=== PATIENT | male | born 1945 | race Caucasian/White ===

== ENCOUNTER 2020-05-19 08:42 | Outpatient (CLI) | payer MEDICARE ==
[~2020-05-19 08:42] MED LIST: AMLO-186 PO; ASPI325T8 PO; ATEN50TA PO; ATOR40TA59 PO; CEFP200T PO; CIPR500T94 PO; CLON0.2T PO; GLIP5TAB10 PO; HYDR-2765 PO; HYDR50TA6 PO; LISI-130 PO; METF500T16 PO; TRIF2TAB PO
[2020-05-19] MEDS ORDERED: KETAMINE HCL IN NACL, ISO-OSM 50 MG/5 ML SYRINGE ONE (08:47)
[2020-05-19] MEDS ORDERED: LIDOCAINE 2% PF 5 ML VIAL. ONE (08:47)
[2020-05-19] MEDS ORDERED: MIDAZOLAM HCL/PF 2 MG/2 ML VIAL. ONE (08:47)
[2020-05-19] MEDS ORDERED: fentaNYL PF VIAL 100 MCG/2 ML VIAL ONE (08:47)
[2020-05-19] MEDS ORDERED: PROPOFOL 50 ML IV ONE (08:48)
[2020-05-19 10:30] VITALS: BP 136/53
[2020-05-19] MEDS ORDERED: CLON0.1T PO (10:44)
[2020-05-19] MEDS ORDERED: CLON0.2T PO (10:45)
--- NOTE | 2020-05-19 15:51 | RAD ---
EXAM: MRI Lumbar Spine without IV contrast INDICATION: Reason: left lumbar radiculopathy / Spl. Instructions: / History: . TECHNIQUE: Sagittal T1-w, T2-w, and STIR images, and axial T1-w and T2-w images of the lumbar spine. COMPARISON: L-spine MRI with and without IV contrast of 05/04/2016 FINDINGS: The lowest fully formed disc is referred to as the L5-S1 level. ALIGNMENT: Alignment is within normal limits. OSSEOUS: No evidence of fracture or bone destruction. Marrow signal is within normal limits. CONUS MEDULLARIS & CAUDA EQUINA: The conus medullaris is in normal position. The conus medullaris and cauda equina are intrinsically normal. SOFT TISSUES: Partially imaged T2 bright, T1 intermediate intensity lesion in the medial aspect of th e right kidney measuring 2.7 cm, likely a partially exophytic cyst. DISC LEVELS: T12-L1: Unremarkable. L1-L2: Mild facet hypertrophy. No stenosis. L2-L3: Disc desiccation with mild loss of height. Bilateral facet hypertrophy. Moderate right and mod erate to severe left bilateral foraminal narrowing. Mild central canal narrowing from 14 mm at the le debi above to 9 mm at the current level. There is some fluid in the left facet joint. L3-L4: Disc osteophyte complex with bilateral facet hypertrophy and ligamentum flavum thickening resu lts in central canal narrowing to an AP diameter of 9 mm and severe left, moderate to severe right bi lateral foraminal stenosis and at least moderate bilateral right greater than left lateral recess raudel rowing.. Changes from previous left laminectomy show some evidence of healing. L4-L5: Disc desiccation and mild loss of height. Bilateral facet hypertrophy. Mild central canal narr owing in the AP diameter to 1 cm but with trefoil configuration to the central canal. There is left g reater than right moderate bilateral lateral recess narrowing and moderate bilateral foraminal stenos is. Changes from previous left laminectomy show some evidence of healing. L5-S1: Disc osteophyte complex asymmetric to the right and bilateral facet hypertrophy results in mod erate right and mild left foraminal stenoses. No central canal stenosis. IMPRESSION: 1. Multilevel degenerative disc disease and facet arthropathy. This is greatest at L3-L4 where there is mild central canal narrowing and severe left, moderate to severe right foraminal stenosis. 2. Additional degenerative and postoperative changes as above. Electronically signed by: Arabella Lynn MD (05/19/2020 3:48 PM) [id number]
== END 2020-05-19 11:10 | disposition home or self-care (01) ==
LOC: SURG 08:42
PROVIDERS: ATTEND Family Medicine
DX: M51.16 Intervertebral disc disorders with radiculopathy, lumbar region (principal); M48.07 Spinal stenosis, lumbosacral region; M47.26 Other spondylosis with radiculopathy, lumbar region; M89.38 Hypertrophy of bone, other site; M25.78 Osteophyte, vertebrae; M12.88 Other specific arthropathies, not elsewhere classified, other specified site
CPT/HCPCS: 72148; J2250; J2704; J3010

== ENCOUNTER 2020-08-06 10:29 | Emergency (ER) | payer MEDICARE ==
[~2020-08-06] VITALS: Ht 170.2 cm; Wt 100.0 kg
[~2020-08-06 10:29] MED LIST changes: +CLON0.1T PO; -HYDR50TA6 PO; +HYDR50TA9 PO
[2020-08-06 10:30] VITALS: BP 157/69
[2020-08-06] MEDS ORDERED: POLY119P4 PO (14:46)
[2020-08-06] MEDS ORDERED: MAGN296S68 PO (14:46)
[2020-08-06] MEDS ORDERED: DOCU100C28 PO (14:46)
--- NOTE | 2020-08-06 14:46 | PHYS DOC ---
Past Medical History Past Medical History: Constipation, Diabetes-Type II, Hypertension Additional Past Medical Histor: CHRONIC BACK PAIN Past Surgical History: Other Additional Past Surgical Histo: BACK SURG, Smoking Status: Current Every Day Smoker Alcohol Use: None General Adult EDM: Chief Complaint: CONSTIPATION HPI: HPI: Patient is a 74 year old male with history of diabetes type 2, constipation, hypertension who presents to the ED today complaining of constipation for 2 to 3 days. Patient denies any nausea or vomiting. He states he has tried milk of magnesium and stool softeners with no relief. Denies any abdominal pain. He states his rectum is impacted with stool. Review of Systems: Review of Systems: Constitutional: Denies fever or chills. [] Eyes: Denies change in visual acuity. [] HENT: Denies nasal congestion or sore throat. [] Respiratory: Denies cough or shortness of breath. [] Cardiovascular: Denies chest pain or edema. [] GI: Reports constipation, denies abdominal pain nausea, vomiting, bloody stools or diarrhea. [] : Denies dysuria. [] Musculoskeletal: Denies back pain or joint pain. [] Integument: Denies rash. [] Neurologic: Denies headache, focal weakness or sensory changes. [] Psychiatric: Denies depression or anxiety. [] Heart Score: C/O Chest Pain: N/A Risk Factors: Risk Factors: DM, Current or recent (<one month) smoker, HTN, HLP, family history of CAD, obesity. Risk Scores: Score 0 - 3: 2.5% MACE over next 6 weeks - Discharge Home Score 4 - 6: 20.3% MACE over next 6 weeks - Admit for Clinical Observation Score 7 - 10: 72.7% MACE over next 6 weeks - Early Invasive Strategies Allergies: Allergies: Allergies Coded Allergies Type Severity Reaction Last Updated Verified No Known Drug Allergies 08/06/20 No Physical Exam: PE: Constitutional: Well developed, well nourished, no acute distress, non-toxic appearance. [] HENT: Normocephalic, atraumatic, bilateral external ears normal, oropharynx moist, no oral exudates, nose normal. [] Eyes: PERRLA, EOMI, conjunctiva normal, no discharge. [] Neck: Normal range of motion, no tenderness, supple, no stridor. [] Cardiovascular:Heart rate regular rhythm, no murmur [] Lungs & Thorax: Bilateral breath sounds clear to auscultation [] Abdomen: Bowel sounds normal, soft, no tenderness, no masses, no pulsatile masses. [] Rectal exam large hard stool is palpable in the rectal vault Skin: Warm, dry, no erythema, no rash. [] Back: No tenderness, no CVA tenderness. [] Extremities: No tenderness, no cyanosis, no clubbing, ROM intact, no edema. [] Neurologic: Alert and oriented X 3, normal motor function, normal sensory function, no focal deficits noted. [] Psychologic: Affect normal, judgement normal, mood normal. [] Current Patient Data: Vital Signs: Vital Signs Date Time Temp Pulse Resp B/P (MAP) Pulse Ox O2 Delivery O2 Flow Rate FiO2 08/06/20 10:30 101.3 101 24 157/69 (98) 99 Room Air 101.3 EKG: EKG: [] Radiology/Procedures: Radiology/Procedures: [] Course & Med Decision Making: Course & Med Decision Making Pertinent Labs and Imaging studies reviewed. (See chart for details) This is a 74-year-old male patient presented to the ED today for constipation. Patient noted for impacted rectum with stool. Like of molasses enema was done which broke down most of the stool. Patient had several large bowel movements in the ED, feeling better. Discharge to home. Educated on constipation prevention and management. Julian Disclaimer: Julian Disclaimer: This electronic medical record was generated, in whole or in part, using a voice recognition dictation system. Departure Departure Impression: Primary Impression: Constipation Qualified Codes: K59.00 - Constipation, unspecified Disposition: 01 DC HOME SELF CARE/HOMELESS Condition: STABLE Referrals: LEAH GONCALVES MD (PCP) follow up next week Patient Instructions: Constipation, Adult Additional Instructions: You were evaluated in the emergency room for constipation. You were able to defecate in the emergency room. Increase your dietary fiber intake and water intake. Use the medicines prescribed as ordered. Follow-up with your doctor next week Scripts Magnesium Citrate (MAGNESIUM CITRATE) 296 Ml Solution 296 ML PO ONCE, #296 ML Prov: LATISHAA,EDOUARD SEARCH ANALYST 08/06/20 Docusate Sodium (DOCUSATE SODIUM) 100 Mg Capsule 1 CAP PO BID for constipation for 15 Days, #30 CAP 0 Refills Prov: MUTUNGA,EDOUARD SEARCH ANALYST 08/06/20 Polyethylene Glycol 3350 (MIRALAX) 119 Gm Powder 17 GM PO DAILY for constipation, #255 GM 0 Refills dissolve in water Prov: EDOUARD CAMARENA APRN 08/06/20 EDOUARD CAMARENA APRN Aug 06, 2020 14:46
== END 2020-08-06 14:56 | disposition home or self-care (01) ==
LOC: ER 10:29
DX: K59.00 Constipation, unspecified (principal); E11.9 Type 2 diabetes mellitus without complications; I10 Essential (primary) hypertension; G89.29 Other chronic pain; F17.200 Nicotine dependence, unspecified, uncomplicated
CPT/HCPCS: 99284

== ENCOUNTER 2021-03-03 14:20 | Inpatient (IN) | payer MEDICARE ==
[~2021-03-03] VITALS: Ht 170.2 cm; Wt 99.0 kg
[~2021-03-03 14:20] MED LIST changes: +DOCU100C28 PO; +MAGN296S68 PO; +POLY119P4 PO
[2021-03-03] MEDS ORDERED: IV NORMAL SALINE 1000ML BAG 1,000 ML IV ONE (14:30)
--- NOTE | 2021-03-03 14:34 | PHYS DOC ---
Past Medical History Past Medical History: Constipation, Diabetes-Type II, Hypertension Additional Past Medical Histor: CHRONIC BACK PAIN Past Surgical History: Other Additional Past Surgical Histo: BACK SURG, Smoking Status: Current Every Day Smoker Alcohol Use: None General Adult HPI: HPI: Patient is a 75 year old male with a history of diabetes type 2, hypertension, constipation, who presents the ED today complaining of generalized weakness that has been going on for days and got worse today. Patient denies any fever, cough, nasal congestion. Denies any headache, chest pain, shortness of breath. Denies any abdominal pain. He arrives in the ED covered in his own feces some of it dried on him, he states he tried cleaning himself up but he was too weak Review of Systems: Review of Systems: Constitutional: Reports generalized weakness. Denies fever or chills. [] Eyes: Denies change in visual acuity. [] HENT: Denies nasal congestion or sore throat. [] Respiratory: Denies cough or shortness of breath. [] Cardiovascular: Denies chest pain or edema. [] GI: Denies abdominal pain, nausea, vomiting, bloody stools or diarrhea. [] : Denies dysuria. [] Musculoskeletal: Denies back pain or joint pain. [] Integument: Denies rash. [] Neurologic: Denies headache, focal weakness or sensory changes. [] Psychiatric: Denies depression or anxiety. [] Heart Score: C/O Chest Pain: N/A Risk Factors: Risk Factors: DM, Current or recent (<one month) smoker, HTN, HLP, family history of CAD, obesity. Risk Scores: Score 0 - 3: 2.5% MACE over next 6 weeks - Discharge Home Score 4 - 6: 20.3% MACE over next 6 weeks - Admit for Clinical Observation Score 7 - 10: 72.7% MACE over next 6 weeks - Early Invasive Strategies Current Medications: Current Medications Medications (Trade) Dose Ordered Sig/Stephan Start Time Stop Time Status Last Admin Dose Admin Sodium Chloride 1,000 ml @ 1,000 mls/hr 1X ONCE 03/03/21 14:30 03/03/21 15:29 UNV Allergies: Allergies: Allergies Coded Allergies Type Severity Reaction Last Updated Verified No Known Drug Allergies 08/06/20 No Physical Exam: PE: Constitutional: Pale appearing patient. Well developed, well nourished, no acute distress, non-toxic appearance. [] HENT: Normocephalic, atraumatic, bilateral external ears normal, oropharynx moist, no oral exudates, nose normal. [] Eyes: PERRLA, EOMI, conjunctiva normal, no discharge. [] Neck: Normal range of motion, no tenderness, supple, no stridor. [] Cardiovascular:Heart rate regular rhythm, no murmur [] Lungs & Thorax: Bilateral breath sounds clear to auscultation [] Abdomen: Bowel sounds normal, soft, no tenderness, no masses, no pulsatile masses. [] Skin: Patient is covered in his own feces from his buttocks all the way to his feet. His hands and forearms also have feces. Some of it is dried on his skin. Back: No tenderness, no CVA tenderness. [] Extremities: No tenderness, no cyanosis, no clubbing, ROM intact, no edema. [] Neurologic: Alert and oriented X 3, normal motor function, normal sensory fu nction, no focal deficits noted. Cranial nerves II through XII intact. Psychologic: Affect normal, judgement normal, mood normal. [] EKG: EK interpreted by Dr. Denny sinus tachycardia heart rate 107 no STEMI [] Radiology/Procedures: Radiology/Procedures: []PROCEDURE: PORTABLE CHEST 1V EXAM: Chest, single view. HISTORY: Weakness. COMPARISON: None. FINDINGS: A frontal view of the chest is obtained. There is no infiltrate, pleural effusion or pneumothorax. There is cardiomegaly. IMPRESSION: Cardiomegaly. Electronically signed by: Kylie Arriola MD (03/03/2021 3:13 PM) [id number] DICTATED and SIGNED BY: KYLIE ARRIOLA MD DATE: 03/03/21 [id number] 0 Course & Med Decision Making: Course & Med Decision Making Pertinent Labs and Imaging studies reviewed. (See chart for details) This a 75-year-old male patient presenting to the ED today to be evaluated for generalized weakness. Symptoms have been going on for days. Patient arrives in the ED covered with feces. He states he tried cleaning himself but he was too weak. Vitals on arrival to the ED blood pressure 126/59, pulse 85, respirations 16 on room air, O2 sats 100%. Temperature 97.5. CBC with a WBC of 15.0, hemoglobin 5.0 with hematocrit of 17, MVC 65, MCH 19, CMP with potassium of 3.3, creatinine 3.8, BUN 122. Receiving IV fluids right now. 2 units of blood ordered. Spoke with Dr. Hall who accepted patient for admission. Spoke with Valentine NICHOLSON for [employer] OPERATOR Routine consult placed for nephrology Julian Disclaimer: Julian Disclaimer: This electronic medical record was generated, in whole or in part, using a voice recognition dictation system. Departure Departure Impression: Primary Impression: Generalized weakness Additional Impressions: Anemia Qualified Codes: D64.9 - Anemia, unspecified ARF (acute renal failure) Qualified Codes: N17.9 - Acute kidney failure, unspecified Disposition: ADMITTED INPATIENT Condition: STABLE Referrals: LEAH HALL MD (PCP) EDOUARD CAMARENA APRN Mar 03, 2021 14:34
[2021-03-03 14:49] LABS: BASO % 0 % (0-3); EOS % 0 % (0-3); LYMPH # 0.4 x10^3/uL (1.0-4.8); LYMPH % 3 % (24-48); MEAN CORPUSCULAR HEMOGLOBIN 19 pg (25-35); MEAN CORPUSCULAR HGB CONC 29 g/dL (31-37); MEAN CORPUSCULAR VOLUME 65 fL (79-100); MONO # 0.9 x10^3/uL (0.0-1.1); MONO % 6 % (0-9); NEUT # 13.7 x10^3/uL (1.8-7.7); NEUT % 91 % (31-73); PLATELET COUNT 380 x10^3/uL (140-400); RED BLOOD COUNT 2.61 x10^6/uL (4.30-5.70); RED CELL DISTRIBUTION WIDTH 20.5 % (11.5-14.5); WHITE BLOOD COUNT 15.1 x10^3/uL (4.0-11.0)
[2021-03-03 15:02] LABS: CALCIUM 8.3 mg/dL (8.5-10.1); CREATININE 3.8 mg/dL (0.7-1.3); GFR 15.6; POTASSIUM 3.3 mmol/L (3.5-5.1)
[2021-03-03 15:08] LABS: ALBUMIN 3.1 g/dL (3.4-5.0); ALBUMIN/GLOBULIN RATIO 0.8 (1.0-1.7); MAGNESIUM 2.4 mg/dL (1.8-2.4); TOTAL BILIRUBIN 1.1 mg/dL (0.2-1.0); TOTAL PROTEIN 6.8 g/dL (6.4-8.2)
[2021-03-03 15:15] LABS: % BANDS 1 % (0-9); % LYMPHS 3 % (24-48); % MONOS 3 % (0-10); % SEGS 93 % (35-66); PLT ESTIMATE ADEQUATE (ADEQUATE)
[2021-03-03] MEDS ORDERED: ACETAMINOPHEN 325 MG TABLET. PO PRN (15:15)
[2021-03-03] MEDS ORDERED: ONDANSETRON PF 4 MG/2 ML VIAL. IVP PRN (15:15)
[2021-03-03] MEDS ORDERED: FAMOTIDINE 20 MG/2 ML VIAL IVP ONE (15:15)
[2021-03-03] MEDS ORDERED: MORPHINE SULFATE 2 MG/ML INJ. IVP PRN (15:15)
--- NOTE | 2021-03-03 15:15 | RAD ---
EXAM: Chest, single view. HISTORY: Weakness. COMPARISON: None. FINDINGS: A frontal view of the chest is obtained. There is no infiltrate, pleural effusion or pneumo thorax. There is cardiomegaly. IMPRESSION: Cardiomegaly. Electronically signed by: Kylie Courtney MD (03/03/2021 3:13 PM) [id number]
[2021-03-03 15:16] LABS: HYPOCHROMIA MARKED; MICROCYTOSIS MARKED; POLYCHROMASIA SLIGHT; SCHISTOCYTES FEW
[2021-03-03 15:17] LABS: ANISOCYTOSIS MOD
--- NOTE | 2021-03-03 15:34 | RAD ---
EXAM: CT HEAD WITHOUT CONTRAST. HISTORY: Weakness. TECHNIQUE: Computed tomography of the head was performed without intravenous contrast. One or more of the following individualized dose reduction techniques were utilized for this examination: 1. Automated exposure control. 2. Adjustment of the mA and/or kV according to patient size. 3. Use of iterative reconstruction technique. COMPARISON: None. FINDINGS: There is no intracranial hemorrhage. Hypoattenuation within the periventricular white matte r indicates mild chronic microangiopathic change. Prominence of the lateral ventricles and hemispheri c sulci indicates moderate atrophy. The visualized paranasal sinuses appear clear. There is at least mild bilateral proptosis without ext raocular muscle enlargement or oral mass. The temporal bones are unremarkable. The calvarium reveals no suspicious lesions. There are atherosclerotic calcifications of the internal carotid and vertebral arteries. IMPRESSION: 1. No acute intracranial findings. 2. Moderate atrophy and mild chronic microangiopathic white matter change. 3. Bilateral proptosis appears to be secondary to expansion of orbital fat. Correlate to exclude caus es such as thyroid ophthalmopathy. Electronically signed by: Toño Huber MD (03/03/2021 3:31 PM) [id number]
[2021-03-03 15:57] LABS: FECAL OB PT POSITIVE (NEG)
[2021-03-03] MEDS ORDERED: POLYETHYLENE GLYCOL 3350 17 GM PACKET. PO PRN (16:00)
--- NOTE | 2021-03-03 16:00 | PDOC2 ---
GI CONSULT Date of Service: DATE: 03/03/21 TIME: 15:36 Reason For Consult: anemia HPI: HPI: 75 y/o male to ER w/ weakness. We are asked to see for DOREEN. D/w ER staff - was covered in dried feces and urine, also reports of large pressure sore. Pt reports weakness has been ongoing for months - years but has been worse "several times" recently. He denies obvious GI bleeding including hematemesis, hematochezia, and melena. Occasional heartburn, untreated. No dysphagia, n/v, and abdominal pain. Says hasn't been eating normally because he couldn't get up to get food. Also hasn't been stooling normally because he couldn't get up (but also says no diarrhea or constipation). Assumes weight loss. No previous EGD or colonoscopy and "I don't want that!" No GB, liver, pancreas, or PUD history. Chronic back pain on hydrocodone PRN. Denies NSAIDs. Says sees Dr. Hall every 6 months and has labs. Unaware of any anemia history. Had mobile mum. Reviewed past labs in [facility] - anemic (Hgb 11) in 2016, normal BUN, Cr, and LFTs then. PMH: PMH: HTN, DM, lumbar stenosis back surgery, appendectomy, shoulder surgery FH: Family History: No pertinent hx Social History: Smoke: Quit ALCOHOL: other (some in the past, quit awhile ago) Drugs: None ROS: GEN: Denies fevers, chills, sweats HEENT: Denies blurred vision, sore throat CV: Denies chest pain RESP: Denies shortness of air, cough GI: Per HPI : Denies hematuria, dysuria ENDO: ?weight loss NEURO: Denies confusion, dizziness MSK: +weakness +back pain SKIN: Denies jaundice, pruritus Vitals: Vitals: Vital Signs Date Time Temp Pulse Resp B/P (MAP) Pulse Ox O2 Delivery O2 Flow Rate FiO2 03/03/21 14:42 97.5 85 16 126/59 (81) 100 Room Air 97.5 Labs: Labs: Laboratory Tests Test 03/03/21 14:25 White Blood Count 15.1 x10^3/uL (4.0-11.0) Red Blood Count 2.61 x10^6/uL (4.30-5.70) Hemoglobin 5.0 g/dL (13.0-17.5) Hematocrit 17.0 % (39.0-53.0) Mean Corpuscular Volume 65 fL (79-100) Mean Corpuscular Hemoglobin 19 pg (25-35) Mean Corpuscular Hemoglobin Concent 29 g/dL (31-37) Red Cell Distribution Width 20.5 % (11.5-14.5) Platelet Count 380 x10^3/uL (140-400) Neutrophils (%) (Auto) 91 % (31-73) Lymphocytes (%) (Auto) 3 % (24-48) Monocytes (%) (Auto) 6 % (0-9) Eosinophils (%) (Auto) 0 % (0-3) Basophils (%) (Auto) 0 % (0-3) Neutrophils # (Auto) 13.7 x10^3/uL (1.8-7.7) Lymphocytes # (Auto) 0.4 x10^3/uL (1.0-4.8) Monocytes # (Auto) 0.9 x10^3/uL (0.0-1.1) Eosinophils # (Auto) 0.0 x10^3/uL (0.0-0.7) Basophils # (Auto) 0.0 x10^3/uL (0.0-0.2) Segmented Neutrophils % 93 % (35-66) Band Neutrophils % 1 % (0-9) Lymphocytes % 3 % (24-48) Monocytes % 3 % (0-10) Platelet Estimate Adequate (ADEQUATE) Polychromasia Slight Hypochromasia Marked Anisocytosis Mod Microcytosis Marked Macrocytosis Schistocytes Few Sodium Level 134 mmol/L (136-145) Potassium Level 3.3 mmol/L (3.5-5.1) Chloride Level 96 mmol/L (98-107) Carbon Dioxide Level 15 mmol/L (21-32) Anion Gap 23 (6-14) Blood Urea Nitrogen 122 mg/dL (8-26) Creatinine 3.8 mg/dL (0.7-1.3) Estimated GFR (Cockcroft-Gault) 15.6 BUN/Creatinine Ratio 32 (6-20) Glucose Level 170 mg/dL (70-99) Calcium Level 8.3 mg/dL (8.5-10.1) Magnesium Level 2.4 mg/dL (1.8-2.4) Iron Level 12 ug/dL (65-175) Total Iron Binding Capacity 427 ug/dL (250-450) Iron Saturation 3 % (15-34) Total Bilirubin 1.1 mg/dL (0.2-1.0) Aspartate Amino Transf (AST/SGOT) 126 U/L (15-37) Alanine Aminotransferase (ALT/SGPT) 570 U/L (16-63) Alkaline Phosphatase 149 U/L (46-116) Troponin I Quantitative 0.047 ng/mL (0.000-0.055) AA-Qkl-G-Type Natriuretic Peptide 83343 pg/mL (0-124) Total Protein 6.8 g/dL (6.4-8.2) Albumin 3.1 g/dL (3.4-5.0) Albumin/Globulin Ratio 0.8 (1.0-1.7) Thyroid Stimulating Hormone (TSH) 0.390 uIU/mL (0.358-3.74) Allergies: Coded Allergies: No Known Drug Allergies (Unverified , 08/06/20) Medications: Current Medications Medications (Trade) Dose Ordered Sig/Stephan Route PRN Reason Start Time Stop Time Status Last Admin Dose Admin Sodium Chloride 1,000 ml @ 1,000 mls/hr 1X ONCE IV 03/03/21 14:30 03/03/21 15:29 DC 03/03/21 15:03 Imaging: Imaging: CXR 03/02 IMPRESSION: Cardiomegaly. Head CT 03/02 IMPRESSION: 1. No acute intracranial findings. 2. Moderate atrophy and mild chronic microangiopathic white matter change. 3. Bilateral proptosis appears to be secondary to expansion of orbital fat. Correlate to exclude causes such as thyroid ophthalmopathy. PE: GEN: NAD, brother present HEENT: Atraumatic, PERRL LUNGS: diminished anteriorly HEART: RRR ABD: NABS, S/NT, maybe some distention SKIN: pale NEURO/PSYCH: A & O 3, not a great historian, anxious A/P: A/P: Weakness Leukocytosis, DOREEN, KAMILLE, elevated BNP, elevated LFTs, +Hemoccult Occasional heartburn CRC screen - none Chronic pain Rapid COVID negative -- Agree w/ transfusion. Start iron and PPI. Follow labs. Check abd US for completeness. Okay to eat per GI. Suggested he consider EGD and colonoscopy at some point as outpt - he declines. Defer goals of care discussion to Dr. Hall. Address KAMILLE and BNP - nephrology asked to see. SHERIF PHILLIPS Mar 03, 2021 16:00
--- NOTE | 2021-03-03 16:46 | RAD ---
EXAM: Abdomen sonogram. HISTORY: Elevated liver function laboratory values. TECHNIQUE: Sonographic imaging of the abdomen was performed. COMPARISON: None. FINDINGS: The liver is normal in size. The liver parenchyma is echogenic. However, this is similar to the adjacent right renal parenchyma. No focal hepatic lesion is seen. The kidneys are normal in size . There are simple appearing right renal cysts, the largest of which measures 3.1 cm. Postoperative p erformed for simple cysts. The spleen is normal in size. The pancreas, aorta and inferior vena cava a re partially obscured due to bowel gas. There is trace perihepatic ascites. IMPRESSION: 1. Echogenic hepatic parenchyma. This is similar compared to the renal protocol and may be due to bautista ging technique. Given abnormal liver function laboratory values, this may also be due to hepatic stea tosis. No focal hepatic lesion is seen. 2. Simple right renal cysts. 3. Trace perihepatic ascites. Electronically signed by: Kylie Courtney MD (03/03/2021 4:44 PM) [id number]
[2021-03-03 18:12] VITALS: BP 91/46
[2021-03-03] MEDS ORDERED: PIOG30TA62 PO (18:12)
[2021-03-03] MEDS ORDERED: CALC500T54 PO (18:12)
--- NOTE | 2021-03-03 18:19 | EKG ---
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
[2021-03-03 20:43] VITALS: BP 90/36
[2021-03-03] MEDS: FERROUS SULFATE 325 MG TABLET. PO SCH (20:55)
[2021-03-03] MEDS: PANTOPRAZOLE 40 MG TABLET.DR. PO SCH (20:55)
[2021-03-03 21:08] VITALS: BP 102/42
[2021-03-03 23:27] VITALS: BP 98/52
[2021-03-03 23:36] VITALS: BP 101/42
[2021-03-03 23:51] VITALS: BP 92/45
[2021-03-04] VITALS (23 sets, daily range): BP systolic 91–129; BP diastolic 41–65
[2021-03-04 04:51] LABS: BASO % 0 % (0-3); EOS % 0 % (0-3); LYMPH # 1.2 x10^3/uL (1.0-4.8); LYMPH % 10 % (24-48); MEAN CORPUSCULAR HEMOGLOBIN 21 pg (25-35); MEAN CORPUSCULAR HGB CONC 30 g/dL (31-37); MEAN CORPUSCULAR VOLUME 70 fL (79-100); MONO # 0.7 x10^3/uL (0.0-1.1); MONO % 6 % (0-9); NEUT # 10.4 x10^3/uL (1.8-7.7); NEUT % 84 % (31-73); PLATELET COUNT 282 x10^3/uL (140-400); RED BLOOD COUNT 2.78 x10^6/uL (4.30-5.70); RED CELL DISTRIBUTION WIDTH 23.8 % (11.5-14.5); WHITE BLOOD COUNT 12.3 x10^3/uL (4.0-11.0)
[2021-03-04 04:57] LABS: HEMATOCRIT 19.4 % (39.0-53.0); HEMOGLOBIN 5.9 g/dL (13.0-17.5)
[2021-03-04 05:00] LABS: ALBUMIN 2.8 g/dL (3.4-5.0); ALBUMIN/GLOBULIN RATIO 0.8 (1.0-1.7); CALCIUM 7.9 mg/dL (8.5-10.1); CREATININE 3.4 mg/dL (0.7-1.3); GFR 17.8; TOTAL BILIRUBIN 1.2 mg/dL (0.2-1.0); TOTAL PROTEIN 6.2 g/dL (6.4-8.2)
[2021-03-04 05:02] LABS: POTASSIUM 2.6 mmol/L (3.5-5.1)
--- NOTE | 2021-03-04 06:26 | NUR ---
Pt received 2 units of PRBC's during the noc. Rechecked labs after 15m and hgb only increased to 5.9. Will recheck labs. Notified Dr. Hall of critical K level however Physician wants level rechecked also. Pt laying in bed without complaints. Pt does moan frequently like he is in discomfort. However when this nurse asks him if he is uncomfortable he states no. Pt continues with redness all over in groin site, barrier cream applied. Pictures taken of pt's buttocks due to open areas and possible DTI. Pt forgetful and continues to take heart monitor, gown and nasal cannula off while lying in bed. Bed alarm on at this time and will continue to monitor.
[2021-03-04] MEDS: PANTOPRAZOLE 40 MG TABLET.DR. PO SCH (08:28)
[2021-03-04] MEDS: FERROUS SULFATE 325 MG TABLET. PO SCH ×2 (08:28→17:28)
--- NOTE | 2021-03-04 10:05 | PDOC ---
Date of Service: DATE: 03/04/21 TIME: 09:57 Subjective: Subjective: "Where are you?" - he asked as I was standing in the doorway. Objective: Objective: D/w nurse - plans for two more units pRBCs, IVF, and potassium replacement. 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 Apparently was "down for a week." Was told he'd need a colonoscopy as outpt. Vital Signs: Vital Signs Date Time Temp Pulse Resp B/P (MAP) Pulse Ox O2 Delivery O2 Flow Rate FiO2 03/04/21 07:00 97.7 82 18 101/44 (63) 90 Nasal Cannula 2.0 97.7 Labs: Laboratory Tests Test 03/03/21 14:24 03/03/21 14:25 03/03/21 15:15 03/03/21 15:20 Creatine Kinase 1764 U/L Vitamin B12 Level 436 pg/mL White Blood Count 15.1 x10^3/uL Red Blood Count 2.61 x10^6/uL Hemoglobin 5.0 g/dL Hematocrit 17.0 % Mean Corpuscular Volume 65 fL Mean Corpuscular Hemoglobin 19 pg Mean Corpuscular Hemoglobin Concent 29 g/dL Red Cell Distribution Width 20.5 % Platelet Count 380 x10^3/uL Neutrophils (%) (Auto) 91 % Lymphocytes (%) (Auto) 3 % Monocytes (%) (Auto) 6 % Eosinophils (%) (Auto) 0 % Basophils (%) (Auto) 0 % Neutrophils # (Auto) 13.7 x10^3/uL Lymphocytes # (Auto) 0.4 x10^3/uL Monocytes # (Auto) 0.9 x10^3/uL Eosinophils # (Auto) 0.0 x10^3/uL Basophils # (Auto) 0.0 x10^3/uL Segmented Neutrophils % 93 % Band Neutrophils % 1 % Lymphocytes % 3 % Monocytes % 3 % Platelet Estimate Adequate Polychromasia Slight Hypochromasia Marked Anisocytosis Mod Microcytosis Marked Macrocytosis Schistocytes Few Sodium Level 134 mmol/L Potassium Level 3.3 mmol/L Chloride Level 96 mmol/L Carbon Dioxide Level 15 mmol/L Anion Gap 23 Blood Urea Nitrogen 122 mg/dL Creatinine 3.8 mg/dL Estimated GFR (Cockcroft-Gault) 15.6 BUN/Creatinine Ratio 32 Glucose Level 170 mg/dL Calcium Level 8.3 mg/dL Magnesium Level 2.4 mg/dL Iron Level 12 ug/dL Total Iron Binding Capacity 427 ug/dL Iron Saturation 3 % Total Bilirubin 1.1 mg/dL Aspartate Amino Transf (AST/SGOT) 126 U/L Alanine Aminotransferase (ALT/SGPT) 570 U/L Alkaline Phosphatase 149 U/L Troponin I Quantitative 0.047 ng/mL PD-Gvq-W-Type Natriuretic Peptide 21577 pg/mL Total Protein 6.8 g/dL Albumin 3.1 g/dL Albumin/Globulin Ratio 0.8 Thyroid Stimulating Hormone (TSH) 0.390 uIU/mL SARS-CoV-2 Antigen (Rapid) Negative Stool Occult Blood Positive Test 03/03/21 20:35 03/03/21 20:51 03/04/21 03:05 03/04/21 06:40 Troponin I Quantitative 0.045 ng/mL Glucose (Fingerstick) 170 mg/dL White Blood Count 12.3 x10^3/uL Red Blood Count 2.78 x10^6/uL Hemoglobin 5.9 g/dL 6.0 g/dL Hematocrit 19.4 % 20.0 % Mean Corpuscular Volume 70 fL Mean Corpuscular Hemoglobin 21 pg Mean Corpuscular Hemoglobin Concent 30 g/dL Red Cell Distribution Width 23.8 % Platelet Count 282 x10^3/uL Neutrophils (%) (Auto) 84 % Lymphocytes (%) (Auto) 10 % Monocytes (%) (Auto) 6 % Eosinophils (%) (Auto) 0 % Basophils (%) (Auto) 0 % Neutrophils # (Auto) 10.4 x10^3/uL Lymphocytes # (Auto) 1.2 x10^3/uL Monocytes # (Auto) 0.7 x10^3/uL Eosinophils # (Auto) 0.0 x10^3/uL Basophils # (Auto) 0.0 x10^3/uL Sodium Level 136 mmol/L Potassium Level 2.6 mmol/L 2.6 mmol/L Chloride Level 99 mmol/L Carbon Dioxide Level 18 mmol/L Anion Gap 19 Blood Urea Nitrogen 116 mg/dL Creatinine 3.4 mg/dL Estimated GFR (Cockcroft-Gault) 17.8 BUN/Creatinine Ratio 34 Glucose Level 136 mg/dL Calcium Level 7.9 mg/dL Total Bilirubin 1.2 mg/dL Aspartate Amino Transf (AST/SGOT) 97 U/L Alanine Aminotransferase (ALT/SGPT) 455 U/L Alkaline Phosphatase 124 U/L Total Protein 6.2 g/dL Albumin 2.8 g/dL Albumin/Globulin Ratio 0.8 Test 03/04/21 07:18 Glucose (Fingerstick) 129 mg/dL Imaging: Abd US 03/03 IMPRESSION: 1. Echogenic hepatic parenchyma. This is similar compared to the renal protocol and may be due to imaging technique. Given abnormal liver function laboratory values, this may also be due to hepatic steatosis. No focal hepatic lesion is seen. 2. Simple right renal cysts. 3. Trace perihepatic ascites. PE: GEN: NAD - was asleep sitting up in bed, breakfast tray empty LUNGS: CTAB HEART: RRR ABD: S/ND/NT NEURO/PSYCH: lethargic A/P: Rhabdo - KAMILLE, elevated LFTs DOREEN, +Hemoccult - started on PPI + iron Hypokalemia ?hepatic steatosis Rapid COVID negative -- Continue same per GI - follow LFTs, plan for outpt scopes. Justicifation of Admission Dx: Justifications for Admission: Justification of Admission Dx: Yes SHERIF PHILLIPS Mar 04, 2021 10:05
--- NOTE | 2021-03-04 10:50 | NUR ---
SW following. Discussed with RN, pt from home alone, 2L (does not use oxygen at home), ada diet. Pt was found on the floor after a week by his brother, which is very unusual for pt to have this kind of problem. PT/OT ordered. Rapid COVID-19 negative. Pt getting blood and potassium replaced. Wound care, GI and Nephrology following. SW will continue to follow.
--- NOTE | 2021-03-04 11:22 | PDOC2 ---
CONSULT Date of Consult Date of Consult DATE: 03/04/21 TIME: 11:02 Reason for Consult Reason for Consult: KAMILLE Source Source: Chart review, Patient History of Present Illness Reason for Visit: Patient is a 75 year old CM with a history of diabetes type 2, hypertension, who presents the ED today complaining of generalized weakness that has been going on for days and gradually getting worse He denies any fever, cough, nasal congestion. Denies any headache, chest pain, shortness of breath. Denies any abdominal pain. Denies any N/V/D Denies any urinary complaints . Denies Denies use of NSAID's or any other OTC supplements . Denies hematemesis, hematochezia, and melena. He has occasional heartburn No dysphagia. He reports poor PO intake as he couldn't get up to get food. He reports drinking heavily but quit few months ago. 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 Hall every 6 months and has labs. He recd Novavax AB. Currently c/o feeling very thirsty and mouth feeling dry He arrived in the ED covered in his own feces s he states he tried cleaning himself up but he was too weak Past Medical History Past Medical History HTN, DM, lumbar stenosis Past Surgical History Past Surgical History back surgery, appendectomy, shoulder surgery Family History Family History No pertinent hx Social History Social History Smoke: Quit ALCOHOL:reports drinking moderate to heavy , quit few months ago Drugs: None Quit ALCOHOL: other (some in the past, quit awhile ago) Drugs: None Current Problem List Problem List Problems Medical Problems: (1) Anemia Status: Acute (2) ARF (acute renal failure) Status: Acute (3) Generalized weakness Status: Acute Current Medications Current Medications Current Medications Sodium Chloride 1,000 ml @ 1,000 mls/hr 1X ONCE IV Last administered on 03/03/21at 15:03; Start 03/03/21 at 14:30; Stop 03/03/21 at 15:29; Status DC Ondansetron HCl (Zofran) 4 mg PRN Q8HRS PRN IVP NAUSEA/VOMITING; Start 03/03/21 at 15:15; Stop 03/04/21 at 15:14 Morphine Sulfate (Morphine Sulfate) 2 mg PRN Q2HR PRN IVP PAIN; Start 03/03/21 at 15:15; Stop 03/04/21 at 15:14 Acetaminophen (Tylenol) 650 mg PRN Q4HRS PRN PO FEVER > 100.3'F Last administered on 03/04/21at 08:29; Start 03/03/21 at 15:15; Stop 03/04/21 at 15:14 Famotidine (Pepcid Vial) 20 mg 1X ONCE IVP Last administered on 03/03/21at 16:10; Start 03/03/21 at 15:15; Stop 03/03/21 at 15:16; Status DC Pantoprazole Sodium (Protonix) 40 mg DAILYAC PO Last administered on 03/04/21at 08:28; Start 03/03/21 at 16:30 Ferrous Sulfate (Feosol) 325 mg BIDWMEALS PO Last administered on 03/04/21at 08:28; Start 03/03/21 at 17:00 Polyethylene Glycol (miraLAX PACKET) 17 gm PRN DAILY PRN PO CONSTIPATION; Start 03/03/21 at 16:00 Potassium Chloride 40 meq/ Sodium Chloride 1,020 ml @ 100 mls/hr [id number] IV ; Start 03/04/21 at 09:00 Potassium Chloride/Water 100 ml @ 100 mls/hr Q1H IV ; Start 03/04/21 at 09:00; Stop 03/04/21 at 12:59 Active Scripts Active Magnesium Citrate 296 Ml Solution 296 Ml PO ONCE Docusate Sodium 100 Mg Capsule 1 Cap PO BID 15 Days Miralax (Polyethylene Glycol 3350) 119 Gm Powder 17 Gm PO DAILY dissolve in water Reported Calcium (Calcium Carbonate) 500 Mg Tab.chew 1,000 Mg PO DAILY Pioglitazone Hcl 30 Mg Tablet 30 Mg PO DAILY Clonidine Hcl 0.2 Mg Tablet 0.2 Mg PO QPM Clonidine Hcl 0.1 Mg Tablet 0.1 Mg PO QAM Amlodipine Besylate 5 Mg Tablet 5 Mg PO DAILY LAST DOSE GIVEN: DATE:02-19-16 TIME:9:00 a.m. NEXT DOSE DUE: DATE:02-20-16 TIME:9:00 a.m. Glipizide 5 Mg Tablet 1 Tab PO DAILY LAST DOSE GIVEN: DATE:02-18-16 TIME:5:00 p.m. NEXT DOSE DUE: DATE:02-19-16 TIME:5:00 p.m. Atorvastatin Calcium 40 Mg Tablet 1 Tab PO QHS LAST DOSE GIVEN: DATE:02-18-16 TIME:9:00 p.m. NEXT DOSE DUE: DATE:02-19-16 TIME:9:00 p.m. Trifluoperazine Hcl 2 Mg Tablet 2 Mg PO Not given while in hosp. May resume at home as directed. Atenolol 50 Mg Tablet 1 Tab PO DAILY LAST DOSE GIVEN: DATE:02-19-16 TIME:9:00 a.m. NEXT DOSE DUE: DATE:02-20-16 TIME:9:00 a.m. Lisinopril 40 Mg Tablet 1 Tab PO DAILY LAST DOSE GIVEN: DATE:02-19-16 TIME:9:00 a.m. NEXT DOSE DUE: DATE:02-20-16 TIME:9:00 a.m. Hydrochlorothiazide Tablet (Hydrochlorothiazide) 50 Mg Tablet 1 Tab PO DAILY LAST DOSE GIVEN: DATE:02-19-16 TIME:9:00 a.m. NEXT DOSE DUE: DATE:02-20-16 TIME:9:00 a.m. Metformin Hcl 500 Mg Tablet 1 Tab PO BID LAST DOSE GIVEN: DATE:02-19-16 TIME:9:00 a.m. NEXT DOSE DUE: DATE:02-19-16 TIME:5:00 p.m. Allergies Allergies: Coded Allergies: No Known Drug Allergies (Unverified , 08/06/20) ROS Review of System As per HPI, rest of the ROS is negative Physical Exam Physical Exam General NAD HEEN Om dry, anicteric Neck Supple Lungs CTA, decreased at bases, Non labored CV S1S2, No murmur ot rub Abd soft , NT, BS + Ext No LE edema, No cyanosis Derm No Rash- per RN Skin Excoriated in Scrotal area Neuro Grossly Normal , No focal deficit No Ritter, No CVA or SP tenderness Psych Cooperative Vital Signs Vital Signs Date Time Temp Pulse Resp B/P (MAP) Pulse Ox O2 Delivery O2 Flow Rate FiO2 03/04/21 10:45 97.6 91 17 101/48 97.6 03/04/21 07:00 90 Nasal Cannula 2.0 Assessment & Plan KAMILLE - suspect Vasomotor 2/2 severe Dehydration , Poor PO intake , Hypotensive at presentation acute decrease in Hgb/?GI bleed / mild Rhabdo.Non Oliguric . Recd only 1 Lts IV NS since admission , s/p PRBC. UA not done at presentation ; US- Kidneys unremarkable, Renal function improving, Maintain Hydration- IV NS , Supportive care , Strict I/O (ritter 2/2 excoriation ) , avoid Nephrotoxins . Discussed with RN Rhabdomyolysis- mild, monitor trend , IVF , maintain hydration HypoKalemia - replacing IV . Mg normal Acidosis - 2/2 KAMILLE, Monitor . if stays low will switch to Bicarb gtt Anemia- severe , acute , Hemoccult . Recd 2 Units of PRBC ; Hgb still 6- PRBC x 2 ordered for today . Defer to GI / Primary Elevated LFT's/ -Hx of ETOH until recently . US ? hepatic Steatosis , defer to GI Labs Labs Laboratory Tests Test 03/03/21 14:24 03/03/21 14:25 03/03/21 15:15 03/03/21 15:20 Creatine Kinase 1764 U/L (39-308) Vitamin B12 Level 436 pg/mL (247-911) White Blood Count 15.1 x10^3/uL (4.0-11.0) Red Blood Count 2.61 x10^6/uL (4.30-5.70) Hemoglobin 5.0 g/dL (13.0-17.5) Hematocrit 17.0 % (39.0-53.0) Mean Corpuscular Volume 65 fL (79-100) Mean Corpuscular Hemoglobin 19 pg (25-35) Mean Corpuscular Hemoglobin Concent 29 g/dL (31-37) Red Cell Distribution Width 20.5 % (11.5-14.5) Platelet Count 380 x10^3/uL (140-400) Neutrophils (%) (Auto) 91 % (31-73) Lymphocytes (%) (Auto) 3 % (24-48) Monocytes (%) (Auto) 6 % (0-9) Eosinophils (%) (Auto) 0 % (0-3) Basophils (%) (Auto) 0 % (0-3) Neutrophils # (Auto) 13.7 x10^3/uL (1.8-7.7) Lymphocytes # (Auto) 0.4 x10^3/uL (1.0-4.8) Monocytes # (Auto) 0.9 x10^3/uL (0.0-1.1) Eosinophils # (Auto) 0.0 x10^3/uL (0.0-0.7) Basophils # (Auto) 0.0 x10^3/uL (0.0-0.2) Segmented Neutrophils % 93 % (35-66) Band Neutrophils % 1 % (0-9) Lymphocytes % 3 % (24-48) Monocytes % 3 % (0-10) Platelet Estimate Adequate (ADEQUATE) Polychromasia Slight Hypochromasia Marked Anisocytosis Mod Microcytosis Marked Macrocytosis Schistocytes Few Sodium Level 134 mmol/L (136-145) Potassium Level 3.3 mmol/L (3.5-5.1) Chloride Level 96 mmol/L (98-107) Carbon Dioxide Level 15 mmol/L (21-32) Anion Gap 23 (6-14) Blood Urea Nitrogen 122 mg/dL (8-26) Creatinine 3.8 mg/dL (0.7-1.3) Estimated GFR (Cockcroft-Gault) 15.6 BUN/Creatinine Ratio 32 (6-20) Glucose Level 170 mg/dL (70-99) Calcium Level 8.3 mg/dL (8.5-10.1) Magnesium Level 2.4 mg/dL (1.8-2.4) Iron Level 12 ug/dL (65-175) Total Iron Binding Capacity 427 ug/dL (250-450) Iron Saturation 3 % (15-34) Total Bilirubin 1.1 mg/dL (0.2-1.0) Aspartate Amino Transf (AST/SGOT) 126 U/L (15-37) Alanine Aminotransferase (ALT/SGPT) 570 U/L (16-63) Alkaline Phosphatase 149 U/L (46-116) Troponin I Quantitative 0.047 ng/mL (0.000-0.055) DM-Rfr-Y-Type Natriuretic Peptide 31115 pg/mL (0-124) Total Protein 6.8 g/dL (6.4-8.2) Albumin 3.1 g/dL (3.4-5.0) Albumin/Globulin Ratio 0.8 (1.0-1.7) Thyroid Stimulating Hormone (TSH) 0.390 uIU/mL (0.358-3.74) SARS-CoV-2 Antigen (Rapid) Negative (NEGATIVE) Stool Occult Blood Positive (NEG) Test 03/03/21 20:35 03/03/21 20:51 03/04/21 03:05 03/04/21 06:40 Troponin I Quantitative 0.045 ng/mL (0.000-0.055) Glucose (Fingerstick) 170 mg/dL (70-99) White Blood Count 12.3 x10^3/uL (4.0-11.0) Red Blood Count 2.78 x10^6/uL (4.30-5.70) Hemoglobin 5.9 g/dL (13.0-17.5) 6.0 g/dL (13.0-17.5) Hematocrit 19.4 % (39.0-53.0) 20.0 % (39.0-53.0) Mean Corpuscular Volume 70 fL (79-100) Mean Corpuscular Hemoglobin 21 pg (25-35) Mean Corpuscular Hemoglobin Concent 30 g/dL (31-37) Red Cell Distribution Width 23.8 % (11.5-14.5) Platelet Count 282 x10^3/uL (140-400) Neutrophils (%) (Auto) 84 % (31-73) Lymphocytes (%) (Auto) 10 % (24-48) Monocytes (%) (Auto) 6 % (0-9) Eosinophils (%) (Auto) 0 % (0-3) Basophils (%) (Auto) 0 % (0-3) Neutrophils # (Auto) 10.4 x10^3/uL (1.8-7.7) Lymphocytes # (Auto) 1.2 x10^3/uL (1.0-4.8) Monocytes # (Auto) 0.7 x10^3/uL (0.0-1.1) Eosinophils # (Auto) 0.0 x10^3/uL (0.0-0.7) Basophils # (Auto) 0.0 x10^3/uL (0.0-0.2) Sodium Level 136 mmol/L (136-145) Potassium Level 2.6 mmol/L (3.5-5.1) 2.6 mmol/L (3.5-5.1) Chloride Level 99 mmol/L (98-107) Carbon Dioxide Level 18 mmol/L (21-32) Anion Gap 19 (6-14) Blood Urea Nitrogen 116 mg/dL (8-26) Creatinine 3.4 mg/dL (0.7-1.3) Estimated GFR (Cockcroft-Gault) 17.8 BUN/Creatinine Ratio 34 (6-20) Glucose Level 136 mg/dL (70-99) Calcium Level 7.9 mg/dL (8.5-10.1) Total Bilirubin 1.2 mg/dL (0.2-1.0) Aspartate Amino Transf (AST/SGOT) 97 U/L (15-37) Alanine Aminotransferase (ALT/SGPT) 455 U/L (16-63) Alkaline Phosphatase 124 U/L (46-116) Total Protein 6.2 g/dL (6.4-8.2) Albumin 2.8 g/dL (3.4-5.0) Albumin/Globulin Ratio 0.8 (1.0-1.7) Test 03/04/21 07:18 Glucose (Fingerstick) 129 mg/dL (70-99) Laboratory Tests Test 03/03/21 14:24 03/03/21 14:25 03/03/21 15:15 03/03/21 15:20 Creatine Kinase 1764 U/L (39-308) Vitamin B12 Level 436 pg/mL (247-911) White Blood Count 15.1 x10^3/uL (4.0-11.0) Red Blood Count 2.61 x10^6/uL (4.30-5.70) Hemoglobin 5.0 g/dL (13.0-17.5) Hematocrit 17.0 % (39.0-53.0) Mean Corpuscular Volume 65 fL (79-100) Mean Corpuscular Hemoglobin 19 pg (25-35) Mean Corpuscular Hemoglobin Concent 29 g/dL (31-37) Red Cell Distribution Width 20.5 % (11.5-14.5) Platelet Count 380 x10^3/uL (140-400) Neutrophils (%) (Auto) 91 % (31-73) Lymphocytes (%) (Auto) 3 % (24-48) Monocytes (%) (Auto) 6 % (0-9) Eosinophils (%) (Auto) 0 % (0-3) Basophils (%) (Auto) 0 % (0-3) Neutrophils # (Auto) 13.7 x10^3/uL (1.8-7.7) Lymphocytes # (Auto) 0.4 x10^3/uL (1.0-4.8) Monocytes # (Auto) 0.9 x10^3/uL (0.0-1.1) Eosinophils # (Auto) 0.0 x10^3/uL (0.0-0.7) Basophils # (Auto) 0.0 x10^3/uL (0.0-0.2) Segmented Neutrophils % 93 % (35-66) Band Neutrophils % 1 % (0-9) Lymphocytes % 3 % (24-48) Monocytes % 3 % (0-10) Platelet Estimate Adequate (ADEQUATE) Polychromasia Slight Hypochromasia Marked Anisocytosis Mod Microcytosis Marked Macrocytosis Schistocytes Few Sodium Level 134 mmol/L (136-145) Potassium Level 3.3 mmol/L (3.5-5.1) Chloride Level 96 mmol/L (98-107) Carbon Dioxide Level 15 mmol/L (21-32) Anion Gap 23 (6-14) Blood Urea Nitrogen 122 mg/dL (8-26) Creatinine 3.8 mg/dL (0.7-1.3) Estimated GFR (Cockcroft-Gault) 15.6 BUN/Creatinine Ratio 32 (6-20) Glucose Level 170 mg/dL (70-99) Calcium Level 8.3 mg/dL (8.5-10.1) Magnesium Level 2.4 mg/dL (1.8-2.4) Iron Level 12 ug/dL (65-175) Total Iron Binding Capacity 427 ug/dL (250-450) Iron Saturation 3 % (15-34) Total Bilirubin 1.1 mg/dL (0.2-1.0) Aspartate Amino Transf (AST/SGOT) 126 U/L (15-37) Alanine Aminotransferase (ALT/SGPT) 570 U/L (16-63) Alkaline Phosphatase 149 U/L (46-116) Troponin I Quantitative 0.047 ng/mL (0.000-0.055) NQ-Utn-W-Type Natriuretic Peptide 42140 pg/mL (0-124) Total Protein 6.8 g/dL (6.4-8.2) Albumin 3.1 g/dL (3.4-5.0) Albumin/Globulin Ratio 0.8 (1.0-1.7) Thyroid Stimulating Hormone (TSH) 0.390 uIU/mL (0.358-3.74) SARS-CoV-2 Antigen (Rapid) Negative (NEGATIVE) Stool Occult Blood Positive (NEG) Test 03/03/21 20:35 03/03/21 20:51 03/04/21 03:05 03/04/21 06:40 Troponin I Quantitative 0.045 ng/mL (0.000-0.055) Glucose (Fingerstick) 170 mg/dL (70-99) White Blood Count 12.3 x10^3/uL (4.0-11.0) Red Blood Count 2.78 x10^6/uL (4.30-5.70) Hemoglobin 5.9 g/dL (13.0-17.5) 6.0 g/dL (13.0-17.5) Hematocrit 19.4 % (39.0-53.0) 20.0 % (39.0-53.0) Mean Corpuscular Volume 70 fL (79-100) Mean Corpuscular Hemoglobin 21 pg (25-35) Mean Corpuscular Hemoglobin Concent 30 g/dL (31-37) Red Cell Distribution Width 23.8 % (11.5-14.5) Platelet Count 282 x10^3/uL (140-400) Neutrophils (%) (Auto) 84 % (31-73) Lymphocytes (%) (Auto) 10 % (24-48) Monocytes (%) (Auto) 6 % (0-9) Eosinophils (%) (Auto) 0 % (0-3) Basophils (%) (Auto) 0 % (0-3) Neutrophils # (Auto) 10.4 x10^3/uL (1.8-7.7) Lymphocytes # (Auto) 1.2 x10^3/uL (1.0-4.8) Monocytes # (Auto) 0.7 x10^3/uL (0.0-1.1) Eosinophils # (Auto) 0.0 x10^3/uL (0.0-0.7) Basophils # (Auto) 0.0 x10^3/uL (0.0-0.2) Sodium Level 136 mmol/L (136-145) Potassium Level 2.6 mmol/L (3.5-5.1) 2.6 mmol/L (3.5-5.1) Chloride Level 99 mmol/L (98-107) Carbon Dioxide Level 18 mmol/L (21-32) Anion Gap 19 (6-14) Blood Urea Nitrogen 116 mg/dL (8-26) Creatinine 3.4 mg/dL (0.7-1.3) Estimated GFR (Cockcroft-Gault) 17.8 BUN/Creatinine Ratio 34 (6-20) Glucose Level 136 mg/dL (70-99) Calcium Level 7.9 mg/dL (8.5-10.1) Total Bilirubin 1.2 mg/dL (0.2-1.0) Aspartate Amino Transf (AST/SGOT) 97 U/L (15-37) Alanine Aminotransferase (ALT/SGPT) 455 U/L (16-63) Alkaline Phosphatase 124 U/L (46-116) Total Protein 6.2 g/dL (6.4-8.2) Albumin 2.8 g/dL (3.4-5.0) Albumin/Globulin Ratio 0.8 (1.0-1.7) Test 03/04/21 07:18 Glucose (Fingerstick) 129 mg/dL (70-99) Review All relevant outside records, renal labs, imaging studies, telemetry/EKG's were reviewed. Images Images ABDOMEN COMPLETE EXAM: Abdomen sonogram. HISTORY: Elevated liver function laboratory values. TECHNIQUE: Sonographic imaging of the abdomen was performed. COMPARISON: None. FINDINGS: The liver is normal in size. The liver parenchyma is echogenic. However, this is similar to the adjacent right renal parenchyma. No focal hepatic lesion is seen. The kidneys are normal in size. There are simple appearing right renal cysts, the largest of which measures 3.1 cm. Postoperative performed for simple cysts. The spleen is normal in size. The pancreas, aorta and inferior vena cava are partially obscured due to bowel gas. There is trace perihepatic ascites. IMPRESSION: 1. Echogenic hepatic parenchyma. This is similar compared to the renal protocol and may be due to imaging technique. Given abnormal liver function laboratory values, this may also be due to hepatic steatosis. No focal hepatic lesion is seen. 2. Simple right renal cysts. 3. Trace perihepatic ascites. JAY CHARLES MD Mar 04, 2021 11:22
[2021-03-04] MEDS: POTASSIUM CHLORIDE 40 MEQ in IV NORMAL SALINE 1000ML BAG 1,000 ML IV SCH ×2 (16:49→19:12)
[2021-03-04] MEDS: POTASSIUM CHLORIDE 10MEQ 100 ML IV SCH ×4 (16:49→22:58)
--- NOTE | 2021-03-04 16:58 | NUR ---
Wound/Ostomy Care Wound Type/Assessment: Wound care consult for buttocks PU stage II with DTI and groin/scrotum maceration/yeast. Bilateral heels are red but blanchable. Groin/scrotum area is wet and yeasty, excoriated. Pt very upset about having to turn and have skin assessed and cleaned d/t pain/discomfort, states that he does not clean the wounds at home or has done anything to make them better, pt informed that he can not be left soiled or wet while here at the hospital. Pt receiving blood during assessment, IV appears to be bleeding, staff scientist notified. No other wounds found on head to toe skin assessment. Treatment Recommendations/Plan: Cleanse buttocks and groin scrotum and pat dry, twice a day and as needed. Buttocks: apply A&D ointment bid and prn Groin/scrotum: apply nystatin powder bid and prn. Education provided: attempted to educate pt on PU healing/prevention and skin care but pt not receptive. Offloading surface/device: P500 bed, purple wedge, pillows. Attempted to turn pt to his left side but pt moved from purple wedge right away after positioning and refused turning. Recommended Referrals/Tests: n/a Discharge Recommendations for dressings: same as above, WC team will follow up on 03/11/21
[2021-03-04 18:24] LABS: BILIRUBIN,URINE NEGATIVE (NEG); CLARITY,URINE CLEAR; COLOR,URINE YELLOW; NITRITE,URINE NEGATIVE (NEG); PROTEIN,URINE NEGATIVE (NEG-TRACE)
[2021-03-04 18:39] LABS: BACTERIA,URINE FEW /HPF (0-FEW)
[2021-03-04 18:40] LABS: RBC,URINE 0 /HPF (0-2)
[2021-03-04] MEDS: VITS A & D/LANOLIN TOPICAL OINTMENT 42GM TUBE. TP SCH (21:00)
[2021-03-04] MEDS: NYSTATIN TOPICAL POWDER 15GM BOTTLE. TP SCH (21:00)
[2021-03-05] MEDS ORDERED: HALOPERIDOL LACTATE 5 MG/ML VIAL. IVP ONE (01:30)
[2021-03-05 04:57] LABS: BASO % 0 % (0-3); EOS # 0.6 x10^3/uL (0.0-0.7); EOS % 5 % (0-3); HEMATOCRIT 24.2 % (39.0-53.0); HEMOGLOBIN 7.6 g/dL (13.0-17.5); LYMPH % 8 % (24-48); MEAN CORPUSCULAR HEMOGLOBIN 23 pg (25-35); MEAN CORPUSCULAR HGB CONC 32 g/dL (31-37); MEAN CORPUSCULAR VOLUME 72 fL (79-100); MONO % 8 % (0-9); NEUT % 79 % (31-73); PLATELET COUNT 271 x10^3/uL (140-400); RED BLOOD COUNT 3.36 x10^6/uL (4.30-5.70); WHITE BLOOD COUNT 12.6 x10^3/uL (4.0-11.0)
[2021-03-05] MEDS: POTASSIUM CHLORIDE 40 MEQ in IV NORMAL SALINE 1000ML BAG 1,000 ML IV SCH ×2 (05:23→19:00)
[2021-03-05 05:44] LABS: ALBUMIN 2.8 g/dL (3.4-5.0); ALBUMIN/GLOBULIN RATIO 0.8 (1.0-1.7); CALCIUM 8.1 mg/dL (8.5-10.1); GFR 20.6; PHOSPHORUS 3.7 mg/dL (2.6-4.7); TOTAL BILIRUBIN 1.2 mg/dL (0.2-1.0); TOTAL PROTEIN 6.3 g/dL (6.4-8.2)
[2021-03-05 07:00] VITALS: BP 118/53
[2021-03-05] MEDS ORDERED: cloNIDine HCL 0.1 MG TABLET PO PRN (07:45)
--- NOTE | 2021-03-05 08:39 | PDOC2 ---
NEUROLOGY CONSULT Date of Service DOS: DATE: 03/05/21 TIME: 08:29 Reason for Consult Reason for Consult: Altered mental status Referring Physician Referring Physician: Dr. Hall Source Source: Chart review, Patient History of Present Illness History of Present Illness The patient is a 75-year-old right-handed male admitted on 03/03 with generalized weakness. He was found on the floor covered in feces and urine. There was evidence of rectal bleeding. He was found to have hemoglobin 5.0, CPK 1764, potassium 3.3 later following to 2.6, natriuretic peptide 13,247, iron 12, iron saturation 3, albumin 3.8, calcium 8.3. He used to drink heavily but says he has not had any alcohol in several months. There is no history of stroke, seizure, or head injury. 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, quit smoking several years ago Current Medications Current Medications Current Medications Sodium Chloride 1,000 ml @ 1,000 mls/hr 1X ONCE IV Last administered on 03/03/21at 15:03; Start 03/03/21 at 14:30; Stop 03/03/21 at 15:29; Status DC Ondansetron HCl (Zofran) 4 mg PRN Q8HRS PRN IVP NAUSEA/VOMITING; Start 03/03/21 at 15:15; Stop 03/04/21 at 15:14; Status DC Morphine Sulfate (Morphine Sulfate) 2 mg PRN Q2HR PRN IVP PAIN; Start 03/03/21 at 15:15; Stop 03/04/21 at 15:14; Status DC Acetaminophen (Tylenol) 650 mg PRN Q4HRS PRN PO FEVER > 100.3'F Last administered on 03/04/21at 08:29; Start 03/03/21 at 15:15; Stop 03/04/21 at 15:14; Status DC Famotidine (Pepcid Vial) 20 mg 1X ONCE IVP Last administered on 03/03/21at 16:10; Start 03/03/21 at 15:15; Stop 03/03/21 at 15:16; Status DC Pantoprazole Sodium (Protonix) 40 mg DAILYAC PO Last administered on 03/04/21at 08:28; Start 03/03/21 at 16:30 Ferrous Sulfate (Feosol) 325 mg BIDWMEALS PO Last administered on 03/04/21at 17:28; Start 03/03/21 at 17:00 Polyethylene Glycol (miraLAX PACKET) 17 gm PRN DAILY PRN PO CONSTIPATION; Start 03/03/21 at 16:00 Potassium Chloride 40 meq/ Sodium Chloride 1,020 ml @ 100 mls/hr [id number] IV Last administered on 03/05/21at 05:23; Start 03/04/21 at 09:00 Potassium Chloride/Water 100 ml @ 100 mls/hr Q1H IV Last administered on 03/04/21at 22:58; Start 03/04/21 at 09:00; Stop 03/04/21 at 12:59; Status DC Vitamin A/Vitamin D (Vitamin A & D Ointment) 1 demetrius BID TP Last administered on 03/04/21at 21:00; Start 03/04/21 at 21:00 Nystatin (Nystop) 1 demetrius BID TP Last administered on 03/04/21at 21:00; Start 03/04/21 at 21:00 Lorazepam (Ativan Inj) 0.5 mg PRN Q4HRS PRN IVP ANXIETY / AGITATION Last administered on 03/05/21at 03:48; Start 03/04/21 at 23:45 Haloperidol Lactate (Haldol Inj) 1 mg 1X ONCE IVP Last administered on 03/05/21at 00:58; Start 03/05/21 at 01:30; Stop 03/05/21 at 01:31; Status DC Potassium Chloride/Water 100 ml @ 50 mls/hr 1X ONCE IV ; Start 03/05/21 at 09 :00; Stop 03/05/21 at 10:59 Multivitamins 10 ml/Thiamine HCl 100 mg/Folic Acid 1 mg/Sodium Chloride 1,011.2 ml @ 100 mls/ hr DAILY IV ; Start 03/05/21 at 09:00; Stop 03/09/21 at 19:07 Lorazepam (Ativan) 4 mg PRN Q1HR PRN PO For CIWA 8-14; Start 03/05/21 at 07:45 Lorazepam (Ativan) 8 mg PRN Q1HR PRN PO For CIWA 15 or greater; Start 03/05/21 at 07:45 Lorazepam (Ativan Inj) 2 mg PRN Q1HR PRN IV For CIWA 8-14; Start 03/05/21 at 07:45 Lorazepam (Ativan Inj) 4 mg PRN Q1HR PRN IV For CIWA 15 or greater; Start 03/05/21 at 07:45 Haloperidol Lactate (Haldol Inj) 5 mg PRN Q4HRS PRN IVP Hallucinatns,Confusn,Delirium; Start 03/05/21 at 07:45 Clonidine HCl (Catapres) 0.1 mg PRN Q1HR PRN PO SBP > 180 or DBP > 100, MRX3; Start 03/05/21 at 07:45 Active Scripts Active Magnesium Citrate 296 Ml Solution 296 Ml PO ONCE Docusate Sodium 100 Mg Capsule 1 Cap PO BID 15 Days Miralax (Polyethylene Glycol 3350) 119 Gm Powder 17 Gm PO DAILY dissolve in water Reported Calcium (Calcium Carbonate) 500 Mg Tab.chew 1,000 Mg PO DAILY Pioglitazone Hcl 30 Mg Tablet 30 Mg PO DAILY Clonidine Hcl 0.2 Mg Tablet 0.2 Mg PO QPM Clonidine Hcl 0.1 Mg Tablet 0.1 Mg PO QAM Amlodipine Besylate 5 Mg Tablet 5 Mg PO DAILY LAST DOSE GIVEN: DATE:02-19-16 TIME:9:00 a.m. NEXT DOSE DUE: DATE:02-20-16 TIME:9:00 a.m. Glipizide 5 Mg Tablet 1 Tab PO DAILY LAST DOSE GIVEN: :02-18-16 TIME:5:00 p.m. NEXT DOSE DUE: DATE:02-19-16 TIME:5:00 p.m. Atorvastatin Calcium 40 Mg Tablet 1 Tab PO QHS LAST DOSE GIVEN: DATE:02-18-16 TIME:9:00 p.m. NEXT DOSE DUE: DATE:02-19-16 TIME:9:00 p.m. Trifluoperazine Hcl 2 Mg Tablet 2 Mg PO Not given while in hosp. May resume at home as directed. Atenolol 50 Mg Tablet 1 Tab PO DAILY LAST DOSE GIVEN: DATE:02-19-16 TIME:9:00 a.m. NEXT DOSE DUE: DATE:02-20-16 TIME:9:00 a.m. Lisinopril 40 Mg Tablet 1 Tab PO DAILY LAST DOSE GIVEN: DATE:02-19-16 TIME:9:00 a.m. NEXT DOSE DUE: DATE:02-20-16 TIME:9:00 a.m. Hydrochlorothiazide Tablet (Hydrochlorothiazide) 50 Mg Tablet 1 Tab PO DAILY LAST DOSE GIVEN: DATE:02-19-16 TIME:9:00 a.m. NEXT DOSE DUE: DATE:02-20-16 TIME:9:00 a.m. Metformin Hcl 500 Mg Tablet 1 Tab PO BID LAST DOSE GIVEN: DATE:02-19-16 TIME:9:00 a.m. NEXT DOSE DUE: DATE:02-19-16 TIME:5:00 p.m. Allergies Allergies: Coded Allergies: No Known Drug Allergies (Unverified , 08/06/20) ROS Review of System Negative for fever, chills, weight loss, shortness of breath, chest pain, indigestion, hematochezia, melena, and dysuria. Full 14-point review of systems is negative. Physical Exam Physical Examination General: Well-developed, well-nourished, white male, in no acute distress HEENT: Normocephalic andatraumatic. Temporal arteriespulsatile and nontender. Neck: Supple without bruit, no meningismus Musculoskeletal: Stability:see neurologic. Gait exam:see neurologic. Tone:see neurologic.Strength:see neurologic. Neurological: Mental Status:orientation, memory, attention span/concentration, language, fund of knowledge: Knows location, not date, does not know why he is here, can tell me his past history and family history accurately. Has mittens on. Cranial Ner ves:Pupils equal and reactive to light, extraocular movements areintact, visual victor are full to confrontation. Facial sensation is normal. There is no facial asymmetry. Vestibulo-ocular reflex is intact. Palate elevates and tongue protrudes in midline. All other cranial related problems are negative except as mentioned before.Reflexes:0-1+ and symmetric with flexor plantar responses. Motor:4/5 strength with normal tone and bulk. Coordination:Finger-nose finger and [id number] testing are normal. Rapid alternating movements and fine finger movements are intact. Gait:Not tested. Sensory: Stocking loss. Vitals VITALS Vital Signs Date Time Temp Pulse Resp B/P (MAP) Pulse Ox O2 Delivery O2 Flow Rate FiO2 03/04/21 23:19 98.3 75 18 103/53 (70) 96 Room Air 98.3 03/04/21 20:00 2.0 Labs Labs Laboratory Tests Test 03/03/21 14:24 03/03/21 14:25 03/03/21 15:15 03/03/21 15:20 Creatine Kinase 1764 U/L (39-308) Vitamin B12 Level 436 pg/mL (247-911) White Blood Count 15.1 x10^3/uL (4.0-11.0) Red Blood Count 2.61 x10^6/uL (4.30-5.70) Hemoglobin 5.0 g/dL (13.0-17.5) Hematocrit 17.0 % (39.0-53.0) Mean Corpuscular Volume 65 fL (79-100) Mean Corpuscular Hemoglobin 19 pg (25-35) Mean Corpuscular Hemoglobin Concent 29 g/dL (31-37) Red Cell Distribution Width 20.5 % (11.5-14.5) Platelet Count 380 x10^3/uL (140-400) Neutrophils (%) (Auto) 91 % (31-73) Lymphocytes (%) (Auto) 3 % (24-48) Monocytes (%) (Auto) 6 % (0-9) Eosinophils (%) (Auto) 0 % (0-3) Basophils (%) (Auto) 0 % (0-3) Neutrophils # (Auto) 13.7 x10^3/uL (1.8-7.7) Lymphocytes # (Auto) 0.4 x10^3/uL (1.0-4.8) Monocytes # (Auto) 0.9 x10^3/uL (0.0-1.1) Eosinophils # (Auto) 0.0 x10^3/uL (0.0-0.7) Basophils # (Auto) 0.0 x10^3/uL (0.0-0.2) Segmented Neutrophils % 93 % (35-66) Band Neutrophils % 1 % (0-9) Lymphocytes % 3 % (24-48) Monocytes % 3 % (0-10) Platelet Estimate Adequate (ADEQUATE) Polychromasia Slight Hypochromasia Marked Anisocytosis Mod Microcytosis Marked Macrocytosis Schistocytes Few Sodium Level 134 mmol/L (136-145) Potassium Level 3.3 mmol/L (3.5-5.1) Chloride Level 96 mmol/L (98-107) Carbon Dioxide Level 15 mmol/L (21-32) Anion Gap 23 (6-14) Blood Urea Nitrogen 122 mg/dL (8-26) Creatinine 3.8 mg/dL (0.7-1.3) Estimated GFR (Cockcroft-Gault) 15.6 BUN/Creatinine Ratio 32 (6-20) Glucose Level 170 mg/dL (70-99) Calcium Level 8.3 mg/dL (8.5-10.1) Magnesium Level 2.4 mg/dL (1.8-2.4) Iron Level 12 ug/dL (65-175) Total Iron Binding Capacity 427 ug/dL (250-450) Iron Saturation 3 % (15-34) Total Bilirubin 1.1 mg/dL (0.2-1.0) Aspartate Amino Transf (AST/SGOT) 126 U/L (15-37) Alanine Aminotransferase (ALT/SGPT) 570 U/L (16-63) Alkaline Phosphatase 149 U/L (46-116) Troponin I Quantitative 0.047 ng/mL (0.000-0.055) MN-Jbj-L-Type Natriuretic Peptide 93764 pg/mL (0-124) Total Protein 6.8 g/dL (6.4-8.2) Albumin 3.1 g/dL (3.4-5.0) Albumin/Globulin Ratio 0.8 (1.0-1.7) Thyroid Stimulating Hormone (TSH) 0.390 uIU/mL (0.358-3.74) SARS-CoV-2 RNA (KRISTY) Negative (Negative) SARS-CoV-2 Antigen (Rapid) Negative (NEGATIVE) Stool Occult Blood Positive (NEG) Test 03/03/21 20:35 03/03/21 20:51 03/04/21 03:05 03/04/21 06:40 Troponin I Quantitative 0.045 ng/mL (0.000-0.055) Glucose (Fingerstick) 170 mg/dL (70-99) White Blood Count 12.3 x10^3/uL (4.0-11.0) Red Blood Count 2.78 x10^6/uL (4.30-5.70) 2.86 x10^6/uL (4.30-5.70) Hemoglobin 5.9 g/dL (13.0-17.5) 6.0 g/dL (13.0-17.5) Hematocrit 19.4 % (39.0-53.0) 20.0 % (39.0-53.0) Mean Corpuscular Volume 70 fL (79-100) Mean Corpuscular Hemoglobin 21 pg (25-35) Mean Corpuscular Hemoglobin Concent 30 g/dL (31-37) Red Cell Distribution Width 23.8 % (11.5-14.5) Platelet Count 282 x10^3/uL (140-400) Neutrophils (%) (Auto) 84 % (31-73) Lymphocytes (%) (Auto) 10 % (24-48) Monocytes (%) (Auto) 6 % (0-9) Eosinophils (%) (Auto) 0 % (0-3) Basophils (%) (Auto) 0 % (0-3) Neutrophils # (Auto) 10.4 x10^3/uL (1.8-7.7) Lymphocytes # (Auto) 1.2 x10^3/uL (1.0-4.8) Monocytes # (Auto) 0.7 x10^3/uL (0.0-1.1) Eosinophils # (Auto) 0.0 x10^3/uL (0.0-0.7) Basophils # (Auto) 0.0 x10^3/uL (0.0-0.2) Sodium Level 136 mmol/L (136-145) Potassium Level 2.6 mmol/L (3.5-5.1) 2.6 mmol/L (3.5-5.1) Chloride Level 99 mmol/L (98-107) Carbon Dioxide Level 18 mmol/L (21-32) Anion Gap 19 (6-14) Blood Urea Nitrogen 116 mg/dL (8-26) Creatinine 3.4 mg/dL (0.7-1.3) Estimated GFR (Cockcroft-Gault) 17.8 BUN/Creatinine Ratio 34 (6-20) Glucose Level 136 mg/dL (70-99) Calcium Level 7.9 mg/dL (8.5-10.1) Total Bilirubin 1.2 mg/dL (0.2-1.0) Aspartate Amino Transf (AST/SGOT) 97 U/L (15-37) Alanine Aminotransferase (ALT/SGPT) 455 U/L (16-63) Alkaline Phosphatase 124 U/L (46-116) Total Protein 6.2 g/dL (6.4-8.2) Albumin 2.8 g/dL (3.4-5.0) Albumin/Globulin Ratio 0.8 (1.0-1.7) Absolute Reticulocyte Count 0.073 x10^6/uL (0.020-0.120) Percent Reticulocyte Count 2.6 % (0.5-2.3) Immature Reticulocyte Fraction 0.52 (0.20-0.60) Test 03/04/21 07:18 03/04/21 11:30 03/04/21 16:31 03/04/21 18:00 Glucose (Fingerstick) 129 mg/dL (70-99) 187 mg/dL (70-99) 191 mg/dL (70-99) Urine Collection Type Unknown Urine Color Yellow Urine Clarity Clear Urine pH 5.0 (<5.0-8.0) Urine Specific Ruby 1.015 (1.000-1.030) Urine Protein Negative mg/dL (NEG-TRACE) Urine Glucose (UA) Negative mg/dL (NEG) Urine Ketones (Stick) Negative mg/dL (NEG) Urine Blood Small (NEG) Urine Nitrite Negative (NEG) Urine Bilirubin Negative (NEG) Urine Urobilinogen Dipstick 1.0 mg/dL (0.2 mg/dL) Urine Leukocyte Esterase Small (NEG) Urine RBC 0 /HPF (0-2) Urine WBC 11-20 /HPF (0-4) Urine Squamous Epithelial Cells Few /LPF Urine Bacteria Few /HPF (0-FEW) Urine Mucus Slight /LPF Test 03/04/21 19:11 03/05/21 04:30 Glucose (Fingerstick) 204 mg/dL (70-99) White Blood Count 12.6 x10^3/uL (4.0-11.0) Red Blood Count 3.36 x10^6/uL (4.30-5.70) Hemoglobin 7.6 g/dL (13.0-17.5) Hematocrit 24.2 % (39.0-53.0) Mean Corpuscular Volume 72 fL (79-100) Mean Corpuscular Hemoglobin 23 pg (25-35) Mean Corpuscular Hemoglobin Concent 32 g/dL (31-37) Red Cell Distribution Width 24.0 % (11.5-14.5) Platelet Count 271 x10^3/uL (140-400) Neutrophils (%) (Auto) 79 % (31-73) Lymphocytes (%) (Auto) 8 % (24-48) Monocytes (%) (Auto) 8 % (0-9) Eosinophils (%) (Auto) 5 % (0-3) Basophils (%) (Auto) 0 % (0-3) Neutrophils # (Auto) 10.0 x10^3/uL (1.8-7.7) Lymphocytes # (Auto) 1.0 x10^3/uL (1.0-4.8) Monocytes # (Auto) 1.0 x10^3/uL (0.0-1.1) Eosinophils # (Auto) 0.6 x10^3/uL (0.0-0.7) Basophils # (Auto) 0.0 x10^3/uL (0.0-0.2) Sodium Level 136 mmol/L (136-145) Potassium Level 3.0 mmol/L (3.5-5.1) Chloride Level 102 mmol/L (98-107) Carbon Dioxide Level 18 mmol/L (21-32) Anion Gap 16 (6-14) Blood Urea Nitrogen 98 mg/dL (8-26) Creatinine 3.0 mg/dL (0.7-1.3) Estimated GFR (Cockcroft-Gault) 20.6 BUN/Creatinine Ratio 33 (6-20) Glucose Level 143 mg/dL (70-99) Calcium Level 8.1 mg/dL (8.5-10.1) Phosphorus Level 3.7 mg/dL (2.6-4.7) Total Bilirubin 1.2 mg/dL (0.2-1.0) Aspartate Amino Transf (AST/SGOT) 63 U/L (15-37) Alanine Aminotransferase (ALT/SGPT) 353 U/L (16-63) Alkaline Phosphatase 121 U/L (46-116) Creatine Kinase 535 U/L (39-308) Total Protein 6.3 g/dL (6.4-8.2) Albumin 2.8 g/dL (3.4-5.0) Albumin/Globulin Ratio 0.8 (1.0-1.7) Laboratory Tests Test 03/04/21 11:30 03/04/21 16:31 03/04/21 18:00 03/04/21 19:11 Glucose (Fingerstick) 187 mg/dL (70-99) 191 mg/dL (70-99) 204 mg/dL (70-99) Urine Collection Type Unknown Urine Color Yellow Urine Clarity Clear Urine pH 5.0 (<5.0-8.0) Urine Specific Ruby 1.015 (1.000-1.030) Urine Protein Negative mg/dL (NEG-TRACE) Urine Glucose (UA) Negative mg/dL (NEG) Urine Ketones (Stick) Negative mg/dL (NEG) Urine Blood Small (NEG) Urine Nitrite Negative (NEG) Urine Bilirubin Negative (NEG) Urine Urobilinogen Dipstick 1.0 mg/dL (0.2 mg/dL) Urine Leukocyte Esterase Small (NEG) Urine RBC 0 /HPF (0-2) Urine WBC 11-20 /HPF (0-4) Urine Squamous Epithelial Cells Few /LPF Urine Bacteria Few /HPF (0-FEW) Urine Mucus Slight /LPF Test 03/05/21 04:30 White Blood Count 12.6 x10^3/uL (4.0-11.0) Red Blood Count 3.36 x10^6/uL (4.30-5.70) Hemoglobin 7.6 g/dL (13.0-17.5) Hematocrit 24.2 % (39.0-53.0) Mean Corpuscular Volume 72 fL (79-100) Mean Corpuscular Hemoglobin 23 pg (25-35) Mean Corpuscular Hemoglobin Concent 32 g/dL (31-37) Red Cell Distribution Width 24.0 % (11.5-14.5) Platelet Count 271 x10^3/uL (140-400) Neutrophils (%) (Auto) 79 % (31-73) Lymphocytes (%) (Auto) 8 % (24-48) Monocytes (%) (Auto) 8 % (0-9) Eosinophils (%) (Auto) 5 % (0-3) Basophils (%) (Auto) 0 % (0-3) Neutrophils # (Auto) 10.0 x10^3/uL (1.8-7.7) Lymphocytes # (Auto) 1.0 x10^3/uL (1.0-4.8) Monocytes # (Auto) 1.0 x10^3/uL (0.0-1.1) Eosinophils # (Auto) 0.6 x10^3/uL (0.0-0.7) Basophils # (Auto) 0.0 x10^3/uL (0.0-0.2) Sodium Level 136 mmol/L (136-145) Potassium Level 3.0 mmol/L (3.5-5.1) Chloride Level 102 mmol/L (98-107) Carbon Dioxide Level 18 mmol/L (21-32) Anion Gap 16 (6-14) Blood Urea Nitrogen 98 mg/dL (8-26) Creatinine 3.0 mg/dL (0.7-1.3) Estimated GFR (Cockcroft-Gault) 20.6 BUN/Creatinine Ratio 33 (6-20) Glucose Level 143 mg/dL (70-99) Calcium Level 8.1 mg/dL (8.5-10.1) Phosphorus Level 3.7 mg/dL (2.6-4.7) Total Bilirubin 1.2 mg/dL (0.2-1.0) Aspartate Amino Transf (AST/SGOT) 63 U/L (15-37) Alanine Aminotransferase (ALT/SGPT) 353 U/L (16-63) Alkaline Phosphatase 121 U/L (46-116) Creatine Kinase 535 U/L (39-308) Total Protein 6.3 g/dL (6.4-8.2) Albumin 2.8 g/dL (3.4-5.0) Albumin/Globulin Ratio 0.8 (1.0-1.7) Images Images CT HEAD WITHOUT CONTRAST, 03/03/2021 3:31 PM. HISTORY: Weakness. TECHNIQUE: Computed tomography of the head was performed without intravenous contrast. One or more of the following individualized dose reduction techniques were utilized for this examination: 1. Automated exposure control. 2. Adjustment of the mA and/or kV according to patient size. 3. Use of iterative reconstruction technique. COMPARISON: None. FINDINGS: There is no intracranial hemorrhage. Hypoattenuation within the periventricular white matter indicates mild chronic microangiopathic change. Prominence of the lateral ventricles and hemispheric sulci indicates moderate atrophy. The visualized paranasal sinuses appear clear. There is at least mild bilateral proptosis without extraocular muscle enlargement or oral mass. The temporal bones are unremarkable. The calvarium reveals no suspicious lesions. There are atherosclerotic calcifications of the internal carotid and vertebral arteries. IMPRESSION: 1. No acute intracranial findings. 2. Moderate atrophy and mild chronic microangiopathic white matter change. 3. Bilateral proptosis appears to be secondary to expansion of orbital fat. Correlate to exclude causes such as thyroid ophthalmopathy. 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 CALOS ANSARI MD Mar 05, 2021 08:39
[2021-03-05] MEDS ORDERED: POTASSIUM CHLORIDE 20MEQ 100 ML IV ONE (09:00)
[2021-03-05] MEDS: VITS A & D/LANOLIN TOPICAL OINTMENT 42GM TUBE. TP SCH ×2 (09:03→22:37)
[2021-03-05] MEDS: NYSTATIN TOPICAL POWDER 15GM BOTTLE. TP SCH ×2 (09:03→22:37)
[2021-03-05] MEDS: PANTOPRAZOLE 40 MG TABLET.DR. PO SCH (09:04)
[2021-03-05] MEDS: FERROUS SULFATE 325 MG TABLET. PO SCH ×2 (09:04→22:37)
--- NOTE | 2021-03-05 09:23 | HP ---
ADMIT DATE: 03/04/2021 CHIEF COMPLAINT AND HISTORY OF PRESENT ILLNESS: This 75-year-old male well known to me from followup in the office. The patient presented to the emergency room on the day of admission with profound weakness. He has been down on the floor for some 3-4 days prior to admission with his brother finding him and calling the ambulance. He was covered in feces and stated he had been sitting and lying in his urine on the floor for at least 3-4 days prior to his brother finding him. On questioning with his profound anemia present on admission about GI bleeding, he really denies any signs of the same, but is extremely weak, very short of breath with any kind of activity leading up to this. PAST MEDICAL HISTORY: Remarkable for type 2 diabetes, hypertension, chronic back pain, constipation. PAST SURGICAL HISTORY: He has had prior back surgeries. MEDICATIONS: Brought with the patient, listed on computer have been addressed. ALLERGIES: He has no known drug allergies. 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 FAMILY HISTORY: Noncontributory. REVIEW OF SYSTEMS: As mentioned above. PHYSICAL EXAMINATION: GENERAL: He is a well-developed, well-nourished male who appears pale. VITAL SIGNS: Stable. He is afebrile. Blood pressures are on the lower end. HEAD, EYES, EARS, NOSE AND THROAT: Remarkable for pallor of conjunctivae. NECK: Supple, without adenopathy or thyromegaly. CHEST: Reveals occasional rhonchi, but essentially clear. HEART: Regular rate and rhythm without S3, S4 or murmur. ABDOMEN: Soft, nontender, without hepatosplenomegaly or mass. EXTREMITIES: Without cyanosis, clubbing or edema. NEUROLOGIC: Intact. SKIN: On his buttocks, he does have multiple stage 2 decubitus-type appearing lesions, which are documented in the paper chart with photographs and I looked that with nursing. LABORATORY DATA: Chest x-ray on admission shows cardiomegaly. Initial hemoglobin on admission is 5. Potassium was 3.3 on admission, this morning profoundly low at 2.6. He is in acute renal failure on admission with a BUN of 122 and creatinine of 3.8. After 2 units of blood, these numbers have come down to 116 and 3.4. He will get ongoing hydration and further blood, at this point in time potassium replacement and Renal consult, which we are awaiting at the time of my evaluation. ASSESSMENT: 1. Profound anemia, likely gastrointestinal source. 2. Acute renal failure. 3. Hypokalemia. 4. Diabetes. PLAN: Hemoglobin has come up to 6 with 2 units of packed red blood cells and we will give him another 2 units. At this point in time, potassium has been ordered. GI help is appreciated. Renal will be consulted and the patient will be managed and treated appropriately. SONYA/DANNY DR: Mee TID: [id number]
--- NOTE | 2021-03-05 09:53 | PDOC ---
DATE OF SERVICE DATE: 03/05/21 TIME: 09:48 SUBJECTIVE ROS Confused per nursing No N/V . No SOB OBJECTIVE Vital Signs Vital Signs Date Time Temp Pulse Resp B/P (MAP) Pulse Ox O2 Delivery O2 Flow Rate FiO2 03/05/21 07:00 98.1 74 18 118/53 (74) 90 Room Air 98.1 03/04/21 20:00 2.0 I & 0 Intake and Output 03/05/21 07:00 Intake Total 2120 ml Output Total 1300 ml Balance 820 ml Intake Oral 720 ml Blood Product IV Normal Saline Flush 1400 ml Output Urine Total 1300 ml PHYSICAL EXAM Physical Exam General NAD HEEN Om moist , anicteric Neck Supple Lungs CTA, decreased at bases, Non labored CV S1S2, No murmur ot rub Abd soft , NT, BS + Ext No LE edema, No cyanosis Derm No Rash- per RN Skin Excoriated in Scrotal area Neuro Grossly Normal , No focal deficit No Jaramillo, No CVA or SP tenderness Psych confused DIAGNOSIS/ASSESSMENT Assessment & Plan KAMILLE - ATN 2/2 severe Dehydration , Poor PO intake , Hypotensive at presentation acute decrease in Hgb/?GI bleed / mild Rhabdo.Non Oliguric .US- Kidneys unremarkable, Renal function improving, Maintain Hydration , Supportive care , Strict I/O avoid Nephrotoxins . Rhabdomyolysis- mild, improving HypoKalemia - Replacing IV Acidosis - 2/2 KAMILLE, switch to bicarb gtt if Resp status stable - discussed with nursing Anemia- severe , acute , Hemoccult . Recd PRBC Defer to GI / Primary Elevated LFT's/ -Hx of ETOH until recently . US ? hepatic Steatosis , defer to GI COMMENT/RELEVANT DATA Meds Current Medications Medications (Trade) Dose Ordered Sig/Stephan Start Time Stop Time Status Last Admin Dose Admin Acetaminophen (Tylenol) 650 mg PRN Q4HRS PRN 03/03/21 15:15 03/04/21 15:14 DC 03/04/21 08:29 650 MG Clonidine HCl (Catapres) 0.1 mg PRN Q1HR PRN 03/05/21 07:45 Famotidine (Pepcid Vial) 20 mg 1X ONCE 03/03/21 15:15 03/03/21 15:16 DC 03/03/21 16:10 20 MG Ferrous Sulfate (Feosol) 325 mg BIDWMEALS 03/03/21 17:00 03/05/21 09:04 325 MG Haloperidol Lactate (Haldol Inj) 5 mg PRN Q4HRS PRN 03/05/21 07:45 Lorazepam (Ativan Inj) 4 mg PRN Q1HR PRN 03/05/21 07:45 Lorazepam (Ativan) 8 mg PRN Q1HR PRN 03/05/21 07:45 Morphine Sulfate (Morphine Sulfate) 2 mg PRN Q2HR PRN 03/03/21 15:15 03/04/21 15:14 DC Multivitamins 10 ml/Thiamine HCl 100 mg/Folic Acid 1 mg/Sodium Chloride 1,011.2 ml @ 100 mls/ hr DAILY 03/05/21 09:00 03/09/21 19:07 Nystatin (Nystop) 1 demetrius BID 03/04/21 21:00 03/05/21 09:03 1 DEMETRIUS Ondansetron HCl (Zofran) 4 mg PRN Q8HRS PRN 03/03/21 15:15 03/04/21 15:14 DC Pantoprazole Sodium (Protonix) 40 mg DAILYAC 03/03/21 16:30 03/05/21 09:04 40 MG Polyethylene Glycol (miraLAX PACKET) 17 gm PRN DAILY PRN 03/03/21 16:00 Potassium Chloride 40 meq/ Sodium Chloride 1,020 ml @ 100 mls/hr [id number] 03/04/21 09:00 03/05/21 05:23 100 MLS/HR Potassium Chloride/Water 100 ml @ 50 mls/hr 1X ONCE 03/05/21 09:00 03/05/21 10:59 03/05/21 09:05 50 MLS/HR Sodium Chloride 1,000 ml @ 1,000 mls/hr 1X ONCE 03/03/21 14:30 03/03/21 15:29 DC 03/03/21 15:03 1,000 MLS/HR Vitamin A/Vitamin D (Vitamin A & D Ointment) 1 demetrius BID 03/04/21 21:00 03/05/21 09:03 1 DEMETRIUS Lab Laboratory Tests Test 03/04/21 11:30 03/04/21 16:31 03/04/21 18:00 03/04/21 19:11 Glucose (Fingerstick) 187 mg/dL (70-99) 191 mg/dL (70-99) 204 mg/dL (70-99) Urine Collection Type Unknown Urine Color Yellow Urine Clarity Clear Urine pH 5.0 (<5.0-8.0) Urine Specific [place] 1.015 (1.000-1.030) Urine Protein Negative mg/dL (NEG-TRACE) Urine Glucose (UA) Negative mg/dL (NEG) Urine Ketones (Stick) Negative mg/dL (NEG) Urine Blood Small (NEG) Urine Nitrite Negative (NEG) Urine Bilirubin Negative (NEG) Urine Urobilinogen Dipstick 1.0 mg/dL (0.2 mg/dL) Urine Leukocyte Esterase Small (NEG) Urine RBC 0 /HPF (0-2) Urine WBC 11-20 /HPF (0-4) Urine Squamous Epithelial Cells Few /LPF Urine Bacteria Few /HPF (0-FEW) Urine Mucus Slight /LPF Test 03/05/21 04:30 White Blood Count 12.6 x10^3/uL (4.0-11.0) Red Blood Count 3.36 x10^6/uL (4.30-5.70) Hemoglobin 7.6 g/dL (13.0-17.5) Hematocrit 24.2 % (39.0-53.0) Mean Corpuscular Volume 72 fL (79-100) Mean Corpuscular Hemoglobin 23 pg (25-35) Mean Corpuscular Hemoglobin Concent 32 g/dL (31-37) Red Cell Distribution Width 24.0 % (11.5-14.5) Platelet Count 271 x10^3/uL (140-400) Neutrophils (%) (Auto) 79 % (31-73) Lymphocytes (%) (Auto) 8 % (24-48) Monocytes (%) (Auto) 8 % (0-9) Eosinophils (%) (Auto) 5 % (0-3) Basophils (%) (Auto) 0 % (0-3) Neutrophils # (Auto) 10.0 x10^3/uL (1.8-7.7) Lymphocytes # (Auto) 1.0 x10^3/uL (1.0-4.8) Monocytes # (Auto) 1.0 x10^3/uL (0.0-1.1) Eosinophils # (Auto) 0.6 x10^3/uL (0.0-0.7) Basophils # (Auto) 0.0 x10^3/uL (0.0-0.2) Sodium Level 136 mmol/L (136-145) Potassium Level 3.0 mmol/L (3.5-5.1) Chloride Level 102 mmol/L (98-107) Carbon Dioxide Level 18 mmol/L (21-32) Anion Gap 16 (6-14) Blood Urea Nitrogen 98 mg/dL (8-26) Creatinine 3.0 mg/dL (0.7-1.3) Estimated GFR (Cockcroft-Gault) 20.6 BUN/Creatinine Ratio 33 (6-20) Glucose Level 143 mg/dL (70-99) Calcium Level 8.1 mg/dL (8.5-10.1) Phosphorus Level 3.7 mg/dL (2.6-4.7) Total Bilirubin 1.2 mg/dL (0.2-1.0) Aspartate Amino Transf (AST/SGOT) 63 U/L (15-37) Alanine Aminotransferase (ALT/SGPT) 353 U/L (16-63) Alkaline Phosphatase 121 U/L (46-116) Creatine Kinase 535 U/L (39-308) Total Protein 6.3 g/dL (6.4-8.2) Albumin 2.8 g/dL (3.4-5.0) Albumin/Globulin Ratio 0.8 (1.0-1.7) Results All relevant outside records, renal labs, imaging studies, telemetry/EKG's were reviewed. Justicifation of Admission Dx: Justifications for Admission: Justification of Admission Dx: Yes JAY CHARLES MD Mar 05, 2021 09:53
[2021-03-05] MEDS: MULTIVIT INFUSN,ADULT 4,VIT K 10 ML, THIAMINE INJ 100 MG, FOLIC ACID INJ 1 MG in IV NOR... IV SCH (10:01)
[2021-03-05 10:58] LABS: BARBITURATES NEG (NEG); BENZODIAZEPINES NEG (NEG); CANNABINOIDS NEG (NEG); COCAINE NEG (NEG); METHADONE NEG (NEG); OPIATES NEG (NEG); PHENCYCLIDINE NEG (NEG)
[2021-03-05 10:59] LABS: AMPHETAMINE/METHAMPHETAMINE NEG (NEG)
[2021-03-05 11:00] VITALS: BP 108/49
--- NOTE | 2021-03-05 12:01 | NUR ---
SW following. Discussed with RN, pt from home alone, room air, ada diet. Pt with AMS today. [facility] protocol for possible ETOH withdrawal. Pt has mitts and has been pulling at tubes. Pt not ready for discharge. SW will continue to follow.
--- NOTE | 2021-03-05 12:08 | PDOC ---
Date of Service: DATE: 03/05/21 TIME: 12:03 Objective: Objective: D/w - treatment for alcohol withdrawal, saw a little bit of blood on the sheet where he was sitting - possibly related to wounds. Retic elevated, haptoglobin pending. Heavy alcohol use in the past per other notes. Vital Signs: Vital Signs Date Time Temp Pulse Resp B/P (MAP) Pulse Ox O2 Delivery O2 Flow Rate FiO2 03/05/21 11:00 96.9 77 18 108/49 (68) 94 Room Air 96.9 03/04/21 20:00 2.0 Labs: Laboratory Tests Test 03/04/21 16:31 03/04/21 18:00 03/04/21 19:11 03/05/21 04:30 Glucose (Fingerstick) 191 mg/dL 204 mg/dL Urine Collection Type Unknown Urine Color Yellow Urine Clarity Clear Urine pH 5.0 Urine Specific [place] 1.015 Urine Protein Negative mg/dL Urine Glucose (UA) Negative mg/dL Urine Ketones (Stick) Negative mg/dL Urine Blood Small Urine Nitrite Negative Urine Bilirubin Negative Urine Urobilinogen Dipstick 1.0 mg/dL Urine Leukocyte Esterase Small Urine RBC 0 /HPF Urine WBC 11-20 /HPF Urine Squamous Epithelial Cells Few /LPF Urine Bacteria Few /HPF Urine Mucus Slight /LPF Urine Opiates Screen Neg Urine Methadone Screen Neg Urine Barbiturates Neg Urine Phencyclidine Screen Neg Urine Amphetamine/Methamphetamine Neg Urine Benzodiazepines Screen Neg Urine Cocaine Screen Neg Urine Cannabinoids Screen Neg Urine Ethyl Alcohol White Blood Count 12.6 x10^3/uL Red Blood Count 3.36 x10^6/uL Hemoglobin 7.6 g/dL Hematocrit 24.2 % Mean Corpuscular Volume 72 fL Mean Corpuscular Hemoglobin 23 pg Mean Corpuscular Hemoglobin Concent 32 g/dL Red Cell Distribution Width 24.0 % Platelet Count 271 x10^3/uL Neutrophils (%) (Auto) 79 % Lymphocytes (%) (Auto) 8 % Monocytes (%) (Auto) 8 % Eosinophils (%) (Auto) 5 % Basophils (%) (Auto) 0 % Neutrophils # (Auto) 10.0 x10^3/uL Lymphocytes # (Auto) 1.0 x10^3/uL Monocytes # (Auto) 1.0 x10^3/uL Eosinophils # (Auto) 0.6 x10^3/uL Basophils # (Auto) 0.0 x10^3/uL Sodium Level 136 mmol/L Potassium Level 3.0 mmol/L Chloride Level 102 mmol/L Carbon Dioxide Level 18 mmol/L Anion Gap 16 Blood Urea Nitrogen 98 mg/dL Creatinine 3.0 mg/dL Estimated GFR (Cockcroft-Gault) 20.6 BUN/Creatinine Ratio 33 Glucose Level 143 mg/dL Calcium Level 8.1 mg/dL Phosphorus Level 3.7 mg/dL Total Bilirubin 1.2 mg/dL Aspartate Amino Transf (AST/SGOT) 63 U/L Alanine Aminotransferase (ALT/SGPT) 353 U/L Alkaline Phosphatase 121 U/L Creatine Kinase 535 U/L Total Protein 6.3 g/dL Albumin 2.8 g/dL Albumin/Globulin Ratio 0.8 Test 03/05/21 11:27 Glucose (Fingerstick) 170 mg/dL PE: GEN: NAD NEURO/PSYCH: sleeping w/ mittens, not disturbed A/P: Encephalopathy Rhabdo - Cr and LFTs better slowly DOREEN, +Hemoccult - started on PPI + iron - Hgb stable after transfusions Buttocks wound Rapid COVID negative -- Supportive care per GI. Transfuse as needed. Continue PPI and iron - change to IV if mental status problematic for PO intake. Check ammonia. Justicifation of Admission Dx: Justifications for Admission: Justification of Admission Dx: Yes SHERIF PHILLIPS Mar 05, 2021 12:08
--- NOTE | 2021-03-05 12:46 | PN ---
DATE: 03/05/2021 DAILY PROGRESS NOTE LOCATION: He is in room 548. SUBJECTIVE: This 75-year-old male remains hospitalized with profound symptomatic anemia, presenting with a hemoglobin of 5. His count has improved now after 4 units of packed red blood cells. He seems more comfortable, but is confused and agitated and I suspect some alcohol withdrawal type symptoms, we will ask Neurology to see him and sort this out. I have asked nursing to go ahead and give him a banana bag this morning in addition. OBJECTIVE: VITAL SIGNS: Stable. He is afebrile. Blood pressures are still on the low side. GENERAL: Again, he is awake and alert, but confused. He does recognize me; however. CHEST: Clear. HEART: Regular. ABDOMEN: Benign. LABORATORY DATA: Hemoglobin after 4 units of packed red blood cells is up to 7.6. His potassium this morning is up to 3. Renal function continues to slowly improve with a BUN of 98 and creatinine of 3. ASSESSMENT: 1. Profound symptomatic anemia with improvement with transfusion. 2. Acute kidney injury with slow improvement. 3. Hypokalemia, improving. 4. Mental status change, likely alcohol withdrawal. PLAN: Ongoing potassium replacement. GI eval as well as Neuro eval, banana bag per protocol. EMMANUELLE/MIMI DR: LYRIC/johan TID: [id number]
[2021-03-05 15:00] VITALS: BP 115/58
[2021-03-05 19:00] VITALS: BP 156/51
--- NOTE | 2021-03-05 19:00 | NUR ---
IV fluids not administered d/t loss of IV access
[2021-03-05 23:00] VITALS: BP 114/62
[2021-03-06] MEDS: POTASSIUM CHLORIDE 40 MEQ in IV NORMAL SALINE 1000ML BAG 1,000 ML IV SCH (01:48)
[2021-03-06 03:00] VITALS: BP 132/53
[2021-03-06 05:21] LABS: CALCIUM 7.8 mg/dL (8.5-10.1); CREATININE 2.4 mg/dL (0.7-1.3); GFR 26.6; POTASSIUM 3.4 mmol/L (3.5-5.1)
[2021-03-06 07:00] VITALS: BP 140/66
--- NOTE | 2021-03-06 07:48 | PDOC ---
Provider Note Date of Service: DATE: 03/06/21 TIME: 07:43 Provider Note vss, hb up 7.6 after 4 units- B12 ok, microcytic, likely gi blood loss from etoh gastritis- arf recovering w/ iv fluid, K+ better also- transaminitis recovering also- still very encephalopathic re withdrawel, nearly nonverbal-cont iv vitamins, pantop, may need lactulose but may not take it Justifications for Admission Other Justification FORD COX MD Mar 06, 2021 07:48
[2021-03-06] MEDS: FERROUS SULFATE 325 MG TABLET. PO SCH ×2 (09:18→17:00)
[2021-03-06] MEDS: PANTOPRAZOLE 40 MG TABLET.DR. PO SCH (09:18)
[2021-03-06] MEDS: MULTIVIT INFUSN,ADULT 4,VIT K 10 ML, THIAMINE INJ 100 MG, FOLIC ACID INJ 1 MG in IV NOR... IV SCH (09:19)
[2021-03-06] MEDS: NYSTATIN TOPICAL POWDER 15GM BOTTLE. TP SCH ×2 (09:21→20:59)
[2021-03-06] MEDS: VITS A & D/LANOLIN TOPICAL OINTMENT 42GM TUBE. TP SCH ×2 (09:21→21:00)
[2021-03-06 11:00] VITALS: BP 105/66
--- NOTE | 2021-03-06 13:26 | PDOC ---
PROGRESS NOTES Date of Service DATE: 03/06/21 TIME: 13:24 Subjective Subjective SEEN IN FOLLOW UP OF ARF AND DEHYDRATION Objective Objective Vital Signs Date Time Temp Pulse Resp B/P (MAP) Pulse Ox O2 Delivery O2 Flow Rate FiO2 03/06/21 11:00 98.6 87 24 105/66 (79) 92 Nasal Cannula 2.0 98.6 Intake and Output 03/06/21 07:00 Intake Total 500 ml Output Total 1200 ml Balance -700 ml Intake Oral 500 ml Output Urine Total 1200 ml Physical Exam Heart: Regular rate, Normal S1, Normal S2, No murmurs, Gallops Extremities: No clubbing, No cyanosis, No edema, Normal pulses, No tenderness/swelling General: Other (CONFUSED) Lungs: Clear to auscultation, Normal air movement Neuro: Other (CONFUSED) Diagnosis RENAL FAILURE: Acute (Acute tubular necrosis), Other (DEHYDRATION) Assessment Assessment Problems Medical Problems: (1) Anemia Status: Acute (2) ARF (acute renal failure) Status: Acute (3) Generalized weakness Status: Acute Plan Plan of Care HE IS IMPROVING WITH IVF. CONT THE SAME AND TREND LAB Comment Review of Relevant I have reviewed the following items linda (where applicable) has been applied. Labs Laboratory Tests Test 03/04/21 16:31 03/04/21 18:00 03/04/21 19:11 03/05/21 04:30 Glucose (Fingerstick) 191 mg/dL (70-99) 204 mg/dL (70-99) Urine Collection Type Unknown Urine Color Yellow Urine Clarity Clear Urine pH 5.0 (<5.0-8.0) Urine Specific [place] 1.015 (1.000-1.030) Urine Protein Negative mg/dL (NEG-TRACE) Urine Glucose (UA) Negative mg/dL (NEG) Urine Ketones (Stick) Negative mg/dL (NEG) Urine Blood Small (NEG) Urine Nitrite Negative (NEG) Urine Bilirubin Negative (NEG) Urine Urobilinogen Dipstick 1.0 mg/dL (0.2 mg/dL) Urine Leukocyte Esterase Small (NEG) Urine RBC 0 /HPF (0-2) Urine WBC 11-20 /HPF (0-4) Urine Squamous Epithelial Cells Few /LPF Urine Bacteria Few /HPF (0-FEW) Urine Mucus Slight /LPF Urine Opiates Screen Neg (NEG) Urine Methadone Screen Neg (NEG) Urine Barbiturates Neg (NEG) Urine Phencyclidine Screen Neg (NEG) Urine Amphetamine/Methamphetamine Neg (NEG) Urine Benzodiazepines Screen Neg (NEG) Urine Cocaine Screen Neg (NEG) Urine Cannabinoids Screen Neg (NEG) Urine Ethyl Alcohol (NEG) White Blood Count 12.6 x10^3/uL (4.0-11.0) Red Blood Count 3.36 x10^6/uL (4.30-5.70) Hemoglobin 7.6 g/dL (13.0-17.5) Hematocrit 24.2 % (39.0-53.0) Mean Corpuscular Volume 72 fL (79-100) Mean Corpuscular Hemoglobin 23 pg (25-35) Mean Corpuscular Hemoglobin Concent 32 g/dL (31-37) Red Cell Distribution Width 24.0 % (11.5-14.5) Platelet Count 271 x10^3/uL (140-400) Neutrophils (%) (Auto) 79 % (31-73) Lymphocytes (%) (Auto) 8 % (24-48) Monocytes (%) (Auto) 8 % (0-9) Eosinophils (%) (Auto) 5 % (0-3) Basophils (%) (Auto) 0 % (0-3) Neutrophils # (Auto) 10.0 x10^3/uL (1.8-7.7) Lymphocytes # (Auto) 1.0 x10^3/uL (1.0-4.8) Monocytes # (Auto) 1.0 x10^3/uL (0.0-1.1) Eosinophils # (Auto) 0.6 x10^3/uL (0.0-0.7) Basophils # (Auto) 0.0 x10^3/uL (0.0-0.2) Haptoglobin 276 mg/dL (34-355) Sodium Level 136 mmol/L (136-145) Potassium Level 3.0 mmol/L (3.5-5.1) Chloride Level 102 mmol/L (98-107) Carbon Dioxide Level 18 mmol/L (21-32) Anion Gap 16 (6-14) Blood Urea Nitrogen 98 mg/dL (8-26) Creatinine 3.0 mg/dL (0.7-1.3) Estimated GFR (Cockcroft-Gault) 20.6 BUN/Creatinine Ratio 33 (6-20) Glucose Level 143 mg/dL (70-99) Calcium Level 8.1 mg/dL (8.5-10.1) Phosphorus Level 3.7 mg/dL (2.6-4.7) Total Bilirubin 1.2 mg/dL (0.2-1.0) Aspartate Amino Transf (AST/SGOT) 63 U/L (15-37) Alanine Aminotransferase (ALT/SGPT) 353 U/L (16-63) Alkaline Phosphatase 121 U/L (46-116) Creatine Kinase 535 U/L (39-308) Total Protein 6.3 g/dL (6.4-8.2) Albumin 2.8 g/dL (3.4-5.0) Albumin/Globulin Ratio 0.8 (1.0-1.7) Test 03/05/21 11:27 03/05/21 14:15 03/05/21 16:33 03/06/21 04:30 Glucose (Fingerstick) 170 mg/dL (70-99) 151 mg/dL (70-99) Ammonia 11 mcmol/L (11-34) Sodium Level 141 mmol/L (136-145) Potassium Level 3.4 mmol/L (3.5-5.1) Chloride Level 109 mmol/L (98-107) Carbon Dioxide Level 18 mmol/L (21-32) Anion Gap 14 (6-14) Blood Urea Nitrogen 77 mg/dL (8-26) Creatinine 2.4 mg/dL (0.7-1.3) Estimated GFR (Cockcroft-Gault) 26.6 Glucose Level 167 mg/dL (70-99) Calcium Level 7.8 mg/dL (8.5-10.1) Test 03/06/21 07:20 03/06/21 08:55 03/06/21 10:43 Glucose (Fingerstick) 153 mg/dL (70-99) 147 mg/dL (70-99) Ammonia 43 mcmol/L (11-34) Laboratory Tests Test 03/05/21 14:15 03/05/21 16:33 03/06/21 04:30 03/06/21 07:20 Ammonia 11 mcmol/L (11-34) Glucose (Fingerstick) 151 mg/dL (70-99) 153 mg/dL (70-99) Sodium Level 141 mmol/L (136-145) Potassium Level 3.4 mmol/L (3.5-5.1) Chloride Level 109 mmol/L (98-107) Carbon Dioxide Level 18 mmol/L (21-32) Anion Gap 14 (6-14) Blood Urea Nitrogen 77 mg/dL (8-26) Creatinine 2.4 mg/dL (0.7-1.3) Estimated GFR (Cockcroft-Gault) 26.6 Glucose Level 167 mg/dL (70-99) Calcium Level 7.8 mg/dL (8.5-10.1) Test 03/06/21 08:55 03/06/21 10:43 Ammonia 43 mcmol/L (11-34) Glucose (Fingerstick) 147 mg/dL (70-99) Microbiology 03/04/21 Urine Culture - Final, Complete Medications Current Medications Sodium Chloride 1,000 ml @ 1,000 mls/hr 1X ONCE IV Last administered on 03/03/21at 15:03; Start 03/03/21 at 14:30; Stop 03/03/21 at 15:29; Status DC Ondansetron HCl (Zofran) 4 mg PRN Q8HRS PRN IVP NAUSEA/VOMITING; Start 03/03/21 at 15:15; Stop 03/04/21 at 15:14; Status DC Morphine Sulfate (Morphine Sulfate) 2 mg PRN Q2HR PRN IVP PAIN; Start 03/03/21 at 15:15; Stop 03/04/21 at 15:14; Status DC Acetaminophen (Tylenol) 650 mg PRN Q4HRS PRN PO FEVER > 100.3'F Last administered on 03/04/21at 08:29; Start 03/03/21 at 15:15; Stop 03/04/21 at 15:14; Status DC Famotidine (Pepcid Vial) 20 mg 1X ONCE IVP Last administered on 03/03/21at 16:10; Start 03/03/21 at 15:15; Stop 03/03/21 at 15:16; Status DC Pantoprazole Sodium (Protonix) 40 mg DAILYAC PO Last administered on 03/06/21at 09:18; Start 03/03/21 at 16:30 Ferrous Sulfate (Feosol) 325 mg BIDWMEALS PO Last administered on 03/06/21at 09:18; Start 03/03/21 at 17:00 Polyethylene Glycol (miraLAX PACKET) 17 gm PRN DAILY PRN PO CONSTIPATION; Start 03/03/21 at 16:00 Potassium Chloride 40 meq/ Sodium Chloride 1,020 ml @ 100 mls/hr [id number] IV Last administered on 03/05/21at 05:23; Start 03/04/21 at 09:00 Potassium Chloride/Water 100 ml @ 100 mls/hr Q1H IV Last administered on 03/04/21at 22:58; Start 03/04/21 at 09:00; Stop 03/04/21 at 12:59; Status DC Vitamin A/Vitamin D (Vitamin A & D Ointment) 1 demetrius BID TP Last administered on 03/06/21 09:21; Start 03/04/21 at 21:00 Nystatin (Nystop) 1 demetrius BID TP Last administered on 03/06/21at 09:21; Start 03/04/21 at 21:00 Lorazepam (Ativan Inj) 0.5 mg PRN Q4HRS PRN IVP ANXIETY / AGITATION Last administered on 03/05/21at 03:48; Start 03/04/21 at 23:45 Haloperidol Lactate (Haldol Inj) 1 mg 1X ONCE IVP Last administered on 03/05/21at 00:58; Start 03/05/21 at 01:30; Stop 03/05/21 at 01:31; Status DC Potassium Chloride/Water 100 ml @ 50 mls/hr 1X ONCE IV Last administered on 03/05/21at 09:05; Start 03/05/21 at 09:00; Stop 03/05/21 at 10:59; Status DC Multivitamins 10 ml/Thiamine HCl 100 mg/Folic Acid 1 mg/Sodium Chloride 1,011.2 ml @ 100 mls/ hr DAILY IV Last administered on 03/06/21 09:19; Start 03/05/21 at 09:00; Stop 03/09/21 at 19:07 Lorazepam (Ativan) 4 mg PRN Q1HR PRN PO For CIWA 8-14 Last administered on 03/05/21at 22:44; Start 03/05/21 at 07:45 Lorazepam (Ativan) 8 mg PRN Q1HR PRN PO For CIWA 15 or greater; Start 03/05/21 at 07:45 Lorazepam (Ativan Inj) 2 mg PRN Q1HR PRN IV For CIWA 8-14 Last administered on 03/05/21at 10:45; Start 03/05/21 at 07:45 Lorazepam (Ativan Inj) 4 mg PRN Q1HR PRN IV For CIWA 15 or greater; Start 03/05/21 at 07:45 Haloperidol Lactate (Haldol Inj) 5 mg PRN Q4HRS PRN IVP Hallucinatns,Confusn,Delirium; Start 03/05/21 at 07:45 Clonidine HCl (Catapres) 0.1 mg PRN Q1HR PRN PO SBP > 180 or DBP > 100, MRX3; Start 03/05/21 at 07:45 Active Scripts Active Magnesium Citrate 296 Ml Solution 296 Ml PO ONCE Docusate Sodium 100 Mg Capsule 1 Cap PO BID 15 Days Miralax (Polyethylene Glycol 3350) 119 Gm Powder 17 Gm PO DAILY dissolve in water Reported Calcium (Calcium Carbonate) 500 Mg Tab.chew 1,000 Mg PO DAILY Pioglitazone Hcl 30 Mg Tablet 30 Mg PO DAILY Clonidine Hcl 0.2 Mg Tablet 0.2 Mg PO QPM Clonidine Hcl 0.1 Mg Tablet 0.1 Mg PO QAM Amlodipine Besylate 5 Mg Tablet 5 Mg PO DAILY LAST DOSE GIVEN: DATE:02-19-16 TIME:9:00 a.m. NEXT DOSE DUE: DATE:02-20-16 TIME:9:00 a.m. Glipizide 5 Mg Tablet 1 Tab PO DAILY LAST DOSE GIVEN: DATE:02-18-16 TIME:5:00 p.m. NEXT DOSE DUE: DATE:02-19-16 TIME:5:00 p.m. Atorvastatin Calcium 40 Mg Tablet 1 Tab PO QHS LAST DOSE GIVEN: DATE:02-18-16 TIME:9:00 p.m. NEXT DOSE DUE: DATE:02-19-16 TIME:9:00 p.m. Trifluoperazine Hcl 2 Mg Tablet 2 Mg PO Not given while in hosp. May resume at home as directed. Atenolol 50 Mg Tablet 1 Tab PO DAILY LAST DOSE GIVEN: DATE:02-19-16 TIME:9:00 a.m. NEXT DOSE DUE: DATE:02-20-16 TIME:9:00 a.m. Lisinopril 40 Mg Tablet 1 Tab PO DAILY LAST DOSE GIVEN: DATE:02-19-16 TIME:9:00 a.m. NEXT DOSE DUE: DATE:02-20-16 TIME:9:00 a.m. Hydrochlorothiazide Tablet (Hydrochlorothiazide) 50 Mg Tablet 1 Tab PO DAILY LAST DOSE GIVEN: DATE:02-19-16 TIME:9:00 a.m. NEXT DOSE DUE: DATE:02-20-16 TIME:9:00 a.m. Metformin Hcl 500 Mg Tablet 1 Tab PO BID LAST DOSE GIVEN: DATE:02-19-16 TIME:9:00 a.m. NEXT DOSE DUE: DATE:02-19-16 TIME:5:00 p.m. Vitals/I & O Vital Sign - Last 24 Hours 03/05/21 03/05/21 03/05/21 03/05/21 15:00 19:00 20:30 23:00 Temp 98.0 98.3 97.9 98.0 98.3 97.9 Pulse 71 81 89 Resp 18 22 24 B/P (MAP) 115/58 (77) 156/51 (86) 114/62 (79) Pulse Ox 95 95 96 O2 Delivery Room Air Room Air Nasal Cannula Nasal Cannula O2 Flow Rate 2.0 2.0 03/06/21 03/06/21 03/06/21 03:00 07:00 11:00 Temp 98.0 98.1 98.6 98.0 98.1 98.6 Pulse 81 88 87 Resp 24 24 24 B/P (MAP) 132/53 (79) 140/66 (90) 105/66 (79) Pulse Ox 90 90 92 O2 Delivery Nasal Cannula Nasal Cannula Nasal Cannula O2 Flow Rate 2.0 2.0 2.0 Intake and Output 03/05/21 03/05/21 03/06/21 15:00 23:00 07:00 Intake Total 400 ml 100 ml 0 ml Output Total 300 ml 900 ml Balance 100 ml 100 ml -900 ml Justifications for Admission Other Justification RE FERREIRA MD Mar 06, 2021 13:26
[2021-03-06 15:00] VITALS: BP 114/50
--- NOTE | 2021-03-06 16:43 | PDOC ---
PROGRESS NOTES Date of Service DATE: 03/06/21 TIME: 16:39 Assessment Problems Medical Problems: (1) Anemia Status: Acute (2) ARF (acute renal failure) Status: Acute (3) Generalized weakness Status: Acute Metabolic encephalopathy, patient admitted with prolonged time on his floor covered in feces and urine, with severe anemia, hypocalcemia, hypokalemia, elevated BNP. Note normal ammonia level Diabetic neuropathy Chronic back pain Atherosclerosis of cranial arteries seen on the CT Proptosis seen on the CT Plan Still no need for EEG or lumbar puncture Rehabilitation modalities Correct medical issues Subjective No complaints Objective Vital Signs Date Time Temp Pulse Resp B/P (MAP) Pulse Ox O2 Delivery O2 Flow Rate FiO2 03/06/21 11:00 98.6 87 24 105/66 (79) 92 Nasal Cannula 2.0 98.6 Intake and Output 03/06/21 07:00 Intake Total 500 ml Output Total 1200 ml Balance -700 ml Intake Oral 500 ml Output Urine Total 1200 ml PHYSICAL EXAM Alert. Mittens on, does not know location or date, does not know his name. PERRL. EOMI. CN: no focal findings. Muscle tone: normal. Muscle strength: 4/5 DTR: 0-1+ Plantar reflex: Flexor Gait: not examined in bed. Sensory exam: Stocking loss. No cerebellar signs elicited. Review of Relevant I have reviewed the following items linda (where applicable) has been applied. Labs Laboratory Tests Test 03/04/21 18:00 03/04/21 19:11 03/05/21 04:30 03/05/21 11:27 Urine Collection Type Unknown Urine Color Yellow Urine Clarity Clear Urine pH 5.0 (<5.0-8.0) Urine Specific [place] 1.015 (1.000-1.030) Urine Protein Negative mg/dL (NEG-TRACE) Urine Glucose (UA) Negative mg/dL (NEG) Urine Ketones (Stick) Negative mg/dL (NEG) Urine Blood Small (NEG) Urine Nitrite Negative (NEG) Urine Bilirubin Negative (NEG) Urine Urobilinogen Dipstick 1.0 mg/dL (0.2 mg/dL) Urine Leukocyte Esterase Small (NEG) Urine RBC 0 /HPF (0-2) Urine WBC 11-20 /HPF (0-4) Urine Squamous Epithelial Cells Few /LPF Urine Bacteria Few /HPF (0-FEW) Urine Mucus Slight /LPF Urine Opiates Screen Neg (NEG) Urine Methadone Screen Neg (NEG) Urine Barbiturates Neg (NEG) Urine Phencyclidine Screen Neg (NEG) Urine Amphetamine/Methamphetamine Neg (NEG) Urine Benzodiazepines Screen Neg (NEG) Urine Cocaine Screen Neg (NEG) Urine Cannabinoids Screen Neg (NEG) Urine Ethyl Alcohol (NEG) Glucose (Fingerstick) 204 mg/dL (70-99) 170 mg/dL (70-99) White Blood Count 12.6 x10^3/uL (4.0-11.0) Red Blood Count 3.36 x10^6/uL (4.30-5.70) Hemoglobin 7.6 g/dL (13.0-17.5) Hematocrit 24.2 % (39.0-53.0) Mean Corpuscular Volume 72 fL (79-100) Mean Corpuscular Hemoglobin 23 pg (25-35) Mean Corpuscular Hemoglobin Concent 32 g/dL (31-37) Red Cell Distribution Width 24.0 % (11.5-14.5) Platelet Count 271 x10^3/uL (140-400) Neutrophils (%) (Auto) 79 % (31-73) Lymphocytes (%) (Auto) 8 % (24-48) Monocytes (%) (Auto) 8 % (0-9) Eosinophils (%) (Auto) 5 % (0-3) Basophils (%) (Auto) 0 % (0-3) Neutrophils # (Auto) 10.0 x10^3/uL (1.8-7.7) Lymphocytes # (Auto) 1.0 x10^3/uL (1.0-4.8) Monocytes # (Auto) 1.0 x10^3/uL (0.0-1.1) Eosinophils # (Auto) 0.6 x10^3/uL (0.0-0.7) Basophils # (Auto) 0.0 x10^3/uL (0.0-0.2) Haptoglobin 276 mg/dL (34-355) Sodium Level 136 mmol/L (136-145) Potassium Level 3.0 mmol/L (3.5-5.1) Chloride Level 102 mmol/L (98-107) Carbon Dioxide Level 18 mmol/L (21-32) Anion Gap 16 (6-14) Blood Urea Nitrogen 98 mg/dL (8-26) Creatinine 3.0 mg/dL (0.7-1.3) Estimated GFR (Cockcroft-Gault) 20.6 BUN/Creatinine Ratio 33 (6-20) Glucose Level 143 mg/dL (70-99) Calcium Level 8.1 mg/dL (8.5-10.1) Phosphorus Level 3.7 mg/dL (2.6-4.7) Total Bilirubin 1.2 mg/dL (0.2-1.0) Aspartate Amino Transf (AST/SGOT) 63 U/L (15-37) Alanine Aminotransferase (ALT/SGPT) 353 U/L (16-63) Alkaline Phosphatase 121 U/L (46-116) Creatine Kinase 535 U/L (39-308) Total Protein 6.3 g/dL (6.4-8.2) Albumin 2.8 g/dL (3.4-5.0) Albumin/Globulin Ratio 0.8 (1.0-1.7) Test 03/05/21 14:15 03/05/21 16:33 03/06/21 04:30 03/06/21 07:20 Ammonia 11 mcmol/L (11-34) Glucose (Fingerstick) 151 mg/dL (70-99) 153 mg/dL (70-99) Sodium Level 141 mmol/L (136-145) Potassium Level 3.4 mmol/L (3.5-5.1) Chloride Level 109 mmol/L (98-107) Carbon Dioxide Level 18 mmol/L (21-32) Anion Gap 14 (6-14) Blood Urea Nitrogen 77 mg/dL (8-26) Creatinine 2.4 mg/dL (0.7-1.3) Estimated GFR (Cockcroft-Gault) 26.6 Glucose Level 167 mg/dL (70-99) Calcium Level 7.8 mg/dL (8.5-10.1) Test 03/06/21 08:55 03/06/21 10:43 03/06/21 15:28 Ammonia 43 mcmol/L (11-34) Glucose (Fingerstick) 147 mg/dL (70-99) 178 mg/dL (70-99) Laboratory Tests Test 03/06/21 04:30 03/06/21 07:20 03/06/21 08:55 03/06/21 10:43 Sodium Level 141 mmol/L (136-145) Potassium Level 3.4 mmol/L (3.5-5.1) Chloride Level 109 mmol/L (98-107) Carbon Dioxide Level 18 mmol/L (21-32) Anion Gap 14 (6-14) Blood Urea Nitrogen 77 mg/dL (8-26) Creatinine 2.4 mg/dL (0.7-1.3) Estimated GFR (Cockcroft-Gault) 26.6 Glucose Level 167 mg/dL (70-99) Calcium Level 7.8 mg/dL (8.5-10.1) Glucose (Fingerstick) 153 mg/dL (70-99) 147 mg/dL (70-99) Ammonia 43 mcmol/L (11-34) Test 03/06/21 15:28 Glucose (Fingerstick) 178 mg/dL (70-99) Microbiology 03/04/21 Urine Culture - Final, Complete Medications Current Medications Sodium Chloride 1,000 ml @ 1,000 mls/hr 1X ONCE IV Last administered on 03/03/21at 15:03; Start 03/03/21 at 14:30; Stop 03/03/21 at 15:29; Status DC Ondansetron HCl (Zofran) 4 mg PRN Q8HRS PRN IVP NAUSEA/VOMITING; Start 03/03/21 at 15:15; Stop 03/04/21 at 15:14; Status DC Morphine Sulfate (Morphine Sulfate) 2 mg PRN Q2HR PRN IVP PAIN; Start 03/03/21 at 15:15; Stop 03/04/21 at 15:14; Status DC Acetaminophen (Tylenol) 650 mg PRN Q4HRS PRN PO FEVER > 100.3'F Last administered on 03/04/21at 08:29; Start 03/03/21 at 15:15; Stop 03/04/21 at 15:14; Status DC Famotidine (Pepcid Vial) 20 mg 1X ONCE IVP Last administered on 03/03/21at 16:10; Start 03/03/21 at 15:15; Stop 03/03/21 at 15:16; Status DC Pantoprazole Sodium (Protonix) 40 mg DAILYAC PO Last administered on 03/06/21at 09:18; Start 03/03/21 at 16:30 Ferrous Sulfate (Feosol) 325 mg BIDWMEALS PO Last administered on 03/06/21 09:18; Start 03/03/21 at 17:00 Polyethylene Glycol (miraLAX PACKET) 17 gm PRN DAILY PRN PO CONSTIPATION; Start 03/03/21 at 16:00 Potassium Chloride 40 meq/ Sodium Chloride 1,020 ml @ 100 mls/hr [id number] IV Last administered on 03/05/21at 05:23; Start 03/04/21 at 09:00 Potassium Chloride/Water 100 ml @ 100 mls/hr Q1H IV Last administered on 03/04/21 22:58; Start 03/04/21 at 09:00; Stop 03/04/21 at 12:59; Status DC Vitamin A/Vitamin D (Vitamin A & D Ointment) 1 demetrius BID TP Last administered on 03/06/21 09:21; Start 03/04/21 at 21:00 Nystatin (Nystop) 1 demetrius BID TP Last administered on 03/06/21 09:21; Start 03/04/21 at 21:00 Lorazepam (Ativan Inj) 0.5 mg PRN Q4HRS PRN IVP ANXIETY / AGITATION Last admini stered on 03/05/21at 03:48; Start 03/04/21 at 23:45 Haloperidol Lactate (Haldol Inj) 1 mg 1X ONCE IVP Last administered on 03/05 00:58; Start 03/05/21 at 01:30; Stop 03/05/21 at 01:31; Status DC Potassium Chloride/Water 100 ml @ 50 mls/hr 1X ONCE IV Last administered on 03/05/21at 09:05; Start 03/05/21 at 09:00; Stop 03/05/21 at 10:59; Status DC Multivitamins 10 ml/Thiamine HCl 100 mg/Folic Acid 1 mg/Sodium Chloride 1,011.2 ml @ 100 mls/ hr DAILY IV Last administered on 03/06/21at 09:19; Start 03/05/21 at 09:00; Stop 03/09/21 at 19:07 Lorazepam (Ativan) 4 mg PRN Q1HR PRN PO For CIWA 8-14 Last administered on 03/05/21at 22:44; Start 03/05/21 at 07:45 Lorazepam (Ativan) 8 mg PRN Q1HR PRN PO For CIWA 15 or greater; Start 03/05/21 at 07:45 Lorazepam (Ativan Inj) 2 mg PRN Q1HR PRN IV For CIWA 8-14 Last administered on 03/05/21at 10:45; Start 03/05/21 at 07:45 Lorazepam (Ativan Inj) 4 mg PRN Q1HR PRN IV For CIWA 15 or greater; Start 03/05/21 at 07:45 Haloperidol Lactate (Haldol Inj) 5 mg PRN Q4HRS PRN IVP Hallucinatns,Confusn,Delirium; Start 03/05/21 at 07:45 Clonidine HCl (Catapres) 0.1 mg PRN Q1HR PRN PO SBP > 180 or DBP > 100, MRX3; Start 03/05/21 at 07:45 Active Scripts Active Magnesium Citrate 296 Ml Solution 296 Ml PO ONCE Docusate Sodium 100 Mg Capsule 1 Cap PO BID 15 Days Miralax (Polyethylene Glycol 3350) 119 Gm Powder 17 Gm PO DAILY dissolve in water Reported Calcium (Calcium Carbonate) 500 Mg Tab.chew 1,000 Mg PO DAILY Pioglitazone Hcl 30 Mg Tablet 30 Mg PO DAILY Clonidine Hcl 0.2 Mg Tablet 0.2 Mg PO QPM Clonidine Hcl 0.1 Mg Tablet 0.1 Mg PO QAM Amlodipine Besylate 5 Mg Tablet 5 Mg PO DAILY LAST DOSE GIVEN: DATE:02-19-16 TIME:9:00 a.m. NEXT DOSE DUE: DATE:02-20-16 TIME:9:00 a.m. Glipizide 5 Mg Tablet 1 Tab PO DAILY LAST DOSE GIVEN: DATE:02-18-16 TIME:5:00 p.m. NEXT DOSE DUE: DATE:02-19-16 TIME:5:00 p.m. Atorvastatin Calcium 40 Mg Tablet 1 Tab PO QHS LAST DOSE GIVEN: DATE:02-18-16 TIME:9:00 p.m. NEXT DOSE DUE: DATE:02-19-16 TIME:9:00 p.m. Trifluoperazine Hcl 2 Mg Tablet 2 Mg PO Not given while in hosp. May resume at home as directed. Atenolol 50 Mg Tablet 1 Tab PO DAILY LAST DOSE GIVEN: DATE:02-19-16 TIME:9:00 a.m. NEXT DOSE DUE: DATE:02-20-16 TIME:9:00 a.m. Lisinopril 40 Mg Tablet 1 Tab PO DAILY LAST DOSE GIVEN: DATE:02-19-16 TIME:9:00 a.m. NEXT DOSE DUE: DATE:02-20-16 TIME:9:00 a.m. Hydrochlorothiazide Tablet (Hydrochlorothiazide) 50 Mg Tablet 1 Tab PO DAILY LAST DOSE GIVEN: DATE:02-19-16 TIME:9:00 a.m. NEXT DOSE DUE: DATE:02-20-16 TIME:9:00 a.m. Metformin Hcl 500 Mg Tablet 1 Tab PO BID LAST DOSE GIVEN: DATE:02-19-16 TIME:9:00 a.m. NEXT DOSE DUE: DATE:02-19-16 TIME:5:00 p.m. Vitals/I & O Vital Sign - Last 24 Hours 03/05/21 03/05/21 03/05/21 03/06/21 19:00 20:30 23:00 03:00 Temp 98.3 97.9 98.0 98.3 97.9 98.0 Pulse 81 89 81 Resp 22 24 24 B/P (MAP) 156/51 (86) 114/62 (79) 132/53 (79) Pulse Ox 95 96 90 O2 Delivery Room Air Nasal Cannula Nasal Cannula Nasal Cannula O2 Flow Rate 2.0 2.0 2.0 03/06/21 03/06/21 03/06/21 07:00 08:00 11:00 Temp 98.1 98.6 98.1 98.6 Pulse 88 87 Resp 24 24 B/P (MAP) 140/66 (90) 105/66 (79) Pulse Ox 90 92 O2 Delivery Nasal Cannula Nasal Cannula Nasal Cannula O2 Flow Rate 2.0 2.0 2.0 Intake and Output 03/05/21 03/05/21 03/06/21 15:00 23:00 07:00 Intake Total 400 ml 100 ml 0 ml Output Total 300 ml 900 ml Balance 100 ml 100 ml -900 ml Justicifation of Admission Dx: Justifications for Admission: Justification of Admission Dx: Yes CALOS ANSARI MD Mar 06, 2021 16:43
[2021-03-06 19:00] VITALS: BP 120/58
[2021-03-06] MEDS: POTASSIUM CL 40MEQ IN 0.9%NACL 1,000 ML IV SCH (20:59)
[2021-03-06 23:00] VITALS: BP 129/57
[2021-03-07] VITALS (12 sets, daily range): BP systolic 104–152; BP diastolic 57–84
[2021-03-07] MEDS: IPRATRPIUM/ALBUTEROL 0.5/2.5MG 3 ML NEBU. NEB SCH ×2 (00:14→11:44)
[2021-03-07 05:14] LABS: HEMATOCRIT 25.7 % (39.0-53.0); HEMOGLOBIN 7.9 g/dL (13.0-17.5); RED BLOOD COUNT 3.49 x10^6/uL (4.30-5.70); RED CELL DISTRIBUTION WIDTH 24.2 % (11.5-14.5); WHITE BLOOD COUNT 11.8 x10^3/uL (4.0-11.0)
[2021-03-07 05:49] LABS: CALCIUM 8.1 mg/dL (8.5-10.1); GFR 32.8; POTASSIUM 3.8 mmol/L (3.5-5.1)
[2021-03-07] MEDS: POTASSIUM CL 40MEQ IN 0.9%NACL 1,000 ML IV SCH ×2 (06:43→22:22)
--- NOTE | 2021-03-07 09:55 | PDOC ---
Provider Note Date of Service: DATE: 03/07/21 TIME: 09:53 Provider Note mental status same, NH3 up 43- hb same 7.6- add low dose lactulose, check inr re likely liver disease, may be driving blood loss, renal recovery continues, same iv fluid Justifications for Admission Other Justification FORD COX MD Mar 07, 2021 09:55
[2021-03-07] MEDS: FERROUS SULFATE 325 MG TABLET. PO SCH ×2 (09:58→17:00)
[2021-03-07] MEDS: VITS A & D/LANOLIN TOPICAL OINTMENT 42GM TUBE. TP SCH ×2 (09:58→22:32)
[2021-03-07] MEDS: PANTOPRAZOLE 40 MG TABLET.DR. PO SCH (09:58)
[2021-03-07] MEDS: MULTIVIT INFUSN,ADULT 4,VIT K 10 ML, THIAMINE INJ 100 MG, FOLIC ACID INJ 1 MG in IV NOR... IV SCH (09:58)
[2021-03-07] MEDS: NYSTATIN TOPICAL POWDER 15GM BOTTLE. TP SCH ×2 (09:59→22:31)
[2021-03-07] MEDS: LACTULOSE 20 GM/30 ML SOLUTION. PO SCH ×2 (10:38→17:00)
[2021-03-07 13:41] LABS: PROTHROMBIN TIME PATIENT 16.6 SEC (11.7-14.0)
[2021-03-07 20:45] LABS: BASE EXCESS ABG -6 mmol/L (-3-3); HCO3 ABG 18 mmol/L (21-28); PCO2 ABG 28 mmHg (35-46); PO2 ABG 68 mmHg (65-108); SAT O2 ABG 93 % (92-99)
[2021-03-07 20:46] LABS: FIO2 ABG 44
--- NOTE | 2021-03-07 21:25 | EKG ---
[facility] [address] [place] [address] Test Date: 2021-03-07 Test Time: 21:19:33 Pat Name: FORD STALEY Department: Room: 548 1 Gender: M [employer]: [facility] : 1945 Requested By: LEAH GONCALVES Order Number: [id number] Reading MD: Soham Moreira MD Measurements Intervals [place] Rate: 155 P: WI: QRS: 55 QRSD: 86 T: 38 QT: 302 QTc: 487 Interpretive Statements Atrial fibrillation with rapid ventricular response NON-SPECIFIC ST/T CHANGES Electronically Signed On 03-15-2021 12:06:33 CDT by Soham Moreira MD
--- NOTE | 2021-03-07 21:50 | NUR ---
Rapid Response Note: Rapid Response called by patient's RN for tachycardia and tachypnea; RN states patient's HR increased to 150's and appeared to be having difficulty breathing so ABG's obtained at 2031 resulted pH 7.42, pCO2 28, pO2 68, HCO3 18, BE -6 on 4L/NC. RT suggested placing patient on BiPap for tahcypnea. Upon arrival requested patient be placed on telemetry--HR 130's-150, Heart tones IRR and tele shows AFib with RVR. +2 radial/pedal pulses palpated and no edema was observed. EKG ordered STAT and reviewed--AFib with RVR no ST elavation/depression seen. Lung sounds clear anteriorly and posteriorly to auscultation, RR remains 30's--PCXR ordered STAT to evaluate for CHF since patient has had IVF infusing [place] 100CC/[place] [address] on admit. FSBS 164. Patient did state "No" when asked if he was having any pain; RN states patient has not been speaking. Patient does appear restless and has hx of drinking 3 Beers/daily and smoking; after insertion of IV in left wrist, patient was given Ativan 2MG IVP. Dr Rafael rodriguez, returned page at 2131 and notified of above, SBP 130's-152 and also waiting for CXR to be completed. Orders received to transfer patient to CVC (6S), give Cardizem 10MG IVP, start Cardizem gtt per protocol and restart IVF if no change in CXR. RN and patient notified of above, all questions answered. See orders, lab results, CXR results, and vital signs. Addendum: 03/07/21 at 2249 by FITZ MONSALVE RN Amended: Links added.
--- NOTE | 2021-03-07 22:32 | RAD ---
EXAM: CHEST ONE VIEW. HISTORY: Tachypnea. COMPARISON: 03/03/2021. FINDINGS: A frontal view of the chest is obtained. There are bilateral perihilar predominant interstitial infiltrates. Trace pleural effusions suspected . There is no pneumothorax. The heart is moderately enlarged. There are atherosclerotic calcification s of the aorta. IMPRESSION: 1. Mild pulmonary edema versus atypical pneumonia. 2. Moderate cardiomegaly. Electronically signed by: Toño Huber MD (03/07/2021 10:30 PM) [facility]
[2021-03-07] MEDS: HALOPERIDOL LACTATE 5 MG/ML VIAL. IVP PRN (23:17)
[2021-03-08] VITALS (10 sets, daily range): BP systolic 96–135; BP diastolic 49–106
[2021-03-08 04:41] LABS: HEMATOCRIT 25.1 % (39.0-53.0); HEMOGLOBIN 7.6 g/dL (13.0-17.5); RED BLOOD COUNT 3.37 x10^6/uL (4.30-5.70); RED CELL DISTRIBUTION WIDTH 24.8 % (11.5-14.5); WHITE BLOOD COUNT 16.1 x10^3/uL (4.0-11.0)
[2021-03-08 05:22] LABS: ALBUMIN 2.6 g/dL (3.4-5.0); ALBUMIN/GLOBULIN RATIO 0.7 (1.0-1.7); CALCIUM 8.2 mg/dL (8.5-10.1); GFR 32.8; POTASSIUM 3.9 mmol/L (3.5-5.1); TOTAL BILIRUBIN 1.1 mg/dL (0.2-1.0); TOTAL PROTEIN 6.4 g/dL (6.4-8.2)
[2021-03-08] MEDS: PANTOPRAZOLE 40 MG TABLET.DR. PO SCH (07:30)
[2021-03-08] MEDS: FERROUS SULFATE 325 MG TABLET. PO SCH ×2 (08:00→10:54)
[2021-03-08] MEDS: IPRATRPIUM/ALBUTEROL 0.5/2.5MG 3 ML NEBU. NEB SCH ×3 (08:11→20:37)
[2021-03-08] MEDS: MULTIVIT INFUSN,ADULT 4,VIT K 10 ML, THIAMINE INJ 100 MG, FOLIC ACID INJ 1 MG in IV NOR... IV SCH (08:53)
[2021-03-08] MEDS: NYSTATIN TOPICAL POWDER 15GM BOTTLE. TP SCH ×2 (08:54→20:43)
[2021-03-08] MEDS: VITS A & D/LANOLIN TOPICAL OINTMENT 42GM TUBE. TP SCH ×2 (08:54→20:43)
[2021-03-08] MEDS: LACTULOSE 20 GM/30 ML SOLUTION. PO SCH ×2 (08:54→10:54)
--- NOTE | 2021-03-08 10:21 | PDOC ---
PROGRESS NOTES Date of Service DATE: 03/08/21 TIME: 10:20 Assessment Problems Medical Problems: (1) Anemia Status: Acute (2) ARF (acute renal failure) Status: Acute (3) Generalized weakness Status: Acute Now the started on BiPAP, and respiratory distress Metabolic encephalopathy, patient admitted with prolonged time on his floor covered in feces and urine, with severe anemia, hypocalcemia, hypokalemia, elevated BNP. Note normal ammonia level Diabetic neuropathy Chronic back pain Atherosclerosis of cranial arteries seen on the CT Proptosis seen on the CT Plan Still no need for EEG or lumbar puncture Rehabilitation modalities Correct medical issues Subjective None Objective Vital Signs Date Time Temp Pulse Resp B/P (MAP) Pulse Ox O2 Delivery O2 Flow Rate FiO2 03/08/21 08:11 95 Nasal Cannula 5.0 03/08/21 06:03 120 131/81 (98) 03/08/21 02:50 98.8 24 98.8 Intake and Output 03/08/21 07:00 Intake Total 95 ml Output Total 1500 ml Balance -1405 ml Intake Oral 95 ml Output Urine Total 1500 ml # Bowel Movements 2 PHYSICAL EXAM Obtunded, starting on BiPAP, in respiratory distress. Mittens on, does not know location or date, does not know his name. PERRL. EOMI. CN: no focal findings. Muscle tone: normal. Muscle strength: Moves all extremities DTR: 0-1+ Plantar reflex: Flexor Gait: not examined in bed. Sensory exam: Stocking loss on previous exams. No cerebellar signs elicited. Review of Relevant I have reviewed the following items linda (where applicable) has been applied. Labs Laboratory Tests Test 03/06/21 10:43 03/06/21 15:28 03/06/21 21:01 03/07/21 04:55 Glucose (Fingerstick) 147 mg/dL (70-99) 178 mg/dL (70-99) 176 mg/dL (70-99) White Blood Count 11.8 x10^3/uL (4.0-11.0) Red Blood Count 3.49 x10^6/uL (4.30-5.70) Hemoglobin 7.9 g/dL (13.0-17.5) Hematocrit 25.7 % (39.0-53.0) Mean Corpuscular Volume 74 fL (79-100) Mean Corpuscular Hemoglobin 23 pg (25-35) Mean Corpuscular Hemoglobin Concent 31 g/dL (31-37) Red Cell Distribution Width 24.2 % (11.5-14.5) Platelet Count 324 x10^3/uL (140-400) Sodium Level 149 mmol/L (136-145) Potassium Level 3.8 mmol/L (3.5-5.1) Chloride Level 116 mmol/L (98-107) Carbon Dioxide Level 20 mmol/L (21-32) Anion Gap 13 (6-14) Blood Urea Nitrogen 60 mg/dL (8-26) Creatinine 2.0 mg/dL (0.7-1.3) Estimated GFR (Cockcroft-Gault) 32.8 Glucose Level 165 mg/dL (70-99) Calcium Level 8.1 mg/dL (8.5-10.1) Test 03/07/21 08:06 03/07/21 12:48 03/07/21 13:15 03/07/21 18:04 Glucose (Fingerstick) 157 mg/dL (70-99) 158 mg/dL (70-99) 159 mg/dL (70-99) Prothrombin Time 16.6 SEC (11.7-14.0) Prothromb Time International Ratio 1.4 (0.8-1.1) Test 03/07/21 20:32 03/07/21 21:19 03/08/21 03:50 03/08/21 07:46 O2 Saturation 93 % (92-99) Arterial Blood pH 7.42 (7.35-7.45) Arterial Blood pCO2 at Patient Temp 28 mmHg (35-46) Arterial Blood pO2 at Patient Temp 68 mmHg (65-108) Arterial Blood HCO3 18 mmol/L (21-28) Arterial Blood Base Excess -6 mmol/L (-3-3) FiO2 44 Glucose (Fingerstick) 164 mg/dL (70-99) 176 mg/dL (70-99) White Blood Count 16.1 x10^3/uL (4.0-11.0) Red Blood Count 3.37 x10^6/uL (4.30-5.70) Hemoglobin 7.6 g/dL (13.0-17.5) Hematocrit 25.1 % (39.0-53.0) Mean Corpuscular Volume 75 fL (79-100) Mean Corpuscular Hemoglobin 23 pg (25-35) Mean Corpuscular Hemoglobin Concent 30 g/dL (31-37) Red Cell Distribution Width 24.8 % (11.5-14.5) Platelet Count 294 x10^3/uL (140-400) Sodium Level 154 mmol/L (136-145) Potassium Level 3.9 mmol/L (3.5-5.1) Chloride Level 121 mmol/L (98-107) Carbon Dioxide Level 21 mmol/L (21-32) Anion Gap 12 (6-14) Blood Urea Nitrogen 57 mg/dL (8-26) Creatinine 2.0 mg/dL (0.7-1.3) Estimated GFR (Cockcroft-Gault) 32.8 BUN/Creatinine Ratio 29 (6-20) Glucose Level 181 mg/dL (70-99) Calcium Level 8.2 mg/dL (8.5-10.1) Total Bilirubin 1.1 mg/dL (0.2-1.0) Aspartate Amino Transf (AST/SGOT) 19 U/L (15-37) Alanine Aminotransferase (ALT/SGPT) 176 U/L (16-63) Alkaline Phosphatase 93 U/L (46-116) Total Protein 6.4 g/dL (6.4-8.2) Albumin 2.6 g/dL (3.4-5.0) Albumin/Globulin Ratio 0.7 (1.0-1.7) Laboratory Tests Test 03/07/21 12:48 03/07/21 13:15 03/07/21 18:04 03/07/21 20:32 Glucose (Fingerstick) 158 mg/dL (70-99) 159 mg/dL (70-99) Prothrombin Time 16.6 SEC (11.7-14.0) Prothromb Time International Ratio 1.4 (0.8-1.1) O2 Saturation 93 % (92-99) Arterial Blood pH 7.42 (7.35-7.45) Arterial Blood pCO2 at Patient Temp 28 mmHg (35-46) Arterial Blood pO2 at Patient Temp 68 mmHg (65-108) Arterial Blood HCO3 18 mmol/L (21-28) Arterial Blood Base Excess -6 mmol/L (-3-3) FiO2 44 Test 03/07/21 21:19 03/08/21 03:50 03/08/21 07:46 Glucose (Fingerstick) 164 mg/dL (70-99) 176 mg/dL (70-99) White Blood Count 16.1 x10^3/uL (4.0-11.0) Red Blood Count 3.37 x10^6/uL (4.30-5.70) Hemoglobin 7.6 g/dL (13.0-17.5) Hematocrit 25.1 % (39.0-53.0) Mean Corpuscular Volume 75 fL (79-100) Mean Corpuscular Hemoglobin 23 pg (25-35) Mean Corpuscular Hemoglobin Concent 30 g/dL (31-37) Red Cell Distribution Width 24.8 % (11.5-14.5) Platelet Count 294 x10^3/uL (140-400) Sodium Level 154 mmol/L (136-145) Potassium Level 3.9 mmol/L (3.5-5.1) Chloride Level 121 mmol/L (98-107) Carbon Dioxide Level 21 mmol/L (21-32) Anion Gap 12 (6-14) Blood Urea Nitrogen 57 mg/dL (8-26) Creatinine 2.0 mg/dL (0.7-1.3) Estimated GFR (Cockcroft-Gault) 32.8 BUN/Creatinine Ratio 29 (6-20) Glucose Level 181 mg/dL (70-99) Calcium Level 8.2 mg/dL (8.5-10.1) Total Bilirubin 1.1 mg/dL (0.2-1.0) Aspartate Amino Transf (AST/SGOT) 19 U/L (15-37) Alanine Aminotransferase (ALT/SGPT) 176 U/L (16-63) Alkaline Phosphatase 93 U/L (46-116) Total Protein 6.4 g/dL (6.4-8.2) Albumin 2.6 g/dL (3.4-5.0) Albumin/Globulin Ratio 0.7 (1.0-1.7) Microbiology 03/04/21 Urine Culture - Final, Complete Medications Current Medications Sodium Chloride 1,000 ml @ 1,000 mls/hr 1X ONCE IV Last administered on 03/03/21at 15:03; Start 03/03/21 at 14:30; Stop 03/03/21 at 15:29; Status DC Ondansetron HCl (Zofran) 4 mg PRN Q8HRS PRN IVP NAUSEA/VOMITING; Start 03/03/21 at 15:15; Stop 03/04/21 at 15:14; Status DC Morphine Sulfate (Morphine Sulfate) 2 mg PRN Q2HR PRN IVP PAIN; Start 03/03/21 at 15:15; Stop 03/04/21 at 15:14; Status DC Acetaminophen (Tylenol) 650 mg PRN Q4HRS PRN PO FEVER > 100.3'F Last administered on 03/04/21at 08:29; Start 03/03/21 at 15:15; Stop 03/04/21 at 15:14; Status DC Famotidine (Pepcid Vial) 20 mg 1X ONCE IVP Last administered on 03/03/21at 16:10; Start 03/03/21 at 15:15; Stop 03/03/21 at 15:16; Status DC Pantoprazole Sodium (Protonix) 40 mg DAILYAC PO Last administered on 03/07/21at 09:58; Start 03/03/21 at 16:30 Ferrous Sulfate (Feosol) 325 mg BIDWMEALS PO Last administered on 03/07/21at 09:58; Start 03/03/21 at 17:00 Polyethylene Glycol (miraLAX PACKET) 17 gm PRN DAILY PRN PO CONSTIPATION; Start 03/03/21 at 16:00 Potassium Chloride 40 meq/ Sodium Chloride 1,020 ml @ 100 mls/hr [id number] IV Last administered on 03/05/21at 05:23; Start 03/04/21 at 09:00; Stop 03/06/21 at 19:07; Status DC Potassium Chloride/Water 100 ml @ 100 mls/hr Q1H IV Last administered on 03/04/21at 22:58; Start 03/04/21 at 09:00; Stop 03/04/21 at 12:59; Status DC Vitamin A/Vitamin D (Vitamin A & D Ointment) 1 demetrius BID TP Last administered on 03/08/21at 08:54; Start 03/04/21 at 21:00 Nystatin (Nystop) 1 demetrius BID TP Last administered on 03/08/21at 08:54; Start 03/04/21 at 21:00 Lorazepam (Ativan Inj) 0.5 mg PRN Q4HRS PRN IVP ANXIETY / AGITATION Last administered on 03/05/21at 03:48; Start 03/04/21 at 23:45 Haloperidol Lactate (Haldol Inj) 1 mg 1X ONCE IVP Last administered on 03/05/21at 00:58; Start 03/05/21 at 01:30; Stop 03/05/21 at 01:31; Status DC Potassium Chloride/Water 100 ml @ 50 mls/hr 1X ONCE IV Last administered on 03/05/21at 09:05; Start 03/05/21 at 09:00; Stop 03/05/21 at 10:59; Status DC Multivitamins 10 ml/Thiamine HCl 100 mg/Folic Acid 1 mg/Sodium Chloride 1,011.2 ml @ 100 mls/ hr DAILY IV Last administered on 03/08/21at 08:53; Start 03/05/21 at 09:00; Stop 03/09/21 at 19:07 Lorazepam (Ativan) 4 mg PRN Q1HR PRN PO For CIWA 8-14 Last administered on at 22:44; Start 03/05/21 at 07:45 Lorazepam (Ativan) 8 mg PRN Q1HR PRN PO For CIWA 15 or greater; Start 03/05/21 at 07:45 Lorazepam (Ativan Inj) 2 mg PRN Q1HR PRN IV For CIWA 8-14 Last administered on 03/08/21at 05:42; Start 03/05/21 at 07:45 Lorazepam (Ativan Inj) 4 mg PRN Q1HR PRN IV For CIWA 15 or greater Last administered on 03/07/21at 23:17; Start 03/05/21 at 07:45 Haloperidol Lactate (Haldol Inj) 5 mg PRN Q4HRS PRN IVP Hallucinatns,Confusn,Delirium Last administered on 03/07/21at 23:17; Start 03/05/21 at 07:45 Clonidine HCl (Catapres) 0.1 mg PRN Q1HR PRN PO SBP > 180 or DBP > 100, MRX3; Start 03/05/21 at 07:45 Potassium Chloride/Sodium Chloride 1,000 ml @ 75 mls/hr [id number] IV Last administered on 03/07/21at 22:22; Start 03/06/21 at 20:00 Lactulose (Lactulose) 20 gm [id number] PO Last administered on 03/07/21at 17:00; Start 03/07/21 at 10:00 Albuterol/ Ipratropium (Duoneb) 3 ml [id number] Last administered on 03/08/21at 08:11; Start 03/07/21 at 14:00 Diltiazem HCl 125 mg/Sodium Chloride 125 ml @ 5 mls/hr CONT PRN IV PER PROTOCOL Last administered on 03/07/21at 22:21; Start 03/07/21 at 21:45 Diltiazem HCl (Cardizem Iv Push) 10 mg 1X ONCE IVP Last administered on 03/07/21at 22:33; Start 03/07/21 at 22:00; Stop 03/07/21 at 22:01; Status DC Active Scripts Active Magnesium Citrate 296 Ml Solution 296 Ml PO ONCE Docusate Sodium 100 Mg Capsule 1 Cap PO BID 15 Days Miralax (Polyethylene Glycol 3350) 119 Gm Powder 17 Gm PO DAILY dissolve in water Reported Calcium (Calcium Carbonate) 500 Mg Tab.chew 1,000 Mg PO DAILY Pioglitazone Hcl 30 Mg Tablet 30 Mg PO DAILY Clonidine Hcl 0.2 Mg Tablet 0.2 Mg PO QPM Clonidine Hcl 0.1 Mg Tablet 0.1 Mg PO QAM Amlodipine Besylate 5 Mg Tablet 5 Mg PO DAILY LAST DOSE GIVEN: DATE:02-19-16 TIME:9:00 a.m. NEXT DOSE DUE: DATE:02-20-16 TIME:9:00 a.m. Glipizide 5 Mg Tablet 1 Tab PO DAILY LAST DOSE GIVEN: DATE:02-18-16 TIME:5:00 p.m. NEXT DOSE DUE: DATE:02-19-16 TIME:5:00 p.m. Atorvastatin Calcium 40 Mg Tablet 1 Tab PO QHS LAST DOSE GIVEN: DATE:02-18-16 TIME:9:00 p.m. NEXT DOSE DUE: DATE:02-19-16 TIME:9:00 p.m. Trifluoperazine Hcl 2 Mg Tablet 2 Mg PO Not given while in hosp. May resume at home as directed. Atenolol 50 Mg Tablet 1 Tab PO DAILY LAST DOSE GIVEN: DATE:02-19-16 TIME:9:00 a.m. NEXT DOSE DUE: DATE:02-20-16 TIME:9:00 a.m. Lisinopril 40 Mg Tablet 1 Tab PO DAILY LAST DOSE GIVEN: DATE:02-19-16 TIME:9:00 a.m. NEXT DOSE DUE: DATE:02-20-16 TIME:9:00 a.m. Hydrochlorothiazide Tablet (Hydrochlorothiazide) 50 Mg Tablet 1 Tab PO DAILY LAST DOSE GIVEN: DATE:02-19-16 TIME:9:00 a.m. NEXT DOSE DUE: DATE:02-20-16 TIME:9:00 a.m. Metformin Hcl 500 Mg Tablet 1 Tab PO BID LAST DOSE GIVEN: DATE:02-19-16 TIME:9:00 a.m. NEXT DOSE DUE: DATE:02-19-16 TIME:5:00 p.m. Vitals/I & O Vital Sign - Last 24 Hours 03/07/21 03/07/21 03/07/21 03/07/21 11:00 11:46 15:00 19:00 Temp 97.4 97.8 98.2 97.4 97.8 98.2 Pulse 98 116 138 Resp 28 30 30 B/P (MAP) 139/84 (102) 126/70 (88) 147/63 (91) Pulse Ox 94 94 90 95 O2 Delivery Nasal Cannula Nasal Cannula Nasal Cannula O2 Flow Rate 4.0 5.0 5.0 03/07/21 03/07/21 03/07/21 03/07/21 20:03 21:05 21:25 21:28 Pulse 152 137 Resp 32 36 B/P (MAP) 137/80 (99) 152/69 (96) Pulse Ox 94 97 96 98 O2 Delivery Nasal Cannula BiPAP/CPAP BiPAP/CPAP BiPAP/CPAP O2 Flow Rate 7.0 03/07/21 03/07/21 03/07/21 03/07/21 21:50 22:20 22:23 22:33 Temp 98.6 98.6 Pulse 134 146 125 134 Resp 30 22 30 B/P (MAP) 135/77 (96) 108/66 (80) 112/79 (90) 135/77 Pulse Ox 98 91 98 O2 Delivery BiPAP/CPAP BiPAP/CPAP BiPAP/CPAP 03/07/21 03/07/21 03/07/21 03/08/21 22:45 22:57 23:50 00:19 Pulse 134 95 B/P (MAP) 104/70 (81) 127/59 (81) Pulse Ox 95 O2 Delivery Bi-pap Nasal Cannula O2 Flow Rate 5.0 03/08/21 03/08/21 03/08/21 03/08/21 00:22 01:43 02:50 03:40 Temp 98.8 98.8 Pulse 94 103 100 Resp 24 B/P (MAP) 119/68 (85) 108/65 (79) 96/74 (81) Pulse Ox 94 95 O2 Delivery Nasal Cannula Nasal Cannula O2 Flow Rate 4.0 4.0 03/08/21 03/08/21 03/08/21 04:40 06:03 08:11 Pulse 88 120 B/P (MAP) 104/49 (67) 131/81 (98) Pulse Ox 95 O2 Delivery Nasal Cannula O2 Flow Rate 5.0 Intake and Output 03/07/21 03/07/21 03/08/21 15:00 23:00 07:00 Intake Total 35 ml 60 ml 0 ml Output Total 400 ml 1100 ml Balance 35 ml -340 ml -1100 ml Justicifation of Admission Dx: Justifications for Admission: Justification of Admission Dx: Yes CALOS ANSARI MD Mar 08, 2021 10:21
--- NOTE | 2021-03-08 10:46 | PDOC ---
Date of Service: DATE: 03/08/21 TIME: 10:39 Objective: Objective: Reviewed chart - rapid response overnight. 2 stools charted. Vital Signs: Vital Signs Date Time Temp Pulse Resp B/P (MAP) Pulse Ox O2 Delivery O2 Flow Rate FiO2 03/08/21 08:11 95 Nasal Cannula 5.0 03/08/21 06:03 120 131/81 (98) 03/08/21 02:50 98.8 24 98.8 Labs: Laboratory Tests Test 03/07/21 12:48 03/07/21 13:15 03/07/21 18:04 03/07/21 20:32 Glucose (Fingerstick) 158 mg/dL 159 mg/dL Prothrombin Time 16.6 SEC Prothromb Time International Ratio 1.4 O2 Saturation 93 % Arterial Blood pH 7.42 Arterial Blood pCO2 at Patient Temp 28 mmHg Arterial Blood pO2 at Patient Temp 68 mmHg Arterial Blood HCO3 18 mmol/L Arterial Blood Base Excess -6 mmol/L FiO2 44 Test 03/07/21 21:19 03/08/21 03:50 03/08/21 07:46 Glucose (Fingerstick) 164 mg/dL 176 mg/dL White Blood Count 16.1 x10^3/uL Red Blood Count 3.37 x10^6/uL Hemoglobin 7.6 g/dL Hematocrit 25.1 % Mean Corpuscular Volume 75 fL Mean Corpuscular Hemoglobin 23 pg Mean Corpuscular Hemoglobin Concent 30 g/dL Red Cell Distribution Width 24.8 % Platelet Count 294 x10^3/uL Sodium Level 154 mmol/L Potassium Level 3.9 mmol/L Chloride Level 121 mmol/L Carbon Dioxide Level 21 mmol/L Anion Gap 12 Blood Urea Nitrogen 57 mg/dL Creatinine 2.0 mg/dL Estimated GFR (Cockcroft-Gault) 32.8 BUN/Creatinine Ratio 29 Glucose Level 181 mg/dL Calcium Level 8.2 mg/dL Total Bilirubin 1.1 mg/dL Aspartate Amino Transf (AST/SGOT) 19 U/L Alanine Aminotransferase (ALT/SGPT) 176 U/L Alkaline Phosphatase 93 U/L Total Protein 6.4 g/dL Albumin 2.6 g/dL Albumin/Globulin Ratio 0.7 Imaging: CXR 03/07 IMPRESSION: 1. Mild pulmonary edema versus atypical pneumonia. 2. Moderate cardiomegaly. PE: GEN: appears ill LUNGS: BiPAP HEART: tachycardic ABD: non-distended NEURO/PSYCH: eyes closed w/ BiPAP A/P: Resp failure, abnormal CXR, leukocytosis Tachycardia Encephalopathy - first ammonia WNL, next day mildly elevated 43 DOREEN, +Hemoccult - started on PPI + iron - stable Concern for alcohol overuse/withdrawal, possible fatty liver on US Rhabdo - Cr and LFTs improved Buttocks wound COVID negative -- Resp status now an issue. Continue support GI-[facility]. Justicifation of Admission Dx: Justifications for Admission: Justification of Admission Dx: Yes SHERIF PHILLIPS Mar 08, 2021 10:46
[2021-03-08] MEDS: PANTOPRAZOLE IV PUSH 40 MG VIAL. IVP SCH (10:59)
[2021-03-08] MEDS ORDERED: LACTULOSE for RECTAL 200 GM/300 ML SOLUTION. PR PRN (11:00)
--- NOTE | 2021-03-08 11:11 | PDOC ---
Renal-Progress Notes Subjective Notes Notes NO NEW COMPLAINTS History of Present Illness Hx of present illness STABLE Vitals Vitals Vital Signs Date Time Temp Pulse Resp B/P (MAP) Pulse Ox O2 Delivery O2 Flow Rate FiO2 03/08/21 08:11 95 Nasal Cannula 5.0 03/08/21 06:03 120 131/81 (98) 03/08/21 02:50 98.8 24 98.8 Weight Weight [ ] I.O. Intake and Output Intake and Output 03/08/21 07:00 Intake Total 95 ml Output Total 1500 ml Balance -1405 ml Intake Oral 95 ml Output Urine Total 1500 ml # Bowel Movements 2 Labs Labs Laboratory Tests Test 03/07/21 12:48 03/07/21 13:15 03/07/21 18:04 03/07/21 20:32 Glucose (Fingerstick) 158 mg/dL (70-99) 159 mg/dL (70-99) Prothrombin Time 16.6 SEC (11.7-14.0) Prothromb Time International Ratio 1.4 (0.8-1.1) O2 Saturation 93 % (92-99) Arterial Blood pH 7.42 (7.35-7.45) Arterial Blood pCO2 at Patient Temp 28 mmHg (35-46) Arterial Blood pO2 at Patient Temp 68 mmHg (65-108) Arterial Blood HCO3 18 mmol/L (21-28) Arterial Blood Base Excess -6 mmol/L (-3-3) FiO2 44 Test 03/07/21 21:19 03/08/21 03:50 03/08/21 07:46 Glucose (Fingerstick) 164 mg/dL (70-99) 176 mg/dL (70-99) White Blood Count 16.1 x10^3/uL (4.0-11.0) Red Blood Count 3.37 x10^6/uL (4.30-5.70) Hemoglobin 7.6 g/dL (13.0-17.5) Hematocrit 25.1 % (39.0-53.0) Mean Corpuscular Volume 75 fL (79-100) Mean Corpuscular Hemoglobin 23 pg (25-35) Mean Corpuscular Hemoglobin Concent 30 g/dL (31-37) Red Cell Distribution Width 24.8 % (11.5-14.5) Platelet Count 294 x10^3/uL (140-400) Sodium Level 154 mmol/L (136-145) Potassium Level 3.9 mmol/L (3.5-5.1) Chloride Level 121 mmol/L (98-107) Carbon Dioxide Level 21 mmol/L (21-32) Anion Gap 12 (6-14) Blood Urea Nitrogen 57 mg/dL (8-26) Creatinine 2.0 mg/dL (0.7-1.3) Estimated GFR (Cockcroft-Gault) 32.8 BUN/Creatinine Ratio 29 (6-20) Glucose Level 181 mg/dL (70-99) Calcium Level 8.2 mg/dL (8.5-10.1) Total Bilirubin 1.1 mg/dL (0.2-1.0) Aspartate Amino Transf (AST/SGOT) 19 U/L (15-37) Alanine Aminotransferase (ALT/SGPT) 176 U/L (16-63) Alkaline Phosphatase 93 U/L (46-116) Total Protein 6.4 g/dL (6.4-8.2) Albumin 2.6 g/dL (3.4-5.0) Albumin/Globulin Ratio 0.7 (1.0-1.7) Micro Micro Microbiology 03/04/21 Urine Culture - Final, Complete Review of Systems Constitutional: yes: alert, oriented Ears/Nose/Throat: Yes: no symptom reported Eyes: Yes: no symptom reported Pulmonary: Yes no symptom reported Cardiovascular: Yes no symptom reported Gastrointestional: Yes: no symptom reported Genitourinary: Yes: no symptom reported Musculoskeletal: Yes: no symptom reported Psychiatric/Neurological: Yes: no symptom reported Endocrine: Yes: no symptom reported Physical Exam General Appearance: no apparent distress Skin: warm Respiratory: bilateral CTA Heart: S1S2 Abdomen: soft, bowel sounds present Genitourinary: bladder flat Extremities: pulses present Neurology: alert Musculoskeletal: low back pain Assessment Assessment IMP [place]-IMPROVING CR OF 3.8 TO 2.0 HYPOKALEMIA-BETTER HYPERNATREMIA-IMPROVING MET ACIDOSIS-BETTER PLAN HYDRATION LABS IN AM WILL FOLLOW CAROL ANN WICK MD Mar 08, 2021 11:11
--- NOTE | 2021-03-08 13:58 | NUR ---
SS following for discharge planning. SS reviewed pt chart and discussed with pt RN. Pt is from home alone and is currently on BIPAP with mitts in place. Pt confused. COVID19 negative. Pt had rapid response overnight and now on Cardizem drip. PT/OT recommended [facility] 03[facility]05/[facility]21. Pt has no home oxygen. SS will continue to follow for discharge planning.
[2021-03-08] MEDS ORDERED: DIGOXIN IV 500 MCG/2 ML AMPUL. IV ONE ×2 (14:45→15:30)
--- NOTE | 2021-03-08 18:15 | NUR ---
At 1400 rhythm afib with RVR up to 160-170s. Cardizem gtt titrated up to [address] Hall notified and orders received.
[2021-03-08] MEDS: POTASSIUM CL 40MEQ IN 0.9%NACL 1,000 ML IV SCH ×2 (20:36→20:47)
--- NOTE | 2021-03-08 21:41 | PN ---
DATE: 03/08/2021 LOCATION: He is in room 662. SUBJECTIVE: This 75-year-old male remains hospitalized with multiple medical issues. He was presented with profound anemia, has recently received 4 units of packed red blood cells and had acute renal failure. He was lying on the floor for 3-4 days prior to being found by his brother. He remains encephalopathic at this point in time with Neuro following along. His renal function is slowly improving, although he is somewhat more hypernatremic today. He has heme-positive stools with GI following along, but a stable hemoglobin over the last several days. OBJECTIVE: VITAL SIGNS: Stable. He is afebrile. He has now developed AFib with rapid ventricular response. He has been medicated with a Cardizem drip and a dose of digoxin with Cardiology consultation undertaken. Other than an elevated heart rate, his vital signs are otherwise stable. He did have a temperature at 7:00 this morning of 99.7. CHEST: Reveals bilateral rhonchi. HEART: Irregularly irregular, tachycardic. ABDOMEN: Benign. EXTREMITIES: Unremarkable. LABORATORY DATA: Hemoglobin this morning is essentially stable at 7.6, but white count is elevated at 16,000. BUN is down 57, creatinine down to 2. Sodium is up to 154. Sugars are decent. Liver function tests are following. He is COVID negative. Initial urine unremarkable for infection. Chest x-ray done yesterday shows mild pulmonary edema versus atypical pneumonia, moderate cardiomegaly. ASSESSMENT: 1. Profound symptomatic anemia on admission with improvement after 4 units of packed red blood cells with hemoglobin 7.6 remaining stable. He does have heme-positive stool, but no evidence of overt bleeding at this point. 2. Acute kidney failure, improving. 3. Hypernatremia, worse today. 4. Hypokalemia, resolved. 5. Encephalopathy. Part of this could be alcohol withdrawal, but otherwise acute illness. 6. New onset atrial fibrillation with rapid ventricular response. 7. Mild coagulopathy due to likely liver disease with INR of 1.4. PLAN: Continue present supportive care. Help of renal neuro and GI appreciated. We will ask Cardiology to see. Cardizem drip has been initiated with a dose of digoxin. The patient will be continued to be monitored, managed and treated appropriately. LUPE DR: Mee TID: [id number]
[2021-03-09 03:44] VITALS: BP 105/50
[2021-03-09 06:44] LABS: HEMATOCRIT 26.1 % (39.0-53.0); HEMOGLOBIN 7.7 g/dL (13.0-17.5); RED BLOOD COUNT 3.42 x10^6/uL (4.30-5.70); RED CELL DISTRIBUTION WIDTH 25.4 % (11.5-14.5); WHITE BLOOD COUNT 16.9 x10^3/uL (4.0-11.0)
[2021-03-09 07:00] VITALS: BP 115/55
[2021-03-09 07:01] LABS: CALCIUM 8.2 mg/dL (8.5-10.1); GFR 32.8; POTASSIUM 4.3 mmol/L (3.5-5.1)
[2021-03-09] MEDS: IPRATRPIUM/ALBUTEROL 0.5/2.5MG 3 ML NEBU. NEB SCH ×3 (07:47→20:30)
[2021-03-09] MEDS: FERROUS SULFATE 325 MG TABLET. PO SCH ×2 (08:00→08:02)
[2021-03-09] MEDS: LACTULOSE 20 GM/30 ML SOLUTION. PO SCH ×2 (08:02→11:53)
[2021-03-09] MEDS: IV 1/2 NORMAL SALINE 1,000 ML IV SCH ×2 (08:30→16:59)
[2021-03-09] MEDS: MULTIVIT INFUSN,ADULT 4,VIT K 10 ML, THIAMINE INJ 100 MG, FOLIC ACID INJ 1 MG in IV NOR... IV SCH (08:47)
[2021-03-09] MEDS: PANTOPRAZOLE IV PUSH 40 MG VIAL. IVP SCH (08:49)
[2021-03-09] MEDS: VITS A & D/LANOLIN TOPICAL OINTMENT 42GM TUBE. TP SCH ×2 (08:50→21:00)
[2021-03-09] MEDS: NYSTATIN TOPICAL POWDER 15GM BOTTLE. TP SCH ×2 (08:50→21:00)
--- NOTE | 2021-03-09 08:58 | PDOC ---
PROGRESS NOTES Date of Service DATE: 03/09/21 TIME: 08:56 Assessment Problems Medical Problems: (1) Anemia Status: Acute (2) ARF (acute renal failure) Status: Acute (3) Generalized weakness Status: Acute Metabolic encephalopathy, patient admitted with prolonged time on his floor covered in feces and urine, with severe anemia, hypocalcemia, hypokalemia, elevated BNP. Note normal ammonia level, but poor synthetic liver function. Respiratory failure, on BiPAP Diabetic neuropathy Chronic back pain Atherosclerosis of cranial arteries seen on the CT Proptosis seen on the CT Plan Still no need for EEG or lumbar puncture Rehabilitation modalities Correct medical issues Subjective None Objective Vital Signs Date Time Temp Pulse Resp B/P (MAP) Pulse Ox O2 Delivery O2 Flow Rate FiO2 03/09/21 07:47 94 BiPAP/CPAP 03/09/21 07:00 99.1 104 18 115/55 (75) 50.0 99.1 Intake and Output 03/09/21 07:00 Intake Total 0 ml Output Total 1175 ml Balance -1175 ml Intake Oral 0 ml Output Urine Total 1175 ml PHYSICAL EXAM Obtunded, starting on BiPAP, in respiratory distress. Mittens on, does not know location or date, does not know his name. PERRL. EOMI. CN: no focal findings. Muscle tone: normal. Muscle strength: Moves all extremities DTR: 0-1+ Plantar reflex: Flexor Gait: not examined in bed. Sensory exam: Stocking loss on previous exams. No cerebellar signs elicited. Review of Relevant I have reviewed the following items linda (where applicable) has been applied. Labs Laboratory Tests Test 03/07/21 12:48 03/07/21 13:15 03/07/21 18:04 03/07/21 20:32 Glucose (Fingerstick) 158 mg/dL (70-99) 159 mg/dL (70-99) Prothrombin Time 16.6 SEC (11.7-14.0) Prothromb Time International Ratio 1.4 (0.8-1.1) O2 Saturation 93 % (92-99) Arterial Blood pH 7.42 (7.35-7.45) Arterial Blood pCO2 at Patient Temp 28 mmHg (35-46) Arterial Blood pO2 at Patient Temp 68 mmHg (65-108) Arterial Blood HCO3 18 mmol/L (21-28) Arterial Blood Base Excess -6 mmol/L (-3-3) FiO2 44 Test 03/07/21 21:19 03/08/21 03:50 03/08/21 07:46 03/08/21 12:29 Glucose (Fingerstick) 164 mg/dL (70-99) 176 mg/dL (70-99) 166 mg/dL (70-99) White Blood Count 16.1 x10^3/uL (4.0-11.0) Red Blood Count 3.37 x10^6/uL (4.30-5.70) Hemoglobin 7.6 g/dL (13.0-17.5) Hematocrit 25.1 % (39.0-53.0) Mean Corpuscular Volume 75 fL (79-100) Mean Corpuscular Hemoglobin 23 pg (25-35) Mean Corpuscular Hemoglobin Concent 30 g/dL (31-37) Red Cell Distribution Width 24.8 % (11.5-14.5) Platelet Count 294 x10^3/uL (140-400) Sodium Level 154 mmol/L (136-145) Potassium Level 3.9 mmol/L (3.5-5.1) Chloride Level 121 mmol/L (98-107) Carbon Dioxide Level 21 mmol/L (21-32) Anion Gap 12 (6-14) Blood Urea Nitrogen 57 mg/dL (8-26) Creatinine 2.0 mg/dL (0.7-1.3) Estimated GFR (Cockcroft-Gault) 32.8 BUN/Creatinine Ratio 29 (6-20) Glucose Level 181 mg/dL (70-99) Calcium Level 8.2 mg/dL (8.5-10.1) Total Bilirubin 1.1 mg/dL (0.2-1.0) Aspartate Amino Transf (AST/SGOT) 19 U/L (15-37) Alanine Aminotransferase (ALT/SGPT) 176 U/L (16-63) Alkaline Phosphatase 93 U/L (46-116) Total Protein 6.4 g/dL (6.4-8.2) Albumin 2.6 g/dL (3.4-5.0) Albumin/Globulin Ratio 0.7 (1.0-1.7) Test 03/08/21 18:35 03/09/21 00:56 03/09/21 06:25 Glucose (Fingerstick) 163 mg/dL (70-99) 171 mg/dL (70-99) White Blood Count 16.9 x10^3/uL (4.0-11.0) Red Blood Count 3.42 x10^6/uL (4.30-5.70) Hemoglobin 7.7 g/dL (13.0-17.5) Hematocrit 26.1 % (39.0-53.0) Mean Corpuscular Volume 76 fL (79-100) Mean Corpuscular Hemoglobin 22 pg (25-35) Mean Corpuscular Hemoglobin Concent 29 g/dL (31-37) Red Cell Distribution Width 25.4 % (11.5-14.5) Platelet Count 232 x10^3/uL (140-400) Sodium Level 160 mmol/L (136-145) Potassium Level 4.3 mmol/L (3.5-5.1) Chloride Level 128 mmol/L (98-107) Carbon Dioxide Level 19 mmol/L (21-32) Anion Gap 13 (6-14) Blood Urea Nitrogen 52 mg/dL (8-26) Creatinine 2.0 mg/dL (0.7-1.3) Estimated GFR (Cockcroft-Gault) 32.8 Glucose Level 166 mg/dL (70-99) Calcium Level 8.2 mg/dL (8.5-10.1) Laboratory Tests Test 03/08/21 12:29 03/08/21 18:35 03/09/21 00:56 03/09/21 06:25 Glucose (Fingerstick) 166 mg/dL (70-99) 163 mg/dL (70-99) 171 mg/dL (70-99) White Blood Count 16.9 x10^3/uL (4.0-11.0) Red Blood Count 3.42 x10^6/uL (4.30-5.70) Hemoglobin 7.7 g/dL (13.0-17.5) Hematocrit 26.1 % (39.0-53.0) Mean Corpuscular Volume 76 fL (79-100) Mean Corpuscular Hemoglobin 22 pg (25-35) Mean Corpuscular Hemoglobin Concent 29 g/dL (31-37) Red Cell Distribution Width 25.4 % (11.5-14.5) Platelet Count 232 x10^3/uL (140-400) Sodium Level 160 mmol/L (136-145) Potassium Level 4.3 mmol/L (3.5-5.1) Chloride Level 128 mmol/L (98-107) Carbon Dioxide Level 19 mmol/L (21-32) Anion Gap 13 (6-14) Blood Urea Nitrogen 52 mg/dL (8-26) Creatinine 2.0 mg/dL (0.7-1.3) Estimated GFR (Cockcroft-Gault) 32.8 Glucose Level 166 mg/dL (70-99) Calcium Level 8.2 mg/dL (8.5-10.1) Microbiology 03/04/21 Urine Culture - Final, Complete Medications Current Medications Sodium Chloride 1,000 ml @ 1,000 mls/hr 1X ONCE IV Last administered on 03/03/21at 15:03; Start 03/03/21 at 14:30; Stop 03/03/21 at 15:29; Status DC Ondansetron HCl (Zofran) 4 mg PRN Q8HRS PRN IVP NAUSEA/VOMITING; Start 03/03/21 at 15:15; Stop 03/04/21 at 15:14; Status DC Morphine Sulfate (Morphine Sulfate) 2 mg PRN Q2HR PRN IVP PAIN; Start 03/03/21 at 15:15; Stop 03/04/21 at 15:14; Status DC Acetaminophen (Tylenol) 650 mg PRN Q4HRS PRN PO FEVER > 100.3'F Last administered on 03/04/21at 08:29; Start 03/03/21 at 15:15; Stop 03/04/21 at 15:14; Status DC Famotidine (Pepcid Vial) 20 mg 1X ONCE IVP Last administered on 03/03/21at 16:10; Start 03/03/21 at 15:15; Stop 03/03/21 at 15:16; Status DC Pantoprazole Sodium (Protonix) 40 mg DAILYAC PO Last administered on 03/07/21at 09:58; Start 03/03/21 at 16:30; Stop 03/08/21 at 10:48; Status DC Ferrous Sulfate (Feosol) 325 mg BIDWMEALS PO Last administered on 03/07/21at 09:58; Start 03/03/21 at 17:00 Polyethylene Glycol (miraLAX PACKET) 17 gm PRN DAILY PRN PO CONSTIPATION; Start 03/03/21 at 16:00 Potassium Chloride 40 meq/ Sodium Chloride 1,020 ml @ 100 mls/hr [id number] IV Last administered on 03/05/21at 05:23; Start 03/04/21 at 09:00; Stop 03/06/21 at 19:07; Status DC Potassium Chloride/Water 100 ml @ 100 mls/hr Q1H IV Last administered on 03/04/21at 22:58; Start 03/04/21 at 09:00; Stop 03/04/21 at 12:59; Status DC Vitamin A/Vitamin D (Vitamin A & D Ointment) 1 demetrius BID TP Last administered on 03/09/21at 08:50; Start 03/04/21 at 21:00 Nystatin (Nystop) 1 demetrius BID TP Last administered on 03/09/21at 08:50; Start 03/04/21 at 21:00 Lorazepam (Ativan Inj) 0.5 mg PRN Q4HRS PRN IVP ANXIETY / AGITATION Last administered on 03/05/21at 03:48; Start 03/04/21 at 23:45 Haloperidol Lactate (Haldol Inj) 1 mg 1X ONCE IVP Last administered on 03/05/21at 00:58; Start 03/05/21 at 01:30; Stop 03/05/21 at 01:31; Status DC Potassium Chloride/Water 100 ml @ 50 mls/hr 1X ONCE IV Last administered on 03/05/21at 09:05; Start 03/05/21 at 09:00; Stop 03/05/21 at 10:59; Status DC Multivitamins 10 ml/Thiamine HCl 100 mg/Folic Acid 1 mg/Sodium Chloride 1,011.2 ml @ 100 mls/ hr DAILY IV Last administered on 03/09/21at 08:47; Start 03/05/21 at 09:00; Stop 03/09/21 at 19:07 Lorazepam (Ativan) 4 mg PRN Q1HR PRN PO For CIWA 8-14 Last administered on 03/05/21at 22:44; Start 03/05/21 at 07:45 Lorazepam (Ativan) 8 mg PRN Q1HR PRN PO For CIWA 15 or greater; Start 03/05/21 at 07:45 Lorazepam (Ativan Inj) 2 mg PRN Q1HR PRN IV For CIWA 8-14 Last administered on 03/08/21at 05:42; Start 03/05/21 at 07:45 Lorazepam (Ativan Inj) 4 mg PRN Q1HR PRN IV For CIWA 15 or greater Last administered on 03/09/21at 08:49; Start 03/05/21 at 07:45 Haloperidol Lactate (Haldol Inj) 5 mg PRN Q4HRS PRN IVP Hallucinatns,Confusn,Delirium Last administered on 03/07/21at 23:17; Start 03/05/21 at 07:45 Clonidine HCl (Catapres) 0.1 mg PRN Q1HR PRN PO SBP > 180 or DBP > 100, MRX3; Start 03/05/21 at 07:45 Potassium Chloride/Sodium Chloride 1,000 ml @ 75 mls/hr [id number] IV Last administered on 03/08/21at 20:47; Start 03/06/21 at 20:00; Stop 03/09/21 at 0 8:36; Status DC Lactulose (Lactulose) 20 gm [id number] PO Last administered on 03/07/21at 17:00; Start 03/07/21 at 10:00 Albuterol/ Ipratropium (Duoneb) 3 ml [id number] Last administered on 03/09/21at 07:47; Start 03/07/21 at 14:00 Diltiazem HCl 125 mg/Sodium Chloride 125 ml @ 5 mls/hr CONT PRN IV PER PROTOCOL Last administered on 03/08/21at 22:11; Start 03/07/21 at 21:45 Diltiazem HCl (Cardizem Iv Push) 10 mg 1X ONCE IVP Last administered on 03/07/21at 22:33; Start 03/07/21 at 22:00; Stop 03/07/21 at 22:01; Status DC Pantoprazole Sodium (PROTONIX VIAL for IV PUSH) 40 mg DAILYAC IVP Last administered on 03/09/21at 08:49; Start 03/08/21 at 11:00 Lactulose (LACTULOSE 300ML for RECTAL) 200 gm DAILY PRN MT encephalopathy; Start 03/08/21 at 11:00 Digoxin (Lanoxin) 250 mcg 1X ONCE IV Last administered on 03/08/21at 14:47; Start 03/08/21 at 14:45; Stop 03/08/21 at 14:46; Status DC Digoxin (Lanoxin) 500 mcg 1X ONCE IV Last administered on 03/08/21at 15:52; Start 03/08/21 at 15:30; Stop 03/08/21 at 15:31; Status DC Sodium Chloride 1,000 ml @ 75 mls/hr [id number] IV ; Start 03/09/21 at 08:30 Active Scripts Active Magnesium Citrate 296 Ml Solution 296 Ml PO ONCE Docusate Sodium 100 Mg Capsule 1 Cap PO BID 15 Days Miralax (Polyethylene Glycol 3350) 119 Gm Powder 17 Gm PO DAILY dissolve in water Reported Calcium (Calcium Carbonate) 500 Mg Tab.chew 1,000 Mg PO DAILY Pioglitazone Hcl 30 Mg Tablet 30 Mg PO DAILY Clonidine Hcl 0.2 Mg Tablet 0.2 Mg PO QPM Clonidine Hcl 0.1 Mg Tablet 0.1 Mg PO QAM Amlodipine Besylate 5 Mg Tablet 5 Mg PO DAILY LAST DOSE GIVEN: DATE:02-19-16 TIME:9:00 a.m. NEXT DOSE DUE: DATE:02-20-16 TIME:9:00 a.m. Glipizide 5 Mg Tablet 1 Tab PO DAILY LAST DOSE GIVEN: DATE:02-18-16 TIME:5:00 p.m. NEXT DOSE DUE: DATE:02-19-16 TIME:5:00 p.m. Atorvastatin Calcium 40 Mg Tablet 1 Tab PO QHS LAST DOSE GIVEN: DATE:02-18-16 TIME:9:00 p.m. NEXT DOSE DUE: DATE:02-19-16 TIME:9:00 p.m. Trifluoperazine Hcl 2 Mg Tablet 2 Mg PO Not given while in hosp. May resume at home as directed. Atenolol 50 Mg Tablet 1 Tab PO DAILY LAST DOSE GIVEN: DATE:02-19-16 TIME:9:00 a.m. NEXT DOSE DUE: DATE:02-20-16 TIME:9:00 a.m. Lisinopril 40 Mg Tablet 1 Tab PO DAILY LAST DOSE GIVEN: DATE:02-19-16 TIME:9:00 a.m. NEXT DOSE DUE: DATE:02-20-16 TIME:9:00 a.m. Hydrochlorothiazide Tablet (Hydrochlorothiazide) 50 Mg Tablet 1 Tab PO DAILY LAST DOSE GIVEN: DATE:02-19-16 TIME:9:00 a.m. NEXT DOSE DUE: DATE:02-20-16 TIME:9:00 a.m. Metformin Hcl 500 Mg Tablet 1 Tab PO BID LAST DOSE GIVEN: DATE:02-19-16 TIME:9:00 a.m. NEXT DOSE DUE: DATE:02-19-16 TIME:5:00 p.m. Vitals/I & O Vital Sign - Last 24 Hours 03/08/21 03/08/21 03/08/21 03/08/21 11:00 12:14 14:47 15:00 Temp 97.2 99.3 97.2 99.3 Pulse 97 147 137 Resp 24 24 B/P (MAP) 127/71 (89) 101/73 117/81 (93) Pulse Ox 91 95 84 O2 Delivery Nasal Cannula BiPAP/CPAP Nasal Cannula O2 Flow Rate 4.0 4.0 03/08/21 03/08/21 03/08/21 03/08/21 15:06 15:52 17:03 19:12 Temp 99.2 99.2 Pulse 133 126 Resp 28 B/P (MAP) 101/73 126/95 (105) Pulse Ox 96 96 100 O2 Delivery BiPAP/CPAP BiPAP/CPAP BiPAP/CPAP 03/08/21 03/08/21 03/08/21 03/08/21 20:00 20:38 22:00 22:28 Temp 99.1 99.1 Pulse 98 Resp 30 B/P (MAP) 135/56 (82) Pulse Ox 96 96 94 O2 Delivery Bi-pap BiPAP/CPAP BiPAP/CPAP BiPAP/CPAP 03/09/21 03/09/21 03/09/21 03/09/21 00:00 02:30 03:44 05:00 Temp 98.7 98.7 Pulse 103 Resp 30 B/P (MAP) 105/50 (68) Pulse Ox 93 97 96 98 O2 Delivery BiPAP/CPAP BiPAP/CPAP BiPAP/CPAP BiPAP/CPAP 03/09/21 03/09/21 07:00 07:47 Temp 99.1 99.1 Pulse 104 Resp 18 B/P (MAP) 115/55 (75) Pulse Ox 92 94 O2 Delivery BiPAP/CPAP BiPAP/CPAP O2 Flow Rate 50.0 Intake and Output 03/08/21 03/08/21 03/09/21 15:00 23:00 07:00 Intake Total 0 ml 0 ml Output Total 650 ml 525 ml Balance -650 ml -525 ml Justicifation of Admission Dx: Justifications for Admission: Justification of Admission Dx: Yes CALOS ANSARI MD Mar 09, 2021 08:58
[2021-03-09 10:37] VITALS: BP 112/58
--- NOTE | 2021-03-09 11:08 | PDOC ---
Renal-Progress Notes Subjective Notes Notes NO NEW COMPLAINTS History of Present Illness Hx of present illness STABLE Vitals Vitals Vital Signs Date Time Temp Pulse Resp B/P (MAP) Pulse Ox O2 Delivery O2 Flow Rate FiO2 03/09/21 10:37 99.0 112 22 112/58 (76) 91 Nasal Cannula 6.0 99.0 Weight Weight [ ] I.O. Intake and Output Intake and Output 03/09/21 07:00 Intake Total 0 ml Output Total 1175 ml Balance -1175 ml Intake Oral 0 ml Output Urine Total 1175 ml Labs Labs Laboratory Tests Test 03/08/21 12:29 03/08/21 18:35 03/09/21 00:56 03/09/21 06:25 Glucose (Fingerstick) 166 mg/dL (70-99) 163 mg/dL (70-99) 171 mg/dL (70-99) White Blood Count 16.9 x10^3/uL (4.0-11.0) Red Blood Count 3.42 x10^6/uL (4.30-5.70) Hemoglobin 7.7 g/dL (13.0-17.5) Hematocrit 26.1 % (39.0-53.0) Mean Corpuscular Volume 76 fL (79-100) Mean Corpuscular Hemoglobin 22 pg (25-35) Mean Corpuscular Hemoglobin Concent 29 g/dL (31-37) Red Cell Distribution Width 25.4 % (11.5-14.5) Platelet Count 232 x10^3/uL (140-400) Sodium Level 160 mmol/L (136-145) Potassium Level 4.3 mmol/L (3.5-5.1) Chloride Level 128 mmol/L (98-107) Carbon Dioxide Level 19 mmol/L (21-32) Anion Gap 13 (6-14) Blood Urea Nitrogen 52 mg/dL (8-26) Creatinine 2.0 mg/dL (0.7-1.3) Estimated GFR (Cockcroft-Gault) 32.8 Glucose Level 166 mg/dL (70-99) Calcium Level 8.2 mg/dL (8.5-10.1) Micro Micro Microbiology 03/04/21 Urine Culture - Final, Complete Review of Systems Constitutional: yes: alert, oriented Ears/Nose/Throat: Yes: no symptom reported Eyes: Yes: no symptom reported Pulmonary: Yes no symptom reported Cardiovascular: Yes no symptom reported Gastrointestional: Yes: no symptom reported Genitourinary: Yes: no symptom reported Musculoskeletal: Yes: no symptom reported Psychiatric/Neurological: Yes: no symptom reported Endocrine: Yes: no symptom reported Physical Exam General Appearance: no apparent distress Skin: warm Respiratory: bilateral CTA Heart: S1S2 Abdomen: soft, bowel sounds present Genitourinary: bladder flat Extremities: pulses present Neurology: alert Musculoskeletal: low back pain Assessment Assessment IMP KAMILLE-IMPROVING CR OF 3.8 TO 2.0 HYPOKALEMIA-BETTER HYPERNATREMIA-WORSE MET ACIDOSIS-BETTER PLAN HYDRATION START HYPOTONIC SALINE LABS IN AM WILL FOLLOW CAROL ANN WICK MD Mar 09, 2021 11:08
--- NOTE | 2021-03-09 12:09 | PDOC2 ---
CARDIAC CONSULT DATE OF CONSULT Date of Consult DATE: 03/09/21 TIME: 11:39 REASON FOR CONSULT Reason for Consult: AFIB RVR REFERRING PHYSICIAN Referring Physician: Rafael SOURCE Source: Chart review, Patient HISTORY OF PRESENT ILLNESS HISTORY OF PRESENT ILLNESS This is a 75 yo male admitted for complains of weakness. No fever or chills. He has not been able to care for himself . Coming in he was noted by EMS with dried feces on him and was dehydrated. Unclear if he has been falling. No noted syncope. He has been evaluated by GI due to +hemmocult and anemia and also by neurology. As an inpt he was noted with AFIB and RVR. This appears to be new. No known hx of CAD, VTE or arrhythmias. Presently he has bipap and restless and unable to communicate. 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, quit alcohol 5 months ago, quit smoking several years ago CURRENT MEDICATIONS CURRENT MEDICATIONS Current Medications Medications (Trade) Dose Ordered Sig/Stephan Route PRN Reason Start Time Stop Time Status Last Admin Dose Admin Digoxin (Lanoxin) 250 mcg 1X ONCE IV 03/08/21 14:45 03/08/21 14:46 DC 03/08/21 14:47 Digoxin (Lanoxin) 500 mcg 1X ONCE IV 03/08/21 15:30 03/08/21 15:31 DC 03/08/21 15:52 ALLERGIES ALLERGIES: Coded Allergies: No Known Drug Allergies (Unverified , 08/06/20) ROS Review of System unreliable, encephalopathic PHYSICAL EXAM General: Other (restless) HEENT: Atraumatic, Mucous membr. moist/pink Lungs: Other (upper rhconchi otherwise diminished, bipap in place) Heart: Other (AFIB RVR) Abdomen: Soft Extremities: No cyanosis, No edema Skin: No breakdown Neuro: Sensation intact Psych/Mental Status: Other (encephalopathic) MUSCULOSKELETAL: Osteoarthritic changes both hands VITALS/I&O VITALS/I&O: Vital Signs Date Time Temp Pulse Resp B/P (MAP) Pulse Ox O2 Delivery O2 Flow Rate FiO2 03/09/21 10:37 99.0 112 22 112/58 (76) 91 Nasal Cannula 6.0 99.0 I & O 03/08/21 03/08/21 03/09/21 15:00 23:00 07:00 Intake Total 0 ml 0 ml Output Total 650 ml 525 ml Balance -650 ml -525 ml LABS Lab: Laboratory Tests Test 03/08/21 12:29 03/08/21 18:35 03/09/21 00:56 03/09/21 06:25 Glucose (Fingerstick) 166 mg/dL (70-99) H 163 mg/dL (70-99) H 171 mg/dL (70-99) H White Blood Count 16.9 x10^3/uL (4.0-11.0) H Red Blood Count 3.42 x10^6/uL (4.30-5.70) L Hemoglobin 7.7 g/dL (13.0-17.5) L Hematocrit 26.1 % (39.0-53.0) L Mean Corpuscular Volume 76 fL (79-100) L Mean Corpuscular Hemoglobin 22 pg (25-35) L Mean Corpuscular Hemoglobin Concent 29 g/dL (31-37) L Red Cell Distribution Width 25.4 % (11.5-14.5) H Platelet Count 232 x10^3/uL (140-400) Sodium Level 160 mmol/L (136-145) *H Potassium Level 4.3 mmol/L (3.5-5.1) Chloride Level 128 mmol/L (98-107) H Carbon Dioxide Level 19 mmol/L (21-32) L Anion Gap 13 (6-14) Blood Urea Nitrogen 52 mg/dL (8-26) H Creatinine 2.0 mg/dL (0.7-1.3) H Estimated GFR (Cockcroft-Gault) 32.8 Glucose Level 166 mg/dL (70-99) H Calcium Level 8.2 mg/dL (8.5-10.1) L Laboratory Tests 03/09/21 06:25 Laboratory Tests 03/09/21 06:25 ASSESSMENT/PLAN ASSESSMENT/PLAN 1. Acute respiratory failure: Aspiration? 2. Suspect diastolic CHF 3. Severe KAMILLE: nephrology following 4. Hypernatremia 5. Metabolic encephalopathy: neurology following 6. AFIB RVR: possibly new. Likely induced by metabolic issues and respiratory issues 7. HTN: controlled 8. Anemia with probable GI bleed: +hemmocult,. GI is following 9. DM2 10. Transaminitis 11. Rhabdomyolysis Recommendations 1. PCXR. TTE 2. Titrate cardizem drip. Not a candidate for anticoagulation at this time. Future ASA. 3. Supportive care JOSIAH NAVARRETE APRN Mar 09, 2021 12:09
--- NOTE | 2021-03-09 12:51 | PDOC ---
Date of Service: DATE: 03/09/21 TIME: 12:46 Objective: Objective: D/w nurse - confused, has been on and off BiPAP, unsafe to eat. Vital Signs: Vital Signs Date Time Temp Pulse Resp B/P (MAP) Pulse Ox O2 Delivery O2 Flow Rate FiO2 03/09/21 12:20 100 BiPAP/CPAP 03/09/21 10:37 99.0 112 22 112/58 (76) 6.0 99.0 Labs: Laboratory Tests Test 03/08/21 18:35 03/09/21 00:56 03/09/21 06:25 Glucose (Fingerstick) 163 mg/dL 171 mg/dL White Blood Count 16.9 x10^3/uL Red Blood Count 3.42 x10^6/uL Hemoglobin 7.7 g/dL Hematocrit 26.1 % Mean Corpuscular Volume 76 fL Mean Corpuscular Hemoglobin 22 pg Mean Corpuscular Hemoglobin Concent 29 g/dL Red Cell Distribution Width 25.4 % Platelet Count 232 x10^3/uL Sodium Level 160 mmol/L Potassium Level 4.3 mmol/L Chloride Level 128 mmol/L Carbon Dioxide Level 19 mmol/L Anion Gap 13 Blood Urea Nitrogen 52 mg/dL Creatinine 2.0 mg/dL Estimated GFR (Cockcroft-Gault) 32.8 Glucose Level 166 mg/dL Calcium Level 8.2 mg/dL PE: GEN: appears ill LUNGS: BiPAP HEART: tachycardic ABD: soft NEURO/PSYCH: lethargic A/P: Resp failure, A Fib RVR Encephalopathy/alcohol withdrawal, mildly elevated ammonia, hypernatremia DOREEN, +Hemoccult - on PPI + iron, no obvious GI bleeding Possible fatty liver Rhabdo - Cr and LFTs improved Buttocks wound COVID negative -- Continue support per GI. ?consider Dobhoff/NGT Justicifation of Admission Dx: Justifications for Admission: Justification of Admission Dx: Yes SHERIF PHILLIPS Mar 09, 2021 12:51
--- NOTE | 2021-03-09 13:05 | NUR ---
SS following up with discharge planning. SS reviewed pt chart and discussed with pt RN. Pt is currently on BIPAP at 50%. COVID19 negative. Cardizem drip. Pt has no home oxygen. Pt had critical sodium today. Mitts present on hands. Pt has no home oxygen. PT/OT recommended custodial unit. Not stable. SS will continue to follow for discharge planning.
--- NOTE | 2021-03-09 14:39 | PN ---
DATE: 03/09/2021 LOCATION: He is in room 662. SUBJECTIVE: This 75-year-old male remains hospitalized with multiple medical issues. He presented with profound anemia and heme-positive stool, has received 4 units of packed red blood cells with a hemoglobin now in upper 7s. He came in with acute renal failure. This is improved; however, his hypernatremia is getting worse on a daily basis. He remains encephalopathic in gloves. His respiratory function is not good with him requiring a higher level of oxygen as well as BiPAP. OBJECTIVE: VITAL SIGNS: Stable. He is afebrile. He has developed atrial fibrillation and Cardiology is working this up. CHEST: Reveals bilateral rhonchi. HEART: Slightly tachycardic in the low 100s. ABDOMEN: Benign. EXTREMITIES: Unremarkable. LABORATORY DATA: Hemoglobin is stable at 7.6 this morning, white count is 16,900. BUN and creatinine are down to 52 and 2.0, but sodium is up to 160 and I have changed his fluids to half normal saline and waiting for any further renal suggestions regarding the same. ASSESSMENT: 1. Profound symptomatic anemia on admission with improvement after 4 units packed red blood cells with hemoglobin of 7.7, remaining stable. 2. Acute kidney failure, improving. 3. Hypernatremia, worsening, on fluids changes, resolved. 4. Hypokalemia, resolved. 5. Encephalopathy. 6. New onset atrial fibrillation with rapid ventricular response. 7. Mild coagulopathy with an INR of 1.4. PLAN: Continue supportive care. Help of Renal and GI appreciated. Cardiology input will be appreciated. I would be curious to see what the echo is as his chest x-ray may have a picture consistent with some congestive heart failure causing his respiratory embarrassment, but do not know what we would do differently about that with the hypernatremia with ongoing hydration. MICK/FOUZIA DR: Mee TID: [id number]
[2021-03-09 15:00] VITALS: BP 123/69
--- NOTE | 2021-03-09 16:12 | RAD ---
AP chest. HISTORY: Respiratory failure AP view was taken of the chest. Heart is enlarged. There are hazy infiltrates or pulmonary edema in t he lungs similar to the recent study. There is no definite effusion. IMPRESSION: 1. Cardiomegaly. 2. Hazy infiltrates or edema with little change. Electronically signed by: Catrachito Brown MD (03/09/2021 4:10 PM) [facility]
[2021-03-09] MEDS: HALOPERIDOL LACTATE 5 MG/ML VIAL. IVP PRN (16:52)
[2021-03-09 19:03] VITALS: BP 142/59
[2021-03-09 23:47] VITALS: BP 99/68
[2021-03-10] MEDS: IV 1/2 NORMAL SALINE 1,000 ML IV SCH ×2 (01:33→09:12)
[2021-03-10 03:03] VITALS: BP 119/76
[2021-03-10 04:36] LABS: CALCIUM 8.2 mg/dL (8.5-10.1); CREATININE 1.9 mg/dL (0.7-1.3); GFR 34.8; POTASSIUM 3.7 mmol/L (3.5-5.1)
[2021-03-10] MEDS: IPRATRPIUM/ALBUTEROL 0.5/2.5MG 3 ML NEBU. NEB SCH ×3 (07:45→20:13)
[2021-03-10 07:55] VITALS: BP 86/52
[2021-03-10] MEDS: FERROUS SULFATE 325 MG TABLET. PO SCH ×2 (08:00→13:01)
[2021-03-10] MEDS: PANTOPRAZOLE IV PUSH 40 MG VIAL. IVP SCH (08:55)
[2021-03-10] MEDS: LACTULOSE 20 GM/30 ML SOLUTION. PO SCH ×2 (08:57→13:00)
[2021-03-10] MEDS: VITS A & D/LANOLIN TOPICAL OINTMENT 42GM TUBE. TP SCH ×2 (08:57→21:00)
[2021-03-10] MEDS: NYSTATIN TOPICAL POWDER 15GM BOTTLE. TP SCH ×2 (08:57→21:00)
--- NOTE | 2021-03-10 09:33 | PDOC ---
Date of Service: DATE: 03/10/21 TIME: 09:29 Objective: Objective: D/w nurse - hypernatremia worse. Interval ammonia normal. Vital Signs: Vital Signs Date Time Temp Pulse Resp B/P (MAP) Pulse Ox O2 Delivery O2 Flow Rate FiO2 03/10/21 07:55 99.5 108 26 86/52 (63) 100 BiPAP/CPAP 99.5 03/09/21 15:00 50.0 Labs: Laboratory Tests Test 03/09/21 14:10 03/10/21 00:58 03/10/21 03:30 03/10/21 06:06 Ammonia < 10 mcmol/L Glucose (Fingerstick) 168 mg/dL 154 mg/dL Sodium Level 166 mmol/L Potassium Level 3.7 mmol/L Chloride Level 132 mmol/L Carbon Dioxide Level 24 mmol/L Anion Gap 10 Blood Urea Nitrogen 48 mg/dL Creatinine 1.9 mg/dL Estimated GFR (Cockcroft-Gault) 34.8 Glucose Level 176 mg/dL Calcium Level 8.2 mg/dL Imaging: CXR 03/09 IMPRESSION: 1. Cardiomegaly. 2. Hazy infiltrates or edema with little change. Echo 03/09 pending PE: GEN: appears ill LUNGS: BiPAP HEART: tachycardic ABD: soft, non-distended NEURO/PSYCH: lethargic A/P: Resp failure, A Fib, encephalopathy/suspected alcohol withdrawal Hypernatremia DOREEN, +Hemoccult - stable Rhabdo COVID negative -- ?TPN ?tube feeds (though may not tolerate) - defer to primary. Continue IV PPI. Justicifation of Admission Dx: Justifications for Admission: Justification of Admission Dx: Yes SHERIF PHILLIPS Mar 10, 2021 09:33
--- NOTE | 2021-03-10 10:40 | PDOC ---
PROGRESS NOTES Date of Service DATE: 03/10/21 TIME: 10:38 Assessment Problems Medical Problems: (1) Anemia Status: Acute (2) ARF (acute renal failure) Status: Acute (3) Generalized weakness Status: Acute Metabolic encephalopathy, patient admitted with prolonged time on his floor covered in feces and urine, with severe anemia, hypocalcemia, hypokalemia, elevated BNP. Note normal ammonia level, but poor synthetic liver function. Respiratory failure, on BiPAP. Also has new atrial fibrillation, acute kidney injury, hypernatremia Diabetic neuropathy Chronic back pain Atherosclerosis of cranial arteries seen on the CT Proptosis seen on the CT Plan Rehabilitation modalities Correct medical issues Subjective None Objective Vital Signs Date Time Temp Pulse Resp B/P (MAP) Pulse Ox O2 Delivery O2 Flow Rate FiO2 03/10/21 09:48 100 BiPAP/CPAP 03/10/21 07:55 99.5 108 26 86/52 (63) 99.5 03/09/21 15:00 50.0 Intake and Output 03/10/21 07:00 Intake Total 448 ml Output Total 1325 ml Balance -877 ml Intake Oral 0 ml IV Total 448 ml Output Urine Total 1325 ml PHYSICAL EXAM Obtunded, on BiPAP, in respiratory distress. Mittens on, does not know location or date, does not know his name. PERRL. EOMI. CN: no focal findings. Muscle tone: normal. Muscle strength: Moves all extremities DTR: 0-1+ Plantar reflex: Flexor Gait: not examined in bed. Sensory exam: Stocking loss on previous exams. No cerebellar signs elicited. Review of Relevant I have reviewed the following items linda (where applicable) has been applied. Labs Laboratory Tests Test 03/08/21 12:29 03/08/21 18:35 03/09/21 00:56 03/09/21 06:25 Glucose (Fingerstick) 166 mg/dL (70-99) 163 mg/dL (70-99) 171 mg/dL (70-99) White Blood Count 16.9 x10^3/uL (4.0-11.0) Red Blood Count 3.42 x10^6/uL (4.30-5.70) Hemoglobin 7.7 g/dL (13.0-17.5) Hematocrit 26.1 % (39.0-53.0) Mean Corpuscular Volume 76 fL (79-100) Mean Corpuscular Hemoglobin 22 pg (25-35) Mean Corpuscular Hemoglobin Concent 29 g/dL (31-37) Red Cell Distribution Width 25.4 % (11.5-14.5) Platelet Count 232 x10^3/uL (140-400) Sodium Level 160 mmol/L (136-145) Potassium Level 4.3 mmol/L (3.5-5.1) Chloride Level 128 mmol/L (98-107) Carbon Dioxide Level 19 mmol/L (21-32) Anion Gap 13 (6-14) Blood Urea Nitrogen 52 mg/dL (8-26) Creatinine 2.0 mg/dL (0.7-1.3) Estimated GFR (Cockcroft-Gault) 32.8 Glucose Level 166 mg/dL (70-99) Calcium Level 8.2 mg/dL (8.5-10.1) Test 03/09/21 14:10 03/10/21 00:58 03/10/21 03:30 03/10/21 06:06 Ammonia < 10 mcmol/L (11-34) Glucose (Fingerstick) 168 mg/dL (70-99) 154 mg/dL (70-99) Sodium Level 166 mmol/L (136-145) Potassium Level 3.7 mmol/L (3.5-5.1) Chloride Level 132 mmol/L (98-107) Carbon Dioxide Level 24 mmol/L (21-32) Anion Gap 10 (6-14) Blood Urea Nitrogen 48 mg/dL (8-26) Creatinine 1.9 mg/dL (0.7-1.3) Estimated GFR (Cockcroft-Gault) 34.8 Glucose Level 176 mg/dL (70-99) Calcium Level 8.2 mg/dL (8.5-10.1) Laboratory Tests Test 03/09/21 14:10 03/10/21 00:58 03/10/21 03:30 03/10/21 06:06 Ammonia < 10 mcmol/L (11-34) Glucose (Fingerstick) 168 mg/dL (70-99) 154 mg/dL (70-99) Sodium Level 166 mmol/L (136-145) Potassium Level 3.7 mmol/L (3.5-5.1) Chloride Level 132 mmol/L (98-107) Carbon Dioxide Level 24 mmol/L (21-32) Anion Gap 10 (6-14) Blood Urea Nitrogen 48 mg/dL (8-26) Creatinine 1.9 mg/dL (0.7-1.3) Estimated GFR (Cockcroft-Gault) 34.8 Glucose Level 176 mg/dL (70-99) Calcium Level 8.2 mg/dL (8.5-10.1) Microbiology 03/04/21 Urine Culture - Final, Complete Medications Current Medications Sodium Chloride 1,000 ml @ 1,000 mls/hr 1X ONCE IV Last administered on 03/03/21at 15:03; Start 03/03/21 at 14:30; Stop 03/03/21 at 15:29; Status DC Ondansetron HCl (Zofran) 4 mg PRN Q8HRS PRN IVP NAUSEA/VOMITING; Start 03/03/21 at 15:15; Stop 03/04/21 at 15:14; Status DC Morphine Sulfate (Morphine Sulfate) 2 mg PRN Q2HR PRN IVP PAIN; Start 03/03/21 at 15:15; Stop 03/04/21 at 15:14; Status DC Acetaminophen (Tylenol) 650 mg PRN Q4HRS PRN PO FEVER > 100.3'F Last administered on 03/04/21at 08:29; Start 03/03/21 at 15:15; Stop 03/04/21 at 15:14; Status DC Famotidine (Pepcid Vial) 20 mg 1X ONCE IVP Last administered on 03/03/21at 16:10; Start 03/03/21 at 15:15; Stop 03/03/21 at 15:16; Status DC Pantoprazole Sodium (Protonix) 40 mg DAILYAC PO Last administered on 03/07/21at 09:58; Start 03/03/21 at 16:30; Stop 03/08/21 at 10:48; Status DC Ferrous Sulfate (Feosol) 325 mg BIDWMEALS PO Last administered on 03/07/21at 09:58; Start 03/03/21 at 17:00 Polyethylene Glycol (miraLAX PACKET) 17 gm PRN DAILY PRN PO CONSTIPATION; Start 03/03/21 at 16:00 Potassium Chloride 40 meq/ Sodium Chloride 1,020 ml @ 100 mls/hr [id number] IV Last administered on 03/05/21at 05:23; Start 03/04/21 at 09:00; Stop 03/06/21 at 19:07; Status DC Potassium Chloride/Water 100 ml @ 100 mls/hr Q1H IV Last administered on 03/04/21at 22:58; Start 03/04/21 at 09:00; Stop 03/04/21 at 12:59; Status DC Vitamin A/Vitamin D (Vitamin A & D Ointment) 1 demetrius BID TP Last administered on 03/10/21at 08:57; Start 03/04/21 at 21:00 Nystatin (Nystop) 1 demetrius BID TP Last administered on 03/10/21at 08:57; Start 03/04/21 at 21:00 Lorazepam (Ativan Inj) 0.5 mg PRN Q4HRS PRN IVP ANXIETY / AGITATION Last administered on 03/05/21at 03:48; Start 03/04/21 at 23:45 Haloperidol Lactate (Haldol Inj) 1 mg 1X ONCE IVP Last administered on 03/05/21 at 00:58; Start 03/05/21 at 01:30; Stop 03/05/21 at 01:31; Status DC Potassium Chloride/Water 100 ml @ 50 mls/hr 1X ONCE IV Last administered on 03/05/21at 09:05; Start 03/05/21 at 09:00; Stop 03/05/21 at 10:59; Status DC Multivitamins 10 ml/Thiamine HCl 100 mg/Folic Acid 1 mg/Sodium Chloride 1,011.2 ml @ 100 mls/ hr DAILY IV Last administered on 03/09/21at 08:47; Start 03/05 at 09:00; Stop 03/09/21 at 19:07; Status DC Lorazepam (Ativan) 4 mg PRN Q1HR PRN PO For CIWA 8-14 Last administered on at 22:44; Start 03/05/21 at 07:45 Lorazepam (Ativan) 8 mg PRN Q1HR PRN PO For CIWA 15 or greater; Start 03/05/21 at 07:45 Lorazepam (Ativan Inj) 2 mg PRN Q1HR PRN IV For CIWA 8-14 Last administered on 03/08/21at 05:42; Start 03/05/21 at 07:45 Lorazepam (Ativan Inj) 4 mg PRN Q1HR PRN IV For CIWA 15 or greater Last administered on 03/10/21at 08:56; Start 03/05/21 at 07:45 Haloperidol Lactate (Haldol Inj) 5 mg PRN Q4HRS PRN IVP Hallucinatns,Confusn,Delirium Last administered on 03/09/21at 16:52; Start 03/05/21 at 07:45 Clonidine HCl (Catapres) 0.1 mg PRN Q1HR PRN PO SBP > 180 or DBP > 100, MRX3; Start 03/05/21 at 07:45 Potassium Chloride/Sodium Chloride 1,000 ml @ 75 mls/hr [id number] IV Last administered on 03/08/21at 20:47; Start 03/06/21 at 20:00; Stop 03/09/21 at 08:36; Status DC Lactulose (Lactulose) 20 gm [id number] PO Last administered on 03/07/21at 17:00; Start 03/07/21 at 10:00 Albuterol/ Ipratropium (Duoneb) 3 ml [id number] NEB Last administered on 03/10/21at 07:45; Start 03/07/21 at 14:00 Diltiazem HCl 125 mg/Sodium Chloride 125 ml @ 5 mls/hr CONT PRN IV PER PROTOCOL Last administered on 03/10/21 02:03; Start 03/07/21 at 21:45 Diltiazem HCl (Cardizem Iv Push) 10 mg 1X ONCE IVP Last administered on 03/07/21at 22:33; Start 03/07/21 at 22:00; Stop 03/07/21 at 22:01; Status DC Pantoprazole Sodium (PROTONIX VIAL for IV PUSH) 40 mg DAILYAC IVP Last administered on 03/10/21 08:55; Start 03/08/21 at 11:00 Lactulose (LACTULOSE 300ML for RECTAL) 200 gm DAILY PRN NM encephalopathy; Start 03/08/21 at 11:00 Digoxin (Lanoxin) 250 mcg 1X ONCE IV Last administered on 03/08/21at 14:47; Start 03/08/21 at 14:45; Stop 03/08/21 at 14:46; Status DC Digoxin (Lanoxin) 500 mcg 1X ONCE IV Last administered on 03/08/21at 15:52; Start 03/08/21 at 15:30; Stop 03/08/21 at 15:31; Status DC Sodium Chloride 1,000 ml @ 125 mls/hr Q8H IV Last administered on 03/10/21at 09:12; Start 03/09/21 at 08:30 Active Scripts Active Magnesium Citrate 296 Ml Solution 296 Ml PO ONCE Docusate Sodium 100 Mg Capsule 1 Cap PO BID 15 Days Miralax (Polyethylene Glycol 3350) 119 Gm Powder 17 Gm PO DAILY dissolve in water Reported Calcium (Calcium Carbonate) 500 Mg Tab.chew 1,000 Mg PO DAILY Pioglitazone Hcl 30 Mg Tablet 30 Mg PO DAILY Clonidine Hcl 0.2 Mg Tablet 0.2 Mg PO QPM Clonidine Hcl 0.1 Mg Tablet 0.1 Mg PO QAM Amlodipine Besylate 5 Mg Tablet 5 Mg PO DAILY LAST DOSE GIVEN: DATE:02-19-16 TIME:9:00 a.m. NEXT DOSE DUE: DATE:02-20-16 TIME:9:00 a.m. Glipizide 5 Mg Tablet 1 Tab PO DAILY LAST DOSE GIVEN: DATE:02-18-16 TIME:5:00 p.m. NEXT DOSE DUE: DATE:02-19-16 TIME:5:00 p.m. Atorvastatin Calcium 40 Mg Tablet 1 Tab PO QHS LAST DOSE GIVEN: DATE:02-18-16 TIME:9:00 p.m. NEXT DOSE DUE: DATE:02-19-16 TIME:9:00 p.m. Trifluoperazine Hcl 2 Mg Tablet 2 Mg PO Not given while in hosp. May resume at home as directed. Atenolol 50 Mg Tablet 1 Tab PO DAILY LAST DOSE GIVEN: DATE:02-19-16 TIME:9:00 a.m. NEXT DOSE DUE: DATE:02-20-16 TIME:9:00 a.m. Lisinopril 40 Mg Tablet 1 Tab PO DAILY LAST DOSE GIVEN: DATE:02-19-16 TIME:9:00 a.m. NEXT DOSE DUE: DATE:02-20-16 TIME:9:00 a.m. Hydrochlorothiazide Tablet (Hydrochlorothiazide) 50 Mg Tablet 1 Tab PO DAILY LAST DOSE GIVEN: DATE:02-19-16 TIME:9:00 a.m. NEXT DOSE DUE: DATE:02-20-16 TIME:9:00 a.m. Metformin Hcl 500 Mg Tablet 1 Tab PO BID LAST DOSE GIVEN: DATE:02-19-16 TIME:9:00 a.m. NEXT DOSE DUE: DATE:02-19-16 TIME:5:00 p.m. Vitals/I & O Vital Sign - Last 24 Hours 03/09/21 03/09/21 03/09/21 03/09/21 12:20 15:00 19:03 20:00 Temp 99.2 98.3 99.2 98.3 Pulse 100 90 Resp 18 18 B/P (MAP) 123/69 (87) 142/59 (86) Pulse Ox 100 100 100 O2 Delivery BiPAP/CPAP BiPAP/CPAP BiPAP/CPAP Bi-pap O2 Flow Rate 50.0 03/09/21 03/09/21 03/09/21 03/10/21 20:30 23:17 23:47 01:10 Temp 98.2 98.2 Pulse 92 Resp 34 B/P (MAP) 99/68 (78) Pulse Ox 100 99 99 90 O2 Delivery BiPAP/CPAP BiPAP/CPAP BiPAP/CPAP BiPAP/CPAP 03/10/21 03/10/21 03/10/21 03/10/21 03:03 03:47 05:55 07:43 Temp 98.8 98.8 Pulse 96 Resp 32 B/P (MAP) 119/76 (90) Pulse Ox 94 98 98 100 O2 Delivery BiPAP/CPAP BiPAP/CPAP BiPAP/CPAP BiPAP/CPAP 03/10/21 03/10/21 07:55 09:48 Temp 99.5 99.5 Pulse 108 Resp 26 B/P (MAP) 86/52 (63) Pulse Ox 100 100 O2 Delivery BiPAP/CPAP BiPAP/CPAP Intake and Output 03/09/21 03/09/21 03/10/21 15:00 23:00 07:00 Intake Total 0 ml 448 ml Output Total 775 ml 550 ml Balance -775 ml -102 ml Justicifation of Admission Dx: Justifications for Admission: Justification of Admission Dx: Yes CALOS ANSARI MD Mar 10, 2021 10:40
[2021-03-10 10:46] VITALS: BP 153/64
--- NOTE | 2021-03-10 11:00 | PDOC ---
Renal-Progress Notes Subjective Notes Notes NO NEW COMPLAINTS History of Present Illness Hx of present illness STABLE Vitals Vitals Vital Signs Date Time Temp Pulse Resp B/P (MAP) Pulse Ox O2 Delivery O2 Flow Rate FiO2 03/10/21 10:46 100.1 107 26 153/64 (93) 100 BiPAP/CPAP 100.1 03/09/21 15:00 50.0 Weight Weight [ ] I.O. Intake and Output Intake and Output 03/10/21 07:00 Intake Total 448 ml Output Total 1325 ml Balance -877 ml Intake Oral 0 ml IV Total 448 ml Output Urine Total 1325 ml Labs Labs Laboratory Tests Test 03/09/21 14:10 03/10/21 00:58 03/10/21 03:30 03/10/21 06:06 Ammonia < 10 mcmol/L (11-34) Glucose (Fingerstick) 168 mg/dL (70-99) 154 mg/dL (70-99) Sodium Level 166 mmol/L (136-145) Potassium Level 3.7 mmol/L (3.5-5.1) Chloride Level 132 mmol/L (98-107) Carbon Dioxide Level 24 mmol/L (21-32) Anion Gap 10 (6-14) Blood Urea Nitrogen 48 mg/dL (8-26) Creatinine 1.9 mg/dL (0.7-1.3) Estimated GFR (Cockcroft-Gault) 34.8 Glucose Level 176 mg/dL (70-99) Calcium Level 8.2 mg/dL (8.5-10.1) Micro Micro Microbiology 03/04/21 Urine Culture - Final, Complete Review of Systems Constitutional: yes: alert, oriented Ears/Nose/Throat: Yes: no symptom reported Eyes: Yes: no symptom reported Pulmonary: Yes no symptom reported Cardiovascular: Yes no symptom reported Gastrointestional: Yes: no symptom reported Genitourinary: Yes: no symptom reported Musculoskeletal: Yes: no symptom reported Psychiatric/Neurological: Yes: no symptom reported Endocrine: Yes: no symptom reported Physical Exam General Appearance: no apparent distress Skin: warm Respiratory: bilateral CTA Heart: S1S2 Abdomen: soft, bowel sounds present Genitourinary: bladder flat Extremities: pulses present Neurology: alert Musculoskeletal: low back pain Assessment Assessment IMP KAMILLE-IMPROVING CR OF 3.8 TO 1.9 HYPOKALEMIA-BETTER HYPERNATREMIA-WORSE MET ACIDOSIS-BETTER PLAN HYDRATION FREE WATER LABS IN AM WILL FOLLOW CAROL ANN WICK MD Mar 10, 2021 11:00
--- NOTE | 2021-03-10 13:00 | PDOC ---
JOSIAH NAVARRETE CLIENT SERVICES DIRECTOR 03/10/21 1300: CARDIO Progress Notes Date and Time Date of Service 03/10/2021 Time of Evaluation 1230 Subjective Subjective: Other (nonverbal, bipap in place) Vitals Vitals Vital Signs Date Time Temp Pulse Resp B/P (MAP) Pulse Ox O2 Delivery O2 Flow Rate FiO2 03/10/21 11:36 100 BiPAP/CPAP 03/10/21 10:46 100.1 107 26 153/64 (93) 100.1 03/09/21 15:00 50.0 Weight Weight [ ] Input and Output Intake and Output Intake and Output 03/10/21 07:00 Intake Total 448 ml Output Total 1325 ml Balance -877 ml Intake Oral 0 ml IV Total 448 ml Output Urine Total 1325 ml Laboratory Labs Laboratory Tests Test 03/09/21 14:10 03/10/21 00:58 03/10/21 03:30 03/10/21 06:06 Ammonia < 10 mcmol/L (11-34) Glucose (Fingerstick) 168 mg/dL (70-99) 154 mg/dL (70-99) Sodium Level 166 mmol/L (136-145) Potassium Level 3.7 mmol/L (3.5-5.1) Chloride Level 132 mmol/L (98-107) Carbon Dioxide Level 24 mmol/L (21-32) Anion Gap 10 (6-14) Blood Urea Nitrogen 48 mg/dL (8-26) Creatinine 1.9 mg/dL (0.7-1.3) Estimated GFR (Cockcroft-Gault) 34.8 Glucose Level 176 mg/dL (70-99) Calcium Level 8.2 mg/dL (8.5-10.1) Test 03/10/21 12:00 Glucose (Fingerstick) 171 mg/dL (70-99) Microbiology Micro Microbiology 03/04/21 Urine Culture - Final, Complete Review of Systems Constitutional: yes: alert, oriented Ears/Nose/Throat: Yes: no symptom reported Eyes: Yes: no symptom reported Pulmonary: Yes no symptom reported Cardiovascular: Yes no symptom reported Gastrointestional: Yes: no symptom reported Genitourinary: Yes: no symptom reported Musculoskeletal: Yes: no symptom reported Psychiatric/Neurological: Yes: no symptom reported Endocrine: Yes: no symptom reported Physical Exam HEENT: Neck Supple W Full Motion Chest: Symmetric LUNGS: Other (diminished bases) Heart: irregularly irregular (AFIB) Abdomen: Soft N/T Extremities: No Edema Neurology: other (restless, lethargic) Assessment Assessment 1. Acute respiratory failure: Aspiration? 2. Suspect Chronic diastolic CHF: EF and LV systolic function is nml 3. Severe KAMIL[place]: better 4. Severe Hypernatremia: nephrology following 5. Metabolic encephalopathy: neurology following 6. AFIB RVR: possibly new. Likely induced by metabolic issues and respiratory issues. Rate controlled 7. HTN: controlled 8. Anemia with probable GI bleed: +hemmocult,. GI is following 9. DM2 10. Transaminitis 11. Rhabdomyolysis 12. Fever Recommendations 1. Titrate cardizem drip. Not a candidate for anticoagulation at this time. Future ASA when clear with GI 2. Continue Bipap. Lasix PRN 3. Supportive care Justicifation of Admission Dx: Justifications for Admission: Justification of Admission Dx: Yes DEANDRE CASTILLO MD 03/10/21 5367: CARDIO Progress Notes Assessment Assessment Patient seen and examined I agree with our nurse practitioners assessment and plan. Acute respiratory failure: Mildly improved. Continue present treatment. Suspect Chronic diastolic CHF: EF and LV systolic function is nml Severe KAMILLE: better Severe Hypernatremia: nephrology following Metabolic encephalopathy: neurology following AFIB RVR: possibly new. Likely induced by metabolic issues and respiratory issues. Rate controlled. On IV Cardizem. Not a candidate for long-term anticoagulation. HTN: controlled Anemia with probable GI bleed: +hemmocult,. GI is following DM2 JOSIAH NAVARRETE APRN Mar 10, 2021 13:00 DEANDRE CASTILLO MD Mar 10, 2021 16:47
[2021-03-10] MEDS: IV DEXTROSE 5% 1,000 ML IV SCH ×2 (13:02→19:00)
[2021-03-10 13:41] LABS: HEMATOCRIT 29.1 % (39.0-53.0); HEMOGLOBIN 8.2 g/dL (13.0-17.5); RED BLOOD COUNT 3.68 x10^6/uL (4.30-5.70); RED CELL DISTRIBUTION WIDTH 27.1 % (11.5-14.5); WHITE BLOOD COUNT 17.3 x10^3/uL (4.0-11.0)
[2021-03-10 15:33] VITALS: BP 118/65
--- NOTE | 2021-03-10 16:05 | NUR ---
SS following up with discharge planning. SS reviewed pt chart and discussed with pt RN. Pt is currently on BIPAP at 50%. COVID19 negative. Cardizem drip. Pt has no home oxygen. Pt had critical sodium again. Mitts present on hands. Pt has no home oxygen. PT/OT recommended [facility]. Not stable. SS will continue to follow for discharge planning.
--- NOTE | 2021-03-10 16:19 | CARD ---
MR#: [id number] Date of Study: 03/09/2021 Ordering Physician: JOSIAH NAVARRETE, Referring Physician: JOSIAH NAVARRETE, Tech: Jade Sinclair, [facility] APPROVED REPORT EXAM: Two-dimensional and M-mode echocardiogram with Doppler and color Doppler. Other Information Quality : AverageHR: 97bpm Technically limited study due to combative patient INDICATION Atrial Fibrillation RISK FACTORS Hypertension Diabetes Smoking 2D DIMENSIONS RVDd3.5 (2.9-3.5cm)Left Atrium(2D)3.7 (1.6-4.0cm) IVSd1.1 (0.7-1.1cm)Aortic Root(2D)2.8 (2.0-3.7cm) LVDd6.0 (3.9-5.9cm)LVOT Diameter2.1 (1.8-2.4cm) PWd1.1 (0.7-1.1cm)LVDs3.9 (2.5-4.0cm) FS (%) 34.9 %SV112.2 ml LVEF(%)63.3 (>50%) Aortic Valve AoV Peak Luis.170.2cm/sAoV VTI27.8cm AO Peak GR.11.6mmHgLVOT VTI 21.54cm AO Mean GR.4mmHg Mitral Valve MV E Ciskswys426.5cm/sMV E Peak Gr.7mmHg MV DECEL [id number] E Mean Gr.2mmHg TDI Lateral E' P. V13.45cm/sMedial E' P. V9.27cm/s E/Lateral E'8.9E/Medial E'12.9 Tricuspid Valve TR P. [id number]/sRAP [id number] TR Peak Gr.[id number] LEFT VENTRICLE The left ventricle is normal size. There is borderline to mild concentric left ventricular hypertroph y. The left ventricular systolic function is normal. The Ejection Fraction is 50-55%. Septal motion c onsistent with conduction abnormality. RIGHT VENTRICLE The right ventricle is normal size. There is normal right ventricular wall thickness. The right ventr icular systolic function is normal. ATRIA The left atrium is mildly dilated. The right atrium is mildly dilated. The interatrial septum is inta ct with no evidence for an atrial septal defect or patent foramen ovale as noted on 2-D or Doppler im aging. AORTIC VALVE The aortic valve is calcified and displays decreased opening. Doppler and Color Flow revealed trace a ortic regurgitation. There is no significant aortic valvular stenosis. Calculated aortic valve area i s 2.34 cm2 with maximum pressure gradient of 17 mmHg and mean pressure gradient of 6 mmHg. MITRAL VALVE The mitral valve is normal in structure and function. There is no evidence of mitral valve prolapse. There is no mitral valve stenosis. Doppler and Color-flow revealed trace mitral regurgitation. TRICUSPID VALVE The tricuspid valve is normal in structure and function. Doppler and Color Flow revealed trace tricus pid regurgitation with an estimated PAP of 46 mmHg. There is no tricuspid valve stenosis. PULMONIC VALVE The pulmonic valve is not well visualized. Doppler and Color Flow revealed trace pulmonic valvular re gurgitation. GREAT VESSELS The aortic root is normal in size. The IVC is dilated. PERICARDIAL EFFUSION There is no evidence of significant pericardial effusion. Critical Notification Critical Value: No <Conclusion> The left ventricular systolic function is normal. The Ejection Fraction is 50-55%. Trace mitral regurgitation. Trace tricuspid regurgitation with an estimated PAP of 46 mmHg. There is no evidence of significant pericardial effusion. Signed by : Aristeo Qureshi, Electronically Approved : 03/10/2021 16:18:45
[2021-03-10 19:03] VITALS: BP 123/57
[2021-03-10 23:03] VITALS: BP 109/58
[2021-03-11 03:42] VITALS: BP 134/45
[2021-03-11 04:53] LABS: HEMATOCRIT 26.3 % (39.0-53.0); HEMOGLOBIN 7.8 g/dL (13.0-17.5); RED BLOOD COUNT 3.45 x10^6/uL (4.30-5.70); RED CELL DISTRIBUTION WIDTH 26.2 % (11.5-14.5); WHITE BLOOD COUNT 19.8 x10^3/uL (4.0-11.0)
[2021-03-11 05:16] LABS: ALBUMIN/GLOBULIN RATIO 0.5 (1.0-1.7); CALCIUM 7.8 mg/dL (8.5-10.1); CREATININE 1.9 mg/dL (0.7-1.3); GFR 34.8; MAGNESIUM 1.7 mg/dL (1.8-2.4); POTASSIUM 3.2 mmol/L (3.5-5.1); TOTAL BILIRUBIN 0.7 mg/dL (0.2-1.0); TOTAL PROTEIN 5.8 g/dL (6.4-8.2)
[2021-03-11] MEDS: IV DEXTROSE 5% 1,000 ML IV SCH ×3 (05:47→19:00)
[2021-03-11 07:00] VITALS: BP 106/46
[2021-03-11] MEDS: IPRATRPIUM/ALBUTEROL 0.5/2.5MG 3 ML NEBU. NEB SCH ×3 (07:30→20:53)
[2021-03-11] MEDS: LACTULOSE 20 GM/30 ML SOLUTION. PO SCH ×2 (07:40→16:00)
[2021-03-11] MEDS: FERROUS SULFATE 325 MG TABLET. PO SCH ×2 (07:40→16:14)
[2021-03-11] MEDS: VITS A & D/LANOLIN TOPICAL OINTMENT 42GM TUBE. TP SCH ×2 (09:39→21:00)
[2021-03-11] MEDS: NYSTATIN TOPICAL POWDER 15GM BOTTLE. TP SCH ×2 (09:39→21:00)
[2021-03-11] MEDS: PANTOPRAZOLE IV PUSH 40 MG VIAL. IVP SCH (09:39)
--- NOTE | 2021-03-11 10:19 | PDOC ---
DATE OF SERVICE DATE: 03/11/21 TIME: 10:19 SUBJECTIVE ROS No Hx Obtained from patient On BiPAP, per nursing stable Resp status OBJECTIVE Vital Signs Vital Signs Date Time Temp Pulse Resp B/P (MAP) Pulse Ox O2 Delivery O2 Flow Rate FiO2 03/11/21 08:37 96 Venturi Mask 15.0 03/11/21 07:00 100.1 90 18 106/46 (66) 100.1 I & 0 Intake and Output 03/11/21 07:00 Intake Total 1901 ml Output Total 1400 ml Balance 501 ml Intake Oral 0 ml IV Total 1901 ml Output Urine Total 1400 ml PHYSICAL EXAM Physical Exam General On Bipap HEEN anicteric Neck Supple Lungs CTA, decreased at bases, CV S1S2, No murmur ot rub Abd soft , NT, BS + Ext No LE edema, No cyanosis Derm No Rash- Neuro No focal deficit Jaramillo + DIAGNOSIS/ASSESSMENT Assessment & Plan KAMILLE - ATN 2/2 severe Dehydration , Poor PO intake , Hypotensive at presentation acute decrease in Hgb/?GI bleed / mild Rhabdo.Non Oliguric .US- Kidneys unremarkable, Renal function stable 19<--3.8 , Supportive care , Strict I/O avoid Nephrotoxins . HyperNatremia -No improvement; Increase IV D5W rate, Insulin for Hyperglycemia - per primary . Discussed with Nursing Rhabdomyolysis- POA mild HypoKalemia - Replace HypoMg Replace as indicated Anemia- severe -POA , acute , Hemoccult . Recd PRBC Elevated LFT's/ -Hx of ETOH until recently . US ? hepatic Steatosis , defer to GI COMMENT/RELEVANT DATA Meds Current Medications Medications (Trade) Dose Ordered Sig/Stephan Start Time Stop Time Status Last Admin Dose Admin Acetaminophen (Tylenol) 650 mg PRN Q4HRS PRN 03/03/21 15:15 03/04/21 15:14 DC 03/04/21 08:29 650 MG Albuterol/ Ipratropium (Duoneb) 3 ml [id number] 03/07/21 14:00 03/11/21 07:30 3 ML Clonidine HCl (Catapres) 0.1 mg PRN Q1HR PRN 03/05/21 07:45 Dextrose 1,000 ml @ 125 mls/hr Q8H 03/10/21 11:00 03/11/21 05:47 125 MLS/HR Digoxin (Lanoxin) 500 mcg 1X ONCE 03/08/21 15:30 03/08/21 15:31 DC 03/08/21 15:52 500 MCG Diltiazem HCl (Cardizem Iv Push) 10 mg 1X ONCE 03/07/21 22:00 03/07/21 22:01 DC 03/07/21 22:33 10 MG Diltiazem HCl 125 mg/Sodium Chloride 125 ml @ 5 mls/hr CONT PRN 03/07/21 21:45 03/11/21 05:47 10 MLS/HR Famotidine (Pepcid Vial) 20 mg 1X ONCE 03/03/21 15:15 03/03/21 15:16 DC 03/03/21 16:10 20 MG Ferrous Sulfate (Feosol) 325 mg [id number] 03/03/21 17:00 03/07/21 09:58 325 MG Haloperidol Lactate (Haldol Inj) 5 mg PRN Q4HRS PRN 03/05/21 07:45 03/09/21 16:52 5 MG Lactulose (LACTULOSE 300ML for RECTAL) 200 gm DAILY PRN 03/08/21 11:00 Lactulose (Lactulose) 20 gm [id number] 03/07/21 10:00 03/07/21 17:00 20 GM Lorazepam (Ativan Inj) 4 mg PRN Q1HR PRN 03/05/21 07:45 03/10/21 13:03 4 MG Lorazepam (Ativan) 8 mg PRN Q1HR PRN 03/05/21 07:45 Morphine Sulfate (Morphine Sulfate) 2 mg PRN Q2HR PRN 03/03/21 15:15 03/04/21 15:14 DC Multivitamins 10 ml/Thiamine HCl 100 mg/Folic Acid 1 mg/Sodium Chloride 1,011.2 ml @ 100 mls/ hr DAILY 03/05/21 09:00 03/09/21 19:07 DC 03/09/21 08:47 100 MLS/HR Nystatin (Nystop) 1 demetrius BID 03/04/21 21:00 03/11/21 09:39 1 DEMETRIUS Ondansetron HCl (Zofran) 4 mg PRN Q8HRS PRN 03/03/21 15:15 03/04/21 15:14 DC Pantoprazole Sodium (PROTONIX VIAL for IV PUSH) 40 mg DAILYAC 03/08/21 11:00 03/11/21 09:39 40 MG Pantoprazole Sodium (Protonix) 40 mg DAILYAC 03/03/21 16:30 03/08/21 10:48 DC 03/07/21 09:58 40 MG Polyethylene Glycol (miraLAX PACKET) 17 gm PRN DAILY PRN 03/03/21 16:00 Potassium Chloride 40 meq/ Sodium Chloride 1,020 ml @ 100 mls/hr [id number] 03/04/21 09:00 03/06/21 19:07 DC 03/05/21 05:23 100 MLS/HR Potassium Chloride/Sodium Chloride 1,000 ml @ 75 mls/hr [id number] 03/06/21 20:00 03/09/21 08:36 DC 03/08/21 20:47 75 MLS/HR Potassium Chloride/Water 100 ml @ 50 mls/hr 1X ONCE 03/05/21 09:00 03/05/21 10:59 DC 03/05/21 09:05 50 MLS/HR Sodium Chloride 1,000 ml @ 125 mls/hr Q8H 03/09/21 08:30 03/10/21 11:02 DC 03/10/21 09:12 125 MLS/HR Vitamin A/Vitamin D (Vitamin A & D Ointment) 1 demetrius BID 03/04/21 21:00 03/11/21 09:39 1 DEMETRIUS Lab Laboratory Tests Test 03/10/21 12:00 03/11/21 03:40 03/11/21 08:00 Glucose (Fingerstick) 171 mg/dL (70-99) 208 mg/dL (70-99) White Blood Count 19.8 x10^3/uL (4.0-11.0) Red Blood Count 3.45 x10^6/uL (4.30-5.70) Hemoglobin 7.8 g/dL (13.0-17.5) Hematocrit 26.3 % (39.0-53.0) Mean Corpuscular Volume 76 fL (79-100) Mean Corpuscular Hemoglobin 23 pg (25-35) Mean Corpuscular Hemoglobin Concent 30 g/dL (31-37) Red Cell Distribution Width 26.2 % (11.5-14.5) Platelet Count 150 x10^3/uL (140-400) Sodium Level 166 mmol/L (136-145) Potassium Level 3.2 mmol/L (3.5-5.1) Chloride Level 132 mmol/L (98-107) Carbon Dioxide Level 22 mmol/L (21-32) Anion Gap 12 (6-14) Blood Urea Nitrogen 45 mg/dL (8-26) Creatinine 1.9 mg/dL (0.7-1.3) Estimated GFR (Cockcroft-Gault) 34.8 BUN/Creatinine Ratio 24 (6-20) Glucose Level 200 mg/dL (70-99) Calcium Level 7.8 mg/dL (8.5-10.1) Phosphorus Level 2.0 mg/dL (2.6-4.7) Magnesium Level 1.7 mg/dL (1.8-2.4) Total Bilirubin 0.7 mg/dL (0.2-1.0) Aspartate Amino Transf (AST/SGOT) 15 U/L (15-37) Alanine Aminotransferase (ALT/SGPT) 79 U/L (16-63) Alkaline Phosphatase 83 U/L (46-116) Total Protein 5.8 g/dL (6.4-8.2) Albumin 2.0 g/dL (3.4-5.0) Albumin/Globulin Ratio 0.5 (1.0-1.7) Results All relevant outside records, renal labs, imaging studies, telemetry/EKG's were reviewed. Justicifation of Admission Dx: Justifications for Admission: Justification of Admission Dx: Yes JAY CHARLES MD Mar 11, 2021 10:19
--- NOTE | 2021-03-11 10:33 | PN ---
DATE: 03/11/2021 LOCATION: He is in room 662. SUBJECTIVE: This 75-year-old male remains hospitalized with multiple medical issues. He presented with profound anemia and heme-positive stool. He has received 4 units of packed red blood cells with a hemoglobin in the upper 7s and stable. Presented with acute renal failure. This is improving, but he is developing worsening hypernatremia. Renal is now following along and managing fluids for the same. He remains encephalopathic and in gloves. He is requiring higher levels of oxygen. He is running a low-grade fever over the last couple of days. His white count is increased to 19,000. PHYSICAL EXAMINATION: VITAL SIGNS: Stable. He has low-grade fevers of 100. He is currently still in atrial fib, but a controlled response in the 80s. CHEST: Reveals bilateral rhonchi. HEART: Irregularly irregular with normal rate. ABDOMEN: Benign. EXTREMITIES: Unremarkable. IMPRESSION: 1. Profound symptomatic anemia on admission with improvement after 4 units of packed red blood cells. 2. Acute kidney injury, improving. 3. Hypernatremia, worsening. 4. Hypokalemia, resolved. 5. Encephalopathy. 6. New-onset atrial fibrillation. 7. Mild coagulopathy with an INR of 1.4. 8. Decreasing liver function tests. PLAN: Continue supportive care. Ask ID for help. Otherwise same. MIKEY DR: Mee TID: [id number]
[2021-03-11 11:00] VITALS: BP 94/58
--- NOTE | 2021-03-11 11:12 | PDOC ---
Date of Service: DATE: 03/11/21 TIME: 11:09 Subjective: Subjective: No history from pt. Objective: Objective: D/w nurse, reviewed chart. No GI concerns. Vital Signs: Vital Signs Date Time Temp Pulse Resp B/P (MAP) Pulse Ox O2 Delivery O2 Flow Rate FiO2 03/11/21 08:37 96 Venturi Mask 15.0 03/11/21 07:00 100.1 90 18 106/46 (66) 100.1 Labs: Laboratory Tests Test 03/10/21 12:00 03/11/21 03:40 03/11/21 08:00 Glucose (Fingerstick) 171 mg/dL 208 mg/dL White Blood Count 19.8 x10^3/uL Red Blood Count 3.45 x10^6/uL Hemoglobin 7.8 g/dL Hematocrit 26.3 % Mean Corpuscular Volume 76 fL Mean Corpuscular Hemoglobin 23 pg Mean Corpuscular Hemoglobin Concent 30 g/dL Red Cell Distribution Width 26.2 % Platelet Count 150 x10^3/uL Sodium Level 166 mmol/L Potassium Level 3.2 mmol/L Chloride Level 132 mmol/L Carbon Dioxide Level 22 mmol/L Anion Gap 12 Blood Urea Nitrogen 45 mg/dL Creatinine 1.9 mg/dL Estimated GFR (Cockcroft-Gault) 34.8 BUN/Creatinine Ratio 24 Glucose Level 200 mg/dL Calcium Level 7.8 mg/dL Phosphorus Level 2.0 mg/dL Magnesium Level 1.7 mg/dL Total Bilirubin 0.7 mg/dL Aspartate Amino Transf (AST/SGOT) 15 U/L Alanine Aminotransferase (ALT/SGPT) 79 U/L Alkaline Phosphatase 83 U/L Total Protein 5.8 g/dL Albumin 2.0 g/dL Albumin/Globulin Ratio 0.5 Current Medications PE: GEN: ill LUNGS: BiPAP HEART: RR ABD: non-distended NEURO/PSYCH: lethargic A/P: Fever, resp failure, A Fib, encephalopathy/suspected alcohol withdrawal, hypernatremia (worse) DOREEN, +Hemoccult - stable Rhabdo/KAMILLE - LFTs near normal now COVID negative -- Support from GI standpoint. Justicifation of Admission Dx: Justifications for Admission: Justification of Admission Dx: Yes SHERIF PHILLIPS Mar 11, 2021 11:12
--- NOTE | 2021-03-11 11:49 | PDOC ---
CARDIO Progress Notes Date and Time Date of Service 03/11/2021 Time of Evaluation 1030 Subjective Subjective: Other (nonverbal) Vitals Vitals Vital Signs Date Time Temp Pulse Resp B/P (MAP) Pulse Ox O2 Delivery O2 Flow Rate FiO2 03/11/21 11:39 97 BiPAP/CPAP 03/11/21 11:38 15.0 03/11/21 11:00 99.7 76 26 94/58 (70) 99.7 Weight Weight [ ] Input and Output Intake and Output Intake and Output 03/11/21 07:00 Intake Total 1901 ml Output Total 1400 ml Balance 501 ml Intake Oral 0 ml IV Total 1901 ml Output Urine Total 1400 ml Laboratory Labs Laboratory Tests Test 03/10/21 12:00 03/11/21 03:40 03/11/21 08:00 Glucose (Fingerstick) 171 mg/dL (70-99) 208 mg/dL (70-99) White Blood Count 19.8 x10^3/uL (4.0-11.0) Red Blood Count 3.45 x10^6/uL (4.30-5.70) Hemoglobin 7.8 g/dL (13.0-17.5) Hematocrit 26.3 % (39.0-53.0) Mean Corpuscular Volume 76 fL (79-100) Mean Corpuscular Hemoglobin 23 pg (25-35) Mean Corpuscular Hemoglobin Concent 30 g/dL (31-37) Red Cell Distribution Width 26.2 % (11.5-14.5) Platelet Count 150 x10^3/uL (140-400) Sodium Level 166 mmol/L (136-145) Potassium Level 3.2 mmol/L (3.5-5.1) Chloride Level 132 mmol/L (98-107) Carbon Dioxide Level 22 mmol/L (21-32) Anion Gap 12 (6-14) Blood Urea Nitrogen 45 mg/dL (8-26) Creatinine 1.9 mg/dL (0.7-1.3) Estimated GFR (Cockcroft-Gault) 34.8 BUN/Creatinine Ratio 24 (6-20) Glucose Level 200 mg/dL (70-99) Calcium Level 7.8 mg/dL (8.5-10.1) Phosphorus Level 2.0 mg/dL (2.6-4.7) Magnesium Level 1.7 mg/dL (1.8-2.4) Total Bilirubin 0.7 mg/dL (0.2-1.0) Aspartate Amino Transf (AST/SGOT) 15 U/L (15-37) Alanine Aminotransferase (ALT/SGPT) 79 U/L (16-63) Alkaline Phosphatase 83 U/L (46-116) Total Protein 5.8 g/dL (6.4-8.2) Albumin 2.0 g/dL (3.4-5.0) Albumin/Globulin Ratio 0.5 (1.0-1.7) Microbiology Micro Microbiology 03/04/21 Urine Culture - Final, Complete Review of Systems Constitutional: yes: alert, oriented Ears/Nose/Throat: Yes: no symptom reported Eyes: Yes: no symptom reported Pulmonary: Yes no symptom reported Cardiovascular: Yes no symptom reported Gastrointestional: Yes: no symptom reported Genitourinary: Yes: no symptom reported Musculoskeletal: Yes: no symptom reported Psychiatric/Neurological: Yes: no symptom reported Endocrine: Yes: no symptom reported Physical Exam HEENT: Neck Supple W Full Motion Chest: Symmetric LUNGS: Other (diminished bases) Heart: irregularly irregular (AFIB) Abdomen: Soft N/T Extremities: No Edema Neurology: other (restless, lethargic) Assessment Assessment 1. Acute respiratory failure: Aspiration? 2. Suspect Chronic diastolic CHF: EF and LV systolic function is nml 3. Severe KAMILLE: better 4. Severe Hypernatremia: nephrology following 5. Metabolic encephalopathy: neurology following 6. AFIB RVR: possibly new. Likely induced by metabolic issues and respiratory issues. Rate controlled 7. HTN: controlled at low end 8. Anemia with probable GI bleed: +hemmocult,. GI is following 9. DM2 10. Transaminitis 11. Rhabdomyolysis 12. Fever Recommendations 1. Titrate cardizem drip. Not a candidate for anticoagulation at this time. Future ASA when clear with GI 2. Bipap PRN Lasix PRN 3. Supportive care Justicifation of Admission Dx: Justifications for Admission: Justification of Admission Dx: Yes JOSIAH NAVAR[employer]TE [employer] Mar 11, 2021 11:49
--- NOTE | 2021-03-11 14:41 | NUR ---
SS following up with discharge planning. SS reviewed pt chart and discussed with pt RN. Pt is currently on BIPAP at 50%. COVID19 negative. Cardizem drip. Pt has no home oxygen. Pt had critical sodium again today (166). Mitts present on hands. Pt has no home oxygen. PT/OT recommended care home unit. Not stable. SS will continue to follow for discharge planning.
[2021-03-11 15:00] VITALS: BP 94/50
--- NOTE | 2021-03-11 17:11 | NUR ---
Wound/Ostomy Care Wound Type/Assessment: Wound care follow up for buttocks PU stage III with DTI. Groin/scrotum maceration/yeast appears to have resolved for the most part. Bilateral heels are red but blanchable, foams are used for protection . Pt has ritter catheter and rectal tube in place now. No other wounds found on head to toe skin assessment. Pt noted to have IV out upon arrival, Dilma RN notified. Treatment Recommendations/Plan: Cleanse buttocks and groin scrotum and pat dry. Buttocks: skin prep to periwound, then cover with honey alginate (left in room) and foam, change every 2-3 days and as needed, if dressing is becoming too saturated of stool is getting into it then return to A&D ointment bid and prn. Groin/scrotum: continue applying nystatin powder bid and prn. Education provided: pt sedated, unable to educate Offloading surface/device: P500 bed, purple wedge, pillows. Pt left turned to his right Recommended Referrals/Tests: n/a Discharge Recommendations for dressings: same as above, WC team will follow up on 03/17/21
[2021-03-11 18:23] LABS: BILIRUBIN,URINE NEGATIVE (NEG); CLARITY,URINE TURBID; COLOR,URINE YELLOW; NITRITE,URINE POSITIVE (NEG); PROTEIN,URINE 100 mg/dL (NEG-TRACE)
[2021-03-11 18:30] LABS: RBC,URINE >40 /HPF (0-2)
[2021-03-11 18:31] LABS: AMORPHOUS SEDIMENT,UR PRESENT /HPF; BACTERIA,URINE MANY /HPF (0-FEW); WBC,URINE TNTC /HPF (0-4)
[2021-03-11 18:33] LABS: GRANULAR CASTS,URINE MODERATE /HPF
[2021-03-11 19:00] VITALS: BP 93/42
[2021-03-11] MEDS ORDERED: DAPTOmycin (GENERIC) IVPB 480 MG in IV NORMAL SALINE 50ML 50 ML IV SCH (20:00)
[2021-03-11] MEDS ORDERED: CEFEPIME HCL IV Push 1 GM VIAL. IVP SCH (21:00)
[2021-03-11 23:12] VITALS: BP 98/63
[2021-03-12 02:55] VITALS: BP 92/51
[2021-03-12] MEDS: IV DEXTROSE 5% 1,000 ML IV SCH ×3 (03:00→21:23)
[2021-03-12 03:11] LABS: CALCIUM 8.1 mg/dL (8.5-10.1); GFR 32.8; POTASSIUM 3.5 mmol/L (3.5-5.1)
[2021-03-12 07:00] VITALS: BP 113/64
[2021-03-12] MEDS: FERROUS SULFATE 325 MG TABLET. PO SCH ×2 (08:00→16:03)
[2021-03-12] MEDS: PANTOPRAZOLE IV PUSH 40 MG VIAL. IVP SCH (08:39)
[2021-03-12] MEDS: LACTULOSE 20 GM/30 ML SOLUTION. PO SCH ×2 (08:39→15:56)
[2021-03-12] MEDS: NYSTATIN TOPICAL POWDER 15GM BOTTLE. TP SCH ×2 (08:41→21:21)
[2021-03-12] MEDS: VITS A & D/LANOLIN TOPICAL OINTMENT 42GM TUBE. TP SCH ×2 (08:41→21:21)
[2021-03-12] MEDS: IPRATRPIUM/ALBUTEROL 0.5/2.5MG 3 ML NEBU. NEB SCH ×3 (08:44→20:36)
--- NOTE | 2021-03-12 09:20 | CONS ---
DATE OF CONSULTATION: 03/12/2021 REQUESTINGIPHYSICIAN: Dr. Hall. REASON FOR CONSULTATION: Fever. HISTORY OF PRESENT ILLNESS: This is a 75-year-old gentleman who was found down by brother in the patient's house, that was several days ago before admission. The patient at that time refused to go see a doctor or go to the hospital. The patient sat in the chair and was able to communicate so brother then left after couple or 3 more days. After that he found again him down hence at that time, he brought him into the hospital. The patient was covered in urine and feces. The patient was very weak. The patient thought to have had GI bleed and anemia from GI bleed. The patient had a GI workup, CT head, Neurology consult and was thought to have a metabolic encephalopathy. The patient has been on a BiPAP and unresponsive other than painful stimuli. The patient's sodium is 164. Creatinine is improving to 1.9. Urine culture is negative. Blood culture had not been done. He did have a fever up to 100.1. Again, hence this consultation. I started cefepime and daptomycin empirically. The patient is currently on BiPAP and responds to painful stimuli only. Two sons from out of town are at the bedside. He does have diarrhea. No nausea or vomiting noted and the patient is not able to provide any other information. REVIEW OF SYSTEMS: Unable to obtain other than what I mentioned in the HPI through RN. PAST MEDICAL HISTORY: Positive for chronic back problem, hyperlipidemia, coronary artery disease, hypertension. He has had appendicectomy. He has had shoulder surgery, back surgery, diabetes, substance abuse. SOCIAL HISTORY: Positive for smoking. Positive for alcohol use as well as occasional marijuana use. REVIEW OF SYSTEMS: As in HPI through the RN. CURRENT MEDICATIONS: The patient on cefepime and daptomycin. PHYSICAL EXAMINATION: GENERAL: Somnolent gentleman, who responds to painful stimuli only on a BiPAP. VITAL SIGNS: Temperature 99.1, pulse 90, respirations 22, blood pressure 92/51. EYES: Both pupils are round and reacting. No conjunctival lesion, no lesion in the mouth. NECK: Supple, no JVP, no lymphadenopathy. LUNGS: Clear. HEART: S1, S2, regular. ABDOMEN: Soft, nontender, no organomegaly. EXTREMITIES: No edema, cyanosis. SKIN: Unremarkable. Minor skin breakdowns present into the sacrococcygeal area. NEUROLOGIC: The patient is unresponsive other than painful stimuli, does move spontaneously his extremities.. LABORATORY DATA: White count is 19.8. BUN and creatinine is 45 and 1.9. Sodium is 166. Tox screen was negative. Urine had more than 40 rbc, too numerous to count wbc's: COVID negative. Urine culture is negative. Chest x-ray, cardiomegaly with hazy infiltrate or edema. CT head was unremarkable. IMPRESSION: 1. Low-grade fever with possible aspiration with encephalopathic phase. 2. Encephalopathy. 3. Hypernatremia. 4. Acute kidney injury. 5. Dehydration. 6. Metabolic encephalopathy. 7. Rhabdomyolysis. 8. GI bleed. RECOMMENDATIONS: Change cefepime and daptomycin to IV Zosyn. Supportive care and discussion with the two sons done at the bedside. Thank you very much, Dr. Hall for giving me opportunity to participate in this patient's care. TOYIN/CHRISTEL DR: Yessenia TID: [id number]
--- NOTE | 2021-03-12 10:08 | PDOC ---
PROGRESS NOTES Date of Service DATE: 03/12/21 TIME: 10:06 Assessment Problems Medical Problems: (1) Anemia Status: Acute (2) ARF (acute renal failure) Status: Acute (3) Generalized weakness Status: Acute Metabolic encephalopathy, patient admitted with prolonged time on his floor covered in feces and urine, with severe anemia, hypocalcemia, hypokalemia, elevated BNP. Note normal ammonia level, but poor synthetic liver function. Respiratory failure, on BiPAP. Also has new atrial fibrillation, acute kidney injury, hypernatremia. The hypernatremia and leukocytosis are worsening Diabetic neuropathy Chronic back pain Atherosclerosis of cranial arteries seen on the CT Proptosis seen on the CT Plan Rehabilitation modalities Correct medical issues I understand family is looking for a living will to see how aggressive they want care, they understand that they can make him DO NOT RESUSCITATE even without a living will I am holding off on electroencephalogram and lumbar puncture, I doubt these studies would make much difference Subjective None Objective Vital Signs Date Time Temp Pulse Resp B/P (MAP) Pulse Ox O2 Delivery O2 Flow Rate FiO2 03/12/21 08:51 100 BiPAP/CPAP 03/12/21 07:00 99.6 130 22 113/64 (80) 50.0 99.6 Intake and Output 03/12/21 07:00 Intake Total 0 ml Balance 0 ml Intake Oral 0 ml PHYSICAL EXAM Obtunded, on BiPAP, in respiratory distress. Mittens on, nonverbal, cannot tell me location, date,his name. PERRL. EOMI. CN: no focal findings. Muscle tone: normal. Muscle strength: Moves all extremities DTR: 0-1+ Plantar reflex: Flexor Gait: not examined in bed. Sensory exam: Stocking loss on previous exams. No cerebellar signs elicited. Review of Relevant I have reviewed the following items linda (where applicable) has been applied. Labs Laboratory Tests Test 03/10/21 12:00 03/11/21 03:40 03/11/21 08:00 03/11/21 12:06 Glucose (Fingerstick) 171 mg/dL (70-99) 208 mg/dL (70-99) 223 mg/dL (70-99) White Blood Count 19.8 x10^3/uL (4.0-11.0) Red Blood Count 3.45 x10^6/uL (4.30-5.70) Hemoglobin 7.8 g/dL (13.0-17.5) Hematocrit 26.3 % (39.0-53.0) Mean Corpuscular Volume 76 fL (79-100) Mean Corpuscular Hemoglobin 23 pg (25-35) Mean Corpuscular Hemoglobin Concent 30 g/dL (31-37) Red Cell Distribution Width 26.2 % (11.5-14.5) Platelet Count 150 x10^3/uL (140-400) Sodium Level 166 mmol/L (136-145) Potassium Level 3.2 mmol/L (3.5-5.1) Chloride Level 132 mmol/L (98-107) Carbon Dioxide Level 22 mmol/L (21-32) Anion Gap 12 (6-14) Blood Urea Nitrogen 45 mg/dL (8-26) Creatinine 1.9 mg/dL (0.7-1.3) Estimated GFR (Cockcroft-Gault) 34.8 BUN/Creatinine Ratio 24 (6-20) Glucose Level 200 mg/dL (70-99) Calcium Level 7.8 mg/dL (8.5-10.1) Phosphorus Level 2.0 mg/dL (2.6-4.7) Magnesium Level 1.7 mg/dL (1.8-2.4) Total Bilirubin 0.7 mg/dL (0.2-1.0) Aspartate Amino Transf (AST/SGOT) 15 U/L (15-37) Alanine Aminotransferase (ALT/SGPT) 79 U/L (16-63) Alkaline Phosphatase 83 U/L (46-116) Total Protein 5.8 g/dL (6.4-8.2) Albumin 2.0 g/dL (3.4-5.0) Albumin/Globulin Ratio 0.5 (1.0-1.7) Test 03/11/21 18:10 03/11/21 23:50 03/12/21 02:00 03/12/21 05:57 Urine Collection Type Unknown Urine Color Yellow Urine Clarity Turbid Urine pH 5.0 (<5.0-8.0) Urine Specific [place] 1.015 (1.000-1.030) Urine Protein 100 mg/dL (NEG-TRACE) Urine Glucose (UA) 250 mg/dL (NEG) Urine Ketones (Stick) Negative mg/dL (NEG) Urine Blood Large (NEG) Urine Nitrite Positive (NEG) Urine Bilirubin Negative (NEG) Urine Urobilinogen Dipstick 1.0 mg/dL (0.2 mg/dL) Urine Leukocyte Esterase Large (NEG) Urine RBC >40 /HPF (0-2) Urine WBC Tntc /HPF (0-4) Urine Amorphous Sediment Present /HPF Urine Bacteria Many /HPF (0-FEW) Urine Granular Casts Moderate /HPF Urine Mucus Mod /LPF Glucose (Fingerstick) 199 mg/dL (70-99) 184 mg/dL (70-99) Sodium Level 164 mmol/L (136-145) Potassium Level 3.5 mmol/L (3.5-5.1) Chloride Level 130 mmol/L (98-107) Carbon Dioxide Level 23 mmol/L (21-32) Anion Gap 11 (6-14) Blood Urea Nitrogen 42 mg/dL (8-26) Creatinine 2.0 mg/dL (0.7-1.3) Estimated GFR (Cockcroft-Gault) 32.8 Glucose Level 194 mg/dL (70-99) Calcium Level 8.1 mg/dL (8.5-10.1) Laboratory Tests Test 03/11/21 12:06 03/11/21 18:10 03/11/21 23:50 03/12/21 02:00 Glucose (Fingerstick) 223 mg/dL (70-99) 199 mg/dL (70-99) Urine Collection Type Unknown Urine Color Yellow Urine Clarity Turbid Urine pH 5.0 (<5.0-8.0) Urine Specific [place] 1.015 (1.000-1.030) Urine Protein 100 mg/dL (NEG-TRACE) Urine Glucose (UA) 250 mg/dL (NEG) Urine Ketones (Stick) Negative mg/dL (NEG) Urine Blood Large (NEG) Urine Nitrite Positive (NEG) Urine Bilirubin Negative (NEG) Urine Urobilinogen Dipstick 1.0 mg/dL (0.2 mg/dL) Urine Leukocyte Esterase Large (NEG) Urine RBC >40 /HPF (0-2) Urine WBC Tntc /HPF (0-4) Urine Amorphous Sediment Present /HPF Urine Bacteria Many /HPF (0-FEW) Urine Granular Casts Moderate /HPF Urine Mucus Mod /LPF Sodium Level 164 mmol/L (136-145) Potassium Level 3.5 mmol/L (3.5-5.1) Chloride Level 130 mmol/L (98-107) Carbon Dioxide Level 23 mmol/L (21-32) Anion Gap 11 (6-14) Blood Urea Nitrogen 42 mg/dL (8-26) Creatinine 2.0 mg/dL (0.7-1.3) Estimated GFR (Cockcroft-Gault) 32.8 Glucose Level 194 mg/dL (70-99) Calcium Level 8.1 mg/dL (8.5-10.1) Test 03/12/21 05:57 Glucose (Fingerstick) 184 mg/dL (70-99) Microbiology 03/04/21 Urine Culture - Final, Complete Medications Current Medications Sodium Chloride 1,000 ml @ 1,000 mls/hr 1X ONCE IV Last administered on 03/03/21at 15:03; Start 03/03/21 at 14:30; Stop 03/03/21 at 15:29; Status DC Ondansetron HCl (Zofran) 4 mg PRN Q8HRS PRN IVP NAUSEA/VOMITING; Start 03/03/21 at 15:15; Stop 03/04/21 at 15:14; Status DC Morphine Sulfate (Morphine Sulfate) 2 mg PRN Q2HR PRN IVP PAIN; Start 03/03/21 at 15:15; Stop 03/04/21 at 15:14; Status DC Acetaminophen (Tylenol) 650 mg PRN Q4HRS PRN PO FEVER > 100.3'F Last administered on 03/04/21at 08:29; Start 03/03/21 at 15:15; Stop 03/04/21 at 15:14; Status DC Famotidine (Pepcid Vial) 20 mg 1X ONCE IVP Last administered on 03/03/21at 16:10; Start 03/03/21 at 15:15; Stop 03/03/21 at 15:16; Status DC Pantoprazole Sodium (Protonix) 40 mg DAILYAC PO Last administered on 03/07/21at 09:58; Start 03/03/21 at 16:30; Stop 03/08/21 at 10:48; Status DC Ferrous Sulfate (Feosol) 325 mg BIDWMEALS PO Last administered on 03/07/21at 09:58; Start 03/03/21 at 17:00 Polyethylene Glycol (miraLAX PACKET) 17 gm PRN DAILY PRN PO CONSTIPATION; Start 03/03/21 at 16:00 Potassium Chloride 40 meq/ Sodium Chloride 1,020 ml @ 100 mls/hr [id number] IV Last administered on 03/05/21at 05:23; Start 03/04/21 at 09:00; Stop 03/06/21 at 19:07; Status DC Potassium Chloride/Water 100 ml @ 100 mls/hr Q1H IV Last administered on 03/04/21at 22:58; Start 03/04/21 at 09:00; Stop 03/04/21 at 12:59; Status DC Vitamin A/Vitamin D (Vitamin A & D Ointment) 1 demetrius BID TP Last administered on 03/12/21at 08:41; Start 03/04/21 at 21:00 Nystatin (Nystop) 1 demetrius BID TP Last administered on 03/12/21at 08:41; Start 03/04/21 at 21:00 Lorazepam (Ativan Inj) 0.5 mg PRN Q4HRS PRN IVP ANXIETY / AGITATION Last administered on 03/05/21at 03:48; Start 03/04/21 at 23:45 Haloperidol Lactate (Haldol Inj) 1 mg 1X ONCE IVP Last administered on 03/05/21at 00:58; Start 03/05/21 at 01:30; Stop 03/05/21 at 01:31; Status DC Potassium Chloride/Water 100 ml @ 50 mls/hr 1X ONCE IV Last administered on 03/05/21at 09:05; Start 03/05/21 at 09:00; Stop 03/05/21 at 10:59; Status DC Multivitamins 10 ml/Thiamine HCl 100 mg/Folic Acid 1 mg/Sodium Chloride 1,011.2 ml @ 100 mls/ hr DAILY IV Last administered on 03/09/21at 08:47; Start 03/05/21 at 09:00; Stop 03/09/21 at 19:07; Status DC Lorazepam (Ativan) 4 mg PRN Q1HR PRN PO For CIWA 8-14 Last administered on 03/05/21at 22:44; Start 03/05/21 at 07:45 Lorazepam (Ativan) 8 mg PRN Q1HR PRN PO For CIWA 15 or greater; Start 03/05/21 at 07:45 Lorazepam (Ativan Inj) 2 mg PRN Q1HR PRN IV For CIWA 8-14 Last administered on 03/08/21at 05:42; Start 03/05/21 at 07:45 Lorazepam (Ativan Inj) 4 mg PRN Q1HR PRN IV For CIWA 15 or greater Last administered on 03/12/21at 08:37; Start 03/05/21 at 07:45 Haloperidol Lactate (Haldol Inj) 5 mg PRN Q4HRS PRN IVP Hallucinatns,Confusn,Delirium Last administered on 03/09/21at 16:52; Start 03/05/21 at 07:45 Clonidine HCl (Catapres) 0.1 mg PRN Q1HR PRN PO SBP > 180 or DBP > 100, MRX3; Start 03/05/21 at 07:45 Potassium Chloride/Sodium Chloride 1,000 ml @ 75 mls/hr [id number] IV Last administered on 03/08/21at 20:47; Start 03/06/21 at 20:00; Stop 03/09/21 at 08:36; Status DC Lactulose (Lactulose) 20 gm [id number] PO Last administered on 03/07/21at 17:00; Start 03/07/21 at 10:00 Albuterol/ Ipratropium (Duoneb) 3 ml [id number] NEB Last administered on 03/12/21at 08:44; Start 03/07/21 at 14:00 Diltiazem HCl 125 mg/Sodium Chloride 125 ml @ 5 mls/hr CONT PRN IV PER PROTOCOL Last administered on 03/11/21at 20:51; Start 03/07/21 at 21:45 Diltiazem HCl (Cardizem Iv Push) 10 mg 1X ONCE IVP Last administered on 03/07/21at 22:33; Start 03/07/21 at 22:00; Stop 03/07/21 at 22:01; Status DC Pantoprazole Sodium (PROTONIX VIAL for IV PUSH) 40 mg DAILYAC IVP Last administered on 03/12/21at 08:39; Start 03/08/21 at 11:00 Lactulose (LACTULOSE 300ML for RECTAL) 200 gm DAILY PRN MD encephalopathy; Start 03/08/21 at 11:00 Digoxin (Lanoxin) 250 mcg 1X ONCE IV Last administered on 03/08/21at 14:47; Start 03/08/21 at 14:45; Stop 03/08/21 at 14:46; Status DC Digoxin (Lanoxin) 500 mcg 1X ONCE IV Last administered on 03/08/21at 15:52; Start 03/08/21 at 15:30; Stop 03/08/21 at 15:31; Status DC Sodium Chloride 1,000 ml @ 125 mls/hr Q8H IV Last administered on 03/10/21at 09:12; Start 03/09/21 at 08:30; Stop 03/10/21 at 11:02; Status DC Dextrose 1,000 ml @ 125 mls/hr Q8H IV Last administered on 03/11/21at 19:00; Start 03/10/21 at 11:00 Daptomycin 480 mg/ Sodium Chloride 50 ml @ 100 mls/hr Q24H IV Last administered on 03/11/21at 20:39; Start 03/11/21 at 20:00; Stop 03/12/21 at 08:11; Status DC Cefepime HCl (Maxipime) 1 gm Q12HR IVP Last administered on 03/11/21at 20:41; Start 03/11/21 at 21:00; Stop 03/12/21 at 08:11; Status DC Piperacillin Sod/ Tazobactam Sod 3.375 gm/Sodium Chloride 50 ml @ 100 mls/hr Q6HRS IV ; Start 03/12/21 at 12:00 Active Scripts Active Magnesium Citrate 296 Ml Solution 296 Ml PO ONCE Docusate Sodium 100 Mg Capsule 1 Cap PO BID 15 Days Miralax (Polyethylene Glycol 3350) 119 Gm Powder 17 Gm PO DAILY dissolve in water Reported Calcium (Calcium Carbonate) 500 Mg Tab.chew 1,000 Mg PO DAILY Pioglitazone Hcl 30 Mg Tablet 30 Mg PO DAILY Clonidine Hcl 0.2 Mg Tablet 0.2 Mg PO QPM Clonidine Hcl 0.1 Mg Tablet 0.1 Mg PO QAM Amlodipine Besylate 5 Mg Tablet 5 Mg PO DAILY LAST DOSE GIVEN: DATE:02-19-16 TIME:9:00 a.m. NEXT DOSE DUE: DATE:02-20-16 TIME:9:00 a.m. Glipizide 5 Mg Tablet 1 Tab PO DAILY LAST DOSE GIVEN: DATE:02-18-16 TIME:5:00 p.m. NEXT DOSE DUE: DATE:02-19-16 TIME:5:00 p.m. Atorvastatin Calcium 40 Mg Tablet 1 Tab PO QHS LAST DOSE GIVEN: DATE:02-18-16 TIME:9:00 p.m. NEXT DOSE DUE: DATE:02-19-16 TIME:9:00 p.m. Trifluoperazine Hcl 2 Mg Tablet 2 Mg PO Not given while in hosp. May resume at home as directed. Atenolol 50 Mg Tablet 1 Tab PO DAILY LAST DOSE GIVEN: DATE:02-19-16 TIME:9:00 a.m. NEXT DOSE DUE: DATE:02-20-16 TIME:9:00 a.m. Lisinopril 40 Mg Tablet 1 Tab PO DAILY LAST DOSE GIVEN: DATE:02-19-16 TIME:9:00 a.m. NEXT DOSE DUE: DATE:02-20-16 TIME:9:00 a.m. Hydrochlorothiazide Tablet (Hydrochlorothiazide) 50 Mg Tablet 1 Tab PO DAILY LAST DOSE GIVEN: DATE:02-19-16 TIME:9:00 a.m. NEXT DOSE DUE: DATE:02-20-16 TIME:9:00 a.m. Metformin Hcl 500 Mg Tablet 1 Tab PO BID LAST DOSE GIVEN: DATE:02-19-16 TIME:9:00 a.m. NEXT DOSE DUE: DATE:02-19-16 TIME:5:00 p.m. Vitals/I & O Vital Sign - Last 24 Hours 03/11/21 03/11/21 03/11/21 03/11/21 11:00 11:38 11:39 13:25 Temp 99.7 99.7 Pulse 76 Resp 26 B/P (MAP) 94/58 (70) Pulse Ox 92 84 97 95 O2 Delivery Nasal Cannula Venturi Mask BiPAP/CPAP BiPAP/CPAP O2 Flow Rate 50.0 15.0 03/11/21 03/11/21 03/11/21 03/11/21 15:00 15:30 16:59 19:00 Temp 99.4 98.9 99.4 98.9 Pulse 104 104 Resp 20 22 B/P (MAP) 94/50 (65) 93/42 (59) Pulse Ox 96 95 94 98 O2 Delivery Nasal Cannula BiPAP/CPAP BiPAP/CPAP Nasal Cannula O2 Flow Rate 50.0 50.0 03/11/21 03/11/21 03/11/21 03/12/21 20:00 20:54 23:12 00:08 Temp 99.1 99.1 Pulse 88 Resp 28 B/P (MAP) 98/63 (75) Pulse Ox 97 93 99 O2 Delivery Bi-pap BiPAP/CPAP Nasal Cannula BiPAP/CPAP O2 Flow Rate 50.0 03/12/21 03/12/21 03/12/21 03/12/21 02:55 03:49 05:28 07:00 Temp 99.1 99.6 99.1 99.6 Pulse 90 130 Resp 22 22 B/P (MAP) 92/51 (65) 113/64 (80) Pulse Ox 92 100 100 93 O2 Delivery Nasal Cannula BiPAP/CPAP BiPAP/CPAP Nasal Cannula O2 Flow Rate 50.0 50.0 03/12/21 08:51 Pulse Ox 100 O2 Delivery BiPAP/CPAP Intake and Output 03/11/21 03/11/21 03/12/21 15:00 23:00 07:00 Intake Total 0 ml Balance 0 ml Justicifation of Admission Dx: Justifications for Admission: Justification of Admission Dx: Yes CALOS ANSARI MD Mar 12, 2021 10:08
[2021-03-12 11:00] VITALS: BP 116/75
--- NOTE | 2021-03-12 11:01 | PDOC ---
Renal-Progress Notes Subjective Notes Notes NONE History of Present Illness Hx of present illness NO ACUTE CHANGES Vitals Vitals Vital Signs Date Time Temp Pulse Resp B/P (MAP) Pulse Ox O2 Delivery O2 Flow Rate FiO2 03/12/21 08:51 100 BiPAP/CPAP 03/12/21 07:00 99.6 130 22 113/64 (80) 50.0 99.6 Weight Weight [ ] I.O. Intake and Output Intake and Output 03/12/21 07:00 Intake Total 0 ml Balance 0 ml Intake Oral 0 ml Labs Labs Laboratory Tests Test 03/11/21 12:06 03/11/21 18:10 03/11/21 23:50 03/12/21 02:00 Glucose (Fingerstick) 223 mg/dL (70-99) 199 mg/dL (70-99) Urine Collection Type Unknown Urine Color Yellow Urine Clarity Turbid Urine pH 5.0 (<5.0-8.0) Urine Specific [place] 1.015 (1.000-1.030) Urine Protein 100 mg/dL (NEG-TRACE) Urine Glucose (UA) 250 mg/dL (NEG) Urine Ketones (Stick) Negative mg/dL (NEG) Urine Blood Large (NEG) Urine Nitrite Positive (NEG) Urine Bilirubin Negative (NEG) Urine Urobilinogen Dipstick 1.0 mg/dL (0.2 mg/dL) Urine Leukocyte Esterase Large (NEG) Urine RBC >40 /HPF (0-2) Urine WBC Tntc /HPF (0-4) Urine Amorphous Sediment Present /HPF Urine Bacteria Many /HPF (0-FEW) Urine Granular Casts Moderate /HPF Urine Mucus Mod /LPF Sodium Level 164 mmol/L (136-145) Potassium Level 3.5 mmol/L (3.5-5.1) Chloride Level 130 mmol/L (98-107) Carbon Dioxide Level 23 mmol/L (21-32) Anion Gap 11 (6-14) Blood Urea Nitrogen 42 mg/dL (8-26) Creatinine 2.0 mg/dL (0.7-1.3) Estimated GFR (Cockcroft-Gault) 32.8 Glucose Level 194 mg/dL (70-99) Calcium Level 8.1 mg/dL (8.5-10.1) Test 03/12/21 05:57 Glucose (Fingerstick) 184 mg/dL (70-99) Micro Micro Microbiology 03/04/21 Urine Culture - Final, Complete Review of Systems Constitutional: yes: alert, oriented Ears/Nose/Throat: Yes: no symptom reported Eyes: Yes: no symptom reported Pulmonary: Yes no symptom reported Cardiovascular: Yes no symptom reported Gastrointestional: Yes: no symptom reported Genitourinary: Yes: no symptom reported Musculoskeletal: Yes: no symptom reported Psychiatric/Neurological: Yes: no symptom reported Endocrine: Yes: no symptom reported Physical Exam General Appearance: no apparent distress Skin: warm Respiratory: bilateral CTA Heart: S1S2 Abdomen: soft, bowel sounds present Genitourinary: bladder flat Extremities: pulses present Neurology: other (restless, lethargic) Musculoskeletal: low back pain Assessment Assessment IMP KAMIL[place]-IMPROVING CR OF 3.8 TO 1.9 HYPOKALEMIA-BETTER HYPERNATREMIA-LARGE FREE WATER DEFICIT MET ACIDOSIS-BETTER PLAN HYDRATION FREE WATER LABS IN AM WILL FOLLOW CAROL ANN WICK MD Mar 12, 2021 11:01
[2021-03-12] MEDS: PIPERACILLIN/TAZOBACTAM 3.375 GM in IV NORMAL SALINE 50ML 50 ML IV SCH ×3 (11:40→23:59)
--- NOTE | 2021-03-12 11:40 | NUR ---
It was noted around 1030 that the patients IV in his right hand had infiltrated and his arm was collecting the fluid. IV immediately removed and the arm was elevated. Patient is a very hard stick with order for PICC line placement today. PICC line will not be inserted till later this afternoon per IR. IV was attempted three times per drawing hand and was finally restarted in patients left forearm for his Cardizem drip. Zosyn ordered per ID which is not compatible with the Cardizem drip per [facility] in Pharmacy. Dr Jon Hunt notified who stated we could wait till PICC line is placed for the Zosyn to be started. Will continue to monitor.
--- NOTE | 2021-03-12 11:59 | PDOC ---
Date of Service: DATE: 03/12/21 TIME: 11:56 Objective: Objective: D/w nurse - no GI concerns - responds to pain, having to hold down arm to attempt IV insertion, to get PICC later. Family now in town, discussing code status. Vital Signs: Vital Signs Date Time Temp Pulse Resp B/P (MAP) Pulse Ox O2 Delivery O2 Flow Rate FiO2 03/12/21 11:00 99.8 120 22 116/75 (89) 100 Nasal Cannula 50.0 99.8 Labs: Laboratory Tests Test 03/11/21 12:06 03/11/21 18:10 03/11/21 23:50 03/12/21 02:00 Glucose (Fingerstick) 223 mg/dL 199 mg/dL Urine Collection Type Unknown Urine Color Yellow Urine Clarity Turbid Urine pH 5.0 Urine Specific [place] 1.015 Urine Protein 100 mg/dL Urine Glucose (UA) 250 mg/dL Urine Ketones (Stick) Negative mg/dL Urine Blood Large Urine Nitrite Positive Urine Bilirubin Negative Urine Urobilinogen Dipstick 1.0 mg/dL Urine Leukocyte Esterase Large Urine RBC >40 /HPF Urine WBC Tntc /HPF Urine Amorphous Sediment Present /HPF Urine Bacteria Many /HPF Urine Granular Casts Moderate /HPF Urine Mucus Mod /LPF Sodium Level 164 mmol/L Potassium Level 3.5 mmol/L Chloride Level 130 mmol/L Carbon Dioxide Level 23 mmol/L Anion Gap 11 Blood Urea Nitrogen 42 mg/dL Creatinine 2.0 mg/dL Estimated GFR (Cockcroft-Gault) 32.8 Glucose Level 194 mg/dL Calcium Level 8.1 mg/dL Test 03/12/21 05:57 03/12/21 11:50 Glucose (Fingerstick) 184 mg/dL 199 mg/dL PE: GEN: ill LUNGS: BiPAP HEART: tachycardic ABD: soft NEURO/PSYCH: restless A/P: Resp failure, A Fib, encephalopathy, hypernatremia, UTI, KAMILLE DOREEN, +Hemoccult - stable COVID negative -- Supportive care from GI standpoint. Justicifation of Admission Dx: Justifications for Admission: Justification of Admission Dx: Yes SHERIF PHILLIPS Mar 12, 2021 11:59
--- NOTE | 2021-03-12 12:05 | NUR ---
SS following up with discharge planning. SS reviewed pt chart and discussed with pt RN. Pt is currently on BIPAP at 50%. COVID19 negative. Cardizem drip and IV Zosyn. Sodium 164 today. Pt has no home oxygen. Mitts present on hands. Pt has no home oxygen. PT/OT recommended senior living unit. Not stable. SS will continue to follow for discharge planning.
--- NOTE | 2021-03-12 12:48 | PDOC ---
CARDIO Progress Notes Date and Time Date of Service 03/12/2021 Time of Evaluation 1050 Subjective Subjective: Other (nonverbal) Vitals Vitals Vital Signs Date Time Temp Pulse Resp B/P (MAP) Pulse Ox O2 Delivery O2 Flow Rate FiO2 03/12/21 12:35 100 BiPAP/CPAP 03/12/21 11:00 99.8 120 22 116/75 (89) 50.0 99.8 Weight Weight [ ] Input and Output Intake and Output Intake and Output 03/12/21 07:00 Intake Total 0 ml Balance 0 ml Intake Oral 0 ml Laboratory Labs Laboratory Tests Test 03/11/21 18:10 03/11/21 23:50 03/12/21 02:00 03/12/21 05:57 Urine Collection Type Unknown Urine Color Yellow Urine Clarity Turbid Urine pH 5.0 (<5.0-8.0) Urine Specific [place] 1.015 (1.000-1.030) Urine Protein 100 mg/dL (NEG-TRACE) Urine Glucose (UA) 250 mg/dL (NEG) Urine Ketones (Stick) Negative mg/dL (NEG) Urine Blood Large (NEG) Urine Nitrite Positive (NEG) Urine Bilirubin Negative (NEG) Urine Urobilinogen Dipstick 1.0 mg/dL (0.2 mg/dL) Urine Leukocyte Esterase Large (NEG) Urine RBC >40 /HPF (0-2) Urine WBC Tntc /HPF (0-4) Urine Amorphous Sediment Present /HPF Urine Bacteria Many /HPF (0-FEW) Urine Granular Casts Moderate /HPF Urine Mucus Mod /LPF Glucose (Fingerstick) 199 mg/dL (70-99) 184 mg/dL (70-99) Sodium Level 164 mmol/L (136-145) Potassium Level 3.5 mmol/L (3.5-5.1) Chloride Level 130 mmol/L (98-107) Carbon Dioxide Level 23 mmol/L (21-32) Anion Gap 11 (6-14) Blood Urea Nitrogen 42 mg/dL (8-26) Creatinine 2.0 mg/dL (0.7-1.3) Estimated GFR (Cockcroft-Gault) 32.8 Glucose Level 194 mg/dL (70-99) Calcium Level 8.1 mg/dL (8.5-10.1) Test 03/12/21 11:50 Glucose (Fingerstick) 199 mg/dL (70-99) Microbiology Micro Microbiology 03/04/21 Urine Culture - Final, Complete Review of Systems Constitutional: yes: alert, oriented Ears/Nose/Throat: Yes: no symptom reported Eyes: Yes: no symptom reported Pulmonary: Yes no symptom reported Cardiovascular: Yes no symptom reported Gastrointestional: Yes: no symptom reported Genitourinary: Yes: no symptom reported Musculoskeletal: Yes: no symptom reported Psychiatric/Neurological: Yes: no symptom reported Endocrine: Yes: no symptom reported Physical Exam HEENT: Neck Supple W Full Motion Chest: Symmetric LUNGS: Other (diminished bases bipap in place) Heart: irregularly irregular (AFIB) Abdomen: Soft N/T Extremities: No Edema Neurology: other (restless, lethargic) Other Exams right hand edema with IV infiltration Assessment Assessment 1. Acute respiratory failure: Aspiration? 2. Suspect Chronic diastolic CHF: EF and LV systolic function is nml 3. Severe KAMIL[place]: better 4. Severe Hypernatremia: nephrology following NA 164 5. Metabolic encephalopathy: neurology following 6. AFIB RVR: possibly new. Likely induced by metabolic issues and respiratory issues. RVR currently due to IV infiltration 7. HTN: controlled at low end 8. Anemia with probable GI bleed: +hemmocult,. GI is following 9. DM2 10. Transaminitis 11. Rhabdomyolysis 12. Fever 13. Right hand IV infiltration Recommendations 1. Due to PICC today. to restart cardizem once access is placed. Discussed with RN. Titrate cardizem drip. Not a candidate for anticoagulation at this time. Future ASA when clear with GI 2. Bipap Lasix PRN 3. Supportive care Justicifation of Admission Dx: Justifications for Admission: Justification of Admission Dx: Yes JOSIAH NAVARRETE FILM WAXER Mar 12, 2021 12:48
[2021-03-12] MEDS ORDERED: LIDOCAINE WITH 8.4% SOD BICARB 3 ML DISP.SYRIN. ONE (14:04)
[2021-03-12] MEDS ORDERED: LIDOCAINE WITH 8.4% SOD BICARB 3 ML DISP.SYRIN. INJ ONE (15:15)
--- NOTE | 2021-03-12 17:07 | RAD ---
Procedure: Ultrasound and fluoroscopic guided Central line placement Clinical Indication: Patient requiring central venous access Sedation: Local anesthesia only Antibiotics: None Fluoro Time: Less than 1 minute Contrast: None Sterility: All elements of maximal sterile barrier technique including the use of a cap, mask, sterile gown, sterile gloves, large sterile sheet, appropriate hand hygiene, and 2% chlorhexidine for cutaneous antisepsis (or acceptable alternative antiseptic per current guidelines) were followed for this procedure. Consent: The procedure was explained in its entirety to the patient or the patients designated desk representative by a member of the treatment team, including a discussion of the risks, benefits and commonly accepted alternatives to the procedure, as well as the expected consequences of no therapy whatsoever. Discussion of the risks included, but was not limited to, those that are most frequent and those that are rare but possibly severe or life-threatening, as well as the possibility of unforeseen complications. Technique and Findings: Following informed consent, the patient was prepped and draped in usual sterile fashion. Ultrasound interrogation of the right neck revealed patency and compressibility of the targeted jugular vein. A hard copy ultrasound image was recorded as a 21-gauge micro puncture needle was used to gain access to this vein with a single stick. The needle was exchanged over a wire for a small dilator followed by a triple lumen central line. Fluoroscopy was performed demonstrating good position of the central line, however fluoroscopic hardcopy image was not recorded. All 3 lumens flushed and aspirated with ease and the catheter was sutured to the skin. Complications: No immediate Impression: 1. Central line placement as described
--- NOTE | 2021-03-12 17:36 | RAD ---
AP chest. HISTORY: Line placement AP view was taken of the chest. There is a right jugular central line extending to the superior vena cava in good position. There is no pneumothorax. There are bilateral infiltrates with little change. IMPRESSION: 1. Central line in good position. 2. No change bilateral infiltrates. Electronically signed by: Catrachito Brown MD (03/12/2021 5:34 PM) [facility]
[2021-03-12 19:00] VITALS: BP 114/57
[2021-03-12 23:23] VITALS: BP 117/59
[2021-03-13 03:37] VITALS: BP 79/58
[2021-03-13 04:33] LABS: BASO % 0 % (0-3); EOS # 0.1 x10^3/uL (0.0-0.7); EOS % 0 % (0-3); HEMATOCRIT 25.3 % (39.0-53.0); HEMOGLOBIN 7.5 g/dL (13.0-17.5); LYMPH # 1.5 x10^3/uL (1.0-4.8); LYMPH % 8 % (24-48); MEAN CORPUSCULAR HEMOGLOBIN 23 pg (25-35); MEAN CORPUSCULAR HGB CONC 30 g/dL (31-37); MEAN CORPUSCULAR VOLUME 76 fL (79-100); MONO # 0.5 x10^3/uL (0.0-1.1); MONO % 3 % (0-9); NEUT # 16.9 x10^3/uL (1.8-7.7); NEUT % 89 % (31-73); PLATELET COUNT 89 x10^3/uL (140-400); RED BLOOD COUNT 3.33 x10^6/uL (4.30-5.70); RED CELL DISTRIBUTION WIDTH 26.3 % (11.5-14.5)
[2021-03-13 04:45] LABS: CALCIUM 7.3 mg/dL (8.5-10.1); CREATININE 1.8 mg/dL (0.7-1.3); GFR 37.1; POTASSIUM 3.1 mmol/L (3.5-5.1)
[2021-03-13] MEDS: IV DEXTROSE 5% 1,000 ML IV SCH ×3 (05:10→19:00)
[2021-03-13] MEDS: PIPERACILLIN/TAZOBACTAM 3.375 GM in IV NORMAL SALINE 50ML 50 ML IV SCH ×4 (05:15→23:57)
[2021-03-13 07:00] VITALS: BP 87/56
[2021-03-13] MEDS: IPRATRPIUM/ALBUTEROL 0.5/2.5MG 3 ML NEBU. NEB SCH ×3 (07:33→20:41)
[2021-03-13] MEDS: FERROUS SULFATE 325 MG TABLET. PO SCH ×2 (08:00→13:56)
--- NOTE | 2021-03-13 08:39 | PN ---
DATE: 03/12/2021 DAILY PROGRESS NOTE LOCATION: He is in room 662. SUBJECTIVE: This 75-year-old male remains hospitalized with multiple medical issues. He presented with profound anemia, heme-positive stool, has received 4 units of packed red blood cells with a hemoglobin in the upper 7s and has been stable. He presented with acute renal failure. This is improved but has developed severe hypernatremia and is being resuscitated with free water with dropping a little bit this morning. He remains encephalopathic. He is requiring BiPAP oxygen. He has been running a low-grade fever, has urinary tract infection, has developed worsening leukocytosis. I saw him with 2 sons, who came into the town this morning. We discussed everything in detail. 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 It has been done, but they feel comfortable, they know what he would want. We discussed treating the urinary tract infection, correcting sodium and seeing where he is at on making further plans at that point in time. OBJECTIVE: VITAL SIGNS: Stable. Continues to run low-grade fevers. He was in AFib when I last saw him, but a controlled response. CHEST: Bilateral rhonchi. HEART: Irregularly irregular with a normal rate. ABDOMEN: Benign. EXTREMITIES: Unremarkable. NEUROLOGIC: He is responsive to voice this morning. He does open his eyes to minimal interaction and not significant. IMPRESSION: 1. Profound symptomatic anemia on admission with improvement after 4 units of packed red blood cells. 2. Acute kidney failure, improving. 3. Hypernatremia, slightly improved. 4. Hypokalemia, resolved. 5. Encephalopathy. 6. New onset atrial fib with a rapid ventricular response. 7. Mild coagulopathy with INR of 1.4. 8. Decreasing liver function tests. PLAN: Treat UTI. Continue fluid resuscitation for the hypernatremia. Follow expectantly with plans to follow probably first of the week. MILTON/BRENDA ACEVEDO: Mee TID: [id number]
[2021-03-13] MEDS: NYSTATIN TOPICAL POWDER 15GM BOTTLE. TP SCH ×2 (09:00→21:27)
[2021-03-13] MEDS: LACTULOSE 20 GM/30 ML SOLUTION. PO SCH ×2 (09:00→13:55)
[2021-03-13] MEDS: VITS A & D/LANOLIN TOPICAL OINTMENT 42GM TUBE. TP SCH ×2 (09:00→21:27)
[2021-03-13] MEDS: PANTOPRAZOLE IV PUSH 40 MG VIAL. IVP SCH (09:28)
--- NOTE | 2021-03-13 10:15 | PN ---
DATE: 03/13/2021 LOCATION: He is in room 662. SUBJECTIVE: This 75-year-old male remains hospitalized with multiple medical issues including severe anemia, acute hypoxic respiratory failure, acute renal failure, urinary tract infection, encephalopathy, leukocytosis. His 2 sons are present again this morning since yesterday. He is now developing thrombocytopenia and has nasal ulcers from his BiPAP machine. OBJECTIVE: VITAL SIGNS: Stable. He is afebrile. Blood pressures are a little lower this morning. CHEST: Bilateral rhonchi. HEART: Irregularly irregular with normal rate. ABDOMEN: Benign. EXTREMITIES: Unremarkable. NEUROLOGIC: He remains minimally responsive, but does respond to voice and stimulation. IMPRESSION: 1. Profound symptomatic anemia on admission with improvement after 4 units of packed red blood cells. 2. Acute kidney failure, improving with a creatinine of 1.8 this morning. 3. Hypernatremia, slight improvement in addition down to 162 this morning. 4. Hypokalemia, resolved. 5. Encephalopathy, persistent. 6. New-onset atrial fibrillation. 7. Mild coagulopathy with an INR of 1.4. 8. Decreasing liver function tests. 9. Urinary tract infection, on Zosyn. 10. Thrombocytopenia. PLAN: Continue supportive care. Hopefully, as the sodium normalizes and urinary tract infection is treated he will begin to wake up. We will continue to follow blood counts. MIKEY DR: Mee TID: [id number]
[2021-03-13 11:00] VITALS: BP 137/42
[2021-03-13 14:31] VITALS: BP 110/63
--- NOTE | 2021-03-13 14:36 | PDOC ---
DATE OF SERVICE DATE: 03/13/21 TIME: 14:33 SUBJECTIVE ROS No Hx Obtained from patient On BiPAP, pNo concerns voiced by nursing OBJECTIVE Vital Signs Vital Signs Date Time Temp Pulse Resp B/P (MAP) Pulse Ox O2 Delivery O2 Flow Rate FiO2 03/13/21 14:31 99.2 122 20 110/63 (79) 100 BiPAP/CPAP 99.2 03/13/21 08:07 50.0 I & 0 Intake and Output 03/13/21 07:00 Intake Total 1080 ml Output Total 700 ml Balance 380 ml Intake Oral 0 ml IV Total 1080 ml Output Urine Total 700 ml PHYSICAL EXAM Physical Exam General On Bipap HEEN anicteric Neck Supple Lungs CTA, decreased at bases, CV S1S2, No murmur ot rub Abd soft , NT, BS + Ext No LE edema, No cyanosis Derm No Rash- Neuro No focal deficit Jaramillo + DIAGNOSIS/ASSESSMENT Assessment & Plan KAMILLE - ATN 2/2 severe Dehydration , Poor PO intake , Hypotensive at presentation acute decrease in Hgb/?GI bleed / mild Rhabdo.Non Oliguric .US- Kidneys unremarkable, Renal function improving 1.8<--3.8 , Supportive care , Strict I/O avoid Nephrotoxins . HyperNatremia Increased IV D5W on . Discussed with RN to increase up to 200 with Glucose and Resp monitoring Insulin for Hyperglycemia - per primary . He has been on 125 mls/hr, Na improving slowly to 162 <--166 Rhabdomyolysis- POA mild HypoKalemia - Replace HypoMg Replace as indicated Anemia- severe -POA , acute , Hemoccult . Recd PRBC Elevated LFT's/ -Hx of ETOH until recently . US ? hepatic Steatosis , defer to GI COMMENT/RELEVANT DATA Meds Current Medications Medications (Trade) Dose Ordered Sig/Stephan Start Time Stop Time Status Last Admin Dose Admin Acetaminophen (Tylenol) 650 mg PRN Q4HRS PRN 03/03/21 15:15 03/04/21 15:14 DC 03/04/21 08:29 650 MG Albuterol/ Ipratropium (Duoneb) 3 ml [id number] 03/07/21 14:00 03/13/21 12:44 3 ML Cefepime HCl (Maxipime) 1 gm Q12HR 03/11/21 21:00 03/12/21 08:11 DC 03/11/21 20:41 1 GM Clonidine HCl (Catapres) 0.1 mg PRN Q1HR PRN 03/05/21 07:45 Daptomycin 480 mg/ Sodium Chloride 50 ml @ 100 mls/hr Q24H 03/11/21 20:00 03/12/21 08:11 DC 03/11/21 20:39 100 MLS/HR Dextrose 1,000 ml @ 125 mls/hr Q8H 03/10/21 11:00 03/13/21 11:00 125 MLS/HR Digoxin (Lanoxin) 500 mcg 1X ONCE 03/08/21 15:30 03/08/21 15:31 DC 03/08/21 15:52 500 MCG Diltiazem HCl (Cardizem Iv Push) 10 mg 1X ONCE 03/07/21 22:00 03/07/21 22:01 DC 03/07/21 22:33 10 MG Diltiazem HCl 125 mg/Sodium Chloride 125 ml @ 5 mls/hr CONT PRN 03/07/21 21:45 03/12/21 21:53 15 MLS/HR Famotidine (Pepcid Vial) 20 mg 1X ONCE 03/03/21 15:15 03/03/21 15:16 DC 03/03/21 16:10 20 MG Ferrous Sulfate (Feosol) 325 mg BIDWMEALS 03/03/21 17:00 03/07/21 09:58 325 MG Haloperidol Lactate (Haldol Inj) 5 mg PRN Q4HRS PRN 03/05/21 07:45 03/09/21 16:52 5 MG Lactulose (LACTULOSE 300ML for RECTAL) 200 gm DAILY PRN 03/08/21 11:00 Lactulose (Lactulose) 20 gm [id number] 03/07/21 10:00 03/07/21 17:00 20 GM Lidocaine HCl (Buffered Lidocaine 1%) 4 ml 1X ONCE 03/12/21 15:15 03/12/21 15:16 DC Lorazepam (Ativan Inj) 4 mg PRN Q1HR PRN 03/05/21 07:45 03/12/21 13:03 4 MG Lorazepam (Ativan) 8 mg PRN Q1HR PRN 03/05/21 07:45 Morphine Sulfate (Morphine Sulfate) 2 mg PRN Q2HR PRN 03/03/21 15:15 03/04/21 15:14 DC Multivitamins 10 ml/Thiamine HCl 100 mg/Folic Acid 1 mg/Sodium Chloride 1,011.2 ml @ 100 mls/ hr DAILY 03/05/21 09:00 03/09/21 19:07 DC 03/09/21 08:47 100 MLS/HR Nystatin (Nystop) 1 demetrius BID 03/04/21 21:00 03/13/21 09:00 1 DEMETRIUS Ondansetron HCl (Zofran) 4 mg PRN Q8HRS PRN 03/03/21 15:15 03/04/21 15:14 DC Pantoprazole Sodium (PROTONIX VIAL for IV PUSH) 40 mg DAILYAC 03/08/21 11:00 03/13/21 09:28 40 MG Pantoprazole Sodium (Protonix) 40 mg DAILYAC 03/03/21 16:30 03/08/21 10:48 DC 03/07/21 09:58 40 MG Piperacillin Sod/ Tazobactam Sod 3.375 gm/Sodium Chloride 50 ml @ 100 mls/hr Q6HRS 03/12/21 12:00 03/13/21 12:17 100 MLS/HR Polyethylene Glycol (miraLAX PACKET) 17 gm PRN DAILY PRN 03/03/21 16:00 Potassium Chloride 40 meq/ Sodium Chloride 1,020 ml @ 100 mls/hr [id number] 03/04/21 09:00 03/06/21 19:07 DC 03/05/21 05:23 100 MLS/HR Potassium Chloride/Sodium Chloride 1,000 ml @ 75 mls/hr [id number] 03/06/21 20:00 03/09/21 08:36 DC 03/08/21 20:47 75 MLS/HR Potassium Chloride/Water 100 ml @ 50 mls/hr 1X ONCE 03/05/21 09:00 03/05/21 10:59 DC 03/05/21 09:05 50 MLS/HR Sodium Chloride 1,000 ml @ 125 mls/hr Q8H 03/09/21 08:30 03/10/21 11:02 DC 03/10/21 09:12 125 MLS/HR Vitamin A/Vitamin D (Vitamin A & D Ointment) 1 demetrius BID 03/04/21 21:00 03/13/21 09:00 1 DEMETRIUS Lab Laboratory Tests Test 03/12/21 16:57 03/13/21 00:43 03/13/21 04:00 03/13/21 06:08 Glucose (Fingerstick) 191 mg/dL (70-99) 202 mg/dL (70-99) 201 mg/dL (70-99) White Blood Count 19.0 x10^3/uL (4.0-11.0) Red Blood Count 3.33 x10^6/uL (4.30-5.70) Hemoglobin 7.5 g/dL (13.0-17.5) Hematocrit 25.3 % (39.0-53.0) Mean Corpuscular Volume 76 fL (79-100) Mean Corpuscular Hemoglobin 23 pg (25-35) Mean Corpuscular Hemoglobin Concent 30 g/dL (31-37) Red Cell Distribution Width 26.3 % (11.5-14.5) Platelet Count 89 x10^3/uL (140-400) Neutrophils (%) (Auto) 89 % (31-73) Lymphocytes (%) (Auto) 8 % (24-48) Monocytes (%) (Auto) 3 % (0-9) Eosinophils (%) (Auto) 0 % (0-3) Basophils (%) (Auto) 0 % (0-3) Neutrophils # (Auto) 16.9 x10^3/uL (1.8-7.7) Lymphocytes # (Auto) 1.5 x10^3/uL (1.0-4.8) Monocytes # (Auto) 0.5 x10^3/uL (0.0-1.1) Eosinophils # (Auto) 0.1 x10^3/uL (0.0-0.7) Basophils # (Auto) 0.0 x10^3/uL (0.0-0.2) Sodium Level 162 mmol/L (136-145) Potassium Level 3.1 mmol/L (3.5-5.1) Chloride Level 128 mmol/L (98-107) Carbon Dioxide Level 23 mmol/L (21-32) Anion Gap 11 (6-14) Blood Urea Nitrogen 40 mg/dL (8-26) Creatinine 1.8 mg/dL (0.7-1.3) Estimated GFR (Cockcroft-Gault) 37.1 Glucose Level 241 mg/dL (70-99) Calcium Level 7.3 mg/dL (8.5-10.1) Test 03/13/21 07:12 03/13/21 11:12 Glucose (Fingerstick) 216 mg/dL (70-99) 256 mg/dL (70-99) Results All relevant outside records, renal labs, imaging studies, telemetry/EKG's were reviewed. Justicifation of Admission Dx: Justifications for Admission: Justification of Admission Dx: Yes JAY CHARLES MD Mar 13, 2021 14:36
--- NOTE | 2021-03-13 15:51 | PDOC ---
CARDIOLOGY PROGRESS NOTE SUBJECTIVE: He is obtunded on BiPAP therapy Friends at bedside. OBJECTIVE: Vital Signs/I&O: Vital Signs Date Time Temp Pulse Resp B/P (MAP) Pulse Ox O2 Delivery O2 Flow Rate FiO2 03/13/21 14:31 99.2 122 20 110/63 (79) 100 BiPAP/CPAP 99.2 03/13/21 08:07 50.0 I & O 03/12/21 03/12/21 03/13/21 15:00 23:00 07:00 Intake Total 0 ml 1080 ml Output Total 700 ml Balance 0 ml 380 ml Objective: HEENT: Neck Supple W Full Motion Chest: Symmetric LUNGS: Other (diminished bases bipap in place) Heart: irregularly irregular (AFIB) Abdomen: Soft N/T Extremities: No Edema Neurology: other (restless, lethargic) Other Exams right hand edema with IV infiltration CURRENT MEDICATIONS: No specific CV meds. DIAGNOSTIC TESTING: Labs reviewed. Labs: Laboratory Tests 03/13/21 04:00 Laboratory Tests Test 03/12/21 16:57 03/13/21 00:43 03/13/21 04:00 03/13/21 06:08 Glucose (Fingerstick) 191 mg/dL (70-99) H 202 mg/dL (70-99) H 201 mg/dL (70-99) H White Blood Count 19.0 x10^3/uL (4.0-11.0) H Red Blood Count 3.33 x10^6/uL (4.30-5.70) L Hemoglobin 7.5 g/dL (13.0-17.5) L Hematocrit 25.3 % (39.0-53.0) L Mean Corpuscular Volume 76 fL (79-100) L Mean Corpuscular Hemoglobin 23 pg (25-35) L Mean Corpuscular Hemoglobin Concent 30 g/dL (31-37) L Red Cell Distribution Width 26.3 % (11.5-14.5) H Platelet Count 89 x10^3/uL (140-400) L Neutrophils (%) (Auto) 89 % (31-73) H Lymphocytes (%) (Auto) 8 % (24-48) L Monocytes (%) (Auto) 3 % (0-9) Eosinophils (%) (Auto) 0 % (0-3) Basophils (%) (Auto) 0 % (0-3) Neutrophils # (Auto) 16.9 x10^3/uL (1.8-7.7) H Lymphocytes # (Auto) 1.5 x10^3/uL (1.0-4.8) Monocytes # (Auto) 0.5 x10^3/uL (0.0-1.1) Eosinophils # (Auto) 0.1 x10^3/uL (0.0-0.7) Basophils # (Auto) 0.0 x10^3/uL (0.0-0.2) Sodium Level 162 mmol/L (136-145) *H Potassium Level 3.1 mmol/L (3.5-5.1) L Chloride Level 128 mmol/L (98-107) H Carbon Dioxide Level 23 mmol/L (21-32) Anion Gap 11 (6-14) Blood Urea Nitrogen 40 mg/dL (8-26) H Creatinine 1.8 mg/dL (0.7-1.3) H Estimated GFR (Cockcroft-Gault) 37.1 Glucose Level 241 mg/dL (70-99) H Calcium Level 7.3 mg/dL (8.5-10.1) L Test 03/13/21 07:12 03/13/21 11:12 Glucose (Fingerstick) 216 mg/dL (70-99) H 256 mg/dL (70-99) H ASSESSMENT: 1. Acute respiratory failure: Aspiration? 2. Suspect Chronic diastolic CHF: EF and LV systolic function is nml 3. Severe KAMILLE: better 4. Severe Hypernatremia: nephrology following 5. Metabolic encephalopathy: neurology following 6. AFIB RVR: possibly new. Likely induced by metabolic issues and respiratory issues. RVR due to above. 7. HTN: controlled at low end 8. Anemia with probable GI bleed: +hemmocult,. GI is following 9. DM2 10. Transaminitis 11. Rhabdomyolysis 12. Fever PLAN: 1. Continue supportive care from a CV standpoint. His tachycardia is likely reactive, given lower BP, would not aggressive treat his afib. 2. Start Low dose metoprolol 5mg iVP q 6 hrs. 3. Suspect encephalopathy due to metabolic derangement. Justicifation of Admission Dx: Justifications for Admission: Justification of Admission Dx: Yes MARY ALICE FERRARO MD Mar 13, 2021 15:51
[2021-03-13 19:00] VITALS: BP 105/49
[2021-03-13] MEDS: LACTOBACILLUS RHAMNOSUS GG 1 CAPSULE. PO SCH (21:00)
[2021-03-13] MEDS: POTASSIUM CL 20MEQ IN D5W 1,000 ML IV SCH (21:26)
[2021-03-13 22:29] VITALS: BP 106/53
[2021-03-13] MEDS ORDERED: AMIODARONE 150 MG in IV DEXTROSE 5% 100ML 100 ML IV ONE (23:00)
[2021-03-13] MEDS ORDERED: METOPROLOL IV PUSH 5 MG/5 ML VIAL. IVP ONE (23:00)
[2021-03-14] MEDS: IV DEXTROSE 5% 1,000 ML IV SCH ×2 (03:00→11:00)
[2021-03-14 04:30] VITALS: BP 96/55
[2021-03-14] MEDS: POTASSIUM CL 20MEQ IN D5W 1,000 ML IV SCH ×3 (05:38→21:30)
[2021-03-14] MEDS: PIPERACILLIN/TAZOBACTAM 3.375 GM in IV NORMAL SALINE 50ML 50 ML IV SCH ×3 (05:38→17:12)
[2021-03-14 06:32] LABS: BASO % 0 % (0-3); EOS # 0.2 x10^3/uL (0.0-0.7); EOS % 1 % (0-3); HEMATOCRIT 25.9 % (39.0-53.0); HEMOGLOBIN 7.6 g/dL (13.0-17.5); LYMPH # 1.5 x10^3/uL (1.0-4.8); LYMPH % 8 % (24-48); MEAN CORPUSCULAR HEMOGLOBIN 22 pg (25-35); MEAN CORPUSCULAR HGB CONC 29 g/dL (31-37); MEAN CORPUSCULAR VOLUME 76 fL (79-100); MONO # 0.4 x10^3/uL (0.0-1.1); MONO % 2 % (0-9); NEUT # 16.4 x10^3/uL (1.8-7.7); NEUT % 88 % (31-73); PLATELET COUNT 79 x10^3/uL (140-400); RED BLOOD COUNT 3.42 x10^6/uL (4.30-5.70); RED CELL DISTRIBUTION WIDTH 26.1 % (11.5-14.5); WHITE BLOOD COUNT 18.6 x10^3/uL (4.0-11.0)
[2021-03-14 06:35] LABS: CALCIUM 7.2 mg/dL (8.5-10.1); GFR 32.8; POTASSIUM 3.1 mmol/L (3.5-5.1)
[2021-03-14 07:00] VITALS: BP 102/48
[2021-03-14] MEDS: IPRATRPIUM/ALBUTEROL 0.5/2.5MG 3 ML NEBU. NEB SCH ×2 (07:04→11:39)
[2021-03-14] MEDS: FERROUS SULFATE 325 MG TABLET. PO SCH ×2 (08:00→15:38)
[2021-03-14] MEDS: LACTOBACILLUS RHAMNOSUS GG 1 CAPSULE. PO SCH ×2 (08:45→21:00)
[2021-03-14] MEDS: NYSTATIN TOPICAL POWDER 15GM BOTTLE. TP SCH ×2 (08:45→21:00)
[2021-03-14] MEDS: VITS A & D/LANOLIN TOPICAL OINTMENT 42GM TUBE. TP SCH ×2 (08:45→21:00)
[2021-03-14] MEDS: LACTULOSE 20 GM/30 ML SOLUTION. PO SCH ×2 (08:45→15:38)
[2021-03-14] MEDS: PANTOPRAZOLE IV PUSH 40 MG VIAL. IVP SCH (08:46)
[2021-03-14 09:37] LABS: % BANDS 4 % (0-9); % EOS 1 % (0-5); % LYMPHS 9 % (24-48); % MONOS 1 % (0-10); % SEGS 85 % (35-66); PLT ESTIMATE DECREASED (ADEQUATE)
[2021-03-14 09:38] LABS: ACANTHOCYTES PRESENT; ANISOCYTOSIS MARKED; HYPOCHROMIA MOD; MICROCYTOSIS PRESENT; POIKILOCYTOSIS PRESENT; TARGET CELLS PRESENT
[2021-03-14 11:00] VITALS: BP 109/48
--- NOTE | 2021-03-14 12:27 | PN ---
DATE: 03/14/2021 LOCATION: He is in room 662. SUBJECTIVE: This 75-year-old male remains hospitalized with multiple medical problems including severe anemia, acute hypoxic respiratory failure, acute renal failure, urinary tract infection, encephalopathy, leukocytosis. Sons are present again here this morning and they definitely see him much more alert and doing some interaction with them this morning, which is different than the last several days. They are in the process of cleaning out his house and wondering if he will ever be back home. My thoughts remain odd, but I do not think we are sure at this point in time. OBJECTIVE: VITAL SIGNS: Stable. He is afebrile. CHEST: Bilateral rhonchi, but less. CARDIOVASCULAR: Irregularly irregular with normal rate. ABDOMEN: Benign. EXTREMITIES: Unremarkable. He does definitely have his eyes open, follow around and grunts in response to questions this morning. ASSESSMENT: 1. Profound symptomatic anemia on admission with improvement after 4 units of packed red blood cells and stable hemoglobin in the mid 7s. 2. Acute kidney failure, improving with creatinine down to 2 at this point. 3. Hypernatremia with slight improvement with sodium of 160 this morning. 4. Hypokalemia with potassium added to his IV fluids. 5. Encephalopathy with definite slight improvement this morning. 4. New-onset atrial fibrillation. 5. Mild coagulopathy with INR of 1.4. 6. Urinary tract infection, on Zosyn with no culture done through investigations this morning on his last urine. I have asked Nursing to repeat a UA with culture today as we were not sure we have him on the right antibiotics at this point. 7. Decreasing liver function tests. 8. Thrombocytopenia with platelet count at 79,000 this morning, which is similar to yesterday. PLAN: Help of all consultants appreciated. Continue antibiotics. Continue free water replacement and observe clinically. MIKEY DR: Mee TID: [id number]
--- NOTE | 2021-03-14 13:15 | PDOC ---
DATE OF SERVICE DATE: 03/14/21 TIME: 13:12 SUBJECTIVE ROS No Hx Obtained from patient No concerns voiced by nursing OBJECTIVE Vital Signs Vital Signs Date Time Temp Pulse Resp B/P (MAP) Pulse Ox O2 Delivery O2 Flow Rate FiO2 03/14/21 11:35 100 Venturi Mask 12.0 03/14/21 11:00 98.9 161 20 109/48 (68) 98.9 I & 0 Intake and Output 03/14/21 07:00 Intake Total 0 ml Output Total 1175 ml Balance -1175 ml Intake Oral 0 ml Output Urine Total 1175 ml PHYSICAL EXAM Physical Exam General On Bipap HEEN anicteric Neck Supple Lungs CTA, decreased at bases, CV S1S2, No murmur ot rub Abd soft , NT, BS + Ext No LE edema, No cyanosis Derm No Rash- Neuro No focal deficit Jaramillo + DIAGNOSIS/ASSESSMENT Assessment & Plan KAMILLE - ATN 2/2 severe Dehydration , Poor PO intake , Hypotensive at presentation acute decrease in Hgb/?GI bleed / mild Rhabdo.Non Oliguric .US- Kidneys unremarkable, Renal function improving, stable 2.0 <--3.8 , Supportive care , Strict I/O avoid Nephrotoxins . HyperNatremia - Improving slowly , Hypotonic Fluid as in previous notes Rhabdomyolysis- POA mild HypoKalemia - Replace HypoMg Replace as indicated Anemia- severe -POA , acute , Hemoccult . Recd PRBC Elevated LFT's/ -Hx of ETOH until recently . US ? hepatic Steatosis , defer to GI COMMENT/RELEVANT DATA Meds Current Medications Medications (Trade) Dose Ordered Sig/Stephan Start Time Stop Time Status Last Admin Dose Admin Acetaminophen (Tylenol) 650 mg PRN Q4HRS PRN 03/03/21 15:15 03/04/21 15:14 DC 03/04/21 08:29 650 MG Albuterol/ Ipratropium (Duoneb) 3 ml [id number] 03/07/21 14:00 03/14/21 11:39 3 ML Amiodarone HCl 150 mg/Dextrose 103 ml @ 618 mls/hr 1X ONCE 03/13/21 23:00 03/13/21 23:09 DC 03/13/21 23:04 618 MLS/HR Cefepime HCl (Maxipime) 1 gm Q12HR 03/11/21 21:00 03/12/21 08:11 DC 03/11/21 20:41 1 GM Clonidine HCl (Catapres) 0.1 mg PRN Q1HR PRN 03/05/21 07:45 Daptomycin 480 mg/ Sodium Chloride 50 ml @ 100 mls/hr Q24H 03/11/21 20:00 03/12/21 08:11 DC 03/11/21 20:39 100 MLS/HR Dextrose 1,000 ml @ 125 mls/hr Q8H 03/10/21 11:00 03/14/21 11:19 DC 03/13/21 11:00 125 MLS/HR Digoxin (Lanoxin) 500 mcg 1X ONCE 03/08/21 15:30 03/08/21 15:31 DC 03/08/21 15:52 500 MCG Diltiazem HCl (Cardizem Iv Push) 10 mg 1X ONCE 03/07/21 22:00 03/07/21 22:01 DC 03/07/21 22:33 10 MG Diltiazem HCl 125 mg/Sodium Chloride 125 ml @ 5 mls/hr CONT PRN 03/07/21 21:45 03/12/21 21:53 15 MLS/HR Famotidine (Pepcid Vial) 20 mg 1X ONCE 03/03/21 15:15 03/03/21 15:16 DC 03/03/21 16:10 20 MG Ferrous Sulfate (Feosol) 325 mg [id number] 03/03/21 17:00 03/07/21 09:58 325 MG Haloperidol Lactate (Haldol Inj) 5 mg PRN Q4HRS PRN 03/05/21 07:45 03/09/21 16:52 5 MG Lactobacillus Rhamnosus (Culturelle) 1 cap BID 03/13/21 21:00 Lactulose (LACTULOSE 300ML for RECTAL) 200 gm DAILY PRN 03/08/21 11:00 Lactulose (Lactulose) 20 gm [id number] 03/07/21 10:00 03/07/21 17:00 20 GM Lidocaine HCl (Buffered Lidocaine 1%) 4 ml 1X ONCE 03/12/21 15:15 03/12/21 15:16 DC Lorazepam (Ativan Inj) 4 mg PRN Q1HR PRN 03/05/21 07:45 03/12/21 13:03 4 MG Lorazepam (Ativan) 8 mg PRN Q1HR PRN 03/05/21 07:45 Metoprolol Tartrate (Lopressor Vial) 5 mg 1X ONCE 03/13/21 23:00 03/13/21 23:01 DC 03/13/21 23:03 5 MG Morphine Sulfate (Morphine Sulfate) 2 mg PRN Q2HR PRN 03/03/21 15:15 03/04/21 15:14 DC Multivitamins 10 ml/Thiamine HCl 100 mg/Folic Acid 1 mg/Sodium Chloride 1,011.2 ml @ 100 mls/ hr DAILY 03/05/21 09:00 03/09/21 19:07 DC 03/09/21 08:47 100 MLS/HR Nystatin (Nystop) 1 demetrius BID 03/04/21 21:00 03/14/21 08:45 1 DEMETRIUS Ondansetron HCl (Zofran) 4 mg PRN Q8HRS PRN 03/03/21 15:15 03/04/21 15:14 DC Pantoprazole Sodium (PROTONIX VIAL for IV PUSH) 40 mg DAILYAC 03/08/21 11:00 03/14/21 08:46 40 MG Pantoprazole Sodium (Protonix) 40 mg DAILYAC 03/03/21 16:30 03/08/21 10:48 DC 03/07/21 09:58 40 MG Piperacillin Sod/ Tazobactam Sod 3.375 gm/Sodium Chloride 50 ml @ 100 mls/hr Q6HRS 03/12/21 12:00 03/14/21 11:48 100 MLS/HR Polyethylene Glycol (miraLAX PACKET) 17 gm PRN DAILY PRN 03/03/21 16:00 Potassium Chloride 40 meq/ Sodium Chloride 1,020 ml @ 100 mls/hr [id number] 03/04/21 09:00 03/06/21 19:07 DC 03/05/21 05:23 100 MLS/HR Potassium Chloride/Dextrose 1,000 ml @ 125 mls/hr Q8H 03/13/21 21:30 03/14/21 05:38 125 MLS/HR Potassium Chloride/Sodium Chloride 1,000 ml @ 75 mls/hr [id number] 03/06/21 20:00 03/09/21 08:36 DC 03/08/21 20:47 75 MLS/HR Potassium Chloride/Water 100 ml @ 50 mls/hr 1X ONCE 03/05/21 09:00 03/05/21 10:59 DC 03/05/21 09:05 50 MLS/HR Sodium Chloride 1,000 ml @ 125 mls/hr Q8H 03/09/21 08:30 03/10/21 11:02 DC 03/10/21 09:12 125 MLS/HR Vitamin A/Vitamin D (Vitamin A & D Ointment) 1 demetrius BID 03/04/21 21:00 03/14/21 08:45 1 DEMETRIUS Lab Laboratory Tests Test 03/13/21 17:22 03/14/21 05:45 03/14/21 11:26 Glucose (Fingerstick) 240 mg/dL (70-99) 222 mg/dL (70-99) White Blood Count 18.6 x10^3/uL (4.0-11.0) Red Blood Count 3.42 x10^6/uL (4.30-5.70) Hemoglobin 7.6 g/dL (13.0-17.5) Hematocrit 25.9 % (39.0-53.0) Mean Corpuscular Volume 76 fL (79-100) Mean Corpuscular Hemoglobin 22 pg (25-35) Mean Corpuscular Hemoglobin Concent 29 g/dL (31-37) Red Cell Distribution Width 26.1 % (11.5-14.5) Platelet Count 79 x10^3/uL (140-400) Neutrophils (%) (Auto) 88 % (31-73) Lymphocytes (%) (Auto) 8 % (24-48) Monocytes (%) (Auto) 2 % (0-9) Eosinophils (%) (Auto) 1 % (0-3) Basophils (%) (Auto) 0 % (0-3) Neutrophils # (Auto) 16.4 x10^3/uL (1.8-7.7) Lymphocytes # (Auto) 1.5 x10^3/uL (1.0-4.8) Monocytes # (Auto) 0.4 x10^3/uL (0.0-1.1) Eosinophils # (Auto) 0.2 x10^3/uL (0.0-0.7) Basophils # (Auto) 0.0 x10^3/uL (0.0-0.2) Segmented Neutrophils % 85 % (35-66) Band Neutrophils % 4 % (0-9) Lymphocytes % 9 % (24-48) Monocytes % 1 % (0-10) Eosinophils % 1 % (0-5) Platelet Estimate Decreased (ADEQUATE) Hypochromasia Mod Poikilocytosis Present Anisocytosis Marked Microcytosis Present Target Cells Present Acanthocytes Present Sodium Level 160 mmol/L (136-145) Potassium Level 3.1 mmol/L (3.5-5.1) Chloride Level 127 mmol/L (98-107) Carbon Dioxide Level 22 mmol/L (21-32) Anion Gap 11 (6-14) Blood Urea Nitrogen 36 mg/dL (8-26) Creatinine 2.0 mg/dL (0.7-1.3) Estimated GFR (Cockcroft-Gault) 32.8 Glucose Level 248 mg/dL (70-99) Calcium Level 7.2 mg/dL (8.5-10.1) Results All relevant outside records, renal labs, imaging studies, telemetry/EKG's were reviewed. Justicifation of Admission Dx: Justifications for Admission: Justification of Admission Dx: Yes JAY CHARLES MD Mar 14, 2021 13:14
[2021-03-14 15:00] VITALS: BP 84/70
[2021-03-14 19:00] VITALS: BP 107/76
[2021-03-14 22:50] VITALS: BP 97/67
--- NOTE | 2021-03-14 23:40 | PDOC ---
CARDIOLOGY PROGRESS NOTE SUBJECTIVE: Patient is obtunded. Continuous bipap ongoing. HR is still difficult to control. OBJECTIVE: Vital Signs/I&O: Vital Signs Date Time Temp Pulse Resp B/P (MAP) Pulse Ox O2 Delivery O2 Flow Rate FiO2 03/14/21 22:50 98.6 124 18 97/67 (77) 99 Venturi Mask 10.0 98.6 I & O 03/13/21 03/13/21 03/14/21 15:00 23:00 07:00 Intake Total 0 ml 0 ml Output Total 450 ml 725 ml Balance -450 ml -725 ml Objective: GEN.: Severe distress due to dyspnea. HEENT: Head is normocephalic, atraumatic NECK: Supple. LUNGS: Decreased breath sounds. HEART: Irr irr, S1, S2 present. Peripheral pulses intact ABDOMEN: Soft, nontender. Positive bowel sounds. EXTREMITIES: Without any cyanosis. NEUROLOGIC: Obtunded PSYCHIATRIC: non responsive SKIN: Multiple ecchymosis CURRENT MEDICATIONS: Meds reviewed DIAGNOSTIC TESTING: Lab reviewed. Labs: Laboratory Tests 03/14/21 05:45 Laboratory Tests Test 03/14/21 05:45 03/14/21 11:26 03/14/21 16:57 White Blood Count 18.6 x10^3/uL (4.0-11.0) H Red Blood Count 3.42 x10^6/uL (4.30-5.70) L Hemoglobin 7.6 g/dL (13.0-17.5) L Hematocrit 25.9 % (39.0-53.0) L Mean Corpuscular Volume 76 fL (79-100) L Mean Corpuscular Hemoglobin 22 pg (25-35) L Mean Corpuscular Hemoglobin Concent 29 g/dL (31-37) L Red Cell Distribution Width 26.1 % (11.5-14.5) H Platelet Count 79 x10^3/uL (140-400) L Neutrophils (%) (Auto) 88 % (31-73) H Lymphocytes (%) (Auto) 8 % (24-48) L Monocytes (%) (Auto) 2 % (0-9) Eosinophils (%) (Auto) 1 % (0-3) Basophils (%) (Auto) 0 % (0-3) Neutrophils # (Auto) 16.4 x10^3/uL (1.8-7.7) H Lymphocytes # (Auto) 1.5 x10^3/uL (1.0-4.8) Monocytes # (Auto) 0.4 x10^3/uL (0.0-1.1) Eosinophils # (Auto) 0.2 x10^3/uL (0.0-0.7) Basophils # (Auto) 0.0 x10^3/uL (0.0-0.2) Segmented Neutrophils % 85 % (35-66) H Band Neutrophils % 4 % (0-9) Lymphocytes % 9 % (24-48) L Monocytes % 1 % (0-10) Eosinophils % 1 % (0-5) Platelet Estimate Decreased (ADEQUATE) Hypochromasia Mod Poikilocytosis Present Anisocytosis Marked Microcytosis Present Target Cells Present Acanthocytes Present Sodium Level 160 mmol/L (136-145) *H Potassium Level 3.1 mmol/L (3.5-5.1) L Chloride Level 127 mmol/L (98-107) H Carbon Dioxide Level 22 mmol/L (21-32) Anion Gap 11 (6-14) Blood Urea Nitrogen 36 mg/dL (8-26) H Creatinine 2.0 mg/dL (0.7-1.3) H Estimated GFR (Cockcroft-Gault) 32.8 Glucose Level 248 mg/dL (70-99) H Calcium Level 7.2 mg/dL (8.5-10.1) L Glucose (Fingerstick) 222 mg/dL (70-99) H 226 mg/dL (70-99) H ASSESSMENT: ASSESSMENT: 1. Acute respiratory failure: Aspiration? 2. Suspect Chronic diastolic CHF: EF and LV systolic function is nml 3. Severe KAMILLE: better 4. Severe Hypernatremia: nephrology following 5. Metabolic encephalopathy: neurology following 6. AFIB RVR: possibly new. Likely induced by metabolic issues and respiratory issues. RVR due to above. 7. HTN: controlled at low end 8. Anemia with probable GI bleed: +hemmocult,. GI is following 9. DM2 10. Transaminitis 11. Rhabdomyolysis 12. Fever PLAN: 1. Poor jail prognosis. Would consider hospice discussion. Etiology of resp failure is non-cardiac. He is a poor candidate for CVN or other aggressive tx of afib. We will follow along but nothing further to offer from CV standpoint. Thanks. Justicifation of Admission Dx: Justifications for Admission: Justification of Admission Dx: Yes MARY ALICE FERRARO MD Mar 14, 2021 23:40
[2021-03-15] VITALS (7 sets, daily range): BP systolic 79–132; BP diastolic 51–76
[2021-03-15 04:51] LABS: BASO % 0 % (0-3); EOS # 0.2 x10^3/uL (0.0-0.7); EOS % 1 % (0-3); HEMATOCRIT 26.9 % (39.0-53.0); HEMOGLOBIN 7.7 g/dL (13.0-17.5); LYMPH # 1.1 x10^3/uL (1.0-4.8); LYMPH % 6 % (24-48); MEAN CORPUSCULAR HEMOGLOBIN 22 pg (25-35); MEAN CORPUSCULAR HGB CONC 28 g/dL (31-37); MEAN CORPUSCULAR VOLUME 77 fL (79-100); MONO # 0.5 x10^3/uL (0.0-1.1); MONO % 3 % (0-9); NEUT # 17.8 x10^3/uL (1.8-7.7); NEUT % 91 % (31-73); PLATELET COUNT 91 x10^3/uL (140-400); RED CELL DISTRIBUTION WIDTH 26.4 % (11.5-14.5); WHITE BLOOD COUNT 19.6 x10^3/uL (4.0-11.0)
[2021-03-15 05:05] LABS: ALBUMIN 1.5 g/dL (3.4-5.0); ALBUMIN/GLOBULIN RATIO 0.3 (1.0-1.7); CREATININE 2.1 mg/dL (0.7-1.3); POTASSIUM 3.5 mmol/L (3.5-5.1); TOTAL BILIRUBIN 0.4 mg/dL (0.2-1.0); TOTAL PROTEIN 5.8 g/dL (6.4-8.2)
[2021-03-15] MEDS: PIPERACILLIN/TAZOBACTAM 3.375 GM in IV NORMAL SALINE 50ML 50 ML IV SCH ×4 (05:06→18:00)
[2021-03-15] MEDS: POTASSIUM CL 20MEQ IN D5W 1,000 ML IV SCH ×3 (05:30→21:30)
[2021-03-15] MEDS: FERROUS SULFATE 325 MG TABLET. PO SCH ×2 (08:00→17:00)
[2021-03-15] MEDS: IPRATRPIUM/ALBUTEROL 0.5/2.5MG 3 ML NEBU. NEB SCH ×3 (08:16→19:15)
[2021-03-15] MEDS: LACTOBACILLUS RHAMNOSUS GG 1 CAPSULE. PO SCH ×2 (09:00→21:00)
[2021-03-15] MEDS: NYSTATIN TOPICAL POWDER 15GM BOTTLE. TP SCH ×2 (09:00→21:00)
[2021-03-15] MEDS: LACTULOSE 20 GM/30 ML SOLUTION. PO SCH ×2 (09:00→15:16)
[2021-03-15] MEDS: VITS A & D/LANOLIN TOPICAL OINTMENT 42GM TUBE. TP SCH ×2 (09:00→21:00)
[2021-03-15] MEDS: PANTOPRAZOLE IV PUSH 40 MG VIAL. IVP SCH (09:34)
[2021-03-15] MEDS: MORPHINE SULFATE 2 MG/ML INJ. IVP PRN ×2 (10:13→22:44)
--- NOTE | 2021-03-15 10:23 | PDOC ---
Date of Service: DATE: 03/15/21 TIME: 10:16 Subjective: Subjective: Supportive sons present. Objective: Vital Signs: Vital Signs Date Time Temp Pulse Resp B/P (MAP) Pulse Ox O2 Delivery O2 Flow Rate FiO2 03/15/21 10:13 22 98 Venturi Mask 03/15/21 08:16 12.0 03/15/21 07:00 96.8 154 92/51 (65) 96.8 Labs: Laboratory Tests Test 03/14/21 11:26 03/14/21 16:57 03/15/21 04:45 03/15/21 07:41 Glucose (Fingerstick) 222 mg/dL 226 mg/dL 193 mg/dL White Blood Count 19.6 x10^3/uL Red Blood Count 3.50 x10^6/uL Hemoglobin 7.7 g/dL Hematocrit 26.9 % Mean Corpuscular Volume 77 fL Mean Corpuscular Hemoglobin 22 pg Mean Corpuscular Hemoglobin Concent 28 g/dL Red Cell Distribution Width 26.4 % Platelet Count 91 x10^3/uL Neutrophils (%) (Auto) 91 % Lymphocytes (%) (Auto) 6 % Monocytes (%) (Auto) 3 % Eosinophils (%) (Auto) 1 % Basophils (%) (Auto) 0 % Neutrophils # (Auto) 17.8 x10^3/uL Lymphocytes # (Auto) 1.1 x10^3/uL Monocytes # (Auto) 0.5 x10^3/uL Eosinophils # (Auto) 0.2 x10^3/uL Basophils # (Auto) 0.0 x10^3/uL Sodium Level 155 mmol/L Potassium Level 3.5 mmol/L Chloride Level 123 mmol/L Carbon Dioxide Level 23 mmol/L Anion Gap 9 Blood Urea Nitrogen 35 mg/dL Creatinine 2.1 mg/dL Estimated GFR (Cockcroft-Gault) 31.0 BUN/Creatinine Ratio 17 Glucose Level 216 mg/dL Calcium Level 7.0 mg/dL Total Bilirubin 0.4 mg/dL Aspartate Amino Transf (AST/SGOT) 16 U/L Alanine Aminotransferase (ALT/SGPT) 34 U/L Alkaline Phosphatase 92 U/L Total Protein 5.8 g/dL Albumin 1.5 g/dL Albumin/Globulin Ratio 0.3 BLOOD CULTURE Preliminary NO GROWTH AFTER 3 DAYS Imaging: CXR 03/12 IMPRESSION: 1. Central line in good position. 2. No change bilateral infiltrates. PE: GEN: ill LUNGS: venturi mask HEART: tachycardic ABD: soft NEURO/PSYCH: awake, moaning, does not follow commands A/P: Resp failure, A Fib, encephalopathy, hypernatremia, KAMILLE\ DOREEN, +Hemoccult - stable - on IV PPI, PO iron held Thrombocytopenia COVID negative -- Continue same per GI. Justicifation of Admission Dx: Justifications for Admission: Justification of Admission Dx: Yes SHERIF PHILLIPS Mar 15, 2021 10:23
--- NOTE | 2021-03-15 10:50 | PDOC ---
PROGRESS NOTES Date of Service DATE: 03/15/21 TIME: 10:47 Assessment Problems Medical Problems: (1) Anemia Status: Acute (2) ARF (acute renal failure) Status: Acute (3) Generalized weakness Status: Acute Metabolic encephalopathy, patient admitted with prolonged time on his floor covered in feces and urine, with severe anemia, hypocalcemia, hypokalemia, elevated BNP. Note normal ammonia level, but poor synthetic liver function. Respiratory failure, on BiPAP. Also has new atrial fibrillation, acute kidney injury, hypernatremia. The hypernatremia is better, but the leukocytosis is worsening Diabetic neuropathy Chronic back pain Atherosclerosis of cranial arteries seen on the CT Proptosis seen on the CT Plan Rehabilitation modalities as tolerated Correct medical issues I am holding off on electroencephalogram and lumbar puncture, I doubt these studies would make much difference Discussed with sons Subjective None, signs think he is a little more alert today as well Objective Vital Signs Date Time Temp Pulse Resp B/P (MAP) Pulse Ox O2 Delivery O2 Flow Rate FiO2 03/15/21 10:13 22 98 Venturi Mask 03/15/21 08:16 12.0 03/15/21 07:00 96.8 154 92/51 (65) 96.8 Intake and Output 03/15/21 07:00 Intake Total 1600 ml Output Total 1100 ml Balance 500 ml Intake Oral 0 ml IV Total 1600 ml Output Urine Total 750 ml Stool Total 350 ml # Voids 2 PHYSICAL EXAM Obtunded, on BiPAP, less respiratory distress, eyes do open to voice. Mittens on, nonverbal, cannot tell me location, date,his name. PERRL. EOMI. CN: no focal findings. Muscle tone: normal. Muscle strength: Moves all extremities DTR: 0-1+ Plantar reflex: Flexor Gait: not examined in bed. Sensory exam: Stocking loss on previous exams. No cerebellar signs elicited. Review of Relevant I have reviewed the following items linda (where applicable) has been applied. Labs Laboratory Tests Test 03/13/21 11:12 03/13/21 17:22 03/14/21 05:45 03/14/21 11:26 Glucose (Fingerstick) 256 mg/dL (70-99) 240 mg/dL (70-99) 222 mg/dL (70-99) White Blood Count 18.6 x10^3/uL (4.0-11.0) Red Blood Count 3.42 x10^6/uL (4.30-5.70) Hemoglobin 7.6 g/dL (13.0-17.5) Hematocrit 25.9 % (39.0-53.0) Mean Corpuscular Volume 76 fL (79-100) Mean Corpuscular Hemoglobin 22 pg (25-35) Mean Corpuscular Hemoglobin Concent 29 g/dL (31-37) Red Cell Distribution Width 26.1 % (11.5-14.5) Platelet Count 79 x10^3/uL (140-400) Neutrophils (%) (Auto) 88 % (31-73) Lymphocytes (%) (Auto) 8 % (24-48) Monocytes (%) (Auto) 2 % (0-9) Eosinophils (%) (Auto) 1 % (0-3) Basophils (%) (Auto) 0 % (0-3) Neutrophils # (Auto) 16.4 x10^3/uL (1.8-7.7) Lymphocytes # (Auto) 1.5 x10^3/uL (1.0-4.8) Monocytes # (Auto) 0.4 x10^3/uL (0.0-1.1) Eosinophils # (Auto) 0.2 x10^3/uL (0.0-0.7) Basophils # (Auto) 0.0 x10^3/uL (0.0-0.2) Segmented Neutrophils % 85 % (35-66) Band Neutrophils % 4 % (0-9) Lymphocytes % 9 % (24-48) Monocytes % 1 % (0-10) Eosinophils % 1 % (0-5) Platelet Estimate Decreased (ADEQUATE) Hypochromasia Mod Poikilocytosis Present Anisocytosis Marked Microcytosis Present Target Cells Present Acanthocytes Present Sodium Level 160 mmol/L (136-145) Potassium Level 3.1 mmol/L (3.5-5.1) Chloride Level 127 mmol/L (98-107) Carbon Dioxide Level 22 mmol/L (21-32) Anion Gap 11 (6-14) Blood Urea Nitrogen 36 mg/dL (8-26) Creatinine 2.0 mg/dL (0.7-1.3) Estimated GFR (Cockcroft-Gault) 32.8 Glucose Level 248 mg/dL (70-99) Calcium Level 7.2 mg/dL (8.5-10.1) Test 03/14/21 16:57 03/15/21 04:45 03/15/21 07:41 Glucose (Fingerstick) 226 mg/dL (70-99) 193 mg/dL (70-99) White Blood Count 19.6 x10^3/uL (4.0-11.0) Red Blood Count 3.50 x10^6/uL (4.30-5.70) Hemoglobin 7.7 g/dL (13.0-17.5) Hematocrit 26.9 % (39.0-53.0) Mean Corpuscular Volume 77 fL (79-100) Mean Corpuscular Hemoglobin 22 pg (25-35) Mean Corpuscular Hemoglobin Concent 28 g/dL (31-37) Red Cell Distribution Width 26.4 % (11.5-14.5) Platelet Count 91 x10^3/uL (140-400) Neutrophils (%) (Auto) 91 % (31-73) Lymphocytes (%) (Auto) 6 % (24-48) Monocytes (%) (Auto) 3 % (0-9) Eosinophils (%) (Auto) 1 % (0-3) Basophils (%) (Auto) 0 % (0-3) Neutrophils # (Auto) 17.8 x10^3/uL (1.8-7.7) Lymphocytes # (Auto) 1.1 x10^3/uL (1.0-4.8) Monocytes # (Auto) 0.5 x10^3/uL (0.0-1.1) Eosinophils # (Auto) 0.2 x10^3/uL (0.0-0.7) Basophils # (Auto) 0.0 x10^3/uL (0.0-0.2) Sodium Level 155 mmol/L (136-145) Potassium Level 3.5 mmol/L (3.5-5.1) Chloride Level 123 mmol/L (98-107) Carbon Dioxide Level 23 mmol/L (21-32) Anion Gap 9 (6-14) Blood Urea Nitrogen 35 mg/dL (8-26) Creatinine 2.1 mg/dL (0.7-1.3) Estimated GFR (Cockcroft-Gault) 31.0 BUN/Creatinine Ratio 17 (6-20) Glucose Level 216 mg/dL (70-99) Calcium Level 7.0 mg/dL (8.5-10.1) Total Bilirubin 0.4 mg/dL (0.2-1.0) Aspartate Amino Transf (AST/SGOT) 16 U/L (15-37) Alanine Aminotransferase (ALT/SGPT) 34 U/L (16-63) Alkaline Phosphatase 92 U/L (46-116) Total Protein 5.8 g/dL (6.4-8.2) Albumin 1.5 g/dL (3.4-5.0) Albumin/Globulin Ratio 0.3 (1.0-1.7) Laboratory Tests Test 03/14/21 11:26 03/14/21 16:57 03/15/21 04:45 03/15/21 07:41 Glucose (Fingerstick) 222 mg/dL (70-99) 226 mg/dL (70-99) 193 mg/dL (70-99) White Blood Count 19.6 x10^3/uL (4.0-11.0) Red Blood Count 3.50 x10^6/uL (4.30-5.70) Hemoglobin 7.7 g/dL (13.0-17.5) Hematocrit 26.9 % (39.0-53.0) Mean Corpuscular Volume 77 fL (79-100) Mean Corpuscular Hemoglobin 22 pg (25-35) Mean Corpuscular Hemoglobin Concent 28 g/dL (31-37) Red Cell Distribution Width 26.4 % (11.5-14.5) Platelet Count 91 x10^3/uL (140-400) Neutrophils (%) (Auto) 91 % (31-73) Lymphocytes (%) (Auto) 6 % (24-48) Monocytes (%) (Auto) 3 % (0-9) Eosinophils (%) (Auto) 1 % (0-3) Basophils (%) (Auto) 0 % (0-3) Neutrophils # (Auto) 17.8 x10^3/uL (1.8-7.7) Lymphocytes # (Auto) 1.1 x10^3/uL (1.0-4.8) Monocytes # (Auto) 0.5 x10^3/uL (0.0-1.1) Eosinophils # (Auto) 0.2 x10^3/uL (0.0-0.7) Basophils # (Auto) 0.0 x10^3/uL (0.0-0.2) Sodium Level 155 mmol/L (136-145) Potassium Level 3.5 mmol/L (3.5-5.1) Chloride Level 123 mmol/L (98-107) Carbon Dioxide Level 23 mmol/L (21-32) Anion Gap 9 (6-14) Blood Urea Nitrogen 35 mg/dL (8-26) Creatinine 2.1 mg/dL (0.7-1.3) Estimated GFR (Cockcroft-Gault) 31.0 BUN/Creatinine Ratio 17 (6-20) Glucose Level 216 mg/dL (70-99) Calcium Level 7.0 mg/dL (8.5-10.1) Total Bilirubin 0.4 mg/dL (0.2-1.0) Aspartate Amino Transf (AST/SGOT) 16 U/L (15-37) Alanine Aminotransferase (ALT/SGPT) 34 U/L (16-63) Alkaline Phosphatase 92 U/L (46-116) Total Protein 5.8 g/dL (6.4-8.2) Albumin 1.5 g/dL (3.4-5.0) Albumin/Globulin Ratio 0.3 (1.0-1.7) Microbiology 03/11/21 Blood Culture - Preliminary, Resulted NO GROWTH AFTER 3 DAYS 03/04/21 Urine Culture - Final, Complete Medications Current Medications Sodium Chloride 1,000 ml @ 1,000 mls/hr 1X ONCE IV Last administered on 03/03/21at 15:03; Start 03/03/21 at 14:30; Stop 03/03/21 at 15:29; Status DC Ondansetron HCl (Zofran) 4 mg PRN Q8HRS PRN IVP NAUSEA/VOMITING; Start 03/03/21 at 15:15; Stop 03/04/21 at 15:14; Status DC Morphine Sulfate (Morphine Sulfate) 2 mg PRN Q2HR PRN IVP PAIN; Start 03/03/21 at 15:15; Stop 03/04/21 at 15:14; Status DC Acetaminophen (Tylenol) 650 mg PRN Q4HRS PRN PO FEVER > 100.3'F Last administered on 03/04/21at 08:29; Start 03/03/21 at 15:15; Stop 03/04/21 at 15:14; Status DC Famotidine (Pepcid Vial) 20 mg 1X ONCE IVP Last administered on 03/03/21at 16:10; Start 03/03/21 at 15:15; Stop 03/03/21 at 15:16; Status DC Pantoprazole Sodium (Protonix) 40 mg DAILYAC PO Last administered on 03/07/21at 09:58; Start 03/03/21 at 16:30; Stop 03/08/21 at 10:48; Status DC Ferrous Sulfate (Feosol) 325 mg BIDWMEALS PO Last administered on 03/07/21at 09:58; Start 03/03/21 at 17:00 Polyethylene Glycol (miraLAX PACKET) 17 gm PRN DAILY PRN PO CONSTIPATION; Start 03/03/21 at 16:00 Potassium Chloride 40 meq/ Sodium Chloride 1,020 ml @ 100 mls/hr [id number] IV Last administered on 03/05/21at 05:23; Start 03/04/21 at 09:00; Stop 03/06/21 at 19:07; Status DC Potassium Chloride/Water 100 ml @ 100 mls/hr Q1H IV Last administered on 03/04/21at 22:58; Start 03/04/21 at 09:00; Stop 03/04/21 at 12:59; Status DC Vitamin A/Vitamin D (Vitamin A & D Ointment) 1 demetrius BID TP Last administered on 03/14/21at 21:00; Start 03/04/21 at 21:00 Nystatin (Nystop) 1 demetrius BID TP Last administered on 03/14/21at 21:00; Start 03/04/21 at 21:00 Lorazepam (Ativan Inj) 0.5 mg PRN Q4HRS PRN IVP ANXIETY / AGITATION Last administered on 03/05/21at 03:48; Start 03/04/21 at 23:45 Haloperidol Lactate (Haldol Inj) 1 mg 1X ONCE IVP Last administered on 03/05/21 00:58; Start 03/05/21 at 01:30; Stop 03/05/21 at 01:31; Status DC Potassium Chloride/Water 100 ml @ 50 mls/hr 1X ONCE IV Last administered on 03/05/21at 09:05; Start 03/05/21 at 09:00; Stop 03/05/21 at 10:59; Status DC Multivitamins 10 ml/Thiamine HCl 100 mg/Folic Acid 1 mg/Sodium Chloride 1,011.2 ml @ 100 mls/ hr DAILY IV Last administered on 03/09/21at 08:47; Start 03/05/21 at 09:00; Stop 03/09/21 at 19:07; Status DC Lorazepam (Ativan) 4 mg PRN Q1HR PRN PO For CIWA 8-14 Last administered on 03/05/21at 22:44; Start 03/05/21 at 07:45 Lorazepam (Ativan) 8 mg PRN Q1HR PRN PO For CIWA 15 or greater; Start 03/05/21 at 07:45 Lorazepam (Ativan Inj) 2 mg PRN Q1HR PRN IV For CIWA 8-14 Last administered on 03/13/21at 21:29; Start 03/05/21 at 07:45 Lorazepam (Ativan Inj) 4 mg PRN Q1HR PRN IV For CIWA 15 or greater Last administered on 03/12/21at 13:03; Start 03/05/21 at 07:45 Haloperidol Lactate (Haldol Inj) 5 mg PRN Q4HRS PRN IVP Hallucinatns,Confusn,Delirium Last administered on 03/09/21at 16:52; Start 03/05/21 at 07:45 Clonidine HCl (Catapres) 0.1 mg PRN Q1HR PRN PO SBP > 180 or DBP > 100, MRX3; Start 03/05/21 at 07:45 Potassium Chloride/Sodium Chloride 1,000 ml @ 75 mls/hr [id number] IV Last administered on 03/08/21at 20:47; Start 03/06/21 at 20:00; Stop 03/09/21 at 08:36; Status DC Lactulose (Lactulose) 20 gm [id number] PO Last administered on 03/07/21at 17:00; Start 03/07/21 at 10:00 Albuterol/ Ipratropium (Duoneb) 3 ml [id number] Last administered on 03/15/21at 08:16; Start 03/07/21 at 14:00 Diltiazem HCl 125 mg/Sodium Chloride 125 ml @ 5 mls/hr CONT PRN IV PER PROTOCOL Last administered on 03/12/21at 21:53; Start 03/07/21 at 21:45 Diltiazem HCl (Cardizem Iv Push) 10 mg 1X ONCE IVP Last administered on 03/07/21at 22:33; Start 03/07/21 at 22:00; Stop 03/07/21 at 22:01; Status DC Pantoprazole Sodium (PROTONIX VIAL for IV PUSH) 40 mg DAILYAC IVP Last administered on 03/15/21at 09:34; Start 03/08/21 at 11:00 Lactulose (LACTULOSE 300ML for RECTAL) 200 gm DAILY PRN [place] encephalopathy; Start 03/08/21 at 11:00 Digoxin (Lanoxin) 250 mcg 1X ONCE IV Last administered on 03/08/21at 14:47; Start 03/08/21 at 14:45; Stop 03/08/21 at 14:46; Status DC Digoxin (Lanoxin) 500 mcg 1X ONCE IV Last administered on 03/08/21at 15:52; Start 03/08/21 at 15:30; Stop 03/08/21 at 15:31; Status DC Sodium Chloride 1,000 ml @ 125 mls/hr Q8H IV Last administered on 03/10/21at 09:12; Start 03/09/21 at 08:30; Stop 03/10/21 at 11:02; Status DC Dextrose 1,000 ml @ 125 mls/hr Q8H IV Last administered on 03/13/21at 11:00; Start 03/10/21 at 11:00; Stop 03/14/21 at 11:19; Status DC Daptomycin 480 mg/ Sodium Chloride 50 ml @ 100 mls/hr Q24H IV Last administered on 03/11/21at 20:39; Start 03/11/21 at 20:00; Stop 03/12/21 at 08:11; Status DC Cefepime HCl (Maxipime) 1 gm Q12HR IVP Last administered on 03/11/21at 20:41; Start 03/11/21 at 21:00; Stop 03/12/21 at 08:11; Status DC Piperacillin Sod/ Tazobactam Sod 3.375 gm/Sodium Chloride 50 ml @ 100 mls/hr Q6HRS IV Last administered on 03/15/21at 05:06; Start 03/12/21 at 12:00 Lidocaine HCl (Buffered Lidocaine 1%) 3 ml STK-MED ONCE .ROUTE ; Start 03/12/21 at 14:04; Stop 03/12/21 at 14:04; Status DC Lidocaine HCl (Buffered Lidocaine 1%) 4 ml 1X ONCE INJ ; Start 03/12/21 at 15:15; Stop 03/12/21 at 15:16; Status DC Lactobacillus Rhamnosus (Culturelle) 1 cap BID PO ; Start 03/13/21 at 21:00 Potassium Chloride/Dextrose 1,000 ml @ 125 mls/hr Q8H IV Last administered on 03/15/21at 05:30; Start 03/13/21 at 21:30 Amiodarone HCl 150 mg/Dextrose 103 ml @ 618 mls/hr 1X ONCE IV Last admini stered on 03/13/21at 23:04; Start 03/13/21 at 23:00; Stop 03/13/21 at 23:09; Status DC Metoprolol Tartrate (Lopressor Vial) 5 mg 1X ONCE IVP Last administered on 03/13/21at 23:03; Start 03/13/21 at 23:00; Stop 03/13/21 at 23:01; Status DC Morphine Sulfate (Morphine Sulfate) 2 mg PRN Q2HR PRN IVP PAIN Last administered on 03/15/21at 10:13; Start 03/15/21 at 10:00 Active Scripts Active Magnesium Citrate 296 Ml Solution 296 Ml PO ONCE Docusate Sodium 100 Mg Capsule 1 Cap PO BID 15 Days Miralax (Polyethylene Glycol 3350) 119 Gm Powder 17 Gm PO DAILY dissolve in water Reported Calcium (Calcium Carbonate) 500 Mg Tab.chew 1,000 Mg PO DAILY Pioglitazone Hcl 30 Mg Tablet 30 Mg PO DAILY Clonidine Hcl 0.2 Mg Tablet 0.2 Mg PO QPM Clonidine Hcl 0.1 Mg Tablet 0.1 Mg PO QAM Amlodipine Besylate 5 Mg Tablet 5 Mg PO DAILY LAST DOSE GIVEN: DATE:02-19-16 TIME:9:00 a.m. NEXT DOSE DUE: DATE:02-20-16 TIME:9:00 a.m. Glipizide 5 Mg Tablet 1 Tab PO DAILY LAST DOSE GIVEN: DATE:02-18-16 TIME:5:00 p.m. NEXT DOSE DUE: DATE:02-19-16 TIME:5:00 p.m. Atorvastatin Calcium 40 Mg Tablet 1 Tab PO QHS LAST DOSE GIVEN: DATE:02-18-16 TIME:9:00 p.m. NEXT DOSE DUE: DATE:02-19-16 TIME:9:00 p.m. Trifluoperazine Hcl 2 Mg Tablet 2 Mg PO Not given while in hosp. May resume at home as directed. Atenolol 50 Mg Tablet 1 Tab PO DAILY LAST DOSE GIVEN: DATE:02-19-16 TIME:9:00 a.m. NEXT DOSE DUE: DATE:02-20-16 TIME:9:00 a.m. Lisinopril 40 Mg Tablet 1 Tab PO DAILY LAST DOSE GIVEN: DATE:02-19-16 TIME:9:00 a.m. NEXT DOSE DUE: DATE:02-20-16 TIME:9:00 a.m. Hydrochlorothiazide Tablet (Hydrochlorothiazide) 50 Mg Tablet 1 Tab PO DAILY LAST DOSE GIVEN: DATE:02-19-16 TIME:9:00 a.m. NEXT DOSE DUE: DATE:02-20-16 TIME:9:00 a.m. Metformin Hcl 500 Mg Tablet 1 Tab PO BID LAST DOSE GIVEN: DATE:02-19-16 TIME:9:00 a.m. NEXT DOSE DUE: DATE:02-19-16 TIME:5:00 p.m. Vitals/I & O Vital Sign - Last 24 Hours 03/14/21 03/14/21 03/14/21 03/14/21 11:00 11:35 15:00 15:49 Temp 98.9 99.2 98.9 99.2 Pulse 161 117 Resp 20 22 B/P (MAP) 109/48 (68) 84/70 (75) Pulse Ox 98 100 94 100 O2 Delivery Venturi Mask Venturi Mask Venturi Mask Venturi Mask O2 Flow Rate 5.0 12.0 12.0 12.0 03/14/21 03/14/21 03/14/21 03/14/21 19:00 20:14 21:06 22:50 Temp 98.8 98.6 98.8 98.6 Pulse 112 124 Resp 24 18 B/P (MAP) 107/76 (86) 97/67 (77) Pulse Ox 100 92 99 O2 Delivery Venturi Mask Venturi Mask Venturi Mask Venturi Mask O2 Flow Rate 10.0 12.0 12.0 10.0 03/15/21 03/15/21 03/15/21 03/15/21 02:42 02:53 07:00 08:16 Temp 98.2 96.8 98.2 96.8 Pulse 134 154 Resp 20 22 B/P (MAP) 79/54 (62) 86/68 (74) 92/51 (65) Pulse Ox 96 94 92 O2 Delivery Venturi Mask Venturi Mask Venturi Mask O2 Flow Rate 10.0 15.0 12.0 03/15/21 10:13 Resp 22 Pulse Ox 98 O2 Delivery Venturi Mask Intake and Output 03/14/21 03/14/21 03/15/21 15:00 23:00 07:00 Intake Total 50 ml 1550 ml 0 ml Output Total 750 ml 350 ml Balance 50 ml 800 ml -350 ml Justicifation of Admission Dx: Justifications for Admission: Justification of Admission Dx: Yes CALOS ANSARI MD Mar 15, 2021 10:50
--- NOTE | 2021-03-15 11:02 | PDOC ---
DATE OF SERVICE DATE: 03/15/21 TIME: 10:58 SUBJECTIVE ROS Unable to obtain ROS from patient No concerns voiced by nursing OBJECTIVE Vital Signs Vital Signs Date Time Temp Pulse Resp B/P (MAP) Pulse Ox O2 Delivery O2 Flow Rate FiO2 03/15/21 10:13 22 98 Venturi Mask 03/15/21 08:16 12.0 03/15/21 07:00 96.8 154 92/51 (65) 96.8 I & 0 Intake and Output 03/15/21 07:00 Intake Total 1600 ml Output Total 1100 ml Balance 500 ml Intake Oral 0 ml IV Total 1600 ml Output Urine Total 750 ml Stool Total 350 ml # Voids 2 PHYSICAL EXAM Physical Exam General On Bipap HEEN anicteric Neck Supple Lungs CTA, decreased at bases, CV S1S2, No murmur ot rub Abd soft , NT, BS + Ext No LE edema, No cyanosis Derm No Rash- Neuro No focal deficit Jaramillo + DIAGNOSIS/ASSESSMENT Assessment & Plan KAMILLE - ATN 2/2 severe Dehydration , Poor PO intake , Hypotensive at presentation acute decrease in Hgb/?GI bleed / mild Rhabdo.Non Oliguric .US- Kidneys unremarkable, Renal function improving, stable 2.0 <--3.8 , Supportive care , Strict I/O avoid Nephrotoxins . HyperNatremia - Improving , Hypotonic Fluid - if unable to take PO continue IV. Nutrition per Primary Rhabdomyolysis- POA mild HypoKalemia - Replace HypoMg Replace as indicated Anemia- severe -POA , acute , Hemoccult . Recd PRBC Elevated LFT's/ -Hx of ETOH until recently . US ? hepatic Steatosis , defer to GI COMMENT/RELEVANT DATA Meds Current Medications Medications (Trade) Dose Ordered Sig/Stephan Start Time Stop Time Status Last Admin Dose Admin Acetaminophen (Tylenol) 650 mg PRN Q4HRS PRN 03/03/21 15:15 03/04/21 15:14 DC 03/04/21 08:29 650 MG Albuterol/ Ipratropium (Duoneb) 3 ml [id number] 03/07/21 14:00 03/15/21 08:16 3 ML Amiodarone HCl 150 mg/Dextrose 103 ml @ 618 mls/hr 1X ONCE 03/13/21 23:00 03/13/21 23:09 DC 03/13/21 23:04 618 MLS/HR Cefepime HCl (Maxipime) 1 gm Q12HR 03/11/21 21:00 03/12/21 08:11 DC 03/11/21 20:41 1 GM Clonidine HCl (Catapres) 0.1 mg PRN Q1HR PRN 03/05/21 07:45 Daptomycin 480 mg/ Sodium Chloride 50 ml @ 100 mls/hr Q24H 03/11/21 20:00 03/12/21 08:11 DC 03/11/21 20:39 100 MLS/HR Dextrose 1,000 ml @ 125 mls/hr Q8H 03/10/21 11:00 03/14/21 11:19 DC 03/13/21 11:00 125 MLS/HR Digoxin (Lanoxin) 500 mcg 1X ONCE 03/08/21 15:30 03/08/21 15:31 DC 03/08/21 15:52 500 MCG Diltiazem HCl (Cardizem Iv Push) 10 mg 1X ONCE 03/07/21 22:00 03/07/21 22:01 DC 03/07/21 22:33 10 MG Diltiazem HCl 125 mg/Sodium Chloride 125 ml @ 5 mls/hr CONT PRN 03/07/21 21:45 03/12/21 21:53 15 MLS/HR Famotidine (Pepcid Vial) 20 mg 1X ONCE 03/03/21 15:15 03/03/21 15:16 DC 03/03/21 16:10 20 MG Ferrous Sulfate (Feosol) 325 mg BIDWMEALS 03/03/21 17:00 03/07/21 09:58 325 MG Haloperidol Lactate (Haldol Inj) 5 mg PRN Q4HRS PRN 03/05/21 07:45 03/09/21 16:52 5 MG Lactobacillus Rhamnosus (Culturelle) 1 cap BID 03/13/21 21:00 Lactulose (LACTULOSE 300ML for RECTAL) 200 gm DAILY PRN 03/08/21 11:00 Lactulose (Lactulose) 20 gm [id number] 03/07/21 10:00 03/07/21 17:00 20 GM Lidocaine HCl (Buffered Lidocaine 1%) 4 ml 1X ONCE 03/12/21 15:15 03/12/21 15:16 DC Lorazepam (Ativan Inj) 4 mg PRN Q1HR PRN 03/05/21 07:45 03/12/21 13:03 4 MG Lorazepam (Ativan) 8 mg PRN Q1HR PRN 03/05/21 07:45 Metoprolol Tartrate (Lopressor Vial) 5 mg 1X ONCE 03/13/21 23:00 03/13/21 23:01 DC 03/13/21 23:03 5 MG Morphine Sulfate (Morphine Sulfate) 2 mg PRN Q2HR PRN 03/15/21 10:00 03/15/21 10:13 2 MG Multivitamins 10 ml/Thiamine HCl 100 mg/Folic Acid 1 mg/Sodium Chloride 1,011.2 ml @ 100 mls/ hr DAILY 03/05/21 09:00 03/09/21 19:07 DC 03/09/21 08:47 100 MLS/HR Nystatin (Nystop) 1 demetrius BID 03/04/21 21:00 03/14/21 21:00 1 DEMETRIUS Ondansetron HCl (Zofran) 4 mg PRN Q8HRS PRN 03/03/21 15:15 03/04/21 15:14 DC Pantoprazole Sodium (PROTONIX VIAL for IV PUSH) 40 mg DAILYAC 03/08/21 11:00 03/15/21 09:34 40 MG Pantoprazole Sodium (Protonix) 40 mg DAILYAC 03/03/21 16:30 03/08/21 10:48 DC 03/07/21 09:58 40 MG Piperacillin Sod/ Tazobactam Sod 3.375 gm/Sodium Chloride 50 ml @ 100 mls/hr Q6HRS 03/12/21 12:00 03/15/21 05:06 100 MLS/HR Polyethylene Glycol (miraLAX PACKET) 17 gm PRN DAILY PRN 03/03/21 16:00 Potassium Chloride 40 meq/ Sodium Chloride 1,020 ml @ 100 mls/hr [id number] 03/04/21 09:00 03/06/21 19:07 DC 03/05/21 05:23 100 MLS/HR Potassium Chloride/Dextrose 1,000 ml @ 125 mls/hr Q8H 03/13/21 21:30 03/15/21 05:30 125 MLS/HR Potassium Chloride/Sodium Chloride 1,000 ml @ 75 mls/hr [id number] 03/06/21 20:00 03/09/21 08:36 DC 03/08/21 20:47 75 MLS/HR Potassium Chloride/Water 100 ml @ 50 mls/hr 1X ONCE 03/05/21 09:00 03/05/21 10:59 DC 03/05/21 09:05 50 MLS/HR Sodium Chloride 1,000 ml @ 125 mls/hr Q8H 03/09/21 08:30 03/10/21 11:02 DC 03/10/21 09:12 125 MLS/HR Vitamin A/Vitamin D (Vitamin A & D Ointment) 1 demetrius BID 03/04/21 21:00 03/14/21 21:00 1 DEMETRIUS Lab Laboratory Tests Test 03/14/21 11:26 03/14/21 16:57 03/15/21 04:45 03/15/21 07:41 Glucose (Fingerstick) 222 mg/dL (70-99) 226 mg/dL (70-99) 193 mg/dL (70-99) White Blood Count 19.6 x10^3/uL (4.0-11.0) Red Blood Count 3.50 x10^6/uL (4.30-5.70) Hemoglobin 7.7 g/dL (13.0-17.5) Hematocrit 26.9 % (39.0-53.0) Mean Corpuscular Volume 77 fL (79-100) Mean Corpuscular Hemoglobin 22 pg (25-35) Mean Corpuscular Hemoglobin Concent 28 g/dL (31-37) Red Cell Distribution Width 26.4 % (11.5-14.5) Platelet Count 91 x10^3/uL (140-400) Neutrophils (%) (Auto) 91 % (31-73) Lymphocytes (%) (Auto) 6 % (24-48) Monocytes (%) (Auto) 3 % (0-9) Eosinophils (%) (Auto) 1 % (0-3) Basophils (%) (Auto) 0 % (0-3) Neutrophils # (Auto) 17.8 x10^3/uL (1.8-7.7) Lymphocytes # (Auto) 1.1 x10^3/uL (1.0-4.8) Monocytes # (Auto) 0.5 x10^3/uL (0.0-1.1) Eosinophils # (Auto) 0.2 x10^3/uL (0.0-0.7) Basophils # (Auto) 0.0 x10^3/uL (0.0-0.2) Sodium Level 155 mmol/L (136-145) Potassium Level 3.5 mmol/L (3.5-5.1) Chloride Level 123 mmol/L (98-107) Carbon Dioxide Level 23 mmol/L (21-32) Anion Gap 9 (6-14) Blood Urea Nitrogen 35 mg/dL (8-26) Creatinine 2.1 mg/dL (0.7-1.3) Estimated GFR (Cockcroft-Gault) 31.0 BUN/Creatinine Ratio 17 (6-20) Glucose Level 216 mg/dL (70-99) Calcium Level 7.0 mg/dL (8.5-10.1) Total Bilirubin 0.4 mg/dL (0.2-1.0) Aspartate Amino Transf (AST/SGOT) 16 U/L (15-37) Alanine Aminotransferase (ALT/SGPT) 34 U/L (16-63) Alkaline Phosphatase 92 U/L (46-116) Total Protein 5.8 g/dL (6.4-8.2) Albumin 1.5 g/dL (3.4-5.0) Albumin/Globulin Ratio 0.3 (1.0-1.7) Results All relevant outside records, renal labs, imaging studies, telemetry/EKG's were reviewed. Justicifation of Admission Dx: Justifications for Admission: Justification of Admission Dx: Yes JAY CHARLES MD Mar 15, 2021 11:02
--- NOTE | 2021-03-15 11:09 | NUR ---
SS following up with discharge planning. SS reviewed pt chart and discussed with pt RN. Pt is currently requiring oxygen at 12 liters venti mask. COVID19 negative. Pt on IV Zosyn. Confused. Not doing well this morning. Pt given IV Morphine. Full code at this time. Not stable. Pt's sons requested information on DPOA. Dr. Hall stating that he will provide pt's sons with letter of capacity tomorrow to consult an sports attorney with since pt is not alert and oriented to sign DPOA paperwork. Dr. Hall to discuss goals of care with pt's sons. SS will continue to follow for discharge planning.
--- NOTE | 2021-03-15 12:55 | PDOC ---
JACKIE العلي GROUP DIRECTOR EXPERIENCE 03/15/21 1255: CARDIO Progress Notes Date and Time Date of Service 03/15/21 Time of Evaluation 1250 Subjective Subjective: Other (nonverbal, moaning ) Vitals Vitals Vital Signs Date Time Temp Pulse Resp B/P (MAP) Pulse Ox O2 Delivery O2 Flow Rate FiO2 03/15/21 11:15 95 Venturi Mask 12.0 03/15/21 11:00 98.4 128 20 104/70 (81) 98.4 Weight Weight [ ] Input and Output Intake and Output Intake and Output 03/15/21 06:59 Intake Total 1600 ml Output Total 1100 ml Balance 500 ml Intake Oral 0 ml IV Total 1600 ml Output Urine Total 750 ml Stool Total 350 ml # Voids 2 Laboratory Labs Laboratory Tests Test 03/14/21 16:57 03/15/21 04:45 03/15/21 07:41 03/15/21 11:25 Glucose (Fingerstick) 226 mg/dL (70-99) 193 mg/dL (70-99) 158 mg/dL (70-99) White Blood Count 19.6 x10^3/uL (4.0-11.0) Red Blood Count 3.50 x10^6/uL (4.30-5.70) Hemoglobin 7.7 g/dL (13.0-17.5) Hematocrit 26.9 % (39.0-53.0) Mean Corpuscular Volume 77 fL (79-100) Mean Corpuscular Hemoglobin 22 pg (25-35) Mean Corpuscular Hemoglobin Concent 28 g/dL (31-37) Red Cell Distribution Width 26.4 % (11.5-14.5) Platelet Count 91 x10^3/uL (140-400) Neutrophils (%) (Auto) 91 % (31-73) Lymphocytes (%) (Auto) 6 % (24-48) Monocytes (%) (Auto) 3 % (0-9) Eosinophils (%) (Auto) 1 % (0-3) Basophils (%) (Auto) 0 % (0-3) Neutrophils # (Auto) 17.8 x10^3/uL (1.8-7.7) Lymphocytes # (Auto) 1.1 x10^3/uL (1.0-4.8) Monocytes # (Auto) 0.5 x10^3/uL (0.0-1.1) Eosinophils # (Auto) 0.2 x10^3/uL (0.0-0.7) Basophils # (Auto) 0.0 x10^3/uL (0.0-0.2) Sodium Level 155 mmol/L (136-145) Potassium Level 3.5 mmol/L (3.5-5.1) Chloride Level 123 mmol/L (98-107) Carbon Dioxide Level 23 mmol/L (21-32) Anion Gap 9 (6-14) Blood Urea Nitrogen 35 mg/dL (8-26) Creatinine 2.1 mg/dL (0.7-1.3) Estimated GFR (Cockcroft-Gault) 31.0 BUN/Creatinine Ratio 17 (6-20) Glucose Level 216 mg/dL (70-99) Calcium Level 7.0 mg/dL (8.5-10.1) Total Bilirubin 0.4 mg/dL (0.2-1.0) Aspartate Amino Transf (AST/SGOT) 16 U/L (15-37) Alanine Aminotransferase (ALT/SGPT) 34 U/L (16-63) Alkaline Phosphatase 92 U/L (46-116) Total Protein 5.8 g/dL (6.4-8.2) Albumin 1.5 g/dL (3.4-5.0) Albumin/Globulin Ratio 0.3 (1.0-1.7) Microbiology Micro Microbiology 03/11/21 Blood Culture - Preliminary, Resulted NO GROWTH AFTER 3 DAYS 03/04/21 Urine Culture - Final, Complete Review of Systems Constitutional: yes: alert, oriented Ears/Nose/Throat: Yes: no symptom reported Eyes: Yes: no symptom reported Pulmonary: Yes no symptom reported Cardiovascular: Yes no symptom reported Gastrointestional: Yes: no symptom reported Genitourinary: Yes: no symptom reported Musculoskeletal: Yes: no symptom reported Psychiatric/Neurological: Yes: no symptom reported Endocrine: Yes: no symptom reported Physical Exam HEENT: Neck Supple W Full Motion Chest: Symmetric LUNGS: Other (on ventimask ) Heart: irregularly irregular (AFIB with intermittent RVR) Abdomen: Other (soft ) Extremities: No Edema Neurology: other (restless, moaning ) Assessment Assessment 1. Acute respiratory failure with possible aspiration PNA 2. Chronic diastolic CHF: EF and LV systolic function is nml 3. Severe KAMILLE: Cr better at 2.1 4. Severe hypernatremia: better with hypotonic fluids. nephrology following 5. Metabolic encephalopathy 6. AFIB RVR: possibly new. Likely induced by metabolic issues and respiratory issues. Remains with intermittent RVR 7. HTN: low end 8. Anemia with probable GI bleed: +hemmocult,.s/p 4 units PRBC's. hgb stable in 7's 9. Thrombocytopenia 10. DM2 11. Transaminitis 12. Rhabdomyolysis 13. Fever Recommendations IV Digoxin x1 now. Unable to add scheduled due to poor CrCl No ASA, anticoagulation therapy due to anemia, thrombocytopenia Prognosis poor, consider Hospice Justicifation of Admission Dx: Justifications for Admission: Justification of Admission Dx: Yes DEANDRE CASTILLO MD 03/15/21 1808: CARDIO Progress Notes Assessment Assessment Patient seen and examined I agree with our nurse practitioners assessment and plan. Acute respiratory failure with possible aspiration PNA Chronic diastolic CHF: EF and LV systolic function is normal Severe KAMILLE: Cr better at 2.1 Severe hypernatremia: better with hypotonic fluids. nephrology following Metabolic encephalopathy AFIB RVR: possibly new. Likely induced by metabolic issues and respiratory issues. Remains with intermittent RVR Anemia with probable GI bleed: +hemmocult,.s/p 4 units PRBC's. hgb stable in 7's Thrombocytopenia DM2 JACKIE العلي APRN Mar 15, 2021 12:55 DEANDRE CASTILOL MD Mar 15, 2021 18:08
[2021-03-15] MEDS ORDERED: DIGOXIN IV 500 MCG/2 ML AMPUL. IV ONE (16:15)
--- NOTE | 2021-03-15 19:53 | PN ---
DATE: 03/15/2021 DAILY PROGRESS NOTE LOCATION: He is in room 662. SUBJECTIVE: This 75-year-old male remains hospitalized with multiple medical issues as outlined in prior progress notes. He again is more alert this morning, but noncommunicative, but is groaning, has his eyes open and follows me around the room. OBJECTIVE: VITAL SIGNS: Stable. He is afebrile. CHEST: With bilateral rhonchi. CARDIOVASCULAR: Irregularly irregular with normal rate. ABDOMEN: Benign. EXTREMITIES: Unremarkable. ASSESSMENT: 1. Profound symptomatic anemia on admission with improvement after 4 units of packed red blood cells and stable hemoglobin in mid 7s. 2. Acute kidney injury, improving. 3. Hypernatremia with improvement with a sodium down to 155 this morning. 4. Hypokalemia with a potassium of 3.5 this morning, improved. 5. Encephalopathy with slight improvement. 6. New onset atrial fibrillation. 7. Leukocytosis. 8. Mild coagulopathy with INR 1.4. 9. Urinary tract infection with no cultures done, on Zosyn. 10. Transaminitis, resolved. 11. Thrombocytopenia with a slight increase in platelets this morning to 91,000. PLAN: Continue supportive care. Help of all consultants appreciated. We are going to have to address nutritional status in the next day or so. DONALDO DR: Mee TID: [id number]
[2021-03-16] MEDS: PIPERACILLIN/TAZOBACTAM 3.375 GM in IV NORMAL SALINE 50ML 50 ML IV SCH ×4 (00:33→18:00)
[2021-03-16 03:00] VITALS: BP 115/83
[2021-03-16] MEDS: PANTOPRAZOLE IV PUSH 40 MG VIAL. IVP SCH ×2 (06:28→10:18)
[2021-03-16 07:00] VITALS: BP 135/82
[2021-03-16] MEDS: IPRATRPIUM/ALBUTEROL 0.5/2.5MG 3 ML NEBU. NEB SCH ×3 (07:51→19:36)
[2021-03-16] MEDS: FERROUS SULFATE 325 MG TABLET. PO SCH ×2 (08:00→17:00)
[2021-03-16] MEDS: MORPHINE SULFATE 2 MG/ML INJ. IVP PRN ×4 (08:04→18:28)
[2021-03-16] MEDS: POTASSIUM CL 20MEQ IN D5W 1,000 ML IV SCH (08:05)
--- NOTE | 2021-03-16 08:35 | PN ---
DATE: 03/16/2021 DAILY PROGRESS NOTE LOCATION: He is in room 662. SUBJECTIVE: This 75-year-old male remains hospitalized with multiple medical problems. He is again a little more alert this morning, is able to shake his head for me this morning, but noncommunicative, been grunting and groaning. OBJECTIVE: VITAL SIGNS: Stable. He is afebrile. CHEST: Remains with bilateral rhonchi. HEART: Irregularly irregular, little tachycardic this morning. ABDOMEN: Benign. EXTREMITIES: He does have some edema. LABORATORY DATA: No new labs are back this morning at the time of my seeing him. IMPRESSION: 1. Profound symptomatic anemia on admission with improvement after 4 units of packed red blood cells with stable hemoglobin in mid 7s. 2. Acute kidney injury, improving. 3. Hypernatremia with some improvement. 4. Hypokalemia, improved. 5. Encephalopathy with slight improvement. 6. New onset atrial fibrillation. 7. Leukocytosis. 8. Mild coagulopathy. 9. Urinary tract infection with repeat cultures negative. 10. Transaminitis, resolved. 11. Thrombocytopenia. PLAN: Continue supportive care. Help of all consultants appreciated. We will make the patient DNR per family request this morning with nursing. Also I had Infectious Disease come by for a look on any suggestions they might have. We will recheck labs in the morning and see if ID has any further suggestions regarding the ongoing leukocytosis and what we might be missing. I am going to ask renal to manage TPN starting at this point. At this point, I am looking at probably a couple of more days to see where he goes as the sodium normalizes and at that point switch to palliative comfort care and sons are in agreement with the same. CRISTIAN DR: Mee TID: [id number]
[2021-03-16] MEDS: NYSTATIN TOPICAL POWDER 15GM BOTTLE. TP SCH (09:00)
[2021-03-16] MEDS: LACTOBACILLUS RHAMNOSUS GG 1 CAPSULE. PO SCH (09:00)
[2021-03-16] MEDS: LACTULOSE 20 GM/30 ML SOLUTION. PO SCH ×2 (09:00→16:00)
[2021-03-16] MEDS: VITS A & D/LANOLIN TOPICAL OINTMENT 42GM TUBE. TP SCH (09:00)
[2021-03-16] MEDS ORDERED: TPN PER PHARMACY MC PRN (10:00)
--- NOTE | 2021-03-16 10:23 | PDOC ---
Date of Service: DATE: 03/16/21 TIME: 10:20 Objective: Objective: D/w nurse - to be DNR/possible Hospice, but also starting TPN. Vital Signs: Vital Signs Date Time Temp Pulse Resp B/P (MAP) Pulse Ox O2 Delivery O2 Flow Rate FiO2 03/16/21 08:04 97 Venturi Mask 12.0 03/16/21 07:00 97.7 113 24 135/82 (99) 97.7 Labs: Laboratory Tests Test 03/15/21 11:25 03/15/21 16:49 03/15/21 19:53 Glucose (Fingerstick) 158 mg/dL 160 mg/dL 153 mg/dL PE: GEN: ill LUNGS: breathing mas HEART: tachycardic ABD: soft NEURO/PSYCH: confused A/P: Resp failure, A Fib, encephalopathy Hypernatremia, KAMILLE, thrombocytopenia DOREEN - stable COVID negative -- Plans as above, will follow. Justicifation of Admission Dx: Justifications for Admission: Justification of Admission Dx: Yes SHERIF PHILLIPS Mar 16, 2021 10:23
[2021-03-16 11:00] VITALS: BP 122/79
[2021-03-16 11:41] LABS: CALCIUM 7.5 mg/dL (8.5-10.1); GFR 20.6; POTASSIUM 3.8 mmol/L (3.5-5.1)
[2021-03-16 11:45] LABS: MAGNESIUM 1.5 mg/dL (1.8-2.4); PHOSPHORUS 2.7 mg/dL (2.6-4.7)
--- NOTE | 2021-03-16 12:19 | PDOC ---
DATE OF SERVICE DATE: 03/16/21 TIME: 12:16 SUBJECTIVE ROS Unable to obtain ROS from patient No concerns voiced by nursing OBJECTIVE Vital Signs Vital Signs Date Time Temp Pulse Resp B/P (MAP) Pulse Ox O2 Delivery O2 Flow Rate FiO2 03/16/21 08:30 22 97 Venturi Mask 12.0 03/16/21 07:00 97.7 113 135/82 (99) 97.7 I & 0 Intake and Output 03/16/21 07:00 Intake Total 0 ml Output Total 800 ml Balance -800 ml Intake Oral 0 ml Output Urine Total 800 ml # Bowel Movements 1 PHYSICAL EXAM Physical Exam General On Bipap HEEN anicteric Neck Supple Lungs CTA, decreased at bases, CV S1S2, No murmur ot rub Abd soft , NT, BS + Ext No LE edema, No cyanosis Derm No Rash- Neuro No focal deficit Jaramillo + DIAGNOSIS/ASSESSMENT Assessment & Plan KAMILLE - ATN 2/2 severe Dehydration , Poor PO intake , Hypotensive at presentation acute decrease in Hgb/?GI bleed / mild Rhabdo.Non Oliguric .US- Kidneys unremarkable, Renal function was improving to 2.0 <--3.8 , worsening again, Creat 3.0 today Supportive care , Strict I/O avoid Nephrotoxins . HyperNatremia - Improving , Hypotonic Fluid , TPN from today per primary /Pharmacy ; discussed with Nursing Rhabdomyolysis- POA mild HypoKalemia - Replace ; adjust K in TPN HypoMg Replace as indicated Anemia- severe -POA , acute , Hemoccult . Recd PRBC Elevated LFT's/ -Hx of ETOH until recently . US ? hepatic Steatosis , defer to GI COMMENT/RELEVANT DATA Meds Current Medications Medications (Trade) Dose Ordered Sig/Stephan Start Time Stop Time Status Last Admin Dose Admin Acetaminophen (Tylenol) 650 mg PRN Q4HRS PRN 03/03/21 15:15 03/04/21 15:14 DC 03/04/21 08:29 650 MG Albuterol/ Ipratropium (Duoneb) 3 ml [id number] 03/07/21 14:00 03/16/21 07:51 3 ML Amiodarone HCl 150 mg/Dextrose 103 ml @ 618 mls/hr 1X ONCE 03/13/21 23:00 03/13/21 23:09 DC 03/13/21 23:04 618 MLS/HR Cefepime HCl (Maxipime) 1 gm Q12HR 03/11/21 21:00 03/12/21 08:11 DC 03/11/21 20:41 1 GM Clonidine HCl (Catapres) 0.1 mg PRN Q1HR PRN 03/05/21 07:45 Daptomycin 480 mg/ Sodium Chloride 50 ml @ 100 mls/hr Q24H 03/11/21 20:00 03/12/21 08:11 DC 03/11/21 20:39 100 MLS/HR Dextrose 1,000 ml @ 125 mls/hr Q8H 03/10/21 11:00 03/14/21 11:19 DC 03/13/21 11:00 125 MLS/HR Digoxin (Lanoxin) 250 mcg 1X ONCE 03/15/21 16:15 03/15/21 16:16 DC 03/15/21 16:13 250 MCG Diltiazem HCl (Cardizem Iv Push) 10 mg 1X ONCE 03/07/21 22:00 03/07/21 22:01 DC 03/07/21 22:33 10 MG Diltiazem HCl 125 mg/Sodium Chloride 125 ml @ 5 mls/hr CONT PRN 03/07/21 21:45 03/12/21 21:53 15 MLS/HR Famotidine (Pepcid Vial) 20 mg 1X ONCE 03/03/21 15:15 03/03/21 15:16 DC 03/03/21 16:10 20 MG Ferrous Sulfate (Feosol) 325 mg [id number] 03/03/21 17:00 03/07/21 09:58 325 MG Haloperidol Lactate (Haldol Inj) 5 mg PRN Q4HRS PRN 03/05/21 07:45 03/09/21 16:52 5 MG Info (Tpn Per Pharmacy) 1 each PRN DAILY PRN 03/16/21 10:00 Lactobacillus Rhamnosus (Culturelle) 1 cap BID 03/13/21 21:00 Lactulose (LACTULOSE 300ML for RECTAL) 200 gm DAILY PRN 03/08/21 11:00 Lactulose (Lactulose) 20 gm [id number] 03/07/21 10:00 03/07/21 17:00 20 GM Lidocaine HCl (Buffered Lidocaine 1%) 4 ml 1X ONCE 03/12/21 15:15 10/15/21 15:16 DC Lorazepam (Ativan Inj) 4 mg PRN Q1HR PRN 03/05/21 07:45 03/12/21 13:03 4 MG Lorazepam (Ativan) 8 mg PRN Q1HR PRN 03/05/21 07:45 Metoprolol Tartrate (Lopressor Vial) 5 mg 1X ONCE 03/13/21 23:00 03/13/21 23:01 DC 03/13/21 23:03 5 MG Morphine Sulfate (Morphine Sulfate) 2 mg PRN Q2HR PRN 03/15/21 10:00 03/16/21 08:04 2 MG Multivitamins 10 ml/Thiamine HCl 100 mg/Folic Acid 1 mg/Sodium Chloride 1,011.2 ml @ 100 mls/ hr DAILY 03/05/21 09:00 03/09/21 19:07 DC 03/09/21 08:47 100 MLS/HR Nystatin (Nystop) 1 demetrius BID 03/04/21 21:00 03/16/21 09:00 1 DEMETRIUS Ondansetron HCl (Zofran) 4 mg PRN Q8HRS PRN 03/03/21 15:15 03/04/21 15:14 DC Pantoprazole Sodium (PROTONIX VIAL for IV PUSH) 40 mg DAILYAC 03/08/21 11:00 03/16/21 10:18 40 MG Pantoprazole Sodium (Protonix) 40 mg DAILYAC 03/03/21 16:30 03/08/21 10:48 DC 03/07/21 09:58 40 MG Piperacillin Sod/ Tazobactam Sod 3.375 gm/Sodium Chloride 50 ml @ 100 mls/hr Q6HRS 03/12/21 12:00 03/16/21 06:28 100 MLS/HR Polyethylene Glycol (miraLAX PACKET) 17 gm PRN DAILY PRN 03/03/21 16:00 Potassium Chloride 40 meq/ Sodium Chloride 1,020 ml @ 100 mls/hr [id number] 03/04/21 09:00 03/06/21 19:07 DC 03/05/21 05:23 100 MLS/HR Potassium Chloride/Dextrose 1,000 ml @ 125 mls/hr Q8H 03/13/21 21:30 03/16/21 21:59 03/16/21 08:05 125 MLS/HR Potassium Chloride/Sodium Chloride 1,000 ml @ 75 mls/hr [id number] 03/06/21 20:00 03/09/21 08:36 DC 03/08/21 20:47 75 MLS/HR Potassium Chloride/Water 100 ml @ 50 mls/hr 1X ONCE 03/05/21 09:00 03/05/21 10:59 DC 03/05/21 09:05 50 MLS/HR Sodium Chloride 1,000 ml @ 125 mls/hr Q8H 03/09/21 08:30 03/10/21 11:02 DC 03/10/21 09:12 125 MLS/HR Vitamin A/Vitamin D (Vitamin A & D Ointment) 1 demetrius BID 03/04/21 21:00 03/16/21 09:00 1 DEMETRIUS Lab Laboratory Tests Test 03/15/21 16:49 03/15/21 19:53 03/16/21 11:20 Glucose (Fingerstick) 160 mg/dL (70-99) 153 mg/dL (70-99) Sodium Level 154 mmol/L (136-145) Potassium Level 3.8 mmol/L (3.5-5.1) Chloride Level 122 mmol/L (98-107) Carbon Dioxide Level 21 mmol/L (21-32) Anion Gap 11 (6-14) Blood Urea Nitrogen 41 mg/dL (8-26) Creatinine 3.0 mg/dL (0.7-1.3) Estimated GFR (Cockcroft-Gault) 20.6 Glucose Level 180 mg/dL (70-99) Calcium Level 7.5 mg/dL (8.5-10.1) Phosphorus Level 2.7 mg/dL (2.6-4.7) Magnesium Level 1.5 mg/dL (1.8-2.4) Results All relevant outside records, renal labs, imaging studies, telemetry/EKG's were reviewed. Justicifation of Admission Dx: Justifications for Admission: Justification of Admission Dx: Yes JAY CHARLES MD Mar 16, 2021 12:19
--- NOTE | 2021-03-16 12:39 | NUR ---
Pharmacy TPN Dosing Note S: REBEKAFORD MARQUES is a 75 year old M Currently receiving Central Continuous TPN started 03/16/21 B:Pertinent PMH: Poor PO intake Height: 5 feet, 7 inches Weight: 99.0 kg Current diet: ADA LABS: Sodium: 154 Potassium: 3.8 Chloride: 122 Calcium: 7.5 Corrected Calcium: 9.50 Magnesium: 1.5 CO2: 21 SCr: 3 Glucose: 180 Albumin: 1.5 AST: 16 ALT: 34 TPN FORMULA: TPN TYPE: Central Continuous AMINO ACIDS: 60 gm DEXTROSE: 195 gm LIPIDS: 20 gm POTASSIUM ACETATE: 50 mEq POTASSIUM PHOSPHATE: 13.6 mmol MAGNESIUM: 10 mEq CALCIUM: 10 mEq MULTIPLE VITAMIN: 10 ml TRACE ELEMENTS: 1 ml(s) TPN PLAN: Initate house formula TPN without sodium and added free water for hypernatremia R: Begin TPN Will monitor electrolytes, glucose, and tolerance to TPN. Zoila Peralta [facility], 03/16/21 [id number]
[2021-03-16] MEDS ORDERED: MAGNESIUM SULFATE 2GM 50 ML IV ONE (14:00)
--- NOTE | 2021-03-16 14:13 | NUR ---
RADHIKA following up with discharge planning. SS reviewed pt chart and discussed with pt RN. Pt is currently on venti mask at 12 liters. Pt on TPN, IV Potassium, and IV Zosyn. Dr. Hall discussing goals of care with pt's family. Pt now DNR. Hospice being considered. SS will continue to follow for discharge planning. Addendum: 03/16/21 at 1629 by OSCAR TOTH SS received request for hospice services. SS phoned and faxed referral to [facility], ; fax [phone]. Pt's RN notified.
--- NOTE | 2021-03-16 14:44 | PDOC ---
CARDIO Progress Notes Date and Time Date of Service 03/16/21 Time of Evaluation 1210 Subjective Subjective: Other (nonverbal, moaning ) Vitals Vitals Vital Signs Date Time Temp Pulse Resp B/P (MAP) Pulse Ox O2 Delivery O2 Flow Rate FiO2 03/16/21 13:38 100 Venturi Mask 12.0 03/16/21 13:20 22 03/16/21 11:00 98.6 109 122/79 (93) 98.6 Weight Weight [ ] Input and Output Intake and Output Intake and Output 03/16/21 07:00 Intake Total 0 ml Output Total 800 ml Balance -800 ml Intake Oral 0 ml Output Urine Total 800 ml # Bowel Movements 1 Laboratory Labs Laboratory Tests Test 03/15/21 16:49 03/15/21 19:53 03/16/21 11:20 Glucose (Fingerstick) 160 mg/dL (70-99) 153 mg/dL (70-99) Sodium Level 154 mmol/L (136-145) Potassium Level 3.8 mmol/L (3.5-5.1) Chloride Level 122 mmol/L (98-107) Carbon Dioxide Level 21 mmol/L (21-32) Anion Gap 11 (6-14) Blood Urea Nitrogen 41 mg/dL (8-26) Creatinine 3.0 mg/dL (0.7-1.3) Estimated GFR (Cockcroft-Gault) 20.6 Glucose Level 180 mg/dL (70-99) Calcium Level 7.5 mg/dL (8.5-10.1) Phosphorus Level 2.7 mg/dL (2.6-4.7) Magnesium Level 1.5 mg/dL (1.8-2.4) Microbiology Micro Microbiology 03/14/21 Urine Culture - Final, Complete 03/11/21 Blood Culture - Preliminary, Resulted NO GROWTH AFTER 4 DAYS Review of Systems Constitutional: yes: alert, oriented Ears/Nose/Throat: Yes: no symptom reported Eyes: Yes: no symptom reported Pulmonary: Yes no symptom reported Cardiovascular: Yes no symptom reported Gastrointestional: Yes: no symptom reported Genitourinary: Yes: no symptom reported Musculoskeletal: Yes: no symptom reported Psychiatric/Neurological: Yes: no symptom reported Endocrine: Yes: no symptom reported Physical Exam HEENT: Neck Supple W Full Motion Chest: Symmetric LUNGS: Other (on ventimask ) Heart: irregularly irregular (AFIB with intermittent RVR) Abdomen: Other (soft ) Extremities: No Edema Neurology: other (restless, moaning ) Assessment Assessment 1. Acute respiratory failure with possible aspiration PNA 2. Chronic diastolic CHF: EF and LV systolic function is nml 3. Severe KAMILLE: Cr better at 2.1 4. Severe hypernatremia: better with hypotonic fluids. nephrology following 5. Metabolic encephalopathy 6. AFIB RVR: possibly new. Likely induced by metabolic issues and respiratory issues. Remains with intermittent RVR 7. HTN: low end 8. Anemia with probable GI bleed: +hemmocult,.s/p 4 units PRBC's. hgb stable in 7's 9. Thrombocytopenia 10. DM2 11. Transaminitis 12. Rhabdomyolysis 13. Fever Recommendations Supportive care from a CV standpoint Not a candidate for aggressive measures for AFIB No ASA, anticoagulation therapy due to anemia, thrombocytopenia Prognosis poor Justicifation of Admission Dx: Justifications for Admission: Justification of Admission Dx: Yes JACKIE العلي APRN Mar 16, 2021 14:44
--- NOTE | 2021-03-16 14:45 | NUR ---
PATIENT'S SON AT BEDSIDE, REQUESTING COMFORT CARE AND HOSPICE. DR. SACHA HOOVER.
[2021-03-16 15:00] VITALS: BP 86/56
[2021-03-16] MEDS ORDERED: AMINO ACID IV SCH (22:00)
[2021-03-16] MEDS ORDERED: [UNRECOGNIZED DRUG - OTHER] IV SCH (22:00)
[2021-03-16] MEDS ORDERED: TOTAL PARENTERAL NUTRITION IV SCH (22:00)
[2021-03-16] MEDS ORDERED: DEXTROSE 70% IV SCH (22:00)
--- NOTE | 2021-04-14 19:28 | DS ---
DATE OF DISCHARGE: 03/16/2021 PRIMARY DIAGNOSES: Profound anemia, felt due to probable GI bleed with hemoglobin up in the 7's after 4 units of packed red blood cells and no signs of really significant blood loss during the remainder of the stay with an initial hemoglobin of 5. ADDITIONAL DIAGNOSES: 1. Encephalopathy. 2. Acute kidney injury, improved. 3. Acute liver injury, improved. 4. Hypokalemia, improved. 5. Hypernatremia. 6. New onset atrial fibrillation with a rapid ventricular response. 7. Leukocytosis. 8. Mild coagulopathy. 9. Thrombocytopenia. CHIEF COMPLAINT/HISTORY OF PRESENT ILLNESS: This 75-year-old male admitted, covered with feces and disheveled through the Emergency Room after his brother found him down for 3 days at home. SUMMARY OF STAY: Initial mental status was fairly clear. He denied any sort of bleeding. He required 4 units of packed red blood cells to get his hemoglobin above 7, and remained that throughout the remainder of the stay. He, however, developed multiple other problems, getting initially acute kidney failure, which improved with hydration. Hypokalemia, which was replaced. He was quite hypernatremic despite fluid resuscitation and this improved, but never quite fully normalized. He did develop atrial fibrillation with rapid ventricular response during the stay, had a persistent leukocytosis, was covered with antibiotics. Developed thrombocytopenia of a modest degree, but real problem was ongoing encephalopathy despite treatment of all the parameters with multiple consultants with family finally felt he was more appropriate for hospice and he was transferred to [facility] on the day of discharge. DISPOSITION: The patient was transferred to [facility]. Please see orders there regarding diet, medication, activity, etc. We will continue to follow him there. CRISTIAN DR: Mee TID: [id number]
== END 2021-03-16 20:16 | disposition hospice, inpatient (51) | DRG 177 ==
LOC: ER 14:20 → ED HOLD 15:00 → 5 SOUTH 17:30 → 6 SOUTH 03-07 22:42
PROVIDERS: ADMIT Family Medicine; ATTEND Family Medicine
PROC: 30233N1 Transfusion of Nonautologous Red Blood Cells into Peripheral Vein, Percutaneous Approach (ICD-10-PCS; principal; 2021-03-03)
PROC: 5A09457 Assistance with Respiratory Ventilation, 24-96 Consecutive Hours, Continuous Positive Airway Pressure (ICD-10-PCS; 2021-03-03)
PROC: 02HV33Z Insertion of Infusion Device into Superior Vena Cava, Percutaneous Approach (ICD-10-PCS; 2021-03-12)
PROC: B5181ZA Fluoroscopy of Superior Vena Cava using Low Osmolar Contrast, Guidance (ICD-10-PCS; 2021-03-12)
PROC: B548ZZA Ultrasonography of Superior Vena Cava, Guidance (ICD-10-PCS; 2021-03-12)
DX: J69.0 Pneumonitis due to inhalation of food and vomit (principal); G93.41 Metabolic encephalopathy; I50.33 Acute on chronic diastolic (congestive) heart failure; J96.21 Acute and chronic respiratory failure with hypoxia; K92.2 Gastrointestinal hemorrhage, unspecified; N17.9 Acute kidney failure, unspecified; D68.9 Coagulation defect, unspecified; E87.0 Hyperosmolality and hypernatremia; F10.239 Alcohol dependence with withdrawal, unspecified; I13.0 Hypertensive heart and chronic kidney disease with heart failure and stage 1 through stage 4 chronic kidney disease, or unspecified chronic kidney disease; M62.82 Rhabdomyolysis; N39.0 Urinary tract infection, site not specified; J84.9 Interstitial pulmonary disease, unspecified; D50.9 Iron deficiency anemia, unspecified; D69.6 Thrombocytopenia, unspecified; E11.22 Type 2 diabetes mellitus with diabetic chronic kidney disease; E11.40 Type 2 diabetes mellitus with diabetic neuropathy, unspecified; E78.5 Hyperlipidemia, unspecified; E83.51 Hypocalcemia; E86.0 Dehydration; E87.6 Hypokalemia; F12.90 Cannabis use, unspecified, uncomplicated; G89.29 Other chronic pain; H05.20 Unspecified exophthalmos; I25.10 Atherosclerotic heart disease of native coronary artery without angina pectoris; I48.91 Unspecified atrial fibrillation; J34.0 Abscess, furuncle and carbuncle of nose; J44.9 Chronic obstructive pulmonary disease, unspecified; K76.0 Fatty (change of) liver, not elsewhere classified; K76.1 Chronic passive congestion of liver; L89.90 Pressure ulcer of unspecified site, unspecified stage; M48.061 Spinal stenosis, lumbar region without neurogenic claudication; N18.9 Chronic kidney disease, unspecified; N28.1 Cyst of kidney, acquired; Z20.822 Contact with and (suspected) exposure to COVID-19; Z82.3 Family history of stroke; Z82.49 Family history of ischemic heart disease and other diseases of the circulatory system; Z87.891 Personal history of nicotine dependence
CPT/HCPCS: 31720; 36415; 36430; 36556; 36600; 70450; 71045; 76700; 76937; 77001; 80048; 80053; 80307; 81001; 82140; 82274; 82550; 82607; 82805; 82962; 83010; 83540; 83550; 83735; 83880; 84100; 84132; 84443; 84484; 85007; 85014; 85018; 85025; 85027; 85045; 85610; 86850; 86900; 86901; 86920; 87040; 87086; 87426; 93005; 93306; 94640; 94660; 94760; 96361; 96374; C1892; C9113; J0282; J0692; J0878; J1160; J1630; J2060; J2270; J2543; J3411; J3475; J3480; J3490; J7030; J7060; P9016; U0003; U0005; 97530-GP; 99285-25; G0378

== ENCOUNTER 2021-03-16 20:00 | Inpatient (IN) | payer OTHER ==
[~2021-03-16] VITALS: Ht 170.2 cm; Wt 99.0 kg
[2021-03-16 15:00] VITALS: BP 86/56
[~2021-03-16 20:00] MED LIST changes: +CALC500T54 PO; +PIOG30TA62 PO
[2021-03-16] MEDS ORDERED: PROMETHAZINE 25 MG SUPP.RECT. PR PRN (20:45)
[2021-03-16] MEDS ORDERED: ACETAMINOPHEN 650 MG SUPP.RECT. PR PRN (20:45)
[2021-03-17] MEDS: MORPHINE SULFATE 20 MG/ML CONC SOLUTION. SL PRN ×6 (00:47→21:43)
[2021-03-17] MEDS: LORazepam INTENSOL 2 MG/ML ORAL.CONC SL PRN ×3 (00:48→19:48)
--- NOTE | 2021-03-17 06:10 | NUR ---
Received Mr Boykin at approximately 0610, 5 liters N/c, bed alarm set, ritter to dependent drainage, patient is moaning, non-verbal,
--- NOTE | 2021-03-17 08:34 | PN ---
DATE: 03/17/2021 DAILY PROGRESS NOTE LOCATION: He is in room #574. SUBJECTIVE: The patient is transferred to palliative care/hospice per family request last evening. OBJECTIVE: GENERAL: The patient is comfortable. He is on 5 liters per nasal cannula oxygen. His pain and discomfort seems much better controlled at this point. CHEST: Reveals bilateral rhonchi. HEART: Regular. ABDOMEN: Benign. ASSESSMENT: Palliative care for overwhelming medical issues including profound anemia, acute kidney failure, leukocytosis, etc. PLAN: Continue comfort care. Family is on board and hospice help is appreciated. DONALDO DR: Mee TID: [id number]
--- NOTE | 2021-03-17 13:00 | NUR ---
Patient resting quietly, resp deep. Hospice nurse in to see patient this am. [employer] in to sit with patient,
--- NOTE | 2021-03-17 19:59 | NUR ---
In a discussion with Laura-the Hospice nurse, she agreed that patient continues to be anxious, moaning, so the additional Roxanol (15)mg and ativan o.5 mg given sublingual, monitoring the effectiveness.
[2021-03-18] MEDS: MORPHINE SULFATE 20 MG/ML CONC SOLUTION. SL PRN ×4 (02:31→15:58)
[2021-03-18] MEDS: LORazepam INTENSOL 2 MG/ML ORAL.CONC SL PRN ×3 (04:24→15:58)
--- NOTE | 2021-03-18 05:15 | NUR ---
Wall suction with [employer] set up for suctioning as needed, monitoring
[2021-03-18] MEDS ORDERED: POLYVINYL ALCOHOL 1.4% OPHTH SOLUTION 15ML BOTTLE. OU PRN (16:30)
[2021-03-19] MEDS: MORPHINE SULFATE 20 MG/ML CONC SOLUTION. SL PRN ×5 (04:47→20:15)
--- NOTE | 2021-03-19 08:23 | PN ---
DATE: 03/19/2021 DAILY PROGRESS NOTE LOCATION: He is in room 574. SUBJECTIVE: This 75-year-old male remains on hospice with palliative care and [facility] type setting. The patient appears relatively comfortable. Does respond minimally to voice with opening his eyes, but does not follow or communicate. Respiratory rate is slowed from prior down around 10-12 breaths per minute with occasional pauses. OBJECTIVE: CHEST: Reveals bilateral rhonchi. HEART: Regular. ABDOMEN: Benign. ASSESSMENT: Palliative care with patient near terminal status. PLAN: Continue comfort care. Hospice help appreciated. CRISTIAN DR: Mee TID: [id number]
[2021-03-19] MEDS: LORazepam INTENSOL 2 MG/ML ORAL.CONC SL PRN (08:41)
[2021-03-20] MEDS: MORPHINE SULFATE 20 MG/ML CONC SOLUTION. SL PRN (03:48)
--- NOTE | 2021-03-20 06:39 | NUR ---
Pt at 0408. Pt's brother, Hugo, notified of pt's passing and came to fruit or nut picker pt's belongings. adoption agent Rogelio at bedside.
== END 2021-03-20 07:20 | DRG 684 ==
LOC: 6 SOUTH 20:00 → 5 SOUTH 03-17 06:10
PROVIDERS: ADMIT Family Medicine; ATTEND Family Medicine
DX: N17.9 Acute kidney failure, unspecified (principal); D64.9 Anemia, unspecified; D72.829 Elevated white blood cell count, unspecified; Z51.5 Encounter for palliative care
CPT/HCPCS: G0378